=== PATIENT | female | born 1995 | race Hispanic/Latino ===

== ENCOUNTER 2019-11-04 04:52 | Observation (INO) | payer OTHER, SELFPAY ==
[2019-11-04] VITALS (19 sets, daily range): BP systolic 82–122; BP diastolic 34–73; PULSE 70–133; RESP 12–24; TEMP 36.8–37.9; O2SAT 94–100; BMI 33.3
--- NOTE | ~2019-11-04 | XR_ITS ---
EXAMINATION: XR retrograde pyelo w/stent LT INDICATION: Left ureteral stone TECHNIQUE: 37 intraoperative fluoroscopic images are submitted for review. Total fluoroscopic time wa s 29.4 seconds. COMPARISON: CT from today FINDINGS: Retrograde opacification of the left collecting system reveals mild hydronephrosis. IMPRESSION: Mild left hydronephrosis.. Please refer to procedure note for full details. Reviewed, dictated and finalized at location A. DRIVER
--- NOTE | ~2019-11-04 | CT_ITS ---
EXAMINATION: CT abdomen pelvis w con DATE: 11/04/2019 07:28 INDICATION: Left flank and abdominal pain, nausea and fever TECHNIQUE: Computed tomography (CT) of the abdomen and pelvis was performed with 100 mL Omnipaque-350 intravenous contrast. Automated exposure control and iterative reconstruction technique were employe d. The dose-length product was 385.46 mGy-cm. COMPARISON: None FINDINGS: Lung bases are clear. Heart size is normal. No pericardial or pleural effusion. Liver, gallbladder, s pleen, pancreas, bilateral adrenal glands and right kidney are normal. 15 x 5 x 6 mm obstructing prox imal left ureteral stone with mild to moderate left hydronephrosis and delayed left nephrogram. There is prominent urothelial enhancement along the left renal pelvis and proximal ureter with mild perine phric and periureteral stranding. Normal appendix. No abnormal bowel wall thickening or obstruction. Bladder, anteverted uterus and right adnexa are normal. 2.2 x 1.4 cm peripheral enhancing likely fidel us luteum cyst at the left ovary. Small amount of ascites in the pelvis. No pathologically enlarged a bdominal or pelvic lymphadenopathy. Bones are unremarkable. IMPRESSION: 1. Obstructing 15 x 5 x 6 mm proximal left ureteral stone with mild to moderate left hydronephrosis a nd delayed left nephrogram. The presence of urothelial hyperemia and perirenal stranding with clinica l history of fever raises concern for ascending urinary tract infection and would correlate with urin alysis. Reviewed, dictated and finalized at location A. MAKER PRODUCTION IMPRESSION: 1. Obstructing 15 x 5 x 6 mm proximal left ureteral stone with mild to moderate left hydronephrosis and delayed left nephrogram. The presence of urothelial hy peremia and perirenal stranding with clinical history of fever raises concern f or ascending urinary tract infection and would correlate with urinalysis.
--- NOTE | ~2019-11-04 | XR_ITS ---
EXAMINATION: XR abdomen/kub 1V EXAM DATE: 11/05/2019 13:04 INDICATION: Reassessed on position. Left ureteral stent. TECHNIQUE: Frontal projection(s) of the abdomen for interpretation. Comparison is made to prior exami nation from 07/28/2019. Correlation was made with CT abdomen pelvis from 11/04/2019. FINDINGS: There is been interval placement of a left-sided double-J ureteral stent overlying expecte d position. Previously seen proximal ureteral stone measuring over 1 cm identified along the mid aspe ct of the stent, position appears not significantly changed compared to location on yesterday's CT. N onobstructive bowel gas pattern. There are no osseous abnormalities identified. IMPRESSION: Large left mid ureteral stone, stent in position. Reviewed, dictated and finalized at location B. ICAL TRIAL COORDINATOR
[2019-11-04 06:05] LABS: Add Urine Microscopic? YES; Appearance Urine Cloudy (Clear); Bilirubin Urine Negative (Negative); Blood Urine 1+ (Negative); Color Urine Yellow (Yellow); Glucose Urine UA Negative (Negative); Ketones Urine Trace mg/dL (Negative); Leukocyte Esterase Ur 3+ LEU/UL (Negative); Mucus Urine Few /lpf; Nitrate Urine Negative (Negative); Protein Urine 1+ mg/dL (Negative); RBC Urine 21-50 /hpf (0-2); Specific Grav Ur 1.021 (1.001-1.035); Squamous Epithelial Cell Urine Few /hpf (Few); Urobilinogen Urine Negative mg/dL (<2.0); WBC Clumps Urine Present /HPF; WBC Urine >75 /hpf
--- NOTE | 2019-11-04 06:16 | ED.ABDPAIN ---
HPI - Abdominal Pain General Chief Complaint: Urogenital-Female Stated Complaint: flank pain Time Seen by Provider: 11/04/19 06:09 Source: old records reviewed History of Present Illness HPI narrative: Patient presents emergency department from home for left flank pain. Patient states symptoms began yesterday. Pain is located left flank radiation and also the abdomen. States associated with nausea and vomiting. Patient states she tried taking Tylenol with last dose yesterday. States she has a history of kidney stones and feels like previous gets kidney stones and is followed by Dr. Malone. Patient denies any fevers or chills, chest pain, diarrhea or any other symptoms. Related Data Home Medications Medication Instructions Recorded Confirmed Herbal Sleep Aid 1 cap PO HS 09/21/19 09/29/19 clonazepam 1 mg PO DAILY PRN 09/21/19 09/29/19 ergocalciferol (vitamin D2) 50,000 unit PO WEEKLY 09/21/19 09/29/19 [Vitamin D2] Allergies Allergy/AdvReac Type Severity Reaction Status Date / Time No Known Allergies Allergy Verified 09/29/19 07:39 Review of Systems Review of Systems: Narrative: Gen.: Denies fevers or chills ENT: Denies congestion Respiratory: Denies shortness of breath or cough CV: Denies chest pain or palpitations GI: Reports abdominal pain nausea and emesis denies diarrhea see HPI Musculoskeletal: Denies back pain or muscle pain Neuro: Denies numbness, tingling, weakness or focal weakness Skin: Denies rash Except as documented, all other systems reviewed and negative PMFSH Past Medical History Medical History Anxiety Asthma Asthma Depression Depression HPV (human papilloma virus) anogenital infection HPV (human papilloma virus) infection HSV (herpes simplex virus) anogenital infection Kidney stone Kidney stone UTI (urinary tract infection) Surgical History Surgical History (System 08/14/19 @ 16:33 by No Zamudio) S/P cystoscopy with ureteral stent placement Social History Social History Social History: She works at a [employer]. She denies any tobacco, drug or alcohol use currently. She has 2 children ages 5 and 7 who are healthy. Smoking status: Never smoker Tobacco type: cigarettes Second hand tobacco smoke exposure: No Smoking end date: 07/30/19 Alcohol intake: never Substance use: never Substance use type: does not use Gender identity (if verbalized by the patient): Female Spiritual care concerns: No Agree to blood products: Yes Exam Narrative: Exam Narrative: APPEARANCE: No acute distress, nontoxic, resting in bed EYES: EOMI HEENT: Normocephalic, atraumatic, OMM RESPIRATORY: No respiratory distress Clear to auscultation bilaterally with no rhonchi wheezing or rales. CARDIOVASCULAR: Regular rate and rhythm without murmurs rubs or gallops. ABDOMINAL: Soft, nondistended, tender palpation left upper quadrant left lower quadrant, no tenderness right upper quadrant right lower quadrant, no rebound or guarding, left flank tenderness MUSCULOSKELETAl: Moves all extremities. No clubbing, cyanosis or edema. NEURO: Awake and alert. Following commands, speech normal, no focal deficits SKIN:: Warm, dry. No rashes lesions or abrasions PSYCHIATRIC: Normal affect/mood, Course Course Emergency Course: Called discussed Dr. Ko. Will come and evaluate patient in the ED Dr. Fermin in ED. Plan take patient to the OR at this time : Discussed Dr Tong presentation work-up. Accepts admission of the patient following our Discussed with patient and family results of workup and diagnosis. Discussed need for admission. Patient and family understand and agree to current treatment plan Vital Signs Vital signs: Vital Signs Temperature 98.7 F 11/04/19 04:57 Pulse Rate 133 H 11/04/19 04:57 Respiratory Rate 20 11/04/19 04:57 Blood Pres
[2019-11-04] MEDS: ONDANSETRON INJ 4 MG/2 ML VIAL IV PUSH (06:38)
[2019-11-04 06:51] LABS: Hematocrit 36.5 % (37.0-47.0); Mean Corpuscular HGB Conc 32.9 g/dl (32-36); Mean Corpuscular Hemoglobin 28.6 pg (26-34); Mean Corpuscular Volume 87.1 fl (80-100); Mean Platelet Volume 12.2 fl (7.4-10.4); Platelet Count Result 191 k/mm3 (150-375); Red Blood Count 4.19 M/mm3 (4.2-5.4); Red Cell Distribution Width 12.4 % (11.5-14.5); White Blood Count 19.1 K/mm3 (4.5-10.0)
[2019-11-04 07:02] LABS: Band Neutrophils Percent 1 % (0-6); Lactic Acid Reflex 1.1 mmol/L (0.7-2.1); Lymphocytes Absolute Manual 0.76 K/mm3 (1.1-4.5); Monocytes Absolute Manual 0.57 K/mm3 (0.1-0.90); Monocytes Percent Manual 3 % (3-9); Neutrophils Absolute Manual 17.76 K/mm3 (1.7-7.2); Neutrophils Percent Manual 92 % (46-73); Total Cells Counted 100
[2019-11-04 07:03] LABS: Platelet Estimate Adequate (Adequate)
[2019-11-04 07:09] LABS: Alanine Aminotransferase 15 U/L (4-35); Albumin Level 3.9 g/dL (3.5-5.1); Alkaline Phosphatase 81 U/L (38-126); Aspartate Amino Transferase 20 U/L (14-36); Bilirubin,Total 0.5 mg/dL (0.2-1.3); Blood Urea Nitrogen 14 mg/dL (7-17); Calcium 8.5 mg/dL (8.4-10.2); Carbon Dioxide 26 mmol/L (22-30); Chloride 99 mmol/L (98-107); Estimated Glomerular Filt Rate > 60; Glucose 111 mg/dL (65-105); Potassium 3.9 mmol/L (3.4-5.0); Sodium 136 mmol/L (137-145)
[2019-11-04] MEDS: LACTATED RINGERS 1,000 ML 999 ML IV CONT ×2 (07:14→08:23)
--- NOTE | 2019-11-04 09:02 | WPDURCON ---
Assessment and Plan Assessment and plan (1) Sepsis: Code(s): A41.9 - Sepsis, unspecified organism Status: Acute (2) Left ureteral calculus: Code(s): N20.1 - Calculus of ureter Status: Acute Assessment and Plan: 24 yo with 15mm left mid-ureteral stone, UTI, sepsis - IV antbiotics - admit to medical service - plan emergent left ureteral stent insertion. risks, benefits and alterntives discussed with patient and agrees to proceed. Urology Consult Note HPI Date Seen: 11/04/19 Primary Care Provider: Janette Armstrong, Consult Narrative Narrative: Carlota Vazquez is a 24 year old female with one day of left sided flank pain, fever, chills. history of ureteroscopy and stone extraction 07/2019, had post procedure sepsis. 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 She denies any tobacco, drug or alcohol use currently. She has 2 children ages 5 and 7 who are healthy. Smoking status: Never smoker Tobacco type: cigarettes Second hand tobacco smoke exposure: No Smoking end date: 07/30/19 Alcohol intake: never Substance use: never Substance use type: does not use Gender identity (if verbalized by the patient): Female Spiritual care concerns: No Agree to blood products: Yes Meds Home Medications and Allergies Home Medications Medication Instructions Recorded Confirmed Type Herbal Sleep Aid 1 cap PO HS 09/21/19 09/29/19 History clonazepam 1 mg PO DAILY PRN 09/21/19 09/29/19 History ergocalciferol (vitamin D2) 50,000 unit PO WEEKLY 09/21/19 09/29/19 History [Vitamin D2] Allergies Allergy/AdvReac Type Severity Reaction Status Date / Time No Known Allergies Allergy Verified 09/29/19 07:39 Vital Signs Vital Signs - 24 hr 11/04/19 04:57 11/04/19 05:45 11/04/19 08:41 Temperature 37.1 C 37.2 C 37.0 C Pulse Rate 133 H 87 Respiratory Rate 20 15 16 Blood Pressure 122/71 108/63 Pulse Oximetry 99 100 Exam Const: General: uncomfortable Eyes: General: appearance normal, both eyes and all related structures Resp: Effort & Inspection: normal respiratory effort Cardio: Rate: tachycardic Skin: General skin exam: normal color Results Labs CBC & Chem 7: 11/04/19 06:35 11/04/19 06:35 Labs: Short CBC 11/04/19 Range/Units 06:35 WBC 19.1 H (4.5-10.0) K/mm3 Hgb 12.0 (12.0-15.0) g/dL Hct 36.5 L (37.0-47.0) % Plt Count 191 (150-375) k/mm3 BMP 11/04/19 06:35 Sodium 136 L Potassium 3.9 Chloride 99 Carbon Dioxide 26 BUN 14 D Creatinine 1.00 Glucose 111 H Calcium 8.5 Liver Function 11/04/19 Range/Units 06:35 Total Bilirubin 0.5 (0.2-1.3) mg/dL AST 20 (14-36) U/L ALT 15 (4-35) U/L Alkaline Phosphatase 81 (38-126) U/L Albumin 3.9 (3.5-5.1) g/dL Urine 11/04/19 Range/Units 05:52 Urine Color Yellow (Yellow) Urine Appearance Cloudy H (Clear) Urine pH 6.0 (5.0-9.0) Ur Specific [place] 1.021 (1.001-1.035) Urine Protein 1+ H (Negative) mg/dL Urine Glucose (UA) Negative (Negative) mg/dL
[2019-11-04] MEDS: MORPHINE SULFATE 2 MG/ML INJ IV PUSH ×2 (09:38→20:19)
--- NOTE | 2019-11-04 10:04 | WPDANESEPPF ---
Anes - Initial Pre Proc Eval Procedure: Operation Date: 11/04/19 12:00 Proposed Procedures p Cystoscopy,Left Stent Placement - Ramon Ko MD Date/Time: 11/04/19 10:04 Surgeon: Ramon Ko MD Pre Op Diagnosis: flank pain Patient Data Age: 24 Gender: F Height: 4 ft 9 in Weight: 65.7 kg Last Vital Signs Temp 37.0 C 11/04/19 08:41 Pulse 87 11/04/19 08:41 Resp 16 11/04/19 08:41 BP 108/63 11/04/19 08:41 Pulse Ox 100 11/04/19 08:41 Allergies Allergy/AdvReac Type Severity Reaction Status Date / Time No Known Allergies Allergy Verified 09/29/19 07:39 Home Medications Medication Instructions Recorded Confirmed Type Herbal Sleep Aid 1 cap PO HS 09/21/19 09/29/19 History clonazepam 1 mg PO DAILY PRN 09/21/19 09/29/19 History ergocalciferol (vitamin D2) 50,000 unit PO WEEKLY 09/21/19 09/29/19 History [Vitamin D2] Laboratory Tests 11/04/19 11/04/19 11/04/19 05:52 06:35 06:35 WBC 19.1 K/mm3 H K/mm3 (4.5-10.0) RBC 4.19 M/mm3 L M/mm3 (4.2-5.4) Hgb 12.0 g/dL g/dL (12.0-15.0) Hct 36.5 % L % (37.0-47.0) MCV 87.1 fl fl (80-100) MCH 28.6 pg pg (26-34) MCHC 32.9 g/dl g/dl (32-36) RDW 12.4 % % (11.5-14.5) Plt Count 191 k/mm3 k/mm3 (150-375) MPV 12.2 fl H fl (7.4-10.4) Immature Gran % (Auto) Not Reportable Neut % (Auto) Not Reportable Lymph % (Auto) Not Reportable Yell % (Auto) Not Reportable Eos % (Auto) Not Reportable Baso % (Auto) Not Reportable Lymph # (Auto) Not Reportable Yell # (Auto) Not Reportable Eos # (Auto) Not Reportable Baso # (Auto) Not Reportable Abs Immat Gran (auto) Not Reportable Absolute Neuts (auto) Not Reportable Absolute Nucleated RBC Not Reportable Total Counted 100 Neutrophils % (Manual) 92 % H % (46-73) Band Neutrophils % 1 % % (0-6) Lymphocytes % (Manual) 4.0 % L % (18-44) Monocytes % (Manual) 3 % % (3-9) Nucleated RBC % Not Reportable Abs Neuts (Manual) 17.76 K/mm3 H K/mm3 (1.7-7.2) Abs Lymphs (Manual) 0.76 K/mm3 L K/mm3 (1.1-4.5) Abs Monocytes (Manual) 0.57 K/mm3 K/mm3 (0.1-0.90) Platelet Estimate Adequate (Adequate) Sodium 136 mmol/L L mmol/L (137-145) Potassium 3.9 mmol/L mmol/L (3.4-5.0) Chloride 99 mmol/L mmol/L (98-107) Carbon Dioxide 26 mmol/L mmol/L (22-30) BUN 14 mg/dL D mg/dL (7-17) Creatinine 1.00 mg/dL mg/dL (0.7-1.0) Estim Creat Clear Calc Not Reportable Estimated GFR > 60 (59 - ) Glucose 111 mg/dL H mg/dL (65-105) Lactic Acid Calcium 8.5 mg/dL mg/dL (8.4-10.2) Total Bilirubin 0.5 mg/dL mg/dL (0.2-1.3) AST 20 U/L U/L (14-36) ALT 15 U/L U/L (4-35) Alkaline Phosphatase 81 U/L U/L (38-126) Total Protein 8.0 g/dL g/dL (6.3-8.2) Albumin 3.9 g/dL g/dL (3.5-5.1) Urine Color Yellow (Yellow) Urine Appearance Cloudy H (Clear) Urine pH 6.0 (5.0-9.0) Ur Specific [place] 1.021 (1.001-1.035) Urine Protein 1+ mg/dL H mg/dL (Negative) Urine Glucose (UA) Negative mg/dL mg/dL (Negative) Urine Ketones Trace mg/dL mg/dL (Negative) Ur Blood (Man) 1+ H (Negative) Urine Nitrate Negative (Negative) Urine Bilirubin Negative (Negative) Urine Urobilinogen Negative mg/dL mg/dL (<2.0) Leukocyte Esterase Rfl 3+ SYDNEY/UL H SYDNEY/UL (Negative) Urine RBC 21-50 /hpf H /hpf (0-2) Urine WBC >75 /hpf H /hpf Urine WBC Clum
[2019-11-04] MEDS: LACTATED RINGERS 1,000 ML 30 ML IV CONT ×2 (10:10→12:52)
--- NOTE | 2019-11-04 12:45 | PM.PROC ---
Procedure Note - Detailed Date of procedure: 11/04/19 Pre-op diagnosis: flank pain Post-op diagnosis: same Procedure performed: cyst Description of procedure: cystoscopy, left ureteral stent insertion, RPG Anesthesia: GLMA Surgeon: Ramon Ko MD Estimated blood loss (mL): 0 Complications: No immediate complications Condition: stable Disposition: PACU Findings: Informed consent obtained. Pt given pre-op antibiotics in the ER. Pt induced with anesthesia, placed in dorsal lithotomy, prepped and drapped in normal sterile fashion. 22F cystoscope inserted in the bladder. Normal mucosa with bilateral orthotopic ureteral orfices. The left orfice was cannulated with a wire, 5F catheter inserted and urine sent for culture. RPG showing moderate left hydroneohrosis. 6F stent placed with a curl in upper pole and curl in bladder. Bladder drained with 16F pollack.
--- NOTE | 2019-11-04 12:59 | SUR.OPER ---
1000mg IV Tylenol given intraoperatively at 1230 by Tamiko Leija CRNA via IV. Medication was unable to be entered into the system.
--- NOTE | 2019-11-04 14:38 | SUR.PHASEI ---
1415: Katherine, nurse equipment manager, spoke with Dr. Tong in regards to consult. When a room becomes available for patient she will be transported there and Dr. Tong will see her up there.
--- NOTE | 2019-11-04 14:55 | SUR.PHASEI ---
1455: Patient stated, I will contact my mom with my room number.
--- NOTE | 2019-11-04 15:25 | PC.NURSE ---
This patient, Carlota Vazquez, was admitted to 3 [facility] Surg Room 316-02. Patient/family oriented to hospital policies and general routines including ID bracelet, bed and alarms, visiting hours, pain management, procedures, bathroom and other care routines, personal items, smoking policy, room service/diet, and visiting hours. Valuables list has been completed. Information on how to activate the Rapid Response Team has been discussed. Patient/Family are encouraged to report perceived risks to care and to ask questions if they do not understand what they are told or what they should do.
[2019-11-04] MEDS: DEXTROSE 5%/0.45% SOD CHL 1,000 ML 100 ML IV CONT (15:53)
[2019-11-04 16:20] LABS: Hematocrit 34.4 % (37.0-47.0); Hemoglobin 11.2 g/dL (12.0-15.0); Mean Corpuscular HGB Conc 32.6 g/dl (32-36); Mean Corpuscular Hemoglobin 28.6 pg (26-34); Mean Platelet Volume 12.4 fl (7.4-10.4); Platelet Count Result 164 k/mm3 (150-375); Red Blood Count 3.91 M/mm3 (4.2-5.4); Red Cell Distribution Width 12.7 % (11.5-14.5); White Blood Count 22.6 K/mm3 (4.5-10.0)
[2019-11-04 16:42] LABS: Blood Urea Nitrogen 8 mg/dL (7-17); Calcium 8.5 mg/dL (8.4-10.2); Carbon Dioxide 27 mmol/L (22-30); Chloride 103 mmol/L (98-107); Estimated Glomerular Filt Rate > 60; Glucose 107 mg/dL (65-105); Potassium 3.9 mmol/L (3.4-5.0); Sodium 137 mmol/L (137-145)
[2019-11-04] MEDS: DOCUSATE SODIUM 100 MG CAPSULE PO (17:35)
--- NOTE | 2019-11-04 22:30 | PM.IMHP ---
H&P: HPI History of Present Illness Chief complaint: Left flank pain. 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 She developed sharp shooting pains in the left flank yesterday, which radiates somewhat into the left mid and lower quadrant. She also had nausea and vomiting with the pain, and also reports chills. She was found to have obstructing 15 x 5 x 6 millimeter proximal left ureteral stone with mild to moderate left hydronephrosis. She is now status post cystoscopy with left ureteral stent insertion per Dr. Fermin. At the time my evaluation, she complains of being cold and thinks that her temperature is returning. A Guzman catheter is in place, and just recently she has been having discomfort and feeling the need to urinate. Her pain is also been increasing, and she is wondering if the stone is mobilizing. She was able to eat dinner postoperatively, and has had some mild nausea but no vomiting. Review of Systems Review of Systems: All systems reviewed & are unremarkable except as noted in HPI and below PMFSH Past Medical History Medical History (Updated 11/04/19 @ 21:57 by Rufina Kwon PA-C) Anxiety Asthma Chronic anemia Depression HPV (human papilloma virus) anogenital infection Kidney stone UTI (urinary tract infection) History of multidrug resistant Proteus mirabilis UTI. Surgical History Surgical History S/P cystoscopy with ureteral stent placement Family History Family History Mother Depression Anxiety Kidney stones Father Family history unknown Sibling Family history normal Grandparent Diabetes mellitus Other Family history of malignant neoplasm of cervix Social History Social History Social History: the patient lives in [place]. 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 she has 2 children, ages 5 and 7, who are healthy. She denies any tobacco, drug or alcohol use currently. Designates her mother, Renay, as her surrogate decision maker and she wishes to be a full code. Spiritual care concerns: No Agree to blood products: Yes Meds Home Medications and Allergies Home Medications Medication Instructions Recorded Confirmed Type clonazepam 1 mg PO DAILY PRN 09/21/19 11/04/19 History ergocalciferol (vitamin D2) 50,000 unit PO WEEKLY 09/21/19 11/04/19 History [Vitamin D2] Allergies Allergy/AdvReac Type Severity Reaction Status Date / Time No Known Allergies Allergy Verified 11/04/19 10:15 Vital Signs Vital Signs - 24 hr 11/04/19 04:57 11/04/19 05:45 11/04/19 08:41 Temperature 98.7 F 99.0 F 98.6 F Pulse Rate 133 H 87 Respiratory Rate 20 15 16 Blood Pressure 122/71 108/63 Pulse Oximetry 99 100 11/04/19 09:43 11/04/19 10:30 11/04/19 13:01 Temperature 98.9 F 100.2 F H Pulse Rate 91 100 105 H Respiratory Rate 18 18 12 Blood Pressure 104/54 L 107/66 82/34 L Pulse Oximetry 99 99 100 11/04/19 13:15 11/04/19 13:30 11/04/19 13:45 Temperature 99.0 F Pulse Rate 114 H 111 H 101 H Respiratory Rate 20 16 18 Blood Pressure 103/68 113/66 109/64 Pulse Oximetry 99 100 95 11/04/19 14:00 11/04/19 14:15 11/04/19 14:30 Temperature Pulse Rate 103 H 95 92 Respiratory Rate 22 H 20 17 Blood Pressure 112/65 104/68 113/60 Pulse Oximetry 98 97 98 11/04/19 14:45 11/04/19 15:10 11/04/19 15:25 Temperature Pulse Rate 91 94 76 Respiratory Rate 24 H 18 16 Blood Pressure 106/73 105/64 111/60 Pulse Oximetry 97 94 98 11/04/19 15:40 11/04/19 16:10 11/04/19 17:10 Temperature 98.5 F Pulse Rate 78 71 70 Respiratory Rate 16 16 16 Blood Pressure 109/71 110
[2019-11-05] VITALS (11 sets, daily range): BP systolic 92–133; BP diastolic 49–62; PULSE 78–118; RESP 16–20; TEMP 36.4–38.9; O2SAT 97–100
[2019-11-05] MEDS: MORPHINE SULFATE 2 MG/ML INJ IV PUSH ×4 (01:12→19:16)
[2019-11-05] MEDS: ACETAMINOPHEN 325 MG TABLET 650 MG PO ×2 (01:29→17:19)
[2019-11-05] MEDS: CLONAZEPAM 0.5 MG TAB 1 MG PO (01:53)
[2019-11-05] MEDS: SODIUM CHLORIDE 0.9% IV 1,000 ML 100 ML IV CONT ×3 (02:56→23:36)
[2019-11-05 06:44] LABS: Basophils Percent Auto 0.2 % (0.2-1.2); Hematocrit 32.9 % (37.0-47.0); Hemoglobin 10.6 g/dL (12.0-15.0); Immature Granulocyte Absolute 0.17 K/mm3 (0.00-0.031); Immature Granulocyte Percent A 0.8 % (0-0.5); Lymphocytes Absolute Auto 0.89 K/mm3 (0.9-3.2); Lymphocytes Percent Auto 4.4 % (18.3-44.2); Mean Corpuscular HGB Conc 32.2 g/dl (32-36); Mean Corpuscular Hemoglobin 28.7 pg (26-34); Mean Corpuscular Volume 89.2 fl (80-100); Mean Platelet Volume 12.7 fl (7.4-10.4); Monocytes Absolute Auto 1.1 K/mm3 (0.1-0.6); Monocytes Percent Auto 5.4 % (2.6-8.5); Neutrophils Absolute Auto 18.2 K/mm3 (1.3-6.7); Neutrophils Percent Auto 89.2 % (45.5-73.1); Platelet Count Result 176 k/mm3 (150-375); Red Blood Count 3.69 M/mm3 (4.2-5.4); Red Cell Distribution Width 12.6 % (11.5-14.5); White Blood Count 20.4 K/mm3 (4.5-10.0)
[2019-11-05 07:03] LABS: Blood Urea Nitrogen 9 mg/dL (7-17); Calcium 8.3 mg/dL (8.4-10.2); Carbon Dioxide 24 mmol/L (22-30); Chloride 102 mmol/L (98-107); Estimated Glomerular Filt Rate > 60; Glucose 160 mg/dL (65-105); Potassium 3.5 mmol/L (3.4-5.0); Sodium 137 mmol/L (137-145)
[2019-11-05] MEDS: DOCUSATE SODIUM 100 MG CAPSULE PO ×2 (08:38→19:15)
[2019-11-05] MEDS: ONDANSETRON INJ 4 MG/2 ML VIAL IV PUSH (09:29)
--- NOTE | 2019-11-05 12:49 | WPDUROPN2 ---
Progress Note: A&P Assessment and Plan (1) Sepsis: Code(s): A41.9 - Sepsis, unspecified organism Status: Acute (2) UTI (urinary tract infection): Code(s): N39.0 - Urinary tract infection, site not specified Status: Acute (3) Left ureteral calculus: Code(s): N20.1 - Calculus of ureter Status: Acute Assessment and Plan: POD #1 - left ureteral stent - continue empric Ceftriaxone, await final cultures - KUB today - will need outpatient stone surgery once infection has cleared Subjective Subjective Date/Time Seen: 11/05/19 12:49 Interval history: feeling better Review of Systems Review of Systems: All systems reviewed & are unremarkable except as noted in HPI and below Exam Const: General: no acute distress Resp: Effort & Inspection: normal respiratory effort Urinary Catheter: Urinary Catheter: patent and draining Neuro: Speech: normal speech Extrem: General: normal to inspection Objective Data Vital Signs Vital Signs: Vital Signs - 24 hr 11/04/19 13:01 11/04/19 13:15 11/04/19 13:30 Temperature 37.9 C H Pulse Rate 105 H 114 H 111 H Respiratory Rate 12 20 16 Blood Pressure 82/34 L 103/68 113/66 Pulse Oximetry 100 99 100 11/04/19 13:45 11/04/19 14:00 11/04/19 14:15 Temperature 37.2 C Pulse Rate 101 H 103 H 95 Respiratory Rate 18 22 H 20 Blood Pressure 109/64 112/65 104/68 Pulse Oximetry 95 98 97 11/04/19 14:30 11/04/19 14:45 11/04/19 15:10 Temperature Pulse Rate 92 91 94 Respiratory Rate 17 24 H 18 Blood Pressure 113/60 106/73 105/64 Pulse Oximetry 98 97 94 11/04/19 15:25 11/04/19 15:40 11/04/19 16:10 Temperature 36.9 C Pulse Rate 76 78 71 Respiratory Rate 16 16 16 Blood Pressure 111/60 109/71 110/66 Pulse Oximetry 98 98 99 11/04/19 17:10 11/04/19 22:00 11/05/19 01:29 Temperature 36.8 C 38.5 C H Pulse Rate 70 83 Respiratory Rate 16 16 Blood Pressure 112/61 91/40 L Pulse Oximetry 100 98 11/05/19 02:21 11/05/19 02:49 11/05/19 06:00 Temperature 36.6 C 37.4 C 36.7 C Pulse Rate 108 H 94 Respiratory Rate 18 16 Blood Pressure 133/61 92/49 L Pulse Oximetry 100 97 11/05/19 10:00 Temperature 36.4 C L Pulse Rate 79 Respiratory Rate 16 Blood Pressure 103/58 L Pulse Oximetry 99 Intake/Output Intake/Output: Intake & Output 11/02/19 11/03/19 11/04/19 11/05/19 23:59 23:59 23:59 23:59 Intake Total 4650 1090 Output Total 1900 1200 Balance 2750 -110 Meds/Results Medications: Active Medications Generic Name Dose Route Start Last Admin Trade Name Freq PRN Reason Stop Dose Admin Acetaminophen 650 mg 11/05/19 01:23 11/05/19 01:29 Tylenol Tablet PO 650 mg Q6H PRN Administration Mild Pain (1-3) or Fever Hydrocodone Bitart/Acetaminophen 1 tab 11/04/19 15:17 11/05/19 02:56 [place] 5-325 Mg PO 1 tab Q4H PRN Administration Pain Rated 1-6 Clonazepam 1 mg 11/04/19 15:17 11/05/19 01:53 Klonopin Tablet PO 1 mg DAILY PRN Administration Anxiety Docusate Sodium 100 mg 11/04/19 17:00 11/05/19 08:38 Colace Capsule PO 100 mg BID MATILDA Administration Ceftriaxone Sodium/Dextrose 1 gm in 50 mls @ 100 mls/hr 11/05/19 09:00 11/05/19 09:09 Rocephin 1 Gm/D5w 50 Ml IVPB Infused DAILY MATILDA Infusion Sodium Chloride 1,000 mls @ 100 mls/hr 11/05/19 02:20 11/05/19 02:56 Normal Saline Iv IV CONT 100 mls/hr .Q10H MATILDA Administration Morphine Sulfate 2 mg 11/04/19 15:17 11/05/19 12:18 Morphine Sulfate Inj IV PUSH 2 mg Q2H PRN Administration Pain Rated 7-10 Naloxone HCl 0.1 mg 11/04/19 15:17 Narcan IV PUSH Q2M PRN Opiate Reversal Ondansetron HCl 4 mg 11/04/19 15:17 11/05/19 09:29 Zofran Inj IV PUSH 4 mg Q12H PRN Administration Nausea And Vomiting Radiology Results: ITS Impressions Abdomen/Pelvis CT 11/04/19 07:58 IMPRESSION: 1. Obstructing 15 x 5 x 6 mm proximal left ureteral stone wit
--- NOTE | 2019-11-05 14:51 | P.PNAN_ITS ---
Anes - Prog Note Post-Op Date/Time: 11/05/19 14:51 Cardiovascular status: normal Respiratory status: normal Airway patency: baseline Mental status: baseline Post-Op hydration status: normal Vital Signs: Last Vital Signs Temp 97.5 F L 11/05/19 10:00 Pulse 79 11/05/19 10:00 Resp 16 11/05/19 10:00 BP 103/58 L 11/05/19 10:00 Pulse Ox 99 11/05/19 10:00 I/O: Intake & Output 11/04/19 11/05/19 11/05/19 23:59 07:59 15:59 Intake Total 845 481 6759 Output Total 1200 1200 Balance -700 -480 1370 Laboratory Tests 11/05/19 06:19 11/05/19 06:19 11/04/19 11/04/19 11/05/19 16:06 16:06 06:19 WBC 22.6 H 20.4 H RBC 3.91 L 3.69 L Hgb 11.2 L 10.6 L Hct 34.4 L 32.9 L MCV 88.0 89.2 MCH 28.6 28.7 MCHC 32.6 32.2 RDW 12.7 12.6 Plt Count 164 176 MPV 12.4 H 12.7 H Immature Gran % (Auto) 0.8 H Neut % (Auto) 89.2 H Lymph % (Auto) 4.4 L Isabela % (Auto) 5.4 Eos % (Auto) 0.0 Baso % (Auto) 0.2 Lymph # (Auto) 0.89 L Isabela # (Auto) 1.1 H Eos # (Auto) 0.0 Baso # (Auto) 0.0 Abs Immat Gran (auto) 0.17 H Absolute Neuts (auto) 18.2 H Absolute Nucleated RBC 0.0 Nucleated RBC % 0.0 Sodium 137 Potassium 3.9 Chloride 103 Carbon Dioxide 27 BUN 8 D Creatinine 0.60 L Estim Creat Clear Calc Not Reportable Estimated GFR > 60 Glucose 107 H Calcium 8.5 11/05/19 06:19 WBC RBC Hgb Hct MCV MCH MCHC RDW Plt Count MPV Immature Gran % (Auto) Neut % (Auto) Lymph % (Auto) Isabela % (Auto) Eos % (Auto) Baso % (Auto) Lymph # (Auto) Isabela # (Auto) Eos # (Auto) Baso # (Auto) Abs Immat Gran (auto) Absolute Neuts (auto) Absolute Nucleated RBC Nucleated RBC % Sodium 137 Potassium 3.5 Chloride 102 Carbon Dioxide 24 BUN 9 Creatinine 0.70 Estim Creat Clear Calc Not Reportable Estimated GFR > 60 Glucose 160 H Calcium 8.3 L Microbiology 11/04/19 06:35 Blood Blood Culture - Preliminary 11/04/19 06:46 Blood Blood Culture - Preliminary 11/04/19 05:52 Urine Clean Catch Urine Culture - Final Post-procedural complaints: none Patient Feedback: Patient satisfied with anesthetic care.
--- NOTE | 2019-11-05 15:46 | PM.IMPN ---
Progress Note: A&P Assessment and Plan (1) Sepsis: Code(s): A41.9 - Sepsis, unspecified organism Status: Acute Assessment and Plan: Sepsis on admission. Lactic acid level is normal, blood cultures are pending Continue iv hydration and IV rocephin (2) Left ureteral calculus: Code(s): N20.1 - Calculus of ureter Status: Acute Assessment and Plan: CT scan demonstrated a large obstructing proximal left ureteral stone measuring 15 x 5 x 6 millimeters with mild hydronephrosis. 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 On iv rocephin , blood cultures pending Pt had fever yesterday Subjective Date/time seen: 11/05/19 15:46 Interval history: 24 year old female with a history of kidney stones and multidrug resistant Proteus mirabilis urinary tract infections who presented to the emergency department earlier this morning for evaluation of left flank pain. She is now status post cystoscopy with left ureteral stent insertion per Dr. Fermin. Pt still having some mild let flank pain and had fever last night. Second episode of kidney stones. Review of Systems Review of Systems: All systems reviewed & are unremarkable except as noted in HPI and below Exam Narrative: Exam Narrative: General: A well-developed, younger female HEENT: Normocephalic Neck: Supple. Respiratory: Lungs are clear to auscultation bilaterally. Cardiovascular: Regular rate and rhythm with S1-S2. Gastrointestinal: Abdomen is soft and nondistended, some left flank TTP Genitourinary: Guzman catheter draining yellow urine. leaking now. Skin: Warm and dry Extremities: No cyanosis, clubbing, or edema. Neurological: Alert. Cranial nerves 2-12 are grossly intact. No gross focal deficits to casual conversation. Psychiatric: Pleasant Objective Data Vital Signs Vital Signs: Vital Signs - 24 hr 11/04/19 16:10 11/04/19 17:10 11/04/19 22:00 Temperature 36.8 C Pulse Rate 71 70 83 Respiratory Rate 16 16 16 Blood Pressure 110/66 112/61 91/40 L Pulse Oximetry 99 100 98 11/05/19 01:29 02/13/20 02:21 11/05/19 02:49 Temperature 38.5 C H 36.6 C 37.4 C Pulse Rate 108 H Respiratory Rate 18 Blood Pressure 133/61 Pulse Oximetry 100 11/05/19 06:00 11/05/19 10:00 Temperature 36.7 C 36.4 C L Pulse Rate 94 79 Respiratory Rate 16 16 Blood Pressure 92/49 L 103/58 L Pulse Oximetry 97 99 Intake/Output Intake/Output: Intake & Output 11/02/19 11/03/19 11/04/19 11/05/19 23:59 23:59 23:59 23:59 Intake Total 4650 2090 Output Total 1900 1200 Balance 2750 890 Meds/Results Medications: Active Medications Generic Name Dose Route Start Last Admin Trade Name Freq PRN Reason Stop Dose Admin Acetaminophen 650 mg 11/05/19 01:23 11/05/19 01:29 Tylenol Tablet PO 650 mg Q6H PRN Administration Mild Pain (1-3) or Fever Hydrocodone Bitart/Acetaminophen 1 tab 11/04/19 15:17 11/05/19 02:56 [place] 5-325 Mg PO 1 tab Q4H PRN Administration Pain Rated 1-6 Clonazepam 1 mg 11/04/19 15:17 11/05/19 01:53 Klonopin Tablet PO 1 mg DAILY PRN Administration Anxiety Docusate Sodium 100 mg 11/04/19 17:00 11/05/19 08:38 Colace Capsule PO 100 mg BID MATILDA Administration Ceftriaxone Sodium/Dextrose 1 gm in 50 mls @ 100 mls/hr 11/05/19 09:00 11/05/19 09:09 Rocephin 1 Gm/D5w 50 Ml IVPB Infused DAILY MATILDA Infusion Sodium Chloride 1,000 mls @ 100 mls/hr 11/05/19 02:20 11/05/19 14:39 Normal Saline Iv IV CONT 100 mls/hr .Q10H MATILDA Administration Morphine Sulfate 2 mg 11/04/19 15:17 11/05/19 15:32 Morphine Sulfate Inj
--- NOTE | 2019-11-05 20:45 | PC.NURSE ---
Patient up and urinated after removing pollack @[id number].
[2019-11-06] VITALS (7 sets, daily range): BP systolic 96–118; BP diastolic 43–56; PULSE 75–114; RESP 16; TEMP 36.8–38.4; O2SAT 94–97
[2019-11-06] MEDS: ACETAMINOPHEN 325 MG TABLET 650 MG PO ×3 (01:17→19:53)
[2019-11-06] MEDS: MORPHINE SULFATE 2 MG/ML INJ IV PUSH ×2 (01:18→14:09)
[2019-11-06 06:26] LABS: Hematocrit 31.4 % (37.0-47.0); Hemoglobin 9.9 g/dL (12.0-15.0); Mean Corpuscular HGB Conc 31.5 g/dl (32-36); Mean Corpuscular Hemoglobin 28.4 pg (26-34); Mean Corpuscular Volume 90.2 fl (80-100); Mean Platelet Volume 12.2 fl (7.4-10.4); Platelet Count Result 161 k/mm3 (150-375); Red Blood Count 3.48 M/mm3 (4.2-5.4); Red Cell Distribution Width 12.7 % (11.5-14.5); White Blood Count 12.8 K/mm3 (4.5-10.0)
[2019-11-06 06:38] LABS: Blood Urea Nitrogen 7 mg/dL (7-17); Calcium 7.6 mg/dL (8.4-10.2); Carbon Dioxide 25 mmol/L (22-30); Chloride 102 mmol/L (98-107); Estimated Glomerular Filt Rate > 60; Glucose 86 mg/dL (65-105); Potassium 3.4 mmol/L (3.4-5.0); Sodium 137 mmol/L (137-145)
[2019-11-06] MEDS: SODIUM CHLORIDE 0.9% IV 1,000 ML 100 ML IV CONT ×2 (08:57→19:55)
[2019-11-06] MEDS: DOCUSATE SODIUM 100 MG CAPSULE PO ×2 (10:02→17:11)
--- NOTE | 2019-11-06 10:30 | WPDUROPN2 ---
Progress Note: A&P Assessment and Plan (1) Left ureteral calculus: Code(s): N20.1 - Calculus of ureter Status: Acute (2) UTI (urinary tract infection): Code(s): N39.0 - Urinary tract infection, site not specified Status: Acute Assessment and Plan: Overall, improving with diminished serum WBC and diminishing fever spikes - typical pattern of resolution with upper urinary tract infections. Blood and urine cultures both showing no growth but I suspect this is factitious. Would continue Ceftriaxone until afebrile [id number] and then plan Omnicef x10 days. Subjective Subjective Date/Time Seen: 11/06/19 10:30 Discouraged by ongoing fever. Tolerating stent well. Review of Systems Cardiovascular: Cardiovascular: Denies chest pain, Denies lightheadedness, Denies palpitations and Denies dyspnea Respiratory: Respiratory: Denies dyspnea Gastrointestinal: Gastrointestinal: Denies diarrhea, Denies nausea and Denies vomiting Genitourinary: Genitourinary: Denies hematuria and Denies dysuria Endocrine: Endocrine: Denies palpitations Exam Const: General: no acute distress Resp: Effort & Inspection: normal respiratory effort GI: Inspection: non-distended GI Palp: No abdominal tenderness and No Guarding due to palpation present (GI) Auscultation: normal bowel sounds Objective Data Vital Signs Vital Signs: Vital Signs - 24 hr 11/05/19 17:07 11/05/19 17:19 11/05/19 18:27 Temperature 38.9 C H 38.9 C H 38.0 C H Pulse Rate 101 H 118 H Respiratory Rate 20 20 Blood Pressure 99/53 L 118/62 Pulse Oximetry 99 100 11/05/19 19:15 11/05/19 22:00 11/06/19 01:17 Temperature 37.1 C 37.6 C 37.9 C H Pulse Rate 85 Respiratory Rate 16 Blood Pressure 105/50 L Pulse Oximetry 100 11/06/19 02:00 11/06/19 02:17 11/06/19 06:00 Temperature 38.4 C H 38.4 C H 36.8 C Pulse Rate 114 H 78 Respiratory Rate 16 16 Blood Pressure 103/52 L 96/43 L Pulse Oximetry 94 96 11/06/19 08:00 Temperature Pulse Rate 78 Respiratory Rate 16 Blood Pressure Pulse Oximetry 96 Intake/Output Intake/Output: Intake & Output 11/03/19 11/04/19 11/05/19 11/06/19 23:59 23:59 23:59 23:59 Intake Total 4650 3590 1380 Output Total 1900 2024 Balance 2750 1565 1380 Meds/Results Medications: Active Medications Generic Name Dose Route Start Last Admin Trade Name Freq PRN Reason Stop Dose Admin Acetaminophen 650 mg 11/05/19 01:23 11/06/19 10:00 Tylenol Tablet PO 650 mg Q6H PRN Administration Mild Pain (1-3) or Fever Hydrocodone Bitart/Acetaminophen 1 tab 11/04/19 15:17 11/06/19 03:44 [place] 5-325 Mg PO 1 tab Q4H PRN Administration Pain Rated 1-6 Clonazepam 1 mg 11/04/19 15:17 11/05/19 01:53 Klonopin Tablet PO 1 mg DAILY PRN Administration Anxiety Docusate Sodium 100 mg 11/04/19 17:00 11/06/19 10:02 Colace Capsule PO 100 mg BID MATILDA Administration Ceftriaxone Sodium/Dextrose 1 gm in 50 mls @ 100 mls/hr 11/05/19 09:00 11/06/19 08:56 Rocephin 1 Gm/D5w 50 Ml IVPB 125 mls/hr DAILY MATILDA Administration Sodium Chloride 1,000 mls @ 100 mls/hr 11/05/19 02:20 11/06/19 08:57 Normal Saline Iv IV CONT 100 mls/hr .Q10H MATILDA Administration Morphine Sulfate 2 mg 11/04/19 15:17 11/06/19 01:18 Morphine Sulfate Inj IV PUSH 2 mg Q2H PRN Administration Pain Rated 7-10 Naloxone HCl 0.1 mg 11/04/19 15:17 Narcan IV PUSH Q2M PRN Opiate Reversal Ondansetron HCl 4 mg 11/04/19 15:17 11/05/19 09:29 Zofran Inj IV PUSH 4 mg Q12H PRN Administration Nausea And Vomiting Radiology Results: ITS Impressions Abdomen/Pelvis CT 11/04/19 07:58 IMPRESSION: 1. Obstructing 15 x 5 x 6 mm proximal left ureteral stone with mild to moderate left hydronephrosis and delayed left nephrogram. The presence of urothelial hyperemia and perirenal stranding with clinical history of fever raises concern fo
--- NOTE | 2019-11-06 11:30 | PC.NURSE ---
AT 1015 DR DOBSON IN TO SEE PT AND EXPLAINED ABOUT HER TEMP/ PAIN FRIEND IN ROOM AT TIME'
--- NOTE | 2019-11-06 11:32 | PC.NURSE ---
1030 DR GILMORE IN TO SEE PT DR VERMA AND EXPLAINED THAT HER WBC WERE HIGH AND NOW THEY HAVE COME DOWN 12.8 SHE EXPLAINED ABOUT HER ANTIBIOTIC AND WHY SHE IS ON THAT PARTICULAR ANTIBOTIC SHE TOLD HER SHE HAS PENDING CULTURES. FAMILY OR FRIEND IN ROOM. PT STATES THAT SHE HAS NOT SEEN A DR. BUT DR DOBSON WAS IN APPROX [address] ATKINS WAS IN YESTERDAY X2 AND CHECKED ON PT. SCANNED HER ABDOMEN WITH US NO BLADDER DISTENTION NOTED SCANNED 70CC OF URINE IN BLADDER.
--- NOTE | 2019-11-06 11:52 | PC.NURSE ---
1140 DR ZIEGLER IN ROOM AND REVIEWED PT'S CONDITION NEW DRESSING APPLIED TO IV SITE TO LEFT SHANTEL.
--- NOTE | 2019-11-06 11:53 | PC.NURSE ---
CALLED DR DOBSON OFFICE AND REPORTED ABDOMINAL TENDERNESS DR TRINIDAD WILL BE SEEING HER AND ORDERS RECEIGVED TO GET CT OF ABDOMEN AND PELVIS.
[2019-11-06 12:26] LABS: Add Urine Microscopic? YES; Appearance Urine Clear (Clear); Bacteria Urine Trace /hpf; Bilirubin Urine Negative (Negative); Blood Urine 1+ (Negative); Color Urine Yellow (Yellow); Glucose Urine UA Negative (Negative); Ketones Urine 1+ mg/dL (Negative); Leukocyte Esterase Ur 1+ LEU/UL (Negative); Mucus Urine Rare /lpf; Nitrate Urine Negative (Negative); Protein Urine Negative (Negative); Specific Grav Ur 1.014 (1.001-1.035); Squamous Epithelial Cell Urine Many /hpf (Few); Urobilinogen Urine Negative mg/dL (<2.0); WBC Urine 16-20 /hpf
[2019-11-06] MEDS: ONDANSETRON INJ 4 MG/2 ML VIAL IV PUSH (14:05)
--- NOTE | 2019-11-06 14:56 | PM.IMPN ---
Progress Note: A&P Assessment and Plan (1) Sepsis: Code(s): A41.9 - Sepsis, unspecified organism Status: Acute Assessment and Plan: Sepsis on admission. Lactic acid level is normal, blood cultures are pending Continue iv hydration and IV rocephin (2) Left ureteral calculus: Code(s): N20.1 - Calculus of ureter Status: Acute Assessment and Plan: CT scan demonstrated a large obstructing proximal left ureteral stone measuring 15 x 5 x 6 millimeters with mild hydronephrosis. 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 On iv rocephin , blood cultures pending Pt had fever and having ongoing fevers Although she feels unwell with fevers her UTI is resolving. Urology agrees pt is improving and there is no need for further CT scans of the abdomen at this point. Rpt UA was ordered and ID consult was made. Pt to continue on iv rocephin, tylenol for fever and oxybutynin twice a day, toradol prn for mild pain, and morphine for severe pain. Subjective Date/time seen: 11/06/19 14:56 Interval history: 24 year old female with a history of kidney stones and multidrug resistant Proteus mirabilis urinary tract infections who presented to the emergency department earlier this morning for evaluation of left flank pain. She is now status post cystoscopy with left ureteral stent insertion per Dr. Fermin. Pt still having some mild left flank pain and had fever. Second episode of kidney stones. Fever ongoing, pt feels upset complaining of left flank pain and headaches. Discussed with pt that her WCC are improving, UC is negative but her BC is still pending. Although she feels unwell with fevers her UTI is resolving. Urology agrees pt is improving and there is no need for further CT scans of the abdomen at this point. Rpt UA was ordered and ID consult was made. Pt mentions her IV line looks red, explained to her that the iv changed be changed but is not infected. Long discussion on the phone with patients sister, Subhash, discussed pts condition and results so far. Pt to continue on iv rocephin, tylenol for fever and oxybutynin twice a day, toradol prn for mild pain, and morphine for severe pain. Review of Systems Review of Systems: All systems reviewed & are unremarkable except as noted in HPI and below Gastrointestinal: Comments: Left flank pain Musculoskeletal: Comments: Mild headache Exam Narrative: Exam Narrative: General: Younger female feels hot, feverish and unwell HEENT: Normocephalic Neck: Supple. Respiratory: Lungs are clear to auscultation bilaterally. Cardiovascular: Regular rate and rhythm with S1-S2. Gastrointestinal: Abdomen is soft and nondistended, some left flank TTP Genitourinary: Guzman catheter draining yellow urine. leaking now. Skin: Warm and dry Extremities: No cyanosis, clubbing, or edema. Neurological: Alert. Cranial nerves 2-12 are grossly intact. No gross focal deficits to casual conversation. Psychiatric: Upset Objective Data Vital Signs Vital Signs: Vital Signs - 24 hr 11/05/19 17:07 11/05/19 17:19 11/05/19 18:27 Temperature 38.9 C H 38.9 C H 38.0 C H Pulse Rate 101 H 118 H Respiratory Rate 20 20 Blood Pressure 99/53 L 118/62 Pulse Oximetry 99 100 11/05/19 19:15 11/05/19 22:00 11/06/19 01:17 Temperature 37.1 C 37.6 C 37.9 C H Pulse Rate 85 Respiratory Rate 16 Blood Pressure 105/50 L Pulse Oximetry 100 11/06/19 02:00 11/06/19 02:17 11/06/19 06:00 Temperature 38.4 C H 38.4 C H 36.8 C Pulse Rate 114 H 78 Respiratory Rate 16 16 Blood Pressure 103/52 L 96/43 L Pulse Oximetry 94 96 11/06/19 08:00 Temp
[2019-11-06] MEDS: CLONAZEPAM 0.5 MG TAB 1 MG PO (16:16)
--- NOTE | 2019-11-06 17:46 | PC.NURSE ---
HAS PT FOR THE COMFORT OF HER FAMILY AND FRIENDS WOULD SHE LIKE TO HAVE A PRIVATE ROOM. PT STATES NO'''
--- NOTE | 2019-11-06 18:51 | PC.NURSE ---
DR HERNANDEZ HERE TO CHECK ON PT. TALKED WITH PT REPORTED THAT CULTURES NOT BACK YET, SHE DISCUSSED THE PAIN MEDS SHE CAN HAVE. NO FURTHER FEVER TODAY. REPORTED THAT MORPHINE MAKES HER FEEL ALITTLE WIPREMRD, SAYS SHE WILL TRY THE TORADOL NEXT TIME.
--- NOTE | 2019-11-06 18:55 | CONS_ITS ---
DATE OF CONSULTATION: 11/06/2019 REASON FOR CONSULTATION: UTI. HISTORY OF PRESENT ILLNESS: The patient is a 24-year-old female who denies previous renal stones or severe urinary tract infection. However, she reports others history of stones and also Proteus UTI. She presented to the emergency room on the with left flank pain with radiation, also nausea, vomiting, and chills. Shortly after arrival, she has taken to the operating room where she had cystoscopy with left ureteral stent insertion. Pain persists. Appetite has been diminished, but not 0 and her nausea and vomiting have improved. She has had no events here in the hospital otherwise. She has been on ceftriaxone, now day #3. No antibiotics prior to admission. ALLERGIES: NONE KNOWN. PRESENT MEDICATIONS: Ceftriaxone as above. HABITS: No tobacco or alcohol. MEDICAL HISTORY: In addition to the above, HPV, depression, anemia, asthma, and anxiety. REVIEW OF SYSTEMS: , GI, constitutional, respiratory, skin negative other than dysuria. FAMILY HISTORY: Kidney stones, cervical cancer. SOCIAL HISTORY: She is single. Works. Lives locally. No family at the bedside currently. PHYSICAL EXAMINATION: GENERAL: This is a young female who appears her actual age. No acute distress. VITAL SIGNS: Her temperature shortly after admission was 37.9 and yesterday T-max of 38.9, currently afebrile, 96/43, 78, 16, 96%. SKIN: Warm and dry. EENT: The conjunctivae are normal. Oral mucosa is also normal. NECK: Without mass, thyromegaly, or meningismus. LUNGS: Clear to auscultation. BACK: CVAT on the left as well as left flank tenderness. CARDIAC: Regular rate and rhythm. No murmur, gallop, or rub. ABDOMEN: Mildly obese, nontender. No organomegaly. No masses. Nontender elsewhere. EXTREMITIES: No clubbing, cyanosis, or edema. LABORATORY DATA: White count was 20.4 yesterday, 12.8 today, hemoglobin 9.9, platelets are 161. Her differential earlier had a mild left shift, not repeated. Chemistry panel today normal after glucose of 160 yesterday. Urinalysis today with 1+ leukocyte esterase, 11 to 20 red cells, 16 to 20 white cells. Previous urinalysis was more suggestive of infection. Urine culture from November 04, multiple organisms. Blood cultures from the same. No growth so far. Another urine specimen obtained also on the 12th, no growth. RADIOLOGICAL DATA: Abdomen and pelvic CT with a proximal left ureteral stone and left hydronephrosis. This is a 15 mm in maximum dimension. Retrograde pyelogram showed similar findings in the operating room. ASSESSMENT: 1. Complicated urinary tract infection with renal stone, postop day #2, stent. She is currently improving despite the ongoing fever. No organisms are yet identified on urine or blood cultures. Other causes of her fever are unlikely. 2. Nephrolithiasis. 3. Hyperglycemia, resolved. RECOMMENDATIONS: 1. Continue ceftriaxone. 2. Follow up on Microbiology testing. 3. She will need at least 48 hours more of IV antibiotics. Thank you very much for asking me to see her. DARLEEN PEMBERTON M.D. INTERNAL CONTROL CONSULTANT INTERNAL CONTROL CONSULTANT D I MT: Lizbeth
[2019-11-06] MEDS: KETOROLAC 10 MG TABLET PO (19:54)
[2019-11-07] MEDS: MORPHINE SULFATE 2 MG/ML INJ IV PUSH ×3 (04:27→22:53)
[2019-11-07 05:56] VITALS: BP 120/72; PULSE 91; RESP 16; TEMP 36.8; O2SAT 100
[2019-11-07 06:28] LABS: Basophils Percent Auto 0.1 % (0.2-1.2); Eosinophils Percent Auto 0.5 % (0-4.4); Immature Granulocyte Absolute 0.04 K/mm3 (0.00-0.031); Immature Granulocyte Percent A 0.5 % (0-0.5); Lymphocytes Absolute Auto 1.36 K/mm3 (0.9-3.2); Lymphocytes Percent Auto 16.8 % (18.3-44.2); Mean Corpuscular HGB Conc 32.3 g/dl (32-36); Mean Corpuscular Hemoglobin 28.1 pg (26-34); Mean Corpuscular Volume 87.1 fl (80-100); Mean Platelet Volume 11.7 fl (7.4-10.4); Monocytes Absolute Auto 0.7 K/mm3 (0.1-0.6); Neutrophils Absolute Auto 5.9 K/mm3 (1.3-6.7); Neutrophils Percent Auto 73.1 % (45.5-73.1); Platelet Count Result 217 k/mm3 (150-375); Red Blood Count 3.56 M/mm3 (4.2-5.4); Red Cell Distribution Width 12.5 % (11.5-14.5); White Blood Count 8.1 K/mm3 (4.5-10.0)
[2019-11-07 06:40] LABS: Blood Urea Nitrogen 6 mg/dL (7-17); Calcium 7.8 mg/dL (8.4-10.2); Carbon Dioxide 27 mmol/L (22-30); Chloride 104 mmol/L (98-107); Estimated Glomerular Filt Rate > 60; Glucose 83 mg/dL (65-105); Potassium 3.4 mmol/L (3.4-5.0); Sodium 139 mmol/L (137-145)
[2019-11-07] MEDS: SODIUM CHLORIDE 0.9% IV 1,000 ML 100 ML IV CONT (08:32)
[2019-11-07] MEDS: DOCUSATE SODIUM 100 MG CAPSULE PO ×2 (08:34→18:11)
[2019-11-07] MEDS: ACETAMINOPHEN 325 MG TABLET 650 MG PO (09:30)
[2019-11-07] MEDS: ONDANSETRON INJ 4 MG/2 ML VIAL IV PUSH (09:32)
[2019-11-07 14:00] VITALS: BP 91/43; PULSE 61; RESP 20; TEMP 36.6; O2SAT 100
--- NOTE | 2019-11-07 15:09 | PM.IMPN ---
Progress Note: A&P Assessment and Plan (1) Sepsis: Code(s): A41.9 - Sepsis, unspecified organism Status: Acute Assessment and Plan: Sepsis on admission. Lactic acid level is normal, blood cultures are pending Continue IV rocephin, stop iv hydration (2) Left ureteral calculus: Code(s): N20.1 - Calculus of ureter Status: Acute Assessment and Plan: CT scan demonstrated a large obstructing proximal left ureteral stone measuring 15 x 5 x 6 millimeters with mild hydronephrosis. 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 On iv rocephin , blood cultures pending Pt had fever and having ongoing fevers Although she feels unwell with fevers her UTI is resolving. Urology agrees pt is improving and there is no need for further CT scans of the abdomen at this point. Rpt UA was ordered and ID consult was made. Pt to continue on iv rocephin, tylenol for fever and oxybutynin twice a day, toradol prn for mild pain, and morphine for severe pain. Continue iv abx until tomorrow and discharge as per ID Subjective Date/time seen: 11/07/19 15:09 Interval history: 24 year old female with a history of kidney stones and multidrug resistant Proteus mirabilis urinary tract infections who presented to the emergency department earlier this morning for evaluation of left flank pain. She is now status post cystoscopy with left ureteral stent insertion per Dr. Fermin. Pt still having some mild left flank pain and had fever. Second episode of kidney stones. Fever ongoing, pt feels upset complaining of left flank pain and headaches. Discussed with pt that her WCC are improving, UC is negative but her BC is still pending. Although she feels unwell with fevers her UTI is resolving. Urology agrees pt is improving and there is no need for further CT scans of the abdomen at this point. Rpt UA was ordered and ID consult was made. Pt to continue on iv rocephin, tylenol for fever and oxybutynin twice a day, toradol prn for mild pain, and morphine for severe pain. Pt feels better, fevers last night but low grade, pt has some constipation issues. See by ID continue iv abx until tomorrow and discharge. Review of Systems Review of Systems: All systems reviewed & are unremarkable except as noted in HPI and below Constitutional: Constitutional: Reports fever(s) and Reports lethargy Genitourinary: Genitourinary: Reports flank pain Exam Narrative: Exam Narrative: General: Younger female feels hot and unwell HEENT: Normocephalic Neck: Supple. Respiratory: Lungs are clear to auscultation bilaterally. Cardiovascular: Regular rate and rhythm with S1-S2. Gastrointestinal: Abdomen is soft and nondistended, some left flank TTP Skin: Warm and dry Extremities: No cyanosis, clubbing, or edema. Neurological: Alert. Cranial nerves 2-12 are grossly intact. No gross focal deficits to casual conversation. Psychiatric: Upset because she does not feels well Objective Data Vital Signs Vital Signs: Vital Signs - 24 hr 11/06/19 19:53 11/06/19 22:00 11/07/19 05:56 Temperature 37.6 C 36.9 C 36.8 C Pulse Rate 75 91 Respiratory Rate 16 16 Blood Pressure 118/56 L 120/72 Pulse Oximetry 97 100 Intake/Output Intake/Output: Intake & Output 11/04/19 11/05/19 11/06/19 11/07/19 23:59 23:59 23:59 23:59 Intake Total 4650 3590 3480 2130 Output Total 1900 2025 300 1700 Balance 2750 1565 3180 430 Meds/Results Medications: Active Medications Generic Name Dose Route Start Last Admin Trade Name Freq PRN Reason Stop Dose Admin Acetaminophen 650 mg 11/05/19 01:23 11/07/19 09:30 Tylenol Tabl
[2019-11-07] MEDS: polyethylene glycoL 3350 17 GM POWD.PACK PO (18:11)
[2019-11-07 22:00] VITALS: BP 128/68; PULSE 65; RESP 16; TEMP 37.1; O2SAT 100
[2019-11-08] MEDS: ACETAMINOPHEN 325 MG TABLET 650 MG PO (01:44)
[2019-11-08] MEDS: ONDANSETRON INJ 4 MG/2 ML VIAL IV PUSH (04:58)
[2019-11-08 06:00] VITALS: BP 108/58; PULSE 55; RESP 16; TEMP 36.2; O2SAT 100
[2019-11-08] MEDS: polyethylene glycoL 3350 17 GM POWD.PACK PO (08:39)
[2019-11-08] MEDS: DOCUSATE SODIUM 100 MG CAPSULE PO (08:39)
--- NOTE | 2019-11-08 12:47 | PM.DS ---
DS: Diagnosis Admitting Diagnosis Admitting Diagnosis: Sepsis, unspecified organism Discharge Diagnosis (1) Sepsis: Code(s): A41.9 - Sepsis, unspecified organism Status: Acute Assessment and Plan: Sepsis on admission. Lactic acid level is normal, blood cultures shows no growth Pt treated with IV rocephin and IV fluids Can be transitioned to oral ampicilin every 6 hours for 10 days as per ID rpt uA shows- vancomycin resistant enterococcus fecalis (2) Left ureteral calculus: Code(s): N20.1 - Calculus of ureter Status: Acute Assessment and Plan: CT scan demonstrated a large obstructing proximal left ureteral stone measuring 15 x 5 x 6 millimeters with mild hydronephrosis. 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 On iv rocephin Pt had fever and having ongoing fevers. Today does not have any fevers Pt to continue on iv rocephin, tylenol for fever and oxybutynin twice a day, toradol prn for mild pain, and morphine for severe pain. Pt is doing well Can be transitioned to oral ampicilin every 6 hours for 10 days as per ID Rpt uA shows- vancomycin resistant enterococcus fecalis DS: Summary Time Spent with Patient Time attestation: Total time spent providing and/or coordinating discharge services:38 minutes on day of dischrage Exam Narrative: Exam Narrative: General: Younger female looks tired HEENT: Normocephalic Neck: Supple. Respiratory: Lungs are clear to auscultation bilaterally. Cardiovascular: Regular rate and rhythm with S1-S2. Gastrointestinal: Abdomen is soft and nondistended, minimal left flank TTP Skin: Dry Extremities: No cyanosis, clubbing, or edema. Neurological: Alert. Cranial nerves 2-12 are grossly intact. No gross focal deficits to casual conversation. Psychiatric: Upset because she does not feels well DS: Data Data Completed and Pending Labs on day of discharge: Preliminary micro results at discharge 11/04/19 06:35 Blood Culture - Preliminary Blood 11/04/19 06:46 Blood Culture - Preliminary Blood Discharge Plan Discharge Attending physician on discharge: Paula Tong Consulting providers: Ramon Ko ; Paula Tong ; Rowdy Burns Discharging Clinician: Paula Tong Anticipated Discharge Date/Time: 11/08/19 12:43 Patient Disposition: Home, Self-Care Activity: as tolerated Diet: regular Patient Instructions: Antibiotic Form, Kidney Stones (DC), Urinary Tract Infection in Women (DC), Vancomycin Resistant Enterococcus Infection (DC), Cystoscopy (DC) Stand Alone Forms: General Discharge Information Follow-up/Referrals: Ramon Ko MD [Physician] - (next week ) Nathaniel,Janette Richardson MD [Primary Care Provider] - Discharge Medications: New oxybutynin chloride 5 mg tablet 5 mg PO BID Qty: 60 RF: 0 polyethylene glycol 3350 [Miralax] 17 gram Powder In Packet 17 g PO QAM Qty: 10 RF: 0 oxybutynin chloride 5 mg tablet 5 mg PO BID Qty: 60 RF: 0 ampicillin 500 mg Capsule 500 mg PO Q6HR 10 Days Qty: 40 RF: 0 Continued clonazepam 1 mg Tablet 1 mg PO DAILY PRN (Reason: Anxiety) RF: 0 ergocalciferol (vitamin D2) [Vitamin D2] 1,250 mcg (50,000 unit) Capsule 50,000 unit PO WEEKLY RF: 0 Date of admission: 11/05/19 11:55 Primary Care Provider: JocelyneJanette Admitting Provider: Ramon Ko Attending physician on admission: Paula Tong
== END 2019-11-08 14:00 | disposition home or self-care (01) ==
LOC: ANHED 08:55 → ANHSURGERY 09:33 → ANH3MEDSUR 14:55 → ANHSURGERY 11-05 12:12 → ANH3MEDSUR 11-05 12:12
PROVIDERS: General Practice; Physician Assistant; Admitting Provider Urology; Emergency Provider Emergency Medicine; PCP Family Medicine; Visit Provider Family Medicine
PROC: (CPT 52352; principal; 2019-11-04 12:00)
DX: A41.9 Sepsis, unspecified organism (principal); N13.6 Pyonephrosis; B95.2 Enterococcus as the cause of diseases classified elsewhere; Z16.21 Resistance to vancomycin; R73.9 Hyperglycemia, unspecified; Z87.440 Personal history of urinary (tract) infections
CPT/HCPCS: 52332; 36415; 74018; 74177; 74420; 80048; 80053; 81001; 81025; 83605; 85025; 85027; 87040; 87077; 87086; 87088; 87186; 96361; 96365; 96367; 96375; 99285; A9270; C1769; C1887; C2617; G0378; G0379; J0131; J0696; J1100; J2250; J2270; J2405; J2704; J3010; J7030; J7120; Q9966; Q9967

== ENCOUNTER 2019-11-10 10:17 | Outpatient (CLI) | payer OTHER, SELFPAY ==
[2019-11-10 11:38] LABS: Beta HCG Quantitative < 2.39 mIU/ML
== END 2019-11-10 10:18 | disposition home or self-care (01) ==
LOC: ANHSURGERY 10:21
PROVIDERS: PCP Family Medicine; Visit Provider Urology
DX: N20.0 Calculus of kidney (principal)
CPT/HCPCS: 36415; 84702; 87086; 87088

== ENCOUNTER 2019-11-13 02:30 | Day surgery (SDC) | payer OTHER, SELFPAY ==
[2019-11-09 13:52] VITALS: BMI 30.2
[2019-11-13] VITALS (8 sets, daily range): BP systolic 98–133; BP diastolic 55–91; PULSE 56–114; RESP 12–16; TEMP 36.2–36.3; O2SAT 100
--- NOTE | ~2019-11-13 | XR_ITS ---
EXAMINATION: XR abdomen/kub 1V DATE: 11/13/2019 10:06 INDICATION: Left ureteral stone. TECHNIQUE: A supine view of the abdomen on 2 radiographs was obtained. COMPARISON: CT abdomen and pelvis 11/04/2019, abdomen radiograph 11/05/2019 FINDINGS: There are no dilated loops of bowel. There is a left internal ureteral stent in expected po sition. There is an 8 mm stone in left ureter at the level of L5. IMPRESSION: 1. 8 mm stone in left ureter with left internal ureteral stent in expected position. Reviewed, dictated and finalized at location A. AR REPAIRER IMPRESSION: 1. 8 mm stone in left ureter with left internal ureteral stent in expected posi tion.
--- NOTE | 2019-11-13 10:40 | WPDHPUPDATE1 ---
History and Physical Update Update Date/Time: 11/13/19 10:40 History and Physical has been reviewed, including an updated exam of the patient. There are NO changes in the patient's condition. Risks, benefits, and alternatives have been discussed and questions answered. Patient agrees to proceed with procedure.
[2019-11-13] MEDS: LACTATED RINGERS 1,000 ML 30 ML IV CONT ×2 (11:00→12:02)
--- NOTE | 2019-11-13 11:02 | WPDANESEPPF ---
Anes - Initial Pre Proc Eval Procedure: Operation Date: 11/13/19 11:00 Proposed Procedures p Left Ureteral Extracorporeal Shock Wave Lithotripsy - Rubin Malone MD Date/Time: 11/13/19 11:02 Surgeon: Rubin Malone MD Pre Op Diagnosis: Left Kidney Stone Patient Data Age: 24 Gender: F Height: 4 ft 9 in Weight: 63.5 kg Allergies Allergy/AdvReac Type Severity Reaction Status Date / Time No Known Allergies Allergy Verified 11/09/19 13:50 Home Medications Medication Instructions Recorded Confirmed Type clonazepam 1 mg PO DAILY PRN 09/21/19 11/09/19 History ergocalciferol (vitamin D2) 50,000 unit PO WEEKLY 09/21/19 11/09/19 History [Vitamin D2] ampicillin 500 mg PO Q6HR 10 Days #40 cap 11/08/19 11/09/19 Rx acetaminophen [Tylenol] 650 mg PO DIRECTED PRN 11/09/19 11/09/19 History oxybutynin chloride 5 mg PO BID PRN 11/09/19 11/09/19 History polyethylene glycol 3350 [Miralax] 17 g PO QAM PRN 11/09/19 11/09/19 History Patient hx anesthesia problems: none Family hx anesthesia problems: none PMFSH Past Medical History Medical History Anxiety Asthma Chronic anemia Depression HPV (human papilloma virus) anogenital infection Kidney stone UTI (urinary tract infection) History of multidrug resistant Proteus mirabilis UTI. Surgical History Surgical History S/P cystoscopy with ureteral stent placement Family History Family History Mother Depression Anxiety Kidney stones Father Family history unknown Sibling Family history normal Grandparent Diabetes mellitus Other Family history of malignant neoplasm of cervix Social History Social History Social History: the patient lives in [place]. 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 she has 2 children, ages 5 and 7, who are healthy. She denies any tobacco, drug or alcohol use currently. Designates her mother, Renay, as her surrogate decision maker and she wishes to be a full code. Spiritual care concerns: No Agree to blood products: Yes Alen - Kishore Final PreProcedure Day of Procedure 11/13/19 11:02 Patient weight: obese Heart: regular rate and rhythm Lungs: clear to auscultation Airway: Mallampati scale class II Neurological: alert and oriented Last oral intake: >/= 8 hours ASA classification: II Emergent: no Anesthetic plan: proceed Anesthesia type and monitoring: general LMA and standard monitoring Informed Consent: The patient's anesthetic plan and its attendant risks and benefits were discussed with the patient/family/POA. Questions were solicited and answers provided to the satisfaction of the patient/family/POA.
--- NOTE | 2019-11-13 11:04 | P.HP_ITS ---
H&P: HPI History of Present Illness Chief complaint: Left Kidney Stone Narrative: Carlota Vazquez is a 24 year old female with a 8mm left ureteral calculus. [facility] Past Medical History Medical History Anxiety Asthma Chronic anemia Depression HPV (human papilloma virus) anogenital infection Kidney stone UTI (urinary tract infection) History of multidrug resistant Proteus mirabilis UTI. Surgical History Surgical History S/P cystoscopy with ureteral stent placement Family History Family History Mother Depression Anxiety Kidney stones Father Family history unknown Sibling Family history normal Grandparent Diabetes mellitus Other Family history of malignant neoplasm of cervix Social History Social History Social History: the patient lives in [place]. 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 she has 2 children, ages 5 and 7, who are healthy. She denies any tobacco, drug or alcohol use currently. Designates her mother, Renay, as her surrogate decision maker and she wishes to be a full code. Spiritual care concerns: No Agree to blood products: Yes Meds Home Medications and Allergies Home Medications Medication Instructions Recorded Confirmed Type clonazepam 1 mg PO DAILY PRN 09/21/19 11/09/19 History ergocalciferol (vitamin D2) 50,000 unit PO WEEKLY 09/21/19 11/09/19 History [Vitamin D2] ampicillin 500 mg PO Q6HR 10 Days #40 cap 11/08/19 11/09/19 Rx acetaminophen [Tylenol] 650 mg PO DIRECTED PRN 11/09/19 11/09/19 History oxybutynin chloride 5 mg PO BID PRN 11/09/19 11/09/19 History polyethylene glycol 3350 [Miralax] 17 g PO QAM PRN 11/09/19 11/09/19 History Allergies Allergy/AdvReac Type Severity Reaction Status Date / Time No Known Allergies Allergy Verified 11/09/19 13:50 Assessment and Plan Assessment and plan (1) Left ureteral calculus: Code(s): N20.1 - Calculus of ureter Status: Acute Assessment and Plan: ESWL of left ureteral calculus
--- NOTE | 2019-11-13 11:56 | PM.PROC ---
Procedure Note - Detailed Date of procedure: 11/13/19 Pre-op diagnosis: Left Kidney Stone 15 mm ureteral calculus left Post-op diagnosis: same Procedure performed: Lithotripsy of left ureteral calculus Description of procedure: Patient was taken to the operative suite and correctly identified. Once general anesthesia was obtained the left ureteral stone was localized in both planes. After 1500 shocks the shock head was rotated in the additional 1500 shocks were given. There appeared to be excellent fragmentation at least fluoroscopically at this time. She is taken to recovery room in stable condition. She will follow up in 7-10 days with a KUB. Anesthesia: GLMA Surgeon: Rubin Malone MD Drains: No Packing: No Pathology: none sent Complications: No immediate complications Condition: stable Disposition: PACU
[2019-11-13] MEDS: TRAMADOL HCL 50 MG TABLET PO (13:45)
[2019-11-13] MEDS: OXYBUTYNIN CHLORIDE 5 MG TABLET PO (13:45)
== END 2019-11-13 14:20 | disposition home or self-care (01) ==
PROVIDERS: PCP Family Medicine; Visit Provider Urology
PROC: (CPT 50590; principal; 2019-11-13 11:00)
DX: N20.1 Calculus of ureter (principal); D64.9 Anemia, unspecified; J45.909 Unspecified asthma, uncomplicated; F41.8 Other specified anxiety disorders; A63.0 Anogenital (venereal) warts; E66.9 Obesity, unspecified; Z68.29 Body mass index [BMI] 29.0-29.9, adult
CPT/HCPCS: 50590; 74018; A9270; J1100; J2250; J2405; J2704; J3010; J7120

== ENCOUNTER 2019-11-24 11:31 | Outpatient (CLI) | payer OTHER, SELFPAY ==
--- NOTE | ~2019-11-24 | XR_ITS ---
XR abdomen/kub 1V 11/24/2019 11:54 Indication: Left ureteral stone Procedure: KUB Comparison: Comparison to multiple prior studies sequentially, with oldest reviewed study dated 10/19. Findings: Bowel gas pattern is nonobstructive. There is a left internal ureteral stent in expected po sition. There is a distal left ureteral stone measuring 2-3 mm. No acute osseous abnormality. Impression: 1: Distal left ureteral stone measuring 2-3 mm. Reviewed, dictated and finalized at location B. ILE DESIGNER Impression: 1: Distal left ureteral stone measuring 2-3 mm.
== END 2019-11-24 11:32 | disposition home or self-care (01) ==
LOC: ANHIMG 11:35
PROVIDERS: PCP Family Medicine; Visit Provider Urology
DX: N20.1 Calculus of ureter (principal)
CPT/HCPCS: 74018

== ENCOUNTER 2019-11-30 12:38 | Emergency (ER) | payer OTHER, SELFPAY ==
--- NOTE | ~2019-11-30 | CT_ITS ---
EXAMINATION: CT abdomen pelvis wo con EXAM DATE: 11/30/2019 15:20 INDICATION: Urinary stent placed 4 weeks ago. Increasing pain. TECHNIQUE: Spiral CT of the abdomen and pelvis was performed without contrast. Axial, coronal and sag ittal images were reviewed. The dose-length product (DLP) for this examination was 195.12 mGy-cm. T he exposure was tailored according to patient size (auto mA exposure control), and iterative reconstr uction (ASIR) was used as additional dose reduction technique. Comparison is made to prior examinatio n from 11/04/2019. FINDINGS: There is a left-sided double-J ureteral stent in expected position. Previously seen large l eft mid ureteral stone is no longer identified, has been removed. Mild periureteral fat stranding. Th ere is punctate right nephrolithiasis. No hydronephrosis. The uterus is anteverted and morphological ly normal. The bladder is unremarkable. The liver, spleen, adrenal glands and pancreas are unremar kable. Gallbladder is unremarkable. No biliary obstruction. There is no retroperitoneal or pelvic lymphadenopathy. The appendix is normal. The stomach and small bowel are unremarkable. There is expected amount of c olonic stool. No free intraperitoneal gas. The heart is normal in size. There are no pericardial or pleural effusions. The lung bases are unremarkable. There are no significant osseous abnormalit ies identified. IMPRESSION: 1. Left ureteral stent in position. No hydronephrosis or acute findings. 2. Punctate right nephrolithiasis. Reviewed, dictated and finalized at location A.
[2019-11-30 12:56] VITALS: BP 118/58; PULSE 78; RESP 16; TEMP 37; O2SAT 100
[2019-11-30 13:10] LABS: Basophils Percent Auto 0.3 % (0.2-1.2); Eosinophils Absolute Auto 0.2 K/mm3 (0-0.3); Eosinophils Percent Auto 2.4 % (0-4.4); Hematocrit 37.4 % (37.0-47.0); Hemoglobin 11.9 g/dL (12.0-15.0); Immature Granulocyte Absolute 0.02 K/mm3 (0.00-0.031); Immature Granulocyte Percent A 0.3 % (0-0.5); Lymphocytes Absolute Auto 1.84 K/mm3 (0.9-3.2); Lymphocytes Percent Auto 24.7 % (18.3-44.2); Mean Corpuscular HGB Conc 31.8 g/dl (32-36); Mean Corpuscular Hemoglobin 28.3 pg (26-34); Mean Platelet Volume 12.5 fl (7.4-10.4); Monocytes Absolute Auto 0.4 K/mm3 (0.1-0.6); Monocytes Percent Auto 5.8 % (2.6-8.5); Neutrophils Percent Auto 66.5 % (45.5-73.1); Platelet Count Result 255 k/mm3 (150-375); Red Cell Distribution Width 13.3 % (11.5-14.5); White Blood Count 7.5 K/mm3 (4.5-10.0)
[2019-11-30 13:23] LABS: Alanine Aminotransferase 13 U/L (4-35); Albumin Level 4.2 g/dL (3.5-5.1); Alkaline Phosphatase 70 U/L (38-126); Aspartate Amino Transferase 20 U/L (14-36); Bilirubin,Total 0.3 mg/dL (0.2-1.3); Blood Urea Nitrogen 12 mg/dL (7-17); Calcium 9.2 mg/dL (8.4-10.2); Carbon Dioxide 26 mmol/L (22-30); Chloride 103 mmol/L (98-107); Estimated Glomerular Filt Rate > 60; Glucose 89 mg/dL (65-105); Lipase 60 U/L (23-300); Potassium 4.2 mmol/L (3.4-5.0); Sodium 138 mmol/L (137-145)
[2019-11-30] MEDS: MORPHINE SULFATE 2 MG/ML INJ (16:32)
--- NOTE | 2019-11-30 17:42 | ED.FEMALEGU ---
HPI - Female Genitourinary General Chief complaint: Urogenital-Female <Joey Medina PA-C - Last Filed: 11/30/19 17:56> Stated complaint: painful urinary stent <Joey Medina PA-C - Last Filed: 11/30/19 17:56> Time Seen by Provider: 11/30/19 13:24 <Joey Medina PA-C - Last Filed: 11/30/19 17:56> Source: patient <THERESA Valenzuela Last Filed: 11/30/19 17:56> Mode of arrival: ambulatory <THERESA Valenzuela Last Filed: 11/30/19 17:56> Limitations: no limitations <Joey Medina PA-C - Last Filed: 11/30/19 17:56> History of Present Illness HPI Narrative: Patient presents with chief complaint of pain to the left groin area. Patient states that she had a stent placed in the area to pass a large kidney stone approximately 4 weeks. The stent was placed by Dr. Malone. Patient states she has had intermittent pain and pressure to the left groin. She reports taking left over hydrocodone from another procedure to help with pain. She states she felt warm on Staurday but has not documented fever. She denies pain with urination or note hematuria. She states she was told to come to ER after not being able to reach Dr Malone' office. Patient reports having a follow up appointment this week. <Joey Medina PA-C - Last Filed: 11/30/19 17:56> Related Data Home medications: Home Medications Medication Instructions Recorded Confirmed oxybutynin chloride 5 mg PO BID PRN 11/09/19 11/13/19 <THERESA Valenzuela Last Filed: 11/30/19 17:56> Allergies/Adverse reactions: Allergies Allergy/AdvReac Type Severity Reaction Status Date / Time No Known Allergies Allergy Verified 11/30/19 13:14 <THERESA Valenzuela Last Filed: 11/30/19 17:56> Review of Systems Review of Systems: Narrative: CONSTITUTIONAL: Denies fever, chills, or sweats. EYES: Denies visual changes, redness, or discharge. ENT: Denies rhinorrhea, congestion, sore throat, or otalgia. CARDIOVASCULAR: Denies chest pain, palpitations, or edema. RESPIRATORY: Denies cough or dyspnea. GASTROINTESTINAL: Denies abdominal pain, nausea, vomiting, or diarrhea. GENITOURINARY: Reports left groin pain denies dysuria or hematuria. SKIN: Denies rash or itching. MUSCULOSKELETAL: Denies back pain, joint pain, or myalgia. NEUROLOGIC: Denies headache, numbness, dizziness, or weakness. PSYCHIATRIC: Denies anxiety or depression. <Joey Medina PA-C - Last Filed: 11/30/19 17:56> PMFSH Social History Social History: Social History Social History: the patient lives in [place]. 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 she has 2 children, ages 5 and 7, who are healthy. She denies any tobacco, drug or alcohol use currently. Designates her mother, Renay, as her surrogate decision maker and she wishes to be a full code. Spiritual care concerns: No Agree to blood products: Yes <Joey Medina PA-C - Last Filed: 11/30/19 17:56> Exam Narrative: Exam Narrative: GENERAL: Well-appearing, well-nourished, and in no acute distress. HEAD: Normocephalic, atraumatic. EYES: PERRLA and EOMI. ENT: Nares clear, no rhinorrhea or epistaxis. Mucous membranes moist. Oropharynx without tonsillar hypertrophy exudate or other lesions. Bilateral TMs pearly teran nonbulging NECK: Supple. No adenopathy or masses. No carotid bruits or JVD CHEST: Clear to auscultation. No respiratory distress. No wheezes rales or rhonchi HEART: Regular rate and rhythm. No murmur heard. Normal peripheral pulses. ABDOMEN: Soft, tenderness to deep palpation of left groin, nondistended, normal active bowel sounds. EXTREMITIES: Normal range of motion. No edema. SKIN: Warm, dry, no rash. NEURO: No focal deficits. Alert and oriented x3. PSYCH: Normal mood and affect. <THERESA Valenzuela Last Filed: 11/30/19 17:56> Course Vital Signs Vital signs: Vital Signs Temperatur
[2019-11-30 17:57] VITALS: BP 148/78; PULSE 78; RESP 16; O2SAT 97
== END 2019-11-30 17:57 | disposition home or self-care (01) ==
PROVIDERS: Emergency Medicine; Emergency Provider General Practice; PCP Family Medicine
DX: R10.32 Left lower quadrant pain (principal); N20.0 Calculus of kidney; Z87.442 Personal history of urinary calculi; Z96.0 Presence of urogenital implants
CPT/HCPCS: 36415; 74176; 80053; 81025; 83690; 85025; 96374; 96375; 99284; J0131; J2270

== ENCOUNTER 2020-06-27 23:11 | Emergency (ER) | payer OTHER, SELFPAY ==
--- NOTE | ~2020-06-27 | CT_ITS ---
EXAMINATION: CT abdomen pelvis wo con DATE: 06/28/2020 00:45 INDICATION: Right flank pain, dysuria, urinary frequency. History of kidney stones and urinary tract infections. TECHNIQUE: Computed tomography (CT) of the abdomen and pelvis was performed without intravenous contr ast. Automated exposure control and iterative reconstruction technique were employed. Exam dose: 174 .54 mGy-cm total exam DLP. COMPARISON: 12/10/[address] abdomen pelvis FINDINGS: There is mild focal left lower lobe basilar infiltrate. The lung bases are otherwise clear. Normal heart size. No pericardial or pleural effusion. The liver, gallbladder, bile ducts, spleen, pancreas, pancreatic duct and adrenal glands are unremark able. No left renal mass lesion or urinary tract calculus on the left. There is a small nonobstructing lower pole right renal calculus. No right ureteral calculus or right- sided hydroureteronephrosis. The urinary bladder, uterus and adnexal areas are unremarkable. Normal caliber of the abdominal aorta. Approximate 3 x 3.5 cm right adnexal low-attenuation lesion is suggested. Consider pelvic ultrasound examination. No intraperitoneal or retroperitoneal or pelvic mass lesion or adenopathy or ascites is noted otherwise.. There is high density material in the cecum and appendix; no CT evidence of appendicitis. No bowel obstruction, bowel wall thickening, pneumatosis or intraperitoneal free air. End skeletal structures are unremarkable. IMPRESSION: Focal mild infiltrate at the left lung base, left lower lobe Approximately 3 x 3.5 cm possible right adnexal low-attenuation lesion; consider pelvic sonographic c orrelation Reviewed, dictated and finalized at Location A. Reviewed, dictated and finalized at location A. IMPRESSION: Focal mild infiltrate at the left lung base, left lower lobe Approximately 3 x 3.5 cm possible right adnexal low-attenuation lesion; conside r pelvic sonographic correlation
[2020-06-27 23:15] VITALS: BP 124/80; PULSE 89; RESP 18; TEMP 36.1; O2SAT 100
[2020-06-27 23:32] LABS: Add Urine Microscopic? YES; Appearance Urine Cloudy (Clear); Bacteria Urine Trace /hpf; Bilirubin Urine Negative (Negative); Blood Urine 2+ (Negative); Color Urine Yellow (Yellow); Glucose Urine UA Negative (Negative); Ketones Urine Trace mg/dL (Negative); Leukocyte Esterase Ur Negative LEU/UL (Negative); Mucus Urine Few /lpf; Nitrate Urine Negative (Negative); Protein Urine Negative (Negative); RBC Urine 0-2 /hpf (0-2); Specific Grav Ur 1.019 (1.001-1.035); Squamous Epithelial Cell Urine Moderate /hpf (Few); Urobilinogen Urine Negative mg/dL (<2.0); WBC Urine 0-3 /hpf
[2020-06-28] MEDS: SODIUM CHLORIDE 0.9% IV 1,000 ML 999 ML IV CONT (00:59)
[2020-06-28] MEDS: KETOROLAC 30 MG/ML VIAL (*BKC) IV PUSH (00:59)
[2020-06-28 01:05] LABS: Basophils Percent Auto 0.2 % (0.2-1.2); Eosinophils Absolute Auto 0.1 K/mm3 (0-0.3); Eosinophils Percent Auto 0.8 % (0-4.4); Hematocrit 39.4 % (37.0-47.0); Immature Granulocyte Absolute 0.03 K/mm3 (0.00-0.031); Immature Granulocyte Percent A 0.3 % (0-0.5); Lymphocytes Absolute Auto 2.47 K/mm3 (0.9-3.2); Lymphocytes Percent Auto 25.1 % (18.3-44.2); Mean Corpuscular Hemoglobin 29.5 pg (26-34); Mean Corpuscular Volume 89.3 fl (80-100); Mean Platelet Volume 13.4 fl (7.4-10.4); Monocytes Absolute Auto 0.6 K/mm3 (0.1-0.6); Monocytes Percent Auto 5.6 % (2.6-8.5); Neutrophils Absolute Auto 6.7 K/mm3 (1.3-6.7); Platelet Count Result 212 k/mm3 (150-375); Red Blood Count 4.41 M/mm3 (4.2-5.4); Red Cell Distribution Width 12.9 % (11.5-14.5); White Blood Count 9.8 K/mm3 (4.5-10.0)
[2020-06-28 01:14] LABS: Alanine Aminotransferase 13 U/L (4-35); Albumin Level 4.6 g/dL (3.5-5.1); Alkaline Phosphatase 66 U/L (38-126); Anion Gap 12 mmol/L (8-16); Aspartate Amino Transferase 22 U/L (14-36); Bilirubin,Total 0.7 mg/dL (0.2-1.3); Blood Urea Nitrogen 14 mg/dL (7-17); Calcium 9.5 mg/dL (8.4-10.2); Carbon Dioxide 28 mmol/L (22-30); Chloride 102 mmol/L (98-107); Estimated Glomerular Filt Rate > 60; Glucose 89 mg/dL (65-105); Lipase 51 U/L (23-300); Potassium 3.4 mmol/L (3.4-5.0); Sodium 142 mmol/L (137-145)
[2020-06-28] MEDS: BELLADONNA ALK/PHENOB ELIX 10 ML, MAG HYDROX/ALUMINUM HYD/SIMETH 30 ML, LIDOCAINE HCL 2... PO (01:26)
--- NOTE | 2020-06-28 02:36 | ED.GENADULT ---
HPI - General Adult General Chief complaint: Urogenital-Female Stated complaint: urinary symptoms Time Seen by Provider: 06/28/20 00:03 History of Present Illness HPI narrative: Patient is a 24-year-old female who presents the ER with right flank pain. Began yesterday. Persistent is increasing discomfort. Is socially with pain in her lower abdomen and some urinary frequency and urgency. No dysuria. Has history of kidney stones. Concerned she may also have a UTI. Patient reports mild nausea but no vomiting. Patient also reports that she is having significant increase in her heartburn. Related Data Home Medications Medication Instructions Recorded Confirmed oxybutynin chloride 5 mg PO BID PRN 11/09/19 11/13/19 Allergies Allergy/AdvReac Type Severity Reaction Status Date / Time No Known Allergies Allergy Verified 11/30/19 13:14 Review of Systems Review of Systems: All systems reviewed & are unremarkable except as noted in HPI and below Constitutional: Constitutional: Denies chills, Denies fever(s) and Denies weakness ENT: Denies nasal congestion and Denies sore throat Cardiovascular: Cardiovascular: Denies chest pain and Denies radiating jaw, neck or arm pain Gastrointestinal: Gastrointestinal: Reports abdominal pain, Reports nausea and Denies vomiting Genitourinary: Genitourinary: Denies hematuria, Reports nocturia and Reports dysuria PMFSH Social History Social History Social History: the patient lives in [place]. 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 she has 2 children, ages 5 and 7, who are healthy. She denies any tobacco, drug or alcohol use currently. Designates her mother, Renay, as her surrogate decision maker and she wishes to be a full code. Spiritual care concerns: No Agree to blood products: Yes Exam Narrative: Exam Narrative: GENERAL: Well-appearing, well-nourished, and in no acute distress. HEAD: Normocephalic, atraumatic. ENT: Mucous membranes moist. CHEST: Clear to auscultation. No respiratory distress. HEART: Regular rate and rhythm. Normal peripheral pulses. ABDOMEN: Soft, mild epigastric tenderness, nondistended, no CVA tenderness. EXTREMITIES: Normal range of motion. No edema. NEURO: Alert and oriented x3. PSYCH: Normal mood and affect. Course Course Emergency Course: Unremarkable evaluation. Discharge home. GI cocktail for acid reflux. Vital Signs Vital signs: Vital Signs Temperature 97 F L 06/27/20 23:15 Pulse Rate 89 06/27/20 23:15 Respiratory Rate 18 06/27/20 23:15 Blood Pressure 124/80 06/27/20 23:15 Pulse Oximetry 100 06/27/20 23:15 Temperature 97 F L 06/27/20 23:15 Pulse Rate 89 06/27/20 23:15 Respiratory Rate 18 06/27/20 23:15 Blood Pressure 124/80 06/27/20 23:15 Pulse Oximetry 100 06/27/20 23:15 Medical Decision Making Vital Signs Vital Signs: Vital Signs Temperature 97 F L 06/27/20 23:15 Pulse Rate 89 06/27/20 23:15 Respiratory Rate 18 06/27/20 23:15 Blood Pressure 124/80 06/27/20 23:15 Pulse Oximetry 100 06/27/20 23:15 Temperature 97 F L 06/27/20 23:15 Pulse Rate 89 06/27/20 23:15 Respiratory Rate 18 06/27/20 23:15 Blood Pressure 124/80 06/27/20 23:15 Pulse Oximetry 100 06/27/20 23:15 Lab Data Result diagrams: 06/28/20 00:57 06/28/20 00:57 Labs: Lab Results 06/27/20 06/28/20 06/28/20 Range/Units 23:18 00:57 00:57 WBC 9.8 (4.5-10.0) K/mm3 RBC 4.41 (4.2-5.4) M/mm3 Hgb 13.0 (12.0-15.0) g/dL Hct 39.4 (37.0-47.0) % MCV 89.3 (80-100) fl MCH 29.5 (26-34) pg MCHC 33.0 (32-36) g/dl RDW 12.9 (11.5-14.5) % Plt Count 212 (150-375) k/mm3 MPV 13.4 H (7.4-10.4) fl Immature Gran % (Auto) 0.3 (0-0.5) % Neut % (Auto) 68.0 (45.5-73.1) % Lymph % (Auto) 25.1 (18.3-44.2) % [place] % (Auto) 5.6 (2.6-8.5) % Eos %
[2020-06-28 02:55] VITALS: BP 112/62; PULSE 62; RESP 16; O2SAT 100
== END 2020-06-28 02:56 | disposition home or self-care (01) ==
PROVIDERS: Emergency Provider Emergency Medicine; PCP Family Medicine
DX: K21.9 Gastro-esophageal reflux disease without esophagitis (principal)
CPT/HCPCS: 36415; 74176; 80053; 81001; 81025; 83690; 85025; 85055; 96361; 96374; 99284; A9270; J1885; J7030

== ENCOUNTER 2020-07-28 15:26 | Emergency (ER) | payer OTHER, SELFPAY ==
--- NOTE | ~2020-07-28 | XR_ITS ---
EXAMINATION: XR chest 1V portable EXAM DATE: 07/28/2020 16:10 INDICATION: Headache, bodyaches, nausea vomiting shortness of breath. Loss of taste. History of asthm a. TECHNIQUE: Portable AP frontal chest x-ray was obtained. Comparison is made to prior examination from 08/25/2017. FINDINGS: The lungs are clear. There are no pleural effusions. The cardiomediastinal silhouette is within normal limits. There is no pneumothorax suspected. The bones and soft tissues are unremarkab le. IMPRESSION: Normal chest x-ray exam. Reviewed, dictated and finalized at location B. SOMNOGRAPHER IMPRESSION: Normal chest x-ray exam.
[2020-07-28 15:31] VITALS: BP 130/64; PULSE 116; RESP 25; TEMP 37.3; O2SAT 100
[2020-07-28 16:02] LABS: Basophils Percent Auto 0.1 % (0.2-1.2); Eosinophils Percent Auto 0.2 % (0-4.4); Hematocrit 39.6 % (37.0-47.0); Hemoglobin 13.6 g/dL (12.0-15.0); Immature Granulocyte Absolute 0.03 K/mm3 (0.00-0.031); Immature Granulocyte Percent A 0.3 % (0-0.5); Lymphocytes Absolute Auto 1.64 K/mm3 (0.9-3.2); Lymphocytes Percent Auto 17.4 % (18.3-44.2); Mean Corpuscular HGB Conc 34.3 g/dl (32-36); Mean Corpuscular Hemoglobin 30.1 pg (26-34); Mean Corpuscular Volume 87.6 fl (80-100); Mean Platelet Volume 12.5 fl (7.4-10.4); Monocytes Absolute Auto 0.4 K/mm3 (0.1-0.6); Monocytes Percent Auto 3.8 % (2.6-8.5); Neutrophils Absolute Auto 7.3 K/mm3 (1.3-6.7); Neutrophils Percent Auto 78.2 % (45.5-73.1); Platelet Count Result 254 k/mm3 (150-375); Red Blood Count 4.52 M/mm3 (4.2-5.4); Red Cell Distribution Width 12.6 % (11.5-14.5); White Blood Count 9.4 K/mm3 (4.5-10.0)
[2020-07-28 16:13] LABS: Alanine Aminotransferase 14 U/L (4-35); Albumin Level 4.7 g/dL (3.5-5.1); Alkaline Phosphatase 81 U/L (38-126); Anion Gap 14 mmol/L (8-16); Aspartate Amino Transferase 21 U/L (14-36); Bilirubin,Total 0.4 mg/dL (0.2-1.3); Blood Urea Nitrogen 10 mg/dL (7-17); Calcium 9.8 mg/dL (8.4-10.2); Carbon Dioxide 19 mmol/L (22-30); Chloride 108 mmol/L (98-107); Estimated Glomerular Filt Rate > 60; Glucose 100 mg/dL (65-105); Potassium 3.4 mmol/L (3.4-5.0); Sodium 141 mmol/L (137-145)
[2020-07-28] MEDS: KETOROLAC 30 MG/ML VIAL (*BKC) IV PUSH (16:21)
[2020-07-28] MEDS: SODIUM CHLORIDE 0.9% IV 1,000 ML 999 ML IV CONT (16:22)
[2020-07-28] MEDS: PROMETHAZINE HCL 25 MG/ML AMPUL 12.5 MG IV PUSH (16:22)
--- NOTE | 2020-07-28 16:42 | ED.GENADULT ---
HPI - General Adult General Chief complaint: Headache Stated complaint: SOB, covid tested saturday Time Seen by Provider: 07/28/20 15:32 History of Present Illness HPI narrative: Patient is a 25-year-old female who presents ER with complaints of not feeling well. Reports symptoms began on 07/23/2020. She is lost her smell and her taste. She has mild postnasal drip with cough. She reports increasing shortness of breath today. She has received a Covid swab but has not received the results. She does endorse fever and body aches. She has headache that switches sides and is aching. She has been trying [id number] aspirin without relief of her pain. Related Data Home Medications Medication Instructions Recorded Confirmed oxybutynin chloride 5 mg PO BID PRN 11/09/19 11/13/19 Allergies Allergy/AdvReac Type Severity Reaction Status Date / Time No Known Allergies Allergy Verified 11/30/19 13:14 Review of Systems Review of Systems: All systems reviewed & are unremarkable except as noted in HPI and below Constitutional: Constitutional: Denies chills, Reports fatigue and Reports fever(s) ENT: Reports nasal congestion and Denies sore throat Respiratory: Respiratory: Reports cough, Reports dyspnea and Denies wheezing Gastrointestinal: Gastrointestinal: Denies abdominal pain, Reports diarrhea, Reports nausea and Reports vomiting Musculoskeletal: Musculoskeletal: Reports myalgias and Denies muscle cramps PMFSH Past Medical History Medical History (Updated 07/28/20 @ 16:57 by Addy Ashton MD) Anxiety Asthma Chronic anemia Depression HPV (human papilloma virus) anogenital infection Kidney stone UTI (urinary tract infection) History of multidrug resistant Proteus mirabilis UTI. Surgical History Surgical History S/P cystoscopy with ureteral stent placement Family History Family History Mother Depression Anxiety Kidney stones Father Family history unknown Sibling Family history normal Grandparent Diabetes mellitus Other Family history of malignant neoplasm of cervix Social History Social History Social History: the patient lives in [place]. 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 she has 2 children, ages 5 and 7, who are healthy. She denies any tobacco, drug or alcohol use currently. Designates her mother, Renay, as her surrogate decision maker and she wishes to be a full code. Gender identity (if verbalized by the patient): Female Spiritual care concerns: No Agree to blood products: Yes Exam Narrative: Exam Narrative: GENERAL: Uncomfortable-appearing, well-nourished, and in mild distress. HEAD: Normocephalic, atraumatic. ENT: Mucous membranes moist. TM's normal. CHEST: Clear to auscultation. No respiratory distress. HEART: Tachycardic and regular. Normal peripheral pulses. ABDOMEN: Soft, nontender, nondistended. EXTREMITIES: Normal range of motion. No edema. SKIN: Warm, dry, no rash. NEURO: Alert and oriented x3. Course Course Emergency Course: Patient informed of results. Patient given Toradol and Phenergan for headache and nausea. Still reports headache. I have offered lumbar puncture to rule out meningitis. Patient declines. I will give the patient some morphine for additional pain control. Discussed continued symptomatic treatment at home. No evidence of pneumonia on chest x-ray. Vital Signs Vital signs: Vital Signs Temperature 99.2 F 07/28/20 15:31 Pulse Rate 116 H 07/28/20 15:31 Respiratory Rate 25 H 07/28/20 15:31 Blood Pressure 130/64 07/28/20 15:31 Pulse Oximetry 100 07/28/20 15:31 Temperature 99.2 F 07/28/20 15:31 Pulse Rate 116 H 07/28/20 15:31 Respiratory Rate 25 H 07/28/20 15:31 Blood Pressure 130/64 07/28/20 15:31 Pulse Oximet
[2020-07-28] MEDS: MORPHINE SULFATE (*CRX) 4 MG/ML INJ IV PUSH (17:17)
[2020-07-28 18:14] VITALS: BP 124/67; PULSE 67; RESP 18; O2SAT 100
== END 2020-07-28 18:28 | disposition home or self-care (01) ==
PROVIDERS: Emergency Provider Emergency Medicine; PCP Family Medicine
DX: B34.9 Viral infection, unspecified (principal); R51.9 Headache, unspecified; Z20.828 Contact with and (suspected) exposure to other viral communicable diseases; Z87.442 Personal history of urinary calculi; Z87.440 Personal history of urinary (tract) infections
CPT/HCPCS: 36415; 71045; 80053; 85025; 87804; 96361; 96374; 96375; 99284; J1885; J2270; J2550; J7030

== ENCOUNTER 2020-08-21 12:31 | Emergency (ER) | payer OTHER, SELFPAY ==
[2020-08-21 12:36] VITALS: BP 129/79; PULSE 101; RESP 18; TEMP 36.6; O2SAT 98
--- NOTE | 2020-08-21 13:33 | ED.GENADULT ---
HPI - General Adult General Chief complaint: Recheck/Abnormal Lab/Rx Stated complaint: jittery, difficulty eating, migraine Time Seen by Provider: 08/21/20 13:22 Source: patient Mode of arrival: ambulatory Limitations: no limitations History of Present Illness HPI narrative: 25 years old female, presents with jittery feeling inside, shaking outside, stomach upset, poor appetite, intermittent tingling numbness all over her body, poor concentration for the last few weeks. Patient had COVID-19 infection July 24, struggled for 10 to 14 days, was isolated and alone. Have 2 children, the father is not in the picture, her mother going through divorce, patient used to be on fluoxetine, was seen by her family physician 1 week ago and started her on sertraline, patient reports that her symptoms got worse since. Patient used to be on clonazepam in the past. Patient denies any fever, chills, shortness of breath, or chest pain. Patient also denies any suicidal or homicidal ideation. Related Data Home Medications Medication Instructions Recorded Confirmed oxybutynin chloride 5 mg PO BID PRN 11/09/19 11/13/19 Allergies Allergy/AdvReac Type Severity Reaction Status Date / Time No Known Allergies Allergy Verified 11/30/19 13:14 Review of Systems Review of Systems: Narrative: CONSTITUTIONAL: Denies fever, chills, or sweats. EYES: Denies visual changes, redness, or discharge. ENT: Denies rhinorrhea, congestion, sore throat, or otalgia. CARDIOVASCULAR: Denies chest pain, palpitations, or edema. RESPIRATORY: Denies cough or dyspnea. GASTROINTESTINAL: Denies abdominal pain, nausea, vomiting, or diarrhea. GENITOURINARY: Denies dysuria or hematuria. SKIN: Denies rash or itching. MUSCULOSKELETAL: Denies back pain, joint pain, or myalgia. NEUROLOGIC: Denies headache, numbness, or weakness. PSYCHIATRIC: Denies anxiety or depression. [facility] Past Medical History Medical History (Updated 08/21/20 @ 13:38 by Nieves Doe MD) Anxiety Asthma Chronic anemia Depression HPV (human papilloma virus) anogenital infection Kidney stone UTI (urinary tract infection) History of multidrug resistant Proteus mirabilis UTI. Surgical History Surgical History S/P cystoscopy with ureteral stent placement Family History Family History Mother Depression Anxiety Kidney stones Father Family history unknown Sibling Family history normal Grandparent Diabetes mellitus Other Family history of malignant neoplasm of cervix Social History Social History Social History: the patient lives in [place]. 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 she has 2 children, ages 5 and 7, who are healthy. She denies any tobacco, drug or alcohol use currently. Designates her mother, Renay, as her surrogate decision maker and she wishes to be a full code. Gender identity (if verbalized by the patient): Female Spiritual care concerns: No Agree to blood products: Yes Exam Narrative: Exam Narrative: General appearance: Well-developed, well-nourished, no family member at the bedside, patient is restless all over Skin: Normal color Head: Normocephalic, nontraumatic Eyes: Clear conjunctiva ENT: Oropharynx normal, ears normal, nose normal Neck: Supple, nontender Chest and respiratory: Airway patent, no respiratory distress, no accessory muscle use Heart: Regular rate/rhythm Abdomen: Soft, nontender, no organomegaly, quiet bowel sounds Neurologic: Alert and oriented ?3, CONVERTING TECHNICIAN is normal as tested, no gross motor deficit
[2020-08-21] MEDS: LORazepam (*CRX) 0.5 MG TABLET 1 MG PO (13:54)
[2020-08-21 15:09] VITALS: BP 135/76; PULSE 89; RESP 20; O2SAT 97
== END 2020-08-21 15:10 | disposition home or self-care (01) ==
PROVIDERS: Emergency Provider Emergency Medicine; PCP Family Medicine
DX: F41.9 Anxiety disorder, unspecified (principal); Z86.19 Personal history of other infectious and parasitic diseases; J45.909 Unspecified asthma, uncomplicated; F32.9 Major depressive disorder, single episode, unspecified; D64.9 Anemia, unspecified; Z87.442 Personal history of urinary calculi; Z87.440 Personal history of urinary (tract) infections
CPT/HCPCS: 99283; A9270

== ENCOUNTER 2020-08-28 09:17 | Emergency (ER) | payer OTHER, SELFPAY ==
--- NOTE | ~2020-08-28 | CT_ITS ---
EXAMINATION: CT abdomen pelvis wo con DATE: 08/28/2020 10:12 INDICATION: Left flank pain TECHNIQUE: Computed tomography (CT) of the abdomen and pelvis was performed without intravenous contr ast. The dose-length product was 255.95 mGy-cm. Automated exposure control and iterative reconstructi on technique were employed. COMPARISON: CT dated 06/28/2020. FINDINGS: There is a 3.5 cm left adnexal cyst, likely ovarian. Lung bases unremarkable. Heart size normal. The liver, spleen, pancreas, adrenal glands and left kidney are unremarkable. There is a 2 mm nonobst ructing right renal stone. No ureteral stone or hydronephrosis. Bowel pattern nonobstructive. No free air or free fluid. Gallbladder is present. No acute osseous abnormality. No significant vascular abn ormality. No lymphadenopathy. IMPRESSION: 1. 3.5 cm left adnexal cyst, likely ovarian. 2: Punctate 2 mm nonobstructing right renal stone. Reviewed, dictated and finalized at location A. OLE ROUNDER
[2020-08-28 09:23] VITALS: BP 139/105; PULSE 112; RESP 20; TEMP 36.4; O2SAT 96
[2020-08-28] MEDS: SODIUM CHLORIDE 0.9% IV 1,000 ML 999 ML IV CONT (09:45)
[2020-08-28 09:46] VITALS: BP 117/73
[2020-08-28] MEDS: KETOROLAC 30 MG/ML VIAL (*BKC) IM (09:46)
[2020-08-28] MEDS: METOCLOPRAMIDE HCL INJ 10 MG/2 ML VIAL IV PUSH (09:46)
--- NOTE | 2020-08-28 09:46 | ED.GENADULT ---
HPI - General Adult General Chief complaint: Back Pain/Injury Stated complaint: left flank pain Time Seen by Provider: 08/28/20 09:33 Source: patient History of Present Illness HPI narrative: Patient is a 25 y/o female complaining of left back pain starting last night. She describes her pain as sharp and rates it as 10/10. There is no pain radiation, no alleviating or exacerbating factor. She has some nausea, vomiting and diarrhea. She has no dysuria or hematuria. Related Data Home Medications Medication Instructions Recorded Confirmed Xanax 08/28/20 Allergies Allergy/AdvReac Type Severity Reaction Status Date / Time No Known Allergies Allergy Verified 08/28/20 09:25 Review of Systems Constitutional: Constitutional: Denies chills, Denies fever(s), Denies headache(s) and Denies weakness Eyes: Eyes: Denies blurry vision ENT: Denies headache(s) and Denies neck pain Cardiovascular: Cardiovascular: Denies chest pain and Denies dyspnea Respiratory: Respiratory: Denies cough and Denies dyspnea Gastrointestinal: Gastrointestinal: Denies abdominal pain, Denies diarrhea, Denies nausea and Denies vomiting Genitourinary: Genitourinary: Denies hematuria, Denies dysuria and Reports flank pain Musculoskeletal: Musculoskeletal: Denies back pain and Denies neck pain Neurologic: Denies headache(s) and Denies weakness PMFSH Past Medical History Medical History (Updated 08/28/20 @ 11:11 by Brea Spencer MD) Anxiety Asthma Chronic anemia Depression HPV (human papilloma virus) anogenital infection Kidney stone UTI (urinary tract infection) History of multidrug resistant Proteus mirabilis UTI. Surgical History Surgical History S/P cystoscopy with ureteral stent placement Family History Family History Mother Depression Anxiety Kidney stones Father Family history unknown Sibling Family history normal Grandparent Diabetes mellitus Other Family history of malignant neoplasm of cervix Social History Social History Social History: the patient lives in [place]. 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 she has 2 children, ages 5 and 7, who are healthy. She denies any tobacco, drug or alcohol use currently. Designates her mother, Renay, as her surrogate decision maker and she wishes to be a full code. Gender identity (if verbalized by the patient): Female Spiritual care concerns: No Agree to blood products: Yes Exam Const: General: no acute distress and well developed Orientation/consciousness: oriented to person, oriented to place, oriented to time and patient oriented x3 HENMT: Head: normocephalic Ears: external ears normal General nose exam: Normal external nose present Eyes: General: appearance normal, both eyes and all related structures Conjunctivae: conjunctivae normal Neck: Neck: normal visual inspection and full ROM Chest: Chest palpation & inspection: normal inspection of the chest and no tenderness Resp: Effort & Inspection: normal respiratory effort Auscultation: clear to auscultation bilaterally Cardio: Rate: tachycardic Rhythm: regular rhythm GI: GI Palp: No abdominal tenderness and Yes Soft to palpation Skin: General skin exam: normal color and turgor normal Neuro: General: oriented to person, oriented to place, oriented to time and patient oriented x3 Cognition (Neuro): normal cognition Extrem: General: normal to inspection, full ROM and no pedal edema Psych: Appearance: grossly normal Mental Status: mental status grossly normal Affect: Anxious affect present Course Vital Signs Vital signs: Vital Signs Temperature 36.4 C 08/28/20 09:23 Pulse Rate 112 H 08/28/20 09:23 Respiratory Rate 20 08/28/20 09:23 Blood Pressure 139/105 H 08/28/20 09:23 Pulse Oximetry 96 08/28/20
[2020-08-28 09:57] LABS: Basophils Percent Auto 0.2 % (0.2-1.2); Eosinophils Percent Auto 0.2 % (0-4.4); Hematocrit 38.6 % (37.0-47.0); Hemoglobin 12.6 g/dL (12.0-15.0); Immature Granulocyte Absolute 0.04 K/mm3 (0.00-0.031); Immature Granulocyte Percent A 0.3 % (0-0.5); Lymphocytes Absolute Auto 1.69 K/mm3 (0.9-3.2); Lymphocytes Percent Auto 13.5 % (18.3-44.2); Mean Corpuscular HGB Conc 32.6 g/dl (32-36); Mean Corpuscular Hemoglobin 29.5 pg (26-34); Mean Corpuscular Volume 90.4 fl (80-100); Mean Platelet Volume 12.4 fl (7.4-10.4); Monocytes Absolute Auto 0.4 K/mm3 (0.1-0.6); Monocytes Percent Auto 3.2 % (2.6-8.5); Neutrophils Absolute Auto 10.3 K/mm3 (1.3-6.7); Neutrophils Percent Auto 82.6 % (45.5-73.1); Platelet Count Result 247 k/mm3 (150-375); Red Blood Count 4.27 M/mm3 (4.2-5.4); Red Cell Distribution Width 12.9 % (11.5-14.5); White Blood Count 12.5 K/mm3 (4.5-10.0)
[2020-08-28 10:00] LABS: Add Urine Microscopic? YES; Appearance Urine Clear (Clear); Bacteria Urine Trace /hpf; Bilirubin Urine Negative (Negative); Blood Urine Negative (Negative); Color Urine Yellow (Yellow); Glucose Urine UA Negative (Negative); Ketones Urine Trace mg/dL (Negative); Leukocyte Esterase Ur Negative LEU/UL (Negative); Mucus Urine Heavy /lpf; Nitrate Urine Negative (Negative); Protein Urine 1+ mg/dL (Negative); RBC Urine 0-2 /hpf (0-2); Specific Grav Ur 1.025 (1.001-1.035); Squamous Epithelial Cell Urine Occasional /hpf (Few); WBC Urine 0-3 /hpf
[2020-08-28 10:15] VITALS: TEMP 36.4
[2020-08-28 10:19] LABS: Anion Gap 8 mmol/L (8-16); Blood Urea Nitrogen 15 mg/dL (7-17); Calcium 9.1 mg/dL (8.4-10.2); Carbon Dioxide 29 mmol/L (22-30); Chloride 101 mmol/L (98-107); Estimated Glomerular Filt Rate > 60; Glucose 92 mg/dL (65-105); Potassium 3.8 mmol/L (3.4-5.0); Sodium 138 mmol/L (137-145)
[2020-08-28] MEDS: LORazepam (*CRX) 1 MG TABLET PO (10:33)
[2020-08-28 10:36] VITALS: BP 115/62; PULSE 120; RESP 18; O2SAT 100
--- NOTE | 2020-08-28 10:37 | PC.NURSE ---
Patient c/o feeling anxious, Dr. Spencer notified and ativan 1mg given PO at this time.
[2020-08-28 11:15] VITALS: BP 122/76; PULSE 78; RESP 18; O2SAT 99
== END 2020-08-28 11:15 | disposition home or self-care (01) ==
PROVIDERS: Emergency Provider Emergency Medicine; PCP Family Medicine
DX: M54.5 Low back pain (principal); F41.9 Anxiety disorder, unspecified; D64.9 Anemia, unspecified; J45.909 Unspecified asthma, uncomplicated; F32.9 Major depressive disorder, single episode, unspecified; Z87.442 Personal history of urinary calculi; Z87.440 Personal history of urinary (tract) infections
CPT/HCPCS: 36415; 74176; 80048; 81001; 81025; 85025; 96361; 96372; 96374; 99284; A9270; J1885; J2765; J7030

== ENCOUNTER 2020-11-27 02:41 | Emergency (ER) | payer OTHER, SELFPAY ==
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
[2020-11-27 02:49] VITALS: BP 116/64; PULSE 101; RESP 18; TEMP 36.3; O2SAT 100
[2020-11-27] MEDS: HYDROcodone/acetaminophen (*CRX) 5-325 MG TABLET 1 TAB PO (03:09)
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
[2020-11-27 03:59] VITALS: BP 111/82; PULSE 88; RESP 16; O2SAT 99
--- NOTE | 2020-12-03 06:00 | PC.NURSE ---
LATE ENTRY gave this rn verbal order for metal splint This note is being entered to document information to the patient's record. The following information was omitted on [12/03/20], by [elena woods].
== END 2020-11-27 04:00 | disposition home or self-care (01) ==
PROVIDERS: Emergency Provider Emergency Medicine; PCP Family Medicine
DX: S63.612A Unspecified sprain of right middle finger, initial encounter (principal); S63.501A Unspecified sprain of right wrist, initial encounter; J45.909 Unspecified asthma, uncomplicated; D64.9 Anemia, unspecified; F41.9 Anxiety disorder, unspecified; F32.9 Major depressive disorder, single episode, unspecified; Z87.442 Personal history of urinary calculi; Z87.440 Personal history of urinary (tract) infections; Y04.0XXA Assault by unarmed brawl or fight, initial encounter
CPT/HCPCS: 29130; 73130; 99283; A9270

== ENCOUNTER 2021-06-09 18:00 | Emergency (ER) | payer OTHER, SELFPAY ==
--- NOTE | ~2021-06-09 | XR_ITS ---
XR chest 1V portable DATE: 06/09/2021 21:33 INDICATION: Midsternal chest pain, shortness of breath for a week TECHNIQUE: Portable upright AP chest on 06/09/2021 at 2130 hours COMPARISON: 07/28/2020 portable AP chest FINDINGS: Normal heart size. No hilar or mediastinal enlargement. The lungs are clear of infiltrate o r consolidation. Mild thoracic scoliosis. IMPRESSION: No active cardiopulmonary disease Reviewed, dictated and finalized at location A.
--- NOTE | ~2021-06-09 | CT_ITS ---
EXAMINATION: CT brain wo con DATE: 06/09/2021 21:48 INDICATION: Acute headache TECHNIQUE: Computed tomography CT) of the head was performed without intravenous contrast. The mA was adjusted according to patient size. Iterative reconstruction technique was employed. Exam dose: 605 .33 mGy-cm total exam DLP. COMPARISON: 02/12/2015 CT brain FINDINGS: No intracranial mass lesion or hemorrhage or cerebrovascular accident. No midline shift or mass effect. Normal ventricular size. Normal teran-white matter differentiation. No subdural or epidur al hematoma. The mastoid air cells and included paranasal sinuses are unremarkable. No skull fracture or bone destruction is detected. IMPRESSION: No significant abnormality Reviewed, dictated and finalized at Location A. Reviewed, dictated and finalized at location A. IMPRESSION: No significant abnormality
[2021-06-09 18:26] VITALS: BP 136/77; PULSE 84; RESP 18; TEMP 36.4; O2SAT 100
[2021-06-09 18:36] LABS: Basophils Percent Auto 0.3 % (0.2-1.2); Eosinophils Percent Auto 0.6 % (0-4.4); Hematocrit 37.3 % (37.0-47.0); Hemoglobin 12.6 g/dL (12.0-15.0); Immature Granulocyte Absolute 0.02 K/mm3 (0.00-0.031); Immature Granulocyte Percent A 0.3 % (0-0.5); Lymphocytes Absolute Auto 2.03 K/mm3 (0.9-3.2); Mean Corpuscular HGB Conc 33.8 g/dl (32-36); Mean Corpuscular Hemoglobin 30.4 pg (26-34); Mean Corpuscular Volume 89.9 fl (80-100); Mean Platelet Volume 12.3 fl (7.4-10.4); Monocytes Absolute Auto 0.4 K/mm3 (0.1-0.6); Monocytes Percent Auto 5.7 % (2.6-8.5); Neutrophils Absolute Auto 4.5 K/mm3 (1.3-6.7); Neutrophils Percent Auto 64.1 % (45.5-73.1); Platelet Count Result 232 k/mm3 (150-375); Red Blood Count 4.15 M/mm3 (4.2-5.4); Red Cell Distribution Width 12.2 % (11.5-14.5)
[2021-06-09 18:51] LABS: Add Urine Microscopic? YES; Appearance Urine Clear (Clear); Bacteria Urine Trace /hpf; Bilirubin Urine Negative (Negative); Blood Urine Negative (Negative); Color Urine Yellow (Yellow); Glucose Urine UA Negative (Negative); Ketones Urine 1+ mg/dL (Negative); Leukocyte Esterase Ur Negative LEU/UL (Negative); Mucus Urine Few /lpf; Nitrate Urine Negative (Negative); Protein Urine Negative (Negative); Specific Grav Ur 1.017 (1.001-1.035); Squamous Epithelial Cell Urine Rare /hpf (Few); Urobilinogen Urine Negative mg/dL (<2.0); WBC Urine 0-3 /hpf
[2021-06-09 18:56] LABS: Alanine Aminotransferase 20 U/L (4-35); Albumin Level 4.4 g/dL (3.5-5.1); Alkaline Phosphatase 62 U/L (38-126); Anion Gap 8 mmol/L (8-16); Aspartate Amino Transferase 28 U/L (14-36); Bilirubin,Total 0.6 mg/dL (0.2-1.3); Blood Urea Nitrogen 10 mg/dL (7-17); Calcium 9.4 mg/dL (8.4-10.2); Carbon Dioxide 27 mmol/L (22-30); Chloride 103 mmol/L (98-107); Estimated Glomerular Filt Rate > 60; Glucose 93 mg/dL (65-110); Lipase 95 U/L (23-300); Potassium 3.9 mmol/L (3.4-5.0); Sodium 138 mmol/L (137-145)
[2021-06-09 20:53] VITALS: BP 126/79; PULSE 81; RESP 18; O2SAT 100
--- NOTE | 2021-06-09 21:24 | ECG_ITS ---
Measurements Intervals [place] Rate: 70 P: 44 IN: 132 QRS: 21 QRSD: 84 T: 45 QT: 379 QTc: 410 Interpretive Statements SINUS RHYTHM BASELINE ARTIFACT- I, II, V4-V5 NORMAL ECG Electronically Signed On 06-10-2021 6:03:50 CDT by Raymundo Gallegos D.O.
--- NOTE | 2021-06-09 21:25 | ED.GENADULT ---
HPI - General Adult General Chief complaint: Abdominal Pain Stated complaint: abd pain Time Seen by Provider: 06/09/21 20:52 Source: patient and RN notes reviewed Mode of arrival: ambulatory Limitations: no limitations History of Present Illness HPI narrative: This is 25 year old female who presents for evaluation of headache , nausea, vomiting and abdominal pain. She states she started having a constant headache 2 months ago. She was initially getting some relief with ibuprofen and benadryl. She was started on Sumatriptan by her PCP 1 week ago. She reports nausea and epigastric pain once she started the medication. She stopped taking the medication 3 days. She reports today she has been unable to keep any food or fluids down today. She reported epigastric pain since yesterday. She also reports fever of 103 3 days ago. She denies cough, sore throat, runny nose, diarrhea. She reports her headache has continued to worsen and it is now located frontal and posteriorly. Headache is worse with light. Related Data Home Medications Medication Instructions Recorded Confirmed Xanax 08/28/20 Allergies Allergy/AdvReac Type Severity Reaction Status Date / Time No Known Allergies Allergy Verified 06/09/21 20:53 Review of Systems Review of Systems: All systems reviewed & are unremarkable except as noted in HPI and below PMFSH Past Medical History Medical History (Updated 06/09/21 @ 23:57 by Anusha Vasquez MD) Anxiety Asthma Chronic anemia Depression HPV (human papilloma virus) anogenital infection Kidney stone UTI (urinary tract infection) History of multidrug resistant Proteus mirabilis UTI. Surgical History Surgical History S/P cystoscopy with ureteral stent placement Family History Family History Mother Depression Anxiety Kidney stones Father Family history unknown Sibling Family history normal Grandparent Diabetes mellitus Other Family history of malignant neoplasm of cervix Social History Social History Social History: the patient lives in [place]. 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 she has 2 children, ages 5 and 7, who are healthy. She denies any tobacco, drug or alcohol use currently. Designates her mother, Renay, as her surrogate decision maker and she wishes to be a full code. Gender identity (if verbalized by the patient): Female Spiritual care concerns: No Agree to blood products: Yes Exam Const: General: no acute distress and alert Orientation/consciousness: patient oriented x3 Eyes: Pupils: Equal, round and reactive pupils present EOM: EOMs intact bilaterally Chest: Chest palpation & inspection: normal inspection of the chest Resp: Effort & Inspection: normal respiratory effort and no retractions Auscultation: clear to auscultation bilaterally Cardio: Rate: regular rate Rhythm: regular rhythm Heart sounds: no murmurs GI: GI Palp: Yes Soft to palpation, No Tenderness to palpation present (GI) and No Guarding due to palpation present (GI) Auscultation: normal bowel sounds Skin: General skin exam: normal color Rashes: no rashes Neuro: General: patient oriented x3, moves all extremities and CN's II-XI intact bilaterally Psych: Mental Status: mental status grossly normal Affect: normal affect Course Reevaluation(s) Reevaluation #1: Patient reports her headache has completely resolved. Date: 06/09/21 Time: 22:54 Reevaluation #2: Patient has no complaints. She is able to sit in room with light on. She is tolerating PO. She denies any additional questions or concerns. Date: 06/09/21 Time: 23:56 Vital Signs Vital signs: Vital Signs Temperature 97.6 F 06/09/21 18:26 Pulse Rate 84 06/09/21 18:26 Respiratory Rate 18 06/09/21 18:26 Blood Pressure 136/
[2021-06-09] MEDS: LACTATED RINGERS 1,000 ML 999 ML IV CONT ×2 (21:56→22:54)
[2021-06-09] MEDS: KETOROLAC 30 MG/ML VIAL (*BKC) IV PUSH (21:57)
[2021-06-09] MEDS: PANTOPRAZOLE SODIUM IV 40 MG VIAL IV PUSH (21:57)
[2021-06-09] MEDS: diphenhydrAMINE HCl INJ 50 MG/ML VIAL 25 MG IV PUSH (21:57)
[2021-06-09] MEDS: METOCLOPRAMIDE HCL INJ 10 MG/2 ML VIAL IV PUSH (21:57)
[2021-06-09 22:55] VITALS: BP 127/74; PULSE 95; RESP 18; O2SAT 100
[2021-06-09 22:56] LABS: D Dimer 0.27 ug/mL (<0.48)
--- NOTE | 2021-06-09 22:57 | PC.NURSE ---
Pt reports headache and nausea have subsided.
[2021-06-10 18:09] LABS: SARS-CoV-2 RNA PCR Negative
== END 2021-06-10 00:30 | disposition home or self-care (01) ==
PROVIDERS: Emergency Provider General Practice; PCP Family Medicine
DX: R51.9 Headache, unspecified (principal); E86.0 Dehydration; R10.13 Epigastric pain; F41.9 Anxiety disorder, unspecified; F32.9 Major depressive disorder, single episode, unspecified; Z20.822 Contact with and (suspected) exposure to COVID-19; Z87.09 Personal history of other diseases of the respiratory system; Z87.442 Personal history of urinary calculi; Z87.440 Personal history of urinary (tract) infections
CPT/HCPCS: 36415; 70450; 71045; 80053; 81001; 81025; 83690; 85025; 85380; 87081; 87804; 87880; 93005; 96361; 96374; 96375; 99284; C9113; C9803; J1200; J1885; J2765; J7120; U0003; U0005

== ENCOUNTER 2021-08-24 12:32 | Outpatient (CLI) | payer OTHER, SELFPAY ==
--- NOTE | ~2021-08-24 | US_ITS ---
US breast BI limited DATE: 08/24/2021 13:00 INDICATION: Nipple discharge TECHNIQUE: Limited bilateral subareolar breast ultrasound examination COMPARISON: None FINDINGS: No suspicious mass or shadowing is detected. IMPRESSION: BI-RADS Category 1: Negative Reviewed, dictated and finalized at Location A. Reviewed, dictated and finalized at location A. ORATE LEGAL ASSISTANT
== END 2021-08-24 12:33 | disposition home or self-care (01) ==
LOC: ANHIMG 12:37
PROVIDERS: PCP Family Medicine; Visit Provider Nurse Practitioner Obstetrics & Gynecology
DX: N64.52 Nipple discharge (principal)
CPT/HCPCS: 76642

== ENCOUNTER 2021-09-26 21:56 | Emergency (ER) | payer OTHER, SELFPAY ==
--- NOTE | ~2021-09-26 | CT_ITS ---
EXAMINATION: CT abdomen pelvis wo con DATE: 09/27/2021 02:51 INDICATION: Right flank pain. History of kidney stones. TECHNIQUE: Computed tomography (CT) of the abdomen and pelvis was performed without intravenous contr ast. Automated exposure control and iterative reconstruction technique were employed. Exam dose: 185 .57 mGy-cm total exam DLP. COMPARISON: 08/28/2020, 06/28/2020, 11/30/2019 CT abdomen pelvis examinations FINDINGS: New 4 mm left lower lobe nodule with density measurement of 229 Hounsfield units, likely a left lower lobe granuloma. No infiltrate or consolidation is noted in the lower lung zones. Normal heart size. No pericardial or pleural effusion. Approximately 2-3 mm nonobstructing lower pole right renal calculus. Approximately 2-3 mm mid to lower left renal nonobstructing calculus. No ureteral calculus or hydroureteronephrosis. The urinary bladder, uterus and adnexal areas are unre markable. Normal caliber of the abdominal aorta. No intraperitoneal or retroperitoneal or pelvic mass lesion or adenopathy or ascites. No bowel obstruction, bowel wall thickening, pneumatosis or intraperitoneal free air is detected. IMPRESSION: Small bilateral nonobstructing renal calculi 4 mm probable left lower lobe pulmonary granuloma Reviewed, dictated and finalized at [facility]. Reviewed, dictated and finalized at [facility]. EXAMINER
[2021-09-26 22:21] VITALS: BP 129/70; PULSE 104; RESP 18; TEMP 36.2; O2SAT 98
[2021-09-27 01:33] VITALS: BP 118/80; PULSE 102; RESP 16; O2SAT 99
--- NOTE | 2021-09-27 02:31 | ED.ABDPAIN ---
HPI - Abdominal Pain General Chief Complaint: Abdominal Pain Stated Complaint: kidney stone Time Seen by Provider: 09/27/21 02:31 Source: patient Mode of arrival: ambulatory Limitations: no limitations History of Present Illness HPI narrative: Patient is a 26-year-old female complaining right flank pain, 6 out of 10, sharp, radiating to right groin, accompanied by nausea started 2 days ago. Patient states that she has a history of kidney stones. Patient denies any chest pain, shortness of breath, vomiting, diarrhea, fever or chills. Related Data Home Medications Medication Instructions Recorded Confirmed alprazolam 0.25 mg tablet 0.25 mg PO QHS PRN 09/26/21 buspirone 10 mg tablet 10 mg PO BID 09/26/21 Allergies Allergy/AdvReac Type Severity Reaction Status Date / Time No Known Allergies Allergy Verified 09/27/21 02:22 Review of Systems Review of Systems: All systems reviewed & are unremarkable except as noted in HPI and below Constitutional: Constitutional: Denies body ache(s), Denies chills, Denies excessive sweating, Denies fatigue, Denies fever(s), Denies headache(s), Denies lethargy, Denies malaise, Denies weakness and Denies weight loss Eyes: Eyes: Denies blurry vision, Denies change in vision and Denies loss of vision ENT: Denies dizziness, Denies ear discharge, Denies headache(s), Denies lip swelling, Denies epistaxis, Denies nasal congestion, Denies neck pain, Denies throat swelling and Denies tongue swelling Cardiovascular: Cardiovascular: Denies chest pain, Denies chest pain at rest, Denies chest pain with activity, Denies diaphoresis, Denies rapid heart rate, Denies edema, Denies irregular heart rhythm, Denies lightheadedness, Denies palpitations, Denies dyspnea and Denies dyspnea on exertion Respiratory: Respiratory: Denies chest congestion, Denies cough, Denies hemoptysis, Denies dyspnea and Denies dyspnea on exertion Gastrointestinal: Gastrointestinal: Denies abdominal pain, Denies melena, Denies hematochezia, Denies diarrhea, Denies vomiting and Denies hematemesis Musculoskeletal: Musculoskeletal: Denies abnormal gait, Denies deformity, Denies joint swelling, Denies limited range of motion, Denies neck pain and Denies numbness Neurologic: Denies Abnormal speech present, Denies abnormal gait, Denies confusion, Denies dizziness, Denies headache(s), Denies focal weakness, Denies loss of vision, Denies numbness, Denies Other visual disturbances, Denies Sensory deficit (Neuro) and Denies weakness Psychiatric: Psychiatric: Denies confusion, Denies depression, Denies auditory hallucinations, Denies homicidal ideation and Denies suicidal ideation Endocrine: Endocrine: Denies cold intolerance, Denies excessive sweating, Denies fatigue, Denies heat intolerance and Denies palpitations Hematologic/Lymphatic: Hematologic/Lymphatic: Denies easy bleeding and Denies easy bruising Allergic/Immunologic: Allergic/Immunologic: Denies lip swelling, Denies throat swelling and Denies tongue swelling PMF Past Medical History Medical History (Updated 09/27/21 @ 03:30 by Joshua Shaver MD) Anxiety Asthma Chronic anemia Depression HPV (human papilloma virus) anogenital infection Kidney stone UTI (urinary tract infection) History of multidrug resistant Proteus mirabilis UTI. Surgical History Surgical History S/P cystoscopy with ureteral stent placement Family History Family History Mother Depression Anxiety Kidney stones Father Family history unknown Sibling Family history normal Grandparent Diabetes mellitus Other Family history of malignant neoplasm of cervix Social History Social History Social History: the patient lives in [place]. 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 she has 2 children, ages 5 and 7, who are healt
[2021-09-27] MEDS: PROMETHAZINE HCL 25 MG/ML AMPUL 12.5 MG IV PUSH (03:01)
[2021-09-27] MEDS: SODIUM CHLORIDE 0.9% IV 1,000 ML 999 ML (03:01)
[2021-09-27] MEDS: KETOROLAC 30 MG/ML VIAL (*BKC) IV PUSH (03:01)
[2021-09-27 03:04] VITALS: BP 122/77; PULSE 107; RESP 20; O2SAT 99
[2021-09-27 03:04] LABS: Add Urine Microscopic? YES; Appearance Urine Clear (Clear); Bacteria Urine Trace /hpf; Bilirubin Urine Negative (Negative); Blood Urine Negative (Negative); Color Urine Yellow (Yellow); Glucose Urine UA Negative (Negative); Ketones Urine Trace mg/dL (Negative); Leukocyte Esterase Ur Negative LEU/UL (Negative); Mucus Urine Heavy /lpf; Nitrate Urine Negative (Negative); Protein Urine 1+ mg/dL (Negative); Squamous Epithelial Cell Urine Many /hpf (Few); Urobilinogen Urine Negative mg/dL (<2.0); WBC Urine 0-3 /hpf
[2021-09-27 03:14] LABS: Basophils Percent Auto 0.2 % (0.2-1.2); Eosinophils Absolute Auto 0.1 K/mm3 (0-0.3); Eosinophils Percent Auto 1.2 % (0-4.4); Hematocrit 39.6 % (37.0-47.0); Hemoglobin 13.2 g/dL (12.0-15.0); Immature Granulocyte Absolute 0.03 K/mm3 (0.00-0.031); Immature Granulocyte Percent A 0.4 % (0-0.5); Lymphocytes Absolute Auto 1.78 K/mm3 (0.9-3.2); Mean Corpuscular HGB Conc 33.3 g/dl (32-36); Mean Corpuscular Hemoglobin 29.7 pg (26-34); Mean Corpuscular Volume 89.2 fl (80-100); Mean Platelet Volume 12.3 fl (7.4-10.4); Monocytes Absolute Auto 0.9 K/mm3 (0.1-0.6); Monocytes Percent Auto 10.5 % (2.6-8.5); Neutrophils Absolute Auto 5.6 K/mm3 (1.3-6.7); Neutrophils Percent Auto 66.7 % (45.5-73.1); Platelet Count Result 241 k/mm3 (150-375); Red Blood Count 4.44 M/mm3 (4.2-5.4); Red Cell Distribution Width 12.3 % (11.5-14.5); White Blood Count 8.5 K/mm3 (4.5-10.0)
[2021-09-27 03:20] LABS: Specific Grav Ur 1.034 (1.001-1.035)
[2021-09-27 03:27] LABS: Alanine Aminotransferase 16 U/L (4-35); Albumin Level 4.8 g/dL (3.5-5.1); Alkaline Phosphatase 72 U/L (38-126); Anion Gap 10 mmol/L (8-16); Aspartate Amino Transferase 23 U/L (14-36); Bilirubin,Total 0.5 mg/dL (0.2-1.3); Blood Urea Nitrogen 15 mg/dL (7-17); Calcium 9.4 mg/dL (8.4-10.2); Carbon Dioxide 25 mmol/L (22-30); Chloride 101 mmol/L (98-107); Estimated Glomerular Filt Rate > 60; Glucose 117 mg/dL (65-110); Potassium 3.7 mmol/L (3.4-5.0); Sodium 136 mmol/L (137-145)
[2021-09-27 04:02] VITALS: BP 118/73; PULSE 99; RESP 17; O2SAT 97
== END 2021-09-27 04:03 | disposition home or self-care (01) ==
PROVIDERS: Emergency Provider Emergency Medicine
DX: N20.0 Calculus of kidney (principal); F41.9 Anxiety disorder, unspecified; F32.9 Major depressive disorder, single episode, unspecified
CPT/HCPCS: 36415; 74176; 80053; 81001; 81025; 85025; 96361; 96374; 96375; 99284; J1885; J2550; J7030

== ENCOUNTER 2021-11-23 01:43 | Day surgery (SDC) | payer OTHER, SELFPAY ==
[2021-11-16 11:32] VITALS: BMI 29.2
--- NOTE | 2021-11-16 11:43 | PC.NURSE ---
Report to the Outpatient Waiting Room, entrance under the green pavilion located off [facility], at time 0845 on date 11/23/21. OR Time: 1045. - You and your visitor will be asked a series of questions to screen for COVID 19 for your protection. - A mask is required within the hospital. One visitor will be allowed to accompany the patient into the hospital. Patients visitor will be instructed to remain with patient at all times or leave the building. We will allow the visitor to come back to the postoperative area when patient is ready. Preoperative COVID Testing Requirements: E-MAILING COPY OF CARD No COVID Test needed if: (proof is required; if not received patient will have Rapid Test prior to entry) - Patient has received COVID Vaccine at least 14 days prior to procedure date or - Patient has positive COVID test result within last 90 days of surgery date. COVID Test needed if above criteria is not met Patients may have clear liquids (water, carbonated beverages, clear teas, apple juice) until 3 hours prior to surgery with a maximum of 20 ounces. - No food from midnight until time of surgery Take the following medications with a SIP of water the morning of surgery: BUSPIRONE, ALPRAZOLAM (IF NEEDED) Medications to discontinue per physician: N/A Date to take last dose: N/A Please no make-up, nail norwegian, hairspray, perfume, deodorant, or body powder the day of surgery. No jewelry (including any body piercings) or valuables the day of surgery, leave them at home. Please take a shower or bath the night before, or the morning of, surgery with an antibacterial soap. Wear comfortable, loose fitting clothing. - Jewelry must be removed prior to entering the operating room. Rings and piercings that are not removed may be cut off. - The hospital will not accept responsibility for valuables. - Please leave all valuables, including medications, at home the day of surgery. If you are going home after surgery, a licensed driver wheelchair must drive you home. - NO public transportation without another adult. - We recommend that an adult stay with you for 24 hours following discharge. - We also recommend that you do not drive, make important decision, drink alcoholic beverages, or take any drugs that were not prescribed by your health care provider for at least 24 hours after your discharge time. Follow any additional instructions given to you from your surgeon. Telephone instructions given to HAWA OSORIO and asked if any additional questions and then verbalized understanding. Patient advised to call surgeon office or pre surgery nurse liaison [phone] if any additional questions.
--- NOTE | 2021-11-21 07:11 | P.HP_ITS ---
History of Present Illness History of Present Illness Consent: Risks, benefits, and alternatives have been discussed and questions answered. Patient agrees to proceed with procedure. Chief complaint: septal deviation, turbinate hypertrophy Narrative: Carlota Vazquez is a 26 year old female with a marked nasal septal deviation and turbinate hypertrophy she cannot breathe out of her nose at any time and unresponsive to Rocio Hernandez antibiotics and [id number] medications PMFSH Past Medical History Medical History (Updated 11/02/21 @ 08:21 by Rio Coleman MD) Anxiety Asthma Chronic anemia Depression HPV (human papilloma virus) anogenital infection Kidney stone UTI (urinary tract infection) History of multidrug resistant Proteus mirabilis UTI. Surgical History Surgical History S/P cystoscopy with ureteral stent placement Family History Family History Mother Depression Anxiety Kidney stones Father Family history unknown Sibling Family history normal Grandparent Diabetes mellitus Other Family history of malignant neoplasm of cervix Social History Social History Social History: the patient lives in [place]. 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 she has 2 children, ages 5 and 7, who are healthy. She denies any tobacco, drug or alcohol use currently. Designates her mother, Renay, as her surrogate decision maker and she wishes to be a full code. Smoking status: Former smoker Additional smoking assessment comments: AT AGE 16 Alcohol intake: never Substance use: never Substance use type: does not use Living arrangements: with family Additional living arrangements comments: CHILDREN Gender identity (if verbalized by the patient): Female Spiritual care concerns: No Agree to blood products: Yes Meds Home Medications and Allergies Home Medications Medication Instructions Recorded Confirmed Type alprazolam 0.25 mg tablet 0.25 mg PO QHS PRN 09/26/21 11/16/21 History buspirone 10 mg tablet 15 mg PO BID 09/26/21 11/16/21 History ergocalciferol (vitamin D2) 50,000 unit PO WEEKLY 11/16/21 11/16/21 History Allergies Allergy/AdvReac Type Severity Reaction Status Date / Time No Known Allergies Allergy Verified 11/16/21 11:29 Exam Narrative: septum markedly deviated obstruction turbinate hypertrophy chest clear heart rhythm murmurs abdomen soft Assessment and Plan Additional Plan planned septoplasty bilateral inferior turbinectomy
--- NOTE | 2021-11-22 05:23 | P.HP_ITS ---
History of Present Illness History of Present Illness Consent: Risks, benefits, and alternatives have been discussed and questions answered. Patient agrees to proceed with procedure. Chief complaint: septal deviation, turbinate hypertrophy Narrative: Carlota Vazquez is a 26 year old female With nasal obstruction recurrent sinusitis difficulty breathing [facility] Past Medical History Medical History (Updated 11/02/21 @ 08:21 by Rio Coleman MD) Anxiety Asthma Chronic anemia Depression HPV (human papilloma virus) anogenital infection Kidney stone UTI (urinary tract infection) History of multidrug resistant Proteus mirabilis UTI. Surgical History Surgical History S/P cystoscopy with ureteral stent placement Family History Family History Mother Depression Anxiety Kidney stones Father Family history unknown Sibling Family history normal Grandparent Diabetes mellitus Other Family history of malignant neoplasm of cervix Social History Social History Social History: the patient lives in [place]. 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 she has 2 children, ages 5 and 7, who are healthy. She denies any tobacco, drug or alcohol use currently. Designates her mother, Renay, as her surrogate decision maker and she wishes to be a full code. Smoking status: Former smoker Additional smoking assessment comments: AT AGE 16 Alcohol intake: never Substance use: never Substance use type: does not use Living arrangements: with family Additional living arrangements comments: CHILDREN Gender identity (if verbalized by the patient): Female Spiritual care concerns: No Agree to blood products: Yes Meds Home Medications and Allergies Home Medications Medication Instructions Recorded Confirmed Type alprazolam 0.25 mg tablet 0.25 mg PO QHS PRN 09/26/21 11/16/21 History buspirone 10 mg tablet 15 mg PO BID 09/26/21 11/16/21 History ergocalciferol (vitamin D2) 50,000 unit PO WEEKLY 11/16/21 11/16/21 History Allergies Allergy/AdvReac Type Severity Reaction Status Date / Time No Known Allergies Allergy Verified 11/16/21 11:29 Exam Narrative: chest clear heart murmurs abdomen soft extremities negative septum deviated with obstruction turbinates markedly hypertrophic obstruction is on both sides Assessment and Plan Additional Plan plan is bilateral inferior turbinectomy and septoplasty
[2021-11-23] VITALS (8 sets, daily range): BP systolic 97–124; BP diastolic 59–85; PULSE 89–117; RESP 16–20; TEMP 36.2–36.6; O2SAT 100
--- NOTE | 2021-11-23 05:57 | WPDHPUPDATE1 ---
History and Physical Update Update Date/Time: 11/23/21 05:57 History and Physical has been reviewed, including an updated exam of the patient. There are NO changes in the patient's condition. Risks, benefits, and alternatives have been discussed and questions answered. Patient agrees to proceed with procedure.
[2021-11-23] MEDS: ACETAMINOPHEN 500 MG TABLET 1000 MG PO (07:46)
--- NOTE | 2021-11-23 07:53 | P.PNAN_ITS ---
Anes - Initial Pre Proc Eval Procedure: Operation Date: 11/23/21 09:00 Proposed Procedures p Septoplasty - Rio Coleman MD s Bilateral Inferior Turbinectomy - Rio Coleman MD Date/Time: 11/23/21 07:53 Surgeon: Rio Coleman MD Pre Op Diagnosis: septal deviation, turbinate hypertrophy Patient Data Age: 26 Gender: F Height: 1.45 m Weight: 61.24 kg Allergies Allergy/AdvReac Type Severity Reaction Status Date / Time No Known Allergies Allergy Verified 11/23/21 07:41 Home Medications Medication Instructions Recorded Confirmed Type buspirone 10 mg tablet 15 mg PO BID 09/26/21 11/23/21 History ergocalciferol (vitamin D2) 50,000 unit PO WEEKLY 11/16/21 11/23/21 History clonazepam 1 mg PO TID PRN 11/23/21 11/23/21 History Patient hx anesthesia problems: none Family hx anesthesia problems: none Results Review: All pre-operative results and documents have been reviewed as part of the pre-operative evaluation. [facility] Past Medical History Medical History (Updated 11/02/21 @ 08:21 by Rio Coleman MD) Anxiety Asthma Chronic anemia Depression HPV (human papilloma virus) anogenital infection Kidney stone UTI (urinary tract infection) History of multidrug resistant Proteus mirabilis UTI. Surgical History Surgical History S/P cystoscopy with ureteral stent placement Family History Family History Mother Depression Anxiety Kidney stones Father Family history unknown Sibling Family history normal Grandparent Diabetes mellitus Other Family history of malignant neoplasm of cervix Social History Social History Social History: the patient lives in [place]. 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 she has 2 children, ages 5 and 7, who are healthy. She denies any tobacco, drug or alcohol use currently. Designates her mother, Renay, as her surrogate decision maker and she wishes to be a full code. Smoking status: Former smoker Additional smoking assessment comments: AT AGE 16 Alcohol intake: never Substance use: never Substance use type: does not use Living arrangements: with family Additional living arrangements comments: CHILDREN Gender identity (if verbalized by the patient): Female Spiritual care concerns: No Agree to blood products: Yes Anes - Eval Final PreProcedure Day of Procedure 11/23/21 07:53 Patient weight: overweight Heart: regular rate and rhythm Lungs: clear to auscultation Airway: Mallampati scale class II Neurological: alert and oriented Last oral intake: >/= 8 hours ASA classification: II Emergent: no Anesthetic plan: proceed Anesthesia type and monitoring: general ETT and standard monitoring Results Review: All pre-operative results and documents have been reviewed as part of the pre-operative evaluation. Informed Consent: The patient's anesthetic plan and its attendant risks and benefits were discussed with the patient/family/POA. Questions were solicited and answers provided to the satisfaction of the patient/family/POA.
[2021-11-23] MEDS: LACTATED RINGERS 1,000 ML 30 ML IV CONT (08:00)
[2021-11-23] MEDS: COCAINE HCL (*CRX) 4% TOP SOLN 4 ML VIAL 1 APPLIC TOPICAL (08:55)
--- NOTE | 2021-11-23 09:28 | W.PM.PROC2 ---
Procedure Note - Detailed Date of Procedure 11/23/21 Pre-op Diagnosis septal deviation, turbinate hypertrophy Post-op Diagnosis Same Procedure Performed Septoplasty bilateral inferior turbinate Surgeon Rio Coleman MD Description of Procedure Patient was prepped and draped fashion anesthesia cocaine impregnated cottonoids placed on both sides with xylocaine with adrenaline inspection of the septum revealed a markedly deviated septum on both sides posterior bony spurs were noted on the left side a right steve transection was made anterior and posterior tunnels elevated bony cartilaginous and bony deviation was removed related to a septal tear bony deviation was removed in its entirely the swelling the bony and cartilaginous remnant to the midline incision closed with 4-0 chromic and Toscano splints placed on both sides on the left side there was a posterior spur the inferior turbinates on both sides were reduced in size with electrocautery patient awakened returned to recovery in good condition
[2021-11-23] MEDS: fentaNYL CITRATE INJ (*CRX) 100 MCG/2 ML VIAL 25 MCG IV PUSH ×8 (09:40→11:05)
[2021-11-23] MEDS: oxyCODONE HCL (*CRX) 5 MG TAB IR PO (10:55)
== END 2021-11-23 11:40 | disposition home or self-care (01) ==
PROVIDERS: PCP Hospitalist; Visit Provider Otolaryngology
PROC: (CPT 30520; principal; 2021-11-23 09:00)
PROC: (CPT 30140; 2021-11-23 09:00)
DX: J34.2 Deviated nasal septum (principal); J34.3 Hypertrophy of nasal turbinates; F41.9 Anxiety disorder, unspecified; Z87.891 Personal history of nicotine dependence
CPT/HCPCS: 30140; 30520; A9270; J0330; J1100; J1170; J2250; J2370; J2405; J3010; J7120

== ENCOUNTER 2022-02-04 14:45 | Emergency (ER) | payer OTHER, SELFPAY ==
--- NOTE | ~2022-02-04 | CT_ITS ---
EXAMINATION: CT abdomen pelvis w con DATE: 02/04/2022 16:10 INDICATION: RLQ pain TECHNIQUE: Computed tomography (CT) of the abdomen and pelvis was performed with 100 mL Omnipaque-300 intravenous contrast. Automated exposure control and iterative reconstruction technique were employe d. The dose-length product was 290.61 mGy-cm. COMPARISON: 09/27/2021. FINDINGS: Lower thorax: Unremarkable Liver: Normal. Biliary/Gallbladder: Gallbladder is normal. No bile duct dilation. Pancreas: No mass or duct dilation. Spleen: Normal. Adrenals:No mass. Kidneys: Bilateral cortical scarring. Left lower pole simple cyst. Multiple bilateral hypodensities t hat are too small to characterize, but also likely represent cysts. Punctate bilateral renal calcific ations. No hydronephrosis. GI tract: No small or large bowel dilation. Normal appendix. Mesentery/Peritoneum: No ascites, mass, or free air. Retroperitoneum: No mass. Pelvis: Pelvic organs are within normal limits. Soft Tissues: Soft tissues and body wall unremarkable. Bones: No acute osseous finding. IMPRESSION: No acute abdominopelvic process detected. Reviewed, dictated and finalized at location [facility].
[2022-02-04 15:02] VITALS: BP 133/76; PULSE 90; RESP 16; TEMP 36.2; O2SAT 100
[2022-02-04] MEDS: MORPHINE SULFATE (*CRX) 4 MG/ML INJ IV PUSH (15:31)
[2022-02-04] MEDS: SODIUM CHLORIDE 0.9% IV 1,000 ML 999 ML IV CONT (15:31)
[2022-02-04] MEDS: ONDANSETRON INJ 4 MG/2 ML VIAL IV PUSH (15:31)
[2022-02-04 15:35] LABS: Basophils Percent Auto 0.1 % (0.2-1.2); Eosinophils Percent Auto 0.2 % (0-4.4); Hematocrit 40.3 % (37.0-47.0); Hemoglobin 13.2 g/dL (12.0-15.0); Immature Granulocyte Absolute 0.02 K/mm3 (0.00-0.031); Immature Granulocyte Percent A 0.2 % (0-0.5); Lymphocytes Absolute Auto 1.77 K/mm3 (0.9-3.2); Lymphocytes Percent Auto 20.5 % (18.3-44.2); Mean Corpuscular HGB Conc 32.8 g/dl (32-36); Mean Corpuscular Hemoglobin 29.5 pg (26-34); Mean Corpuscular Volume 90.2 fl (80-100); Mean Platelet Volume 12.6 fl (7.4-10.4); Monocytes Absolute Auto 0.4 K/mm3 (0.1-0.6); Monocytes Percent Auto 4.3 % (2.6-8.5); Neutrophils Absolute Auto 6.4 K/mm3 (1.3-6.7); Neutrophils Percent Auto 74.7 % (45.5-73.1); Platelet Count Result 240 k/mm3 (150-375); Red Blood Count 4.47 M/mm3 (4.2-5.4); Red Cell Distribution Width 12.8 % (11.5-14.5); White Blood Count 8.6 K/mm3 (4.5-10.0)
[2022-02-04 15:37] LABS: Appearance Urine Clear (Clear); Bilirubin Urine 1+ (Negative); Blood Urine Negative (Negative); Color Urine Yellow (Yellow); Glucose Urine UA Negative (Negative); Ketones Urine 4+ mg/dL (Negative); Leukocyte Esterase Ur Negative LEU/UL (Negative); Nitrate Urine Negative (Negative); Protein Urine Negative (Negative); Urobilinogen Urine 0.2 mg/dL (<2.0)
[2022-02-04 15:39] LABS: Add Urine Microscopic? YES
[2022-02-04 15:46] LABS: Mucus Urine Few /lpf; Squamous Epithelial Cell Urine Many /hpf (Few); WBC Urine 0-3 /hpf
[2022-02-04 15:47] LABS: Alanine Aminotransferase 15 U/L (6-35); Albumin Level 5.1 g/dL (3.5-5.1); Alkaline Phosphatase 75 U/L (38-126); Anion Gap 10 mmol/L (8-16); Aspartate Amino Transferase 23 U/L (14-36); Bilirubin,Total 0.9 mg/dL (0.2-1.3); Blood Urea Nitrogen 11 mg/dL (7-17); Calcium 9.4 mg/dL (8.4-10.2); Carbon Dioxide 25 mmol/L (22-30); Chloride 103 mmol/L (98-107); Estimated Glomerular Filt Rate > 60; Glucose 119 mg/dL (65-110); Lipase 43 U/L (23-300); Potassium 3.6 mmol/L (3.4-5.0); Sodium 138 mmol/L (137-145)
--- NOTE | 2022-02-04 16:55 | ED.ABDPAIN ---
HPI - Abdominal Pain General Chief Complaint: Abdominal Pain Stated Complaint: Abd pain Time Seen by Provider: 02/04/22 15:14 History of Present Illness HPI narrative: Patient is a 26-year-old female who presents ER with epigastric pain. Burning going up into her chest. Also radiating down into the right lower quadrant. Associate with nausea. No diarrhea. No known sick contacts. Not worse with eating or drinking. Reports has had some cramping in the muscles in her arms related to this. Patient has tried Prilosec and a white liquid medication without relief. Related Data Allergies Allergy/AdvReac Type Severity Reaction Status Date / Time No Known Allergies Allergy Verified 02/04/22 15:34 Review of Systems Review of Systems: All systems reviewed & are unremarkable except as noted in HPI and below Constitutional: Constitutional: Denies chills, Denies fever(s) and Denies weakness ENT: Denies nasal congestion and Denies sore throat Cardiovascular: Cardiovascular: Denies chest pain and Denies radiating jaw, neck or arm pain Gastrointestinal: Gastrointestinal: Reports abdominal pain, Reports heartburn, Denies diarrhea, Reports nausea and Denies vomiting Genitourinary: Genitourinary: Denies nocturia and Denies dysuria [facility] Past Medical History Medical History (Updated 02/04/22 @ 18:15 by Addy Ashton MD) Anxiety Asthma Chronic anemia Depression HPV (human papilloma virus) anogenital infection Kidney stone UTI (urinary tract infection) History of multidrug resistant Proteus mirabilis UTI. Surgical History Surgical History S/P cystoscopy with ureteral stent placement Family History Family History Mother Depression Anxiety Kidney stones Father Family history unknown Sibling Family history normal Grandparent Diabetes mellitus Other Family history of malignant neoplasm of cervix Social History Social History Social History: the patient lives in [place]. 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 she has 2 children, ages 5 and 7, who are healthy. She denies any tobacco, drug or alcohol use currently. Designates her mother, Renay, as her surrogate decision maker and she wishes to be a full code. Smoking status: Former smoker Additional smoking assessment comments: AT AGE 16 Alcohol intake: never Substance use: never Substance use type: does not use Additional living arrangements comments: CHILDREN Gender identity (if verbalized by the patient): Female Spiritual care concerns: No Agree to blood products: Yes Exam Narrative: GENERAL: Well-appearing, well-nourished, and in no acute distress. HEAD: Normocephalic, atraumatic. EYES: PERRL and EOMI. CHEST: Clear to auscultation. No respiratory distress. HEART: Regular rate and rhythm. Normal peripheral pulses. ABDOMEN: Soft, epigastric and right lower quadrant tenderness without guarding, nondistended, normal active bowel sounds. EXTREMITIES: Normal range of motion. No edema. SKIN: Warm, dry, no rash. NEURO: Alert and oriented x3. PSYCH: Normal mood and affect. Course Course Emergency Course: Patient informed results. Discharge home. Vital Signs Vital signs: Vital Signs Temperature 97.1 F L 02/04/22 15:02 Pulse Rate 90 02/04/22 15:02 Respiratory Rate 16 02/04/22 15:02 Blood Pressure 133/76 02/04/22 15:02 Pulse Oximetry 100 02/04/22 15:02 Temperature 97.1 F L 02/04/22 15:02 Pulse Rate 90 02/04/22 15:02 Respiratory Rate 16 02/04/22 15:02 Blood Pressure 133/76 02/04/22 15:02 Pulse Oximetry 100 02/04/22 15:02 MDM - Abdominal Pain Lab Data Result diagrams: 02/04/22 15:26 02/04/22 15:26 Labs: Lab Results 02/04/22 02/04/22 02/04/22 Range/Units 15:26 15:26 15:26 WBC 8.6
[2022-02-04] MEDS: BELLADONNA ALK/PHENOB ELIX 10 ML, MAG HYDROX/ALUMINUM HYD/SIMETH 30 ML, LIDOCAINE HCL 2... PO (17:34)
[2022-02-04 18:36] VITALS: BP 136/84; PULSE 88; RESP 16; O2SAT 98
== END 2022-02-04 18:36 | disposition home or self-care (01) ==
PROVIDERS: Emergency Medicine; Emergency Provider Emergency Medicine; PCP Hospitalist
DX: K21.9 Gastro-esophageal reflux disease without esophagitis (principal); J45.909 Unspecified asthma, uncomplicated; D64.9 Anemia, unspecified; Z87.442 Personal history of urinary calculi; Z87.440 Personal history of urinary (tract) infections; Z87.891 Personal history of nicotine dependence
CPT/HCPCS: 36415; 74177; 80053; 81001; 81025; 83690; 85025; 96361; 96374; 96375; 99284; A9270; J2270; J2405; J7030; Q9967

== ENCOUNTER 2022-02-10 17:55 | Emergency (ER) | payer OTHER, SELFPAY ==
--- NOTE | ~2022-02-10 | XR_ITS ---
EXAMINATION: XR chest 2V Exam Date/Time: 02/10/2022 18:25 CDT HISTORY: left sided neck/chest pain radiates down lt arm Comparison: 06/09/2021. RESULT: Lines, tubes, and devices: None. Lungs and pleura: Clear. Cardiomediastinal silhouette: Stable cardiomediastinal silhouette. Other: No acute osseous or upper abdominal finding. IMPRESSION: No acute cardiopulmonary process. Reviewed, dictated and finalized at location K.
--- NOTE | 2022-02-10 18:01 | ECG_ITS ---
Measurements Intervals Ernul Rate: 103 P: 71 NV: 125 QRS: 16 QRSD: 86 T: 66 QT: 338 QTc: 443 Interpretive Statements SINUS TACHYCARDIA RSR' IN V1 OR V2, CONSIDER RIGHT VENTRICULAR HYPERTROPHY OR RIGHT VCD BASELINE ARTIFACT- I, III, AVR, AVL, AVF, V2-V3 BORDERLINE ECG Electronically Signed On 02-11-2022 7:49:50 CDT by Raymundo Gallegos D.O.
[2022-02-10 18:02] VITALS: BP 145/90; PULSE 104; RESP 23; O2SAT 98
[2022-02-10 18:14] VITALS: O2SAT 100
[2022-02-10 18:14] LABS: Basophils Percent Auto 0.2 % (0.2-1.2); Eosinophils Percent Auto 0.3 % (0-4.4); Hematocrit 41.9 % (37.0-47.0); Hemoglobin 13.6 g/dL (12.0-15.0); Immature Granulocyte Absolute 0.02 K/mm3 (0.00-0.031); Immature Granulocyte Percent A 0.2 % (0-0.5); Lymphocytes Absolute Auto 1.81 K/mm3 (0.9-3.2); Lymphocytes Percent Auto 18.8 % (18.3-44.2); Mean Corpuscular HGB Conc 32.5 g/dl (32-36); Mean Corpuscular Hemoglobin 29.1 pg (26-34); Mean Corpuscular Volume 89.5 fl (80-100); Mean Platelet Volume 12.9 fl (7.4-10.4); Monocytes Absolute Auto 0.5 K/mm3 (0.1-0.6); Monocytes Percent Auto 4.8 % (2.6-8.5); Neutrophils Absolute Auto 7.3 K/mm3 (1.3-6.7); Neutrophils Percent Auto 75.7 % (45.5-73.1); Platelet Count Result 245 k/mm3 (150-375); Red Blood Count 4.68 M/mm3 (4.2-5.4); Red Cell Distribution Width 12.9 % (11.5-14.5); White Blood Count 9.6 K/mm3 (4.5-10.0)
--- NOTE | 2022-02-10 18:22 | ED.CHESTPAIN ---
HPI - Chest Pain General Chief Complaint: Chest Pain <THERESA Everett Last Filed: 02/10/22 21:58> Stated Complaint: left neck pain <THERESA Everett Last Filed: 02/10/22 21:58> Time Seen by Provider: 02/10/22 18:14 <Candace Navarro PA-C - Last Filed: 02/10/22 21:58> Source: patient <THERESA Everett Last Filed: 02/10/22 21:58> Mode of arrival: ambulatory <THERESA Everett Last Filed: 02/10/22 21:58> Limitations: no limitations <THERESA Everett Last Filed: 02/10/22 21:58> History of Present Illness HPI narrative: Patient is a 26-year-old female who presents to the ED with report of left-sided neck pain, radiating into her left-sided chest and L arm. Patient reports the pain has been present for the last 2 weeks. She states she has a history of anxiety and has been out of her medication recently. She had a panic attack approximately 2 weeks ago prior to when the pain began and reported she was very tense at that time. The pain has been persistent since then. She has been taking Tylenol and Advil at home. Patient also reports having dyspnea on exertion and pain with inspiration occasionally, along with nausea/vomiting this morning. Denies any nausea currently. Denies any recent abdominal pain, fever, chills, cough, cold symptoms, BLE pain or edema. <Candace Navarro PA-C - Last Filed: 02/10/22 21:58> Related Data Allergies/Adverse Reactions: Allergies Allergy/AdvReac Type Severity Reaction Status Date / Time No Known Allergies Allergy Verified 02/10/22 18:15 <Candace Navarro PA-C - Last Filed: 02/10/22 21:58> Review of Systems Review of Systems: CONSTITUTIONAL: Denies fever, chills, or sweats. ENT: Denies rhinorrhea, congestion. CARDIOVASCULAR: Denies BLE edema. RESPIRATORY: Reports occasional dyspnea on exertion, pain with inspiration. Denies cough. GASTROINTESTINAL: Reports N/V, resolved. Denies abdominal pain or diarrhea. GENITOURINARY: Denies dysuria or hematuria. SKIN: Denies rash or itching. MUSCULOSKELETAL: Reports left-sided neck pain, radiating into left chest and left arm. Denies back pain, BLE pain. PSYCHIATRIC: Reports anxiety. Denies depression. <Candace Navarro PA-C - Last Filed: 02/10/22 21:58> All systems reviewed & are unremarkable except as noted in HPI and below <Candace Navarro PA-C - Last Filed: 02/10/22 21:58> [facility] Past Medical History Medical History: Medical History (Updated 02/10/22 @ 19:48 by Candace Navarro PA-C) Anxiety Asthma Chronic anemia Depression HPV (human papilloma virus) anogenital infection Kidney stone UTI (urinary tract infection) History of multidrug resistant Proteus mirabilis UTI. <Candace Navarro PA-C - Last Filed: 02/10/22 21:58> Surgical History Surgical History: Surgical History S/P cystoscopy with ureteral stent placement <Candace Navarro PA-C - Last Filed: 02/10/22 21:58> Family History Family History: Family History Mother Depression Anxiety Kidney stones Father Family history unknown Sibling Family history normal Grandparent Diabetes mellitus Other Family history of malignant neoplasm of cervix <Candace Navarro PA-C - Last Filed: 02/10/22 21:58> Social History Social History: Social History Social History: the patient lives in [place]. 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 she has 2 children, ages 5 and 7, who are healthy. She denies any tobacco, drug or alcohol use currently. Designates her mother, Renay, as her surrogate decision maker and she wishes to be a full code. Smoking status: Former smoker Additional smoking assessment comments: AT AGE 16 Alcohol intake: never Substance use: never Substance use type: does not use Additional living arrange
[2022-02-10 18:25] LABS: INR 1.1; Prothrombin Time 13.5 Seconds (11.1-14.7)
[2022-02-10 19:06] LABS: Alanine Aminotransferase 17 U/L (6-35); Alkaline Phosphatase 84 U/L (38-126); Anion Gap 13 mmol/L (8-16); Aspartate Amino Transferase 37 U/L (14-36); Bilirubin,Total 0.7 mg/dL (0.2-1.3); Blood Urea Nitrogen 12 mg/dL (7-17); Calcium 9.2 mg/dL (8.4-10.2); Carbon Dioxide 21 mmol/L (22-30); Chloride 103 mmol/L (98-107); Estimated Glomerular Filt Rate > 60; Glucose 95 mg/dL (65-110); Lipase 55 U/L (23-300); Potassium 3.8 mmol/L (3.4-5.0); Sodium 137 mmol/L (137-145)
[2022-02-10 19:18] LABS: Troponin I < 0.012 ng/mL (0.000-0.034)
--- NOTE | 2022-02-10 19:38 | PC.NURSE ---
This RN answered call light, pt requesting to see nurse. Pt states she feels better and needs to go home. Pt states she needs to hand picker her children. ED PA notified.
--- NOTE | 2022-02-10 19:45 | PC.NURSE ---
bedside report from Naomi ARREOLA
[2022-02-10] MEDS: KETOROLAC 30 MG/ML VIAL (*BKC) IV PUSH (19:56)
[2022-02-10] MEDS: ONDANSETRON HCL ODT 4 MG TABLET PO (20:05)
[2022-02-10 20:11] VITALS: PULSE 100; RESP 18; O2SAT 100
== END 2022-02-10 20:34 | disposition home or self-care (01) ==
PROVIDERS: Emergency Medicine; Physician Assistant; Emergency Provider General Practice; PCP Hospitalist
DX: S16.1XXA Strain of muscle, fascia and tendon at neck level, initial encounter (principal); R07.89 Other chest pain; J45.909 Unspecified asthma, uncomplicated; D64.9 Anemia, unspecified; F41.9 Anxiety disorder, unspecified; F32.A Depression, unspecified; Z87.442 Personal history of urinary calculi; Z87.440 Personal history of urinary (tract) infections; Z87.891 Personal history of nicotine dependence; R00.0 Tachycardia, unspecified; R94.31 Abnormal electrocardiogram [ECG] [EKG]; X58.XXXA Exposure to other specified factors, initial encounter
CPT/HCPCS: 36415; 71046; 80053; 83690; 84484; 85025; 85380; 85610; 85730; 93005; 96374; 96375; 99284; A9270; J0131; J1885

== ENCOUNTER 2022-07-03 14:33 | Outpatient (CLI) | payer OTHER, SELFPAY ==
--- NOTE | ~2022-07-03 | CT_ITS ---
EXAMINATION: CT sinus wo con DATE: 07/03/2022 14:47 INDICATION: Chronic sinusitis TECHNIQUE: Computed tomography (CT) of the paranasal sinuses was performed without intravenous contra st. The dose-length product (DLP) was 297.70 mGy-cm. Iterative reconstruction was used. COMPARISON: 08/07/2019 FINDINGS: There is normal development and pneumatization of the paranasal sinuses. The frontal, sphen oid, ethmoid, and maxillary sinuses are clear. The bilateral ostiomeatal complexes are patent. Visual ized soft tissues are unremarkable. IMPRESSION: 1. Unremarkable sinus CT Reviewed, dictated and finalized at location A. IMPRESSION: 1. Unremarkable sinus CT
== END 2022-07-03 14:34 | disposition home or self-care (01) ==
PROVIDERS: PCP Hospitalist; Visit Provider Otolaryngology
DX: R51.9 Headache, unspecified (principal); L73.9 Follicular disorder, unspecified; R44.8 Other symptoms and signs involving general sensations and perceptions; R09.82 Postnasal drip; J34.3 Hypertrophy of nasal turbinates; J34.2 Deviated nasal septum; J32.9 Chronic sinusitis, unspecified
CPT/HCPCS: 70486

== ENCOUNTER 2022-07-25 09:45 | Emergency (ER) | payer OTHER, SELFPAY ==
--- NOTE | ~2022-07-25 | CT_ITS ---
EXAMINATION: CT abdomen pelvis wo con DATE: 07/25/2022 10:52 INDICATION: Left flank pain. TECHNIQUE: Computed tomography (CT) of the abdomen and pelvis was performed without intravenous contr ast. Automated exposure control and iterative reconstruction technique were employed. The dose-length product was 196.98 mGy-cm. COMPARISON: CT abdomen and pelvis 02/04/2022 FINDINGS: The visualized portions of the lung bases posteriorly mild atelectasis. No pleural effusion . The heart size is normal. No pericardial effusion. The liver, gallbladder, spleen, pancreas, and ad renal glands are normal. There is a 3 mm stone in right kidney. There is mild left hydronephrosis and hydroureter. There is a 3 mm stone in distal left ureter. There are no dilated loops of bowel. The a ppendix is normal. There are no pathologically enlarged lymph nodes. There is no free intraperitoneal fluid. There are small areas of fat necrosis in the subcutaneous fat in the buttocks. There is mild lumbar spondylosis. IMPRESSION: 1. 3 mm stone in distal left ureter with mild left hydronephrosis and hydroureter. 2. 3 mm right kidney stone. Reviewed, dictated and finalized at location A. IMPRESSION: 1. 3 mm stone in distal left ureter with mild left hydronephrosis and hydrouret er. 2. 3 mm right kidney stone.
[2022-07-25 10:02] VITALS: BP 126/75; PULSE 118; RESP 20; TEMP 36.5; O2SAT 97
--- NOTE | 2022-07-25 10:15 | ED.ABDPAIN ---
HPI - Abdominal Pain General Chief Complaint: Abdominal Pain Stated Complaint: left flank pain Time Seen by Provider: 07/25/22 10:00 History of Present Illness HPI narrative: Patient is a 27-year-old female here for evaluation of left flank pain for the past 2 hours. Patient states pain is severe in nature, very similar to history of kidney stone pain. Remains in her left flank and does not radiate. Has not attempted any medication for pain. No nausea, vomiting, fevers, chills, dysuria, urgency, frequency or hematuria. Patient has seen Dr. Malone in the past and has required a stent for kidney stones, most recently 2 years ago. Stone was 15 mm at that time. Related Data Home Medications Medication Instructions Recorded Confirmed cyclobenzaprine 10 mg tablet 10 mg PO PRN 06/28/22 07/23/22 thyroid (pork) 30 mg tablet (LABOR UTILIZATION SUPERINTENDENT 30 mg PO 06/28/22 06/28/22 Thyroid) trazodone 100 mg tablet 50 mg PO PRN 06/28/22 07/23/22 cholecalciferol (vitamin D3) 125 10,000 unit PO DAILY 07/23/22 07/23/22 mcg (5,000 unit) tablet (Vitamin D3) ibuprofen 200 mg tablet 400 mg PO Q6H PRN Pain 07/23/22 07/23/22 Allergies Allergy/AdvReac Type Severity Reaction Status Date / Time No Known Allergies Allergy Verified 07/23/22 14:59 Review of Systems Review of Systems: Gen.: Denies fevers or chills Eyes: Denies eye pain or visual change ENT: Denies congestion Respiratory: Denies shortness of breath or cough CV: Denies chest pain or palpitations GI: Denies abdominal pain nausea, emesis or diarrhea denies burning, urgency, frequency or hematuria Musculoskeletal: Reports left flank pain. Neuro: Denies numbness, tingling, weakness or focal weakness Skin: Denies rash Except as documented, all other systems reviewed and negative [facility] Past Medical History Medical History (Updated 07/25/22 @ 12:44 by Sandy Ferguson PA-C) Anxiety Asthma Chronic anemia Depression HPV (human papilloma virus) anogenital infection Kidney stone UTI (urinary tract infection) History of multidrug resistant Proteus mirabilis UTI. Surgical History Surgical History S/P cystoscopy with ureteral stent placement Family History Family History Mother Depression Anxiety Kidney stones Father Family history unknown Sibling Family history normal Grandparent Diabetes mellitus Other Family history of malignant neoplasm of cervix Social History Social History Social History: the patient lives in [place]. 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 she has 2 children, ages 5 and 7, who are healthy. She denies any tobacco, drug or alcohol use currently. Designates her mother, Renay, as her surrogate decision maker and she wishes to be a full code. Smoking status: Never smoker Additional smoking assessment comments: AT AGE 16 Alcohol intake: never Substance use: never Substance use type: does not use Additional living arrangements comments: CHILDREN Gender identity (if verbalized by the patient): Female Spiritual care concerns: No Agree to blood products: Yes Exam Narrative: APPEARANCE: Uncomfortable appearing, tearful, writhing in bed Head: Normocephalic and atraumatic. EYES: PERRLA/EOMI, conjunctivae clear NOSE: No nasal drainage EARS: External ear normal in appearance THROAT: Oropharynx is clear. Mucous membranes are moist. NECK: Supple. No adenopathy, no masses. RESPIRATORY: Airway patent, respirations nonlabored. Clear to auscultation bilaterally, no rales, rhonchi, wheezing. CARDIOVASCULAR: Tachycardic. Regular rhythm without murmurs, rubs, or gallops. ABDOMINAL: Normoactive bowel sounds. Soft, nontender, nondistended. No rebound tenderness or guarding. MUSCULOSKELETAL: Extremities are warm and well-perfused. Moves all extremities well.
[2022-07-25 10:18] VITALS: BP 127/80; PULSE 98; RESP 24; TEMP 37.1; O2SAT 100
[2022-07-25 10:39] LABS: Basophils Percent Auto 0.4 % (0.2-1.2); Eosinophils Absolute Auto 0.1 K/mm3 (0-0.3); Eosinophils Percent Auto 1.8 % (0-4.4); Hematocrit 39.2 % (37.0-47.0); Immature Granulocyte Absolute 0.01 K/mm3 (0.00-0.031); Immature Granulocyte Percent A 0.1 % (0-0.5); Lymphocytes Absolute Auto 1.73 K/mm3 (0.9-3.2); Lymphocytes Percent Auto 25.3 % (18.3-44.2); Mean Corpuscular HGB Conc 33.2 g/dl (32-36); Mean Corpuscular Hemoglobin 29.1 pg (26-34); Mean Corpuscular Volume 87.9 fl (80-100); Mean Platelet Volume 12.4 fl (7.4-10.4); Monocytes Absolute Auto 0.4 K/mm3 (0.1-0.6); Monocytes Percent Auto 5.3 % (2.6-8.5); Neutrophils Absolute Auto 4.6 K/mm3 (1.3-6.7); Neutrophils Percent Auto 67.1 % (45.5-73.1); Platelet Count Result 263 k/mm3 (150-375); Red Blood Count 4.46 M/mm3 (4.2-5.4); Red Cell Distribution Width 12.8 % (11.5-14.5); White Blood Count 6.9 K/mm3 (4.5-10.0)
[2022-07-25] MEDS: SODIUM CHLORIDE 0.9% IV 1,000 ML 999 ML IV CONT (10:42)
[2022-07-25] MEDS: MORPHINE SULFATE (*CRX) 4 MG/ML INJ IV PUSH ×2 (10:42→12:06)
[2022-07-25 10:52] LABS: Alanine Aminotransferase 30 U/L (6-35); Albumin Level 4.5 g/dL (3.5-5.1); Alkaline Phosphatase 68 U/L (38-126); Anion Gap 10 mmol/L (8-16); Aspartate Amino Transferase 23 U/L (14-36); Bilirubin,Total 0.3 mg/dL (0.2-1.3); Blood Urea Nitrogen 15 mg/dL (7-17); Calcium 8.9 mg/dL (8.4-10.2); Carbon Dioxide 24 mmol/L (22-30); Chloride 104 mmol/L (98-107); Estimated Glomerular Filt Rate > 60; Glucose 104 mg/dL (65-110); Potassium 4.3 mmol/L (3.4-5.0); Sodium 138 mmol/L (137-145)
[2022-07-25 10:55] LABS: Appearance Urine Clear (Clear); Bilirubin Urine Negative (Negative); Blood Urine 3+ (Negative); Color Urine Yellow (Yellow); Glucose Urine UA Negative (Negative); Ketones Urine Negative (Negative); Leukocyte Esterase Ur Negative LEU/UL (Negative); Nitrate Urine Negative (Negative); Protein Urine Negative (Negative); Specific Grav Ur 1.015 (1.001-1.035); Urobilinogen Urine 0.2 mg/dL (<2.0); pH Urine 6.5 (5.0-9.0)
[2022-07-25 11:01] LABS: Add Urine Microscopic? YES; Mucus Urine Few /lpf; RBC Urine >75 /hpf (0-2); Squamous Epithelial Cell Urine Rare /hpf (Few)
[2022-07-25 12:06] VITALS: BP 126/76; PULSE 96; RESP 20; O2SAT 100
[2022-07-25 13:09] VITALS: BP 123/76; PULSE 102; RESP 16; O2SAT 100
== END 2022-07-25 13:12 | disposition home or self-care (01) ==
PROVIDERS: Physician Assistant; Emergency Provider Emergency Medicine; PCP Hospitalist
DX: N20.1 Calculus of ureter (principal); F41.9 Anxiety disorder, unspecified; J45.909 Unspecified asthma, uncomplicated; F32.9 Major depressive disorder, single episode, unspecified
CPT/HCPCS: 36415; 74176; 80053; 81001; 81025; 85025; 96361; 96374; 96376; 99284; J2270; J7030

== ENCOUNTER 2022-07-27 00:55 | Day surgery (SDC) | payer OTHER, SELFPAY ==
[2022-07-23 15:15] VITALS: BMI 32.5
--- NOTE | 2022-07-23 15:19 | SUR.PREOP ---
Report to the Outpatient Waiting Room, entrance under the green pavilion located off [facility], at time _0700 on date _07/27/22 . Planned Procedure Time: _0900 . Time changes happen often and if your time is changed the preop area will call you the afternoon before. - You and your visitor will be asked to self-screen and do not enter if you have any COVID symptoms. - We encourage only one visitor and NO visitors under age 16 are allowed at this time. Your visitor will receive communication by the phone number that is given day of service. - The patient visitor is requested to social distance or may leave the building when not with patient due to restrictions. - A mask is required within the hospital. Patients may have clear liquids (water, carbonated beverages, clear teas, apple juice) until 3 hours prior to surgery with a maximum of 20 ounces. - No food from midnight until time of surgery - Infants may have breast milk until 4 hours before surgery, formula 6 hours prior to surgery. - Children will be allowed to drink immediately following surgery. If applicable, please bring a bottle or sippy cup to assist with drinking. Juice, water, soda, and popsicles are readily available. For infants on formula, please bring formula the day of surgery. Pacifiers are allowed. Take the following medications with a SIP of water the morning of surgery: _thyroid pill Medications to discontinue per physician ____ibuprofen Date to take last dose___07/23/22 Please no make-up, nail bahamian, hairspray, perfume, deodorant, or body powder the day of surgery. No jewelry (including any body piercings) or valuables the day of surgery, leave them at home. Please take a shower or bath the night before, or the morning of, surgery with an antibacterial soap. Wear comfortable, loose fitting clothing. Children are encouraged to wear pajamas. - Jewelry must be removed prior to entering the operating room. Rings and piercings that are not removed may be cut off. - The hospital will not accept responsibility for valuables. - Please leave all valuables, including medications, at home the day of surgery. If you are going home after surgery, a licensed team otr truck driver must drive you home. - NO public transportation without another adult. - We recommend that an adult stay with you for 24 hours following discharge. - We also recommend that you do not drive, make important decision, drink alcoholic beverages, or take any drugs that were not prescribed by your health care provider for at least 24 hours after your discharge time. For Pediatric surgeries, we recommend two adults accompany the child home. Follow any additional instructions given to you from your surgeon. If you or anyone in your household have experienced Covid symptoms in the past week, please notify your surgeon or the nurse liaison at the phone number below for possible testing. Telephone instructions given to _maria del rosario aguirre and asked if any additional questions and then verbalized understanding. Patient advised to call surgeon office or pre surgery nurse liaison [phone] if any additional questions.
--- NOTE | 2022-07-26 07:57 | PM.IMHP ---
H&P: HPI History of Present Illness Date/Time: 07/26/22 07:57 Chief Complaint: nasal obstruction nasal congestion chronic sinusitis left laura bullosa Review of Systems Review of Systems: All systems reviewed & are unremarkable except as noted in HPI and below [facility] Past Medical History Medical History (Updated 07/26/22 @ 07:59 by Emeka Dave MD) Anxiety Asthma Chronic anemia Depression HPV (human papilloma virus) anogenital infection Kidney stone UTI (urinary tract infection) History of multidrug resistant Proteus mirabilis UTI. Surgical History Surgical History S/P cystoscopy with ureteral stent placement Family History Family History Mother Depression Anxiety Kidney stones Father Family history unknown Sibling Family history normal Grandparent Diabetes mellitus Other Family history of malignant neoplasm of cervix Social History Social History Social History: the patient lives in [place]. 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 she has 2 children, ages 5 and 7, who are healthy. She denies any tobacco, drug or alcohol use currently. Designates her mother, Renay, as her surrogate decision maker and she wishes to be a full code. Smoking status: Never smoker Additional smoking assessment comments: AT AGE 16 Alcohol intake: never Substance use: never Substance use type: does not use Additional living arrangements comments: CHILDREN Gender identity (if verbalized by the patient): Female Spiritual care concerns: No Agree to blood products: Yes Meds Home Medications and Allergies Home Medications Medication Instructions Recorded Confirmed Type famotidine 20 mg tablet 20 mg PO BID #14 tabs 02/04/22 07/23/22 Rx cyclobenzaprine 10 mg tablet 10 mg PO PRN 06/28/22 07/23/22 History thyroid (pork) 30 mg tablet (ACCOUNTING SPECIALIST 30 mg PO 06/28/22 06/28/22 History Thyroid) trazodone 100 mg tablet 50 mg PO PRN 06/28/22 07/23/22 History cholecalciferol (vitamin D3) 125 10,000 unit PO DAILY 07/23/22 07/23/22 History mcg (5,000 unit) tablet (Vitamin D3) ibuprofen 200 mg tablet 400 mg PO Q6H PRN Pain 07/23/22 07/23/22 History hydrocodone 5 mg-acetaminophen 325 1 tablet PO Q6H PRN pain #7 tabs 07/25/22 Rx mg tablet Allergies Allergy/AdvReac Type Severity Reaction Status Date / Time No Known Allergies Allergy Verified 07/23/22 14:59 Exam Narrative: big turbinates truly I can see through the nose normal exam otherwise. Assessment and Plan Assessment and plan (1) Nasal folliculitis: Code(s): L73.9 - Follicular disorder, unspecified Status: Acute Assessment and Plan: Please schedule the patient for revision turbinate reduction and outfracture image guided bilateral endoscopic maxillary antrostomies without tissue removal and image guided endoscopic bilateral anterior ethmoidectomies and resection of left-sided laura bullosa (2) Facial pain: Code(s): R51.9 - Headache, unspecified Status: Acute (3) Facial pressure: Code(s): R44.8 - Other symptoms and signs involving general sensations and perceptions Status: Acute (4) PND (post-nasal drip): Code(s): R09.82 - Postnasal drip Status: Acute (5) Post-operative pain: Code(s): G89.18 - Other acute postprocedural pain Status: Acute (6) Nasal turbinate hypertrophy: Code(s): J34.3 - Hypertrophy of nasal turbinates Status: Acute (7) Laura bullosa: Code(s): J34.89 - Other specified disorders of nose and nasal sinuses Status: Acute
[2022-07-27] VITALS (9 sets, daily range): BP systolic 116–147; BP diastolic 67–98; PULSE 86–112; RESP 14–20; TEMP 36.1–37.3; O2SAT 98–100
--- NOTE | 2022-07-27 07:11 | WPDHPUPDATE1 ---
History and Physical Update Update Date/Time: 07/27/22 07:11 History and Physical has been reviewed, including an updated exam of the patient. There are NO changes in the patient's condition. Risks, benefits, and alternatives have been discussed and questions answered. Patient agrees to proceed with procedure.
[2022-07-27] MEDS: ACETAMINOPHEN 500 MG TABLET 1000 MG PO (07:39)
[2022-07-27] MEDS: LACTATED RINGERS 1,000 ML 30 ML IV CONT ×2 (07:46→11:26)
[2022-07-27] MEDS: SCOPOLAMINE 1.5 MG PATCH TRANSDERM (07:46)
--- NOTE | 2022-07-27 07:55 | WPDANESEPPF ---
Anes - Initial Pre Proc Eval Procedure: Operation Date: 07/27/22 08:30 Proposed Procedures p Image Guided Bilateral Inferior Turbinectomy with Outfracture, Bilateral Maxillary Antrostomy without Tissue Removal, Bilateral Anterior Ethmoidectomy, Resection Left Rina Bullosa - Emeka Dave MD Date/Time: 07/27/22 07:55 Surgeon: Emeka Dave MD Pre Op Diagnosis: Chronic Sinusitis Patient Data Age: 27 Gender: F Height: 1.45 m Weight: 68.95 kg Last Vital Signs Temp 37.3 C 07/27/22 07:22 Pulse 97 07/27/22 07:22 Resp 14 07/27/22 07:22 BP 125/77 07/27/22 07:22 Pulse Ox 100 07/27/22 07:22 O2 Del Method Room Air 07/27/22 07:22 Allergies Allergy/AdvReac Type Severity Reaction Status Date / Time No Known Allergies Allergy Verified 07/23/22 14:59 Home Medications Medication Instructions Recorded Confirmed Type famotidine 20 mg tablet 20 mg PO BID #14 tabs 02/04/22 07/23/22 Rx cyclobenzaprine 10 mg tablet 10 mg PO PRN 06/28/22 07/23/22 History thyroid (pork) 30 mg tablet (MANAGER METROLOGY 30 mg PO 06/28/22 06/28/22 History Thyroid) trazodone 100 mg tablet 50 mg PO PRN 06/28/22 07/23/22 History cholecalciferol (vitamin D3) 125 10,000 unit PO DAILY 07/23/22 07/23/22 History mcg (5,000 unit) tablet (Vitamin D3) ibuprofen 200 mg tablet 400 mg PO Q6H PRN Pain 07/23/22 07/23/22 History hydrocodone 5 mg-acetaminophen 325 1 tablet PO Q6H PRN pain #7 tabs 07/25/22 Rx mg tablet Patient hx anesthesia problems: none Family hx anesthesia problems: none Results Review: All pre-operative results and documents have been reviewed as part of the pre-operative evaluation. ON LICENSE OF [facility] Past Medical History Medical History Anxiety Asthma Chronic anemia Depression HPV (human papilloma virus) anogenital infection Kidney stone UTI (urinary tract infection) History of multidrug resistant Proteus mirabilis UTI. Surgical History Surgical History S/P cystoscopy with ureteral stent placement Family History Family History Mother Depression Anxiety Kidney stones Father Family history unknown Sibling Family history normal Grandparent Diabetes mellitus Other Family history of malignant neoplasm of cervix Social History Social History Social History: the patient lives in [place]. 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 she has 2 children, ages 5 and 7, who are healthy. She denies any tobacco, drug or alcohol use currently. Designates her mother, Renay, as her surrogate decision maker and she wishes to be a full code. Smoking status: Never smoker Additional smoking assessment comments: AT AGE 16 Alcohol intake: never Substance use: never Substance use type: does not use Living arrangements: with family Additional living arrangements comments: CHILDREN Gender identity (if verbalized by the patient): Female Spiritual care concerns: No Agree to blood products: Yes Anes - Eval Final PreProcedure Day of Procedure 07/27/22 07:55 Patient weight: obese Heart: regular rate and rhythm Lungs: clear to auscultation Airway: Mallampati scale and other (braces) Neurological: alert and oriented Last oral intake: >/= 8 hours ASA classification: II Emergent: no Anesthetic plan: proceed Anesthesia type and monitoring: general ETT and standard monitoring Results Review: All pre-operative results and documents have been reviewed as part of the pre-operative evaluation. Informed Consent: The patient's anesthetic plan and its attendant risks and benefits were discussed with the patient/family/POA. Questions were solicited and answers provided to the satisfaction of the patient/family/POA.
[2022-07-27] MEDS: ceFAZolin 2 GM/D5W 50 ML 2 GM/50 ML BAG IVPB (08:43)
[2022-07-27] MEDS: OXYMETAZOLINE HCL 0.05% NAS 15 ML BTL (*BKC) 1 SPRAY NASAL (09:24)
[2022-07-27] MEDS: MUPIROCIN 2% OINT 22 GM TUBE 1 APPLIC EACH NARE (10:18)
--- NOTE | 2022-07-27 10:47 | P.OP_ITS ---
Procedure Note - Detailed Date of Procedure 07/27/22 Pre-op Diagnosis Chronic SinusitisNasal obstruction nasal congestion turbinate hypertrophy septal deviation left laura bullosa Post-op Diagnosis Same Procedure Performed endoscopic image guided bilateral maxillary antrostomies anterior ethmoidectomies resection of left laura bullosa endoscopic assisted septoplasty inferior turbinate submucosal reduction with outfracture Surgeon Emeka Dave MD Anesthesia General Indications see above Findings really interesting maxillary sinuses difficult to enter at use the 30 degree as well as rad 40 to remove the diseased tissue I which Thatch say that remove the disease tissue at the antrostomy there was no tissue removal from the sinus itself. Septoplasty was limited although true septoplasty for inferior left- sided spur which was very obstructive. Blood loss about 20 cc Description of Procedure patient identified consent verified. Patient brought operating. Time-out performed. General anesthesia induced endotracheal tube secured. Patient prepped draped position image guidance initiated and confirmed Afrin-soaked pledgets placed. Second time-out performed. For the septum 0 degree endoscope utilized 13 cc local 1% with 1 100,000 parts injected deep to the septum the turbinates in the left laura. [place] incision made with 15 blade 7 Turkmen suction utilized to raise the bilateral nasal septal flaps osteotome utilized to remove the deviated bone / cartilage as well as to cross over the septum. This was closed with 2 interrupted 5 0 fast gut sutures. Turbinates reduced 2 mm blade and outfractured with Mcintosh. The mulberry tips were cauterized with Bovie suction electrocautery. Maxillary antrostomies performed 0 degree 30 degree straight and curved image guidance suction as well as microdebrider both rad 40 and straight. As well as straight through cut backbiter double ball tip probe. They are widely open and ensured to connect to the natural os. Total ethmoidectomies performed with Kerrison microdebrider image guidance. Left laura resected with a sickle blade straight through cut micro debrider. Bleeding was minimal no pack was placed in bilateral nasal cavities the mulberry tips were cauterized bilateral nasal passages suction choana total loss 20 cc. Toscano splints then placed sutured anteriorly with a mattressed through nylon suture. I performed all dictated portions of procedure no complication care the patient Anesthesiology patient taken to PACU. Estimated Blood Loss -20.0 Drains No Packing Yes (novapak) Pathology None sent Complications No immediate complications Condition Stable Disposition PACU
[2022-07-27] MEDS: fentaNYL CITRATE INJ (*CRX) 100 MCG/2 ML VIAL 25 MCG IV PUSH ×2 (11:03→11:06)
[2022-07-27] MEDS: oxyCODONE HCL (*CRX) 5 MG TAB IR PO (12:10)
== END 2022-07-27 13:05 | disposition home or self-care (01) ==
PROVIDERS: PCP Hospitalist; Visit Provider Otolaryngology
PROC: (CPT 31254; principal; 2022-07-27 08:30)
PROC: (CPT 30520; 2022-07-27 08:30)
DX: J32.9 Chronic sinusitis, unspecified (principal); J34.3 Hypertrophy of nasal turbinates; J34.89 Other specified disorders of nose and nasal sinuses; J34.2 Deviated nasal septum; R09.82 Postnasal drip; R51.9 Headache, unspecified; L73.9 Follicular disorder, unspecified; F41.9 Anxiety disorder, unspecified; F32.A Depression, unspecified; E66.9 Obesity, unspecified; Z68.32 Body mass index [BMI] 32.0-32.9, adult
CPT/HCPCS: 31254; 31240; 31256; 30520; 30140; 61782; A9270; J0330; J0690; J1100; J2250; J2405; J2704; J3010; J7120

== ENCOUNTER 2022-10-25 21:01 | Emergency (ER) | payer OTHER, SELFPAY ==
[2022-10-25 21:11] VITALS: BP 153/81; PULSE 101; RESP 20; TEMP 37; O2SAT 99
[2022-10-25 21:36] LABS: Basophils Percent Auto 0.4 % (0.2-1.2); Eosinophils Absolute Auto 0.1 K/mm3 (0-0.3); Eosinophils Percent Auto 1.1 % (0-4.4); Hematocrit 40.1 % (37.0-47.0); Hemoglobin 12.9 g/dL (12.0-15.0); Immature Granulocyte Absolute 0.03 K/mm3 (0.00-0.031); Immature Granulocyte Percent A 0.4 % (0-0.5); Lymphocytes Absolute Auto 2.46 K/mm3 (0.9-3.2); Lymphocytes Percent Auto 28.9 % (18.3-44.2); Mean Corpuscular HGB Conc 32.2 g/dl (32-36); Mean Corpuscular Hemoglobin 27.6 pg (26-34); Mean Corpuscular Volume 85.7 fl (80-100); Mean Platelet Volume 11.7 fl (7.4-10.4); Monocytes Absolute Auto 0.6 K/mm3 (0.1-0.6); Monocytes Percent Auto 6.8 % (2.6-8.5); Neutrophils Absolute Auto 5.3 K/mm3 (1.3-6.7); Neutrophils Percent Auto 62.4 % (45.5-73.1); Platelet Count Result 328 k/mm3 (150-375); Red Blood Count 4.68 M/mm3 (4.2-5.4); Red Cell Distribution Width 13.6 % (11.5-14.5); White Blood Count 8.5 K/mm3 (4.5-10.0)
[2022-10-25 21:47] LABS: Alanine Aminotransferase 43 U/L (6-35); Albumin Level 4.1 g/dL (3.5-5.1); Alkaline Phosphatase 80 U/L (38-126); Anion Gap 7 mmol/L (8-16); Aspartate Amino Transferase 35 U/L (14-36); Bilirubin,Total 0.5 mg/dL (0.2-1.3); Blood Urea Nitrogen 13 mg/dL (7-17); Carbon Dioxide 30 mmol/L (22-30); Chloride 102 mmol/L (98-107); Estimated Glomerular Filt Rate > 60; Glucose 110 mg/dL (65-110); Lipase 54 U/L (23-300); Potassium 3.7 mmol/L (3.4-5.0); Sodium 139 mmol/L (137-145)
[2022-10-25 22:36] LABS: Appearance Urine Clear (Clear); Bilirubin Urine 1+ (Negative); Blood Urine Trace-intact (Negative); Color Urine Yellow (Yellow); Glucose Urine UA Negative (Negative); Ketones Urine Trace mg/dL (Negative); Leukocyte Esterase Ur Negative LEU/UL (Negative); Nitrate Urine Negative (Negative); Protein Urine Trace mg/dL (Negative); Specific Grav Ur 1.025 (1.001-1.035); Urobilinogen Urine 0.2 mg/dL (<2.0)
[2022-10-25 22:43] LABS: Mucus Urine Few /lpf; Squamous Epithelial Cell Urine Many /hpf (Few)
[2022-10-25 22:46] LABS: Add Urine Microscopic? YES
[2022-10-26] VITALS (16 sets, daily range): BP systolic 101–121; BP diastolic 57–89; PULSE 72–92; RESP 17; TEMP 36.6; O2SAT 99–100
[2022-10-26] MEDS: ONDANSETRON INJ 4 MG/2 ML VIAL IV PUSH (01:55)
[2022-10-26] MEDS: DICYCLOMINE HCL 10 MG CAPSULE 20 MG PO (03:34)
[2022-10-26] MEDS: KETOROLAC 30 MG/ML VIAL (*BKC) IM (03:35)
[2022-10-26 04:49] LABS: Influenza A QL RT-PCR Negative (Negative); Influenza B QL RT-PCR Negative (Negative); RSV RNA, RT-PCR Negative (Negative); SARS-CoV-2 RNA PCR Negative
--- NOTE | 2022-10-26 05:57 | ED.NAVMDI ---
HPI - Nausea/Vomiting/Diarrhea General Chief complaint: Nausea/Vomiting/Diarrhea Stated complaint: Abd pain Time Seen by Provider: 10/26/22 01:33 History of Present Illness HPI Narrative: Patient presents with a day of nausea, vomiting, diarrhea, and chills. Having some epigastric discomfort. No sick contacts, unsure the last thing she ate, unable to keep anything down. No cough or difficulty breathing. Related Data Home Medications Medication Instructions Recorded Confirmed thyroid (pork) 30 mg tablet (BAG LOADER 30 mg PO 06/28/22 10/18/22 Thyroid) trazodone 100 mg tablet 50 mg PO PRN 06/28/22 10/18/22 cholecalciferol (vitamin D3) 125 10,000 unit PO DAILY 07/23/22 10/18/22 mcg (5,000 unit) tablet (Vitamin D3) Allergies Allergy/AdvReac Type Severity Reaction Status Date / Time No Known Allergies Allergy Verified 10/18/22 13:12 Review of Systems Review of Systems: CONST: No fever. HEENT: No sore throat C/V: No chest pain RESP: No cough GI: Reports abdominal pain, nausea, vomiting, diarrhea : No dysuria. M/S: No joint pain. SKIN: No rash. NEURO: [No headache or focal numbness or weakness] PSYCH: [No depression] PMFSH Past Medical History Medical History Anxiety Asthma Chronic anemia Depression HPV (human papilloma virus) anogenital infection Kidney stone UTI (urinary tract infection) History of multidrug resistant Proteus mirabilis UTI. Surgical History Surgical History S/P cystoscopy with ureteral stent placement Family History Family History Mother Depression Anxiety Kidney stones Father Family history unknown Sibling Family history normal Grandparent Diabetes mellitus Other Family history of malignant neoplasm of cervix Social History Social History Social History: the patient lives in [place]. 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 she has 2 children, ages 5 and 7, who are healthy. She denies any tobacco, drug or alcohol use currently. Designates her mother, Renay, as her surrogate decision maker and she wishes to be a full code. Smoking status: Never smoker Additional smoking assessment comments: AT AGE 16 Alcohol intake: never Substance use: never Substance use type: does not use Lack of Transportation: No Lack of Food: Never True Current Housing: I Have Housing Concerned About Future Housing: No Difficulty Paying Gas/Electric Bills: No Difficulty Paying for Meds: No Currently Unemployed: No Education: Associate Degree Difficulty w/ Childcare or Family Care: No Living arrangements: with family Additional living arrangements comments: CHILDREN Gender identity (if verbalized by the patient): Female Sexual Orientation (if Verbalized by the Patient): Straight or Heterosexual Spiritual care concerns: No Agree to blood products: Yes Exam Narrative: EXAMINATION OF ORGAN SYSTEMS/BODY AREAS: Constitutional: Vital signs per nursing GENERAL:[No acute distress, non-toxic appearing.] HEAD: Normal with no signs of head trauma. EYES: EOMI, conjunctiva normal ENT: Hearing grossly intact LUNGS: Nonlabored breathing. HEART: [Regular rate and rhythm] ABD: [Soft], [nontender to palpation] EXT: Normal range of motion SKIN: [No rashes or lesions.] NEURO: [Alert and oriented x 3. No gross focal sensory or strength deficits.] PSYCH: Normal affect Course Vital Signs Vital signs: Vital Signs Temperature 98.6 F 10/25/22 21:11 Pulse Rate 101 H 10/25/22 21:11 Respiratory Rate 20 10/25/22 21:11 Blood Pressure 153/81 H 10/25/22 21:11 Pulse Oximetry 99 10/25/22 21:11 Oxygen Delivery Room Air 10/25/22 21:11 Temperature 98.6 F 10/25/22 21:11 Pulse Rate 92 10/26/22 03:25 Respiratory Rate 17
== END 2022-10-26 06:09 | disposition home or self-care (01) ==
PROVIDERS: Emergency Medicine; Emergency Provider Emergency Medicine; PCP Hospitalist
DX: B34.9 Viral infection, unspecified (principal); Z20.822 Contact with and (suspected) exposure to COVID-19; J45.909 Unspecified asthma, uncomplicated; D64.9 Anemia, unspecified; F41.9 Anxiety disorder, unspecified; F32.A Depression, unspecified; Z87.442 Personal history of urinary calculi; Z87.440 Personal history of urinary (tract) infections; Z96.0 Presence of urogenital implants
CPT/HCPCS: 36415; 80053; 81001; 81025; 83690; 85025; 87637; 96372; 96374; 99284; A9270; J1885; J2405

== ENCOUNTER 2022-11-02 12:18 | Outpatient (CLI) | payer OTHER, SELFPAY ==
--- NOTE | ~2022-11-02 | MMUS_ITS ---
EXAMINATION: MM diagnostic coretta LT w jenn, US breast LT complete HISTORY: Upper outer quadrant 2:00 left breast lump with pain, radiating to axilla. TECHNIQUE: Full field and spot ML, MLO and CC 3-D tomosynthesis images of the left breast were perfor med and synthetic 2-D images were generated. Rolled medial and rolled lateral craniocaudal views. CAD analysis was submitted and interpreted. High resolution complete left breast ultrasound examination including all 4 quadrants and subareolar area was performed. COMPARISON: 08/24/2021 bilateral Limited subareolar breast ultrasound examination BREAST PARENCHYMAL COMPOSITION: There are scattered areas of fibroglandular density. FINDINGS: MAMMOGRAPHIC FINDINGS: No suspicious mass or architectural distortion, malignant calcification, skin thickening or retractio n is detected. ULTRASOUND: No suspicious mass or shadowing is detected. No cyst or other significant sonographic abnormality. IMPRESSION: 1. No mammographic evidence of malignancy 2. Routine mammographic screening beginning at age 40 is recommended unless there are preceding clini antonio complaints or physical findings BI-RADS Category 1: Negative Reviewed, dictated and finalized at location A. CAL HISTORIAN IMPRESSION: 1. No mammographic evidence of malignancy 2. Routine mammographic screening beginning at age 40 is recommended unless the re are preceding clinical complaints or physical findings BI-RADS Category 1: Negative
== END 2022-11-02 12:19 | disposition home or self-care (01) ==
PROVIDERS: PCP Hospitalist; Visit Provider Nurse Practitioner Obstetrics & Gynecology
DX: N64.52 Nipple discharge (principal)
CPT/HCPCS: 76641; 77061; 77065; G0279

== ENCOUNTER 2022-11-12 16:50 | Emergency (ER) | payer OTHER, SELFPAY ==
--- NOTE | ~2022-11-12 | CT_ITS ---
EXAMINATION: CT abdomen pelvis w con DATE: 11/12/2022 22:03 INDICATION: Low abdominal pain. TECHNIQUE: Computed tomography (CT) of the abdomen and pelvis was performed with 100 mL Omnipaque 350 intravenous contrast. Automated exposure control and iterative reconstruction technique were employe d. The dose-length product was 484.78 mGy-cm. COMPARISON: CT abdomen and pelvis 07/25/2022 FINDINGS: The visualized portions of the lung bases demonstrate mild atelectasis. No pleural effusion . The heart size is normal. No pericardial effusion. The liver, gallbladder, spleen, pancreas, and ad renal glands are normal. There is cortical thinning of the kidneys. There are cysts in the kidneys me asuring up to 10 mm on the left. There is a 3 mm stone in right kidney. There is a 3.0 cm cyst in rig ht ovary, likely a follicular cyst. There are no dilated loops of bowel. The appendix is normal. Ther e are no pathologically enlarged lymph nodes. There is no free intraperitoneal fluid. The bones are u nremarkable. IMPRESSION: 1. 3.0 cm cyst in right ovary, likely a follicular cyst. Reviewed, dictated and finalized at location A. MBLY MACHINE TENDER
[2022-11-12 17:48] VITALS: BP 127/85; PULSE 101; RESP 16; TEMP 36.8; O2SAT 100
[2022-11-12 20:31] VITALS: BP 118/85; PULSE 98; RESP 16; O2SAT 100
[2022-11-12 20:51] LABS: Basophils Percent Auto 0.4 % (0.2-1.2); Eosinophils Absolute Auto 0.2 K/mm3 (0-0.3); Eosinophils Percent Auto 1.8 % (0-4.4); Hematocrit 39.6 % (37.0-47.0); Hemoglobin 12.4 g/dL (12.0-15.0); Immature Granulocyte Absolute 0.05 K/mm3 (0.00-0.031); Immature Granulocyte Percent A 0.5 % (0-0.5); Lymphocytes Absolute Auto 2.39 K/mm3 (0.9-3.2); Lymphocytes Percent Auto 24.3 % (18.3-44.2); Mean Corpuscular HGB Conc 31.3 g/dl (32-36); Mean Corpuscular Hemoglobin 27.5 pg (26-34); Mean Corpuscular Volume 87.8 fl (80-100); Mean Platelet Volume 11.3 fl (7.4-10.4); Monocytes Absolute Auto 0.7 K/mm3 (0.1-0.6); Monocytes Percent Auto 6.7 % (2.6-8.5); Neutrophils Absolute Auto 6.5 K/mm3 (1.3-6.7); Neutrophils Percent Auto 66.3 % (45.5-73.1); Platelet Count Result 355 k/mm3 (150-375); Red Blood Count 4.51 M/mm3 (4.2-5.4); Red Cell Distribution Width 13.9 % (11.5-14.5); White Blood Count 9.8 K/mm3 (4.5-10.0)
[2022-11-12 21:00] LABS: Appearance Urine Clear (Clear); Bilirubin Urine Negative (Negative); Blood Urine Trace-intact (Negative); Color Urine Yellow (Yellow); Glucose Urine UA Negative (Negative); Ketones Urine Negative (Negative); Leukocyte Esterase Ur Negative LEU/UL (Negative); Nitrate Urine Negative (Negative); Protein Urine Negative (Negative); Specific Grav Ur 1.015 (1.001-1.035); Urobilinogen Urine 0.2 mg/dL (<2.0)
[2022-11-12 21:06] LABS: Alanine Aminotransferase 49 U/L (6-35); Albumin Level 4.7 g/dL (3.5-5.1); Alkaline Phosphatase 95 U/L (38-126); Anion Gap 9 mmol/L (8-16); Aspartate Amino Transferase 33 U/L (14-36); Bilirubin,Total 0.4 mg/dL (0.2-1.3); Blood Urea Nitrogen 13 mg/dL (7-17); Carbon Dioxide 29 mmol/L (22-30); Chloride 103 mmol/L (98-107); Estimated Glomerular Filt Rate > 60; Glucose 90 mg/dL (65-110); Lipase 65 U/L (23-300); Potassium 3.8 mmol/L (3.4-5.0); Sodium 141 mmol/L (137-145)
[2022-11-12 21:07] LABS: Mucus Urine Rare /lpf; RBC Urine 0-2 /hpf (0-2); Squamous Epithelial Cell Urine Moderate /hpf (Few); WBC Urine 0-3 /hpf
[2022-11-12 21:08] LABS: Add Urine Microscopic? YES
--- NOTE | 2022-11-12 21:32 | ED.ABDPAIN ---
HPI - Abdominal Pain General Chief Complaint: Abdominal Pain Stated Complaint: cramping, period is late, hx of ovarian cyst Time Seen by Provider: 11/12/22 21:32 Source: patient Mode of arrival: ambulatory Limitations: no limitations History of Present Illness HPI narrative: 27 years old female came to the emergency room because of cramps at the lower abdomen bilaterally mainly on the right side, radiating to her back, she denies any fever, chills, nausea, vomiting. Patient tested positive twice for at home and tested negative once for at home. Patient trying to be . Last menstrual period October 06, 2022. Patient is 3 para 2 1. Patient scheduled to see her ELECTRONIC DIE MAKER in 2 days. Related Data Home Medications Medication Instructions Recorded Confirmed thyroid (pork) 30 mg tablet (GASOLINE ENGINE ASSEMBLER 30 mg PO 06/28/22 10/18/22 Thyroid) trazodone 100 mg tablet 50 mg PO PRN 06/28/22 10/18/22 cholecalciferol (vitamin D3) 125 10,000 unit PO DAILY 07/23/22 10/18/22 mcg (5,000 unit) tablet (Vitamin D3) Allergies Allergy/AdvReac Type Severity Reaction Status Date / Time No Known Allergies Allergy Verified 10/18/22 13:12 Review of Systems Review of Systems: All systems reviewed & are unremarkable except as noted in HPI and below PMFSH Past Medical History Medical History (Updated 11/12/22 @ 22:28 by Nieves Doe MD) Anxiety Asthma Chronic anemia Depression HPV (human papilloma virus) anogenital infection Kidney stone UTI (urinary tract infection) History of multidrug resistant Proteus mirabilis UTI. Surgical History Surgical History S/P cystoscopy with ureteral stent placement Family History Family History Mother Depression Anxiety Kidney stones Father Family history unknown Sibling Family history normal Grandparent Diabetes mellitus Other Family history of malignant neoplasm of cervix Social History Social History Social History: the patient lives in [place]. 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 she has 2 children, ages 5 and 7, who are healthy. She denies any tobacco, drug or alcohol use currently. Designates her mother, Renay, as her surrogate decision maker and she wishes to be a full code. Smoking status: Never smoker Additional smoking assessment comments: AT AGE 16 Alcohol intake: never Substance use: never Substance use type: does not use Lack of Transportation: No Lack of Food: Never True Current Housing: I Have Housing Concerned About Future Housing: No Difficulty Paying Gas/Electric Bills: No Difficulty Paying for Meds: No Currently Unemployed: No Education: Associate Degree Difficulty w/ Childcare or Family Care: No Living arrangements: with family Additional living arrangements comments: CHILDREN Gender identity (if verbalized by the patient): Female Sexual Orientation (if Verbalized by the Patient): Straight or Heterosexual Spiritual care concerns: No Agree to blood products: Yes Exam Narrative: General appearance: Well-developed, well-nourished Skin: Normal color Head: Normocephalic, nontraumatic Eyes: Clear conjunctiva ENT: Oropharynx normal, ears normal, nose normal Neck: Supple, nontender Chest and respiratory: Airway patent, no respiratory distress, no accessory muscle use Heart: Regular rate/rhythm Abdomen: Soft, diffuse tenderness lower abdomen bilaterally mainly on the right side, positive guarding., no organomegaly, quiet bowel sounds Vascular: Normal peripheral pulses, normal capillary refill. Musculoskeletal: Normal range of motion, nontender back Neurologic: Alert and oriented ?3, MEDICAID ELIGIBILITY SPECIALIST is normal as tested, no gross motor deficit
[2022-11-12] MEDS: SODIUM CHLORIDE 0.9% IV 1,000 ML 999 ML IV CONT (21:47)
--- NOTE | 2022-11-12 21:49 | PC.NURSE ---
Pt c/o lower abdominal cramping for the past 2-3 days. She reports one positive and one negative test at home. LMP was 10/06/22. She denies vaginal bleeding or discharge. She c/o abdominal bloating as well.
[2022-11-12] MEDS: HYDROmorphone HCL INJ (*CRX) 1 MG/ML SYR 0.5 MG IV PUSH (22:14)
[2022-11-12] MEDS: ONDANSETRON INJ 4 MG/2 ML VIAL IV PUSH (22:14)
[2022-11-12 23:26] VITALS: BP 119/63; PULSE 87; RESP 18; O2SAT 98
== END 2022-11-12 23:36 | disposition home or self-care (01) ==
PROVIDERS: Emergency Medicine; Emergency Provider Emergency Medicine; PCP Hospitalist
DX: N83.291 Other ovarian cyst, right side (principal); R10.31 Right lower quadrant pain; R10.32 Left lower quadrant pain; F41.9 Anxiety disorder, unspecified; D64.9 Anemia, unspecified; J45.909 Unspecified asthma, uncomplicated; F32.A Depression, unspecified; Z87.440 Personal history of urinary (tract) infections; Z87.442 Personal history of urinary calculi
CPT/HCPCS: 36415; 74177; 80053; 81001; 81025; 83690; 85025; 96361; 96374; 96375; 99284; J1170; J2405; J7030; Q9967

== ENCOUNTER 2022-11-14 11:21 | Outpatient (RCR) | payer OTHER, SELFPAY | END 2022-11-14 11:31 | disposition home or self-care (01) | LOC: ANHPT 11:21 | PROVIDERS: PCP Hospitalist; Visit Provider Physician Assistant | DX: M54.2 Cervicalgia (principal) | CPT/HCPCS: 99199 ==

== ENCOUNTER 2022-12-11 11:31 | Outpatient (CLI) | payer OTHER, SELFPAY ==
--- NOTE | ~2022-12-11 | XR_ITS ---
Cervical Spine: AP, lateral, open-mouth views Clinical History: Pain Findings: There is minimal reversal of the normal cervical lordosis. The vertebral bodies and welt beater ior elements appear intact. The intervertebral disc spaces are well maintained. Pre-vertebral soft t issues are unremarkable. Impression: Minimal reversal of the normal cervical lordosis, otherwise unremarkable exam. Reviewed, dictated and finalized at [facility]. Impression: Minimal reversal of the normal cervical lordosis, otherwise unremarkable exam.
== END 2022-12-11 11:32 | disposition home or self-care (01) ==
LOC: ANHIMG 11:39
PROVIDERS: PCP Physician Assistant; Visit Provider Physician Assistant
DX: M54.2 Cervicalgia (principal); M53.82 Other specified dorsopathies, cervical region
CPT/HCPCS: 72040

== ENCOUNTER 2023-01-02 08:38 | Emergency (ER) | payer OTHER, SELFPAY ==
[2023-01-02 08:48] VITALS: BP 116/67; PULSE 101; RESP 16; TEMP 36.3; O2SAT 100
--- NOTE | 2023-01-02 09:09 | ED.URI ---
HPI - URI/Sore Throat General Chief Complaint: Upper Respiratory Infection Stated Complaint: Eyes Irritation/Sinus Time Seen by Provider: 01/02/23 09:09 Source: patient Mode of arrival: ambulatory Limitations: no limitations History of Present Illness HPI Narrative: 27-year-old female presented for complaint of burning itching watery eyes for about one week. Reports eyes are red and irritated, worse in the morning. Also wakes with thick 'eye boogers.' The symptoms improve for short time then worsen again throughout the day. Stopped wearing contacts the day symptoms started. She has been using uisp-iby-[id number] eyedrops. Also reports mild post nasal drainage and bilateral ear pressure. Taking daily zyrtec and flonase. Also using cold/sinus meds, cough drops and neti pot. Denies eye swelling, vision changes, photophobia, headache, foreign body sensation. Related Data Home Medications Medication Instructions Recorded Confirmed trazodone 100 mg tablet 50 mg PO PRN 06/28/22 01/02/23 Allergies Allergy/AdvReac Type Severity Reaction Status Date / Time No Known Allergies Allergy Verified 01/02/23 08:39 Review of Systems Review of Systems: CONSTITUTIONAL: Denies body aches, fever, chills EYES: Per HPI ENT: Denies rhinorrhea, congestion, sore throat, or otalgia. CARDIOVASCULAR: Denies chest pain, palpitations RESPIRATORY: Denies cough or dyspnea. SKIN: Denies rash, itching, or wounds. MUSCULOSKELETAL: Denies back pain, joint pain, or myalgia. NEUROLOGIC: Denies headache, numbness, tingling, or weakness. All systems reviewed & are unremarkable except as noted in HPI and below PMFSH Past Medical History Medical History Anxiety Asthma Chronic anemia Depression HPV (human papilloma virus) anogenital infection Kidney stone UTI (urinary tract infection) History of multidrug resistant Proteus mirabilis UTI. Surgical History Surgical History S/P cystoscopy with ureteral stent placement Family History Family History Mother Depression Anxiety Kidney stones Father Family history unknown Sibling Family history normal Grandparent Diabetes mellitus Other Family history of malignant neoplasm of cervix Social History Social History Social History: the patient lives in [place]. 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 she has 2 children, ages 5 and 7, who are healthy. She denies any tobacco, drug or alcohol use currently. Designates her mother, Renay, as her surrogate decision maker and she wishes to be a full code. Smoking status: Never smoker Additional smoking assessment comments: AT AGE 16 Alcohol intake: never Substance use: never Substance use type: does not use Lack of Transportation: No Lack of Food: Never True Current Housing: I Have Housing Concerned About Future Housing: No Difficulty Paying Gas/Electric Bills: No Difficulty Paying for Meds: No Currently Unemployed: No Education: Associate Degree Difficulty w/ Childcare or Family Care: No Living arrangements: with family Additional living arrangements comments: CHILDREN Gender identity (if verbalized by the patient): Female Sexual Orientation (if Verbalized by the Patient): Straight or Heterosexual Spiritual care concerns: No Agree to blood products: Yes Comments At time of signature, I have reviewed and agree with nursing past medical, surgical, social and family history unless otherwise noted. Please see nursing chart for further information. There is no relevant family history pertinent to the presenting complaint Exam Narrative: GENERAL: Well-appearing HEAD: Normocephalic, atraumatic. EYES: No apparent conjunctival injection or drainage. No eye lid swelling/r
== END 2023-01-02 09:29 | disposition home or self-care (01) ==
PROVIDERS: Emergency Provider Nurse Practitioner Family; PCP Physician Assistant
DX: H10.13 Acute atopic conjunctivitis, bilateral (principal); F41.9 Anxiety disorder, unspecified; J45.909 Unspecified asthma, uncomplicated; F32.A Depression, unspecified
CPT/HCPCS: 99213; G0463

== ENCOUNTER 2023-05-22 08:30 | Outpatient (RCR) | payer OTHER, SELFPAY ==
--- NOTE | 2023-05-14 10:12 | OPREHPOC ---
Outpatient Therapy Plan of Care This is a Multidisciplinary Plan of Care that may contain components documented by all disciplines (PT, OT, and ST.) PT Problem 1 PT Problem #1 Knowledge Deficit PT Goal 1 Goal 1. Patient will demonstrate independence with home exercise program PT Problem 2 PT Problem #2 Pain PT Goal 1 Goal 1. Patient will report pain in neck as 3/10 2. Patient will report no LUE pain PT Problem 3 PT Problem #3 Impaired Range of Motion PT Goal 1 Goal 1. Patient will demonstrate cervical range of motion WNL 2. Patient will demonstrate shoulder flexion AROM WNL PT Problem 4 PT Problem #4 Impaired Strength PT Goal 1 Goal 1. Patient will self report ability to maintain upright posture at work for 1 hour without pain
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
--- NOTE | 2023-05-15 09:07 | PCPTNOTE ---
Pt. did not show for her scheduled appointment on this date. Pt. failed to contact the clinic.
--- NOTE | 2023-06-27 13:28 | PCPTNOTE ---
Mrs. Vazquez contacted the clinic to cancel her appointment today due to having been hospitalized. She will call to reschedule.
--- NOTE | 2023-07-26 10:44 | PTOPDC ---
Assessment and note entered by Lien Hoffman, PT Discharge Information Assessment Status Discharge - Pt Not Present Diagnosis cervicalgia Onset February Assessment PT Clinical Summary Ms. Vazquez has received the PT evaluation on May 14 and one treatment session for the diagnosis of cervicalgia. She then stopped attending, therefore, she will be discharged from PT services. The goals were not addressed. Plan of Care PT Services Indicated No
== END 2023-07-26 14:42 | disposition home or self-care (01) ==
LOC: ANHPT 08:30
PROVIDERS: PCP Physician Assistant; Visit Provider Physician Assistant
DX: M54.2 Cervicalgia (principal)
CPT/HCPCS: 97014; 97110; 97140; 97162; 99199; G0283

== ENCOUNTER 2023-05-23 10:23 | Emergency (ER) | payer OTHER, SELFPAY ==
[2023-05-23] VITALS (19 sets, daily range): BP systolic 110–135; BP diastolic 72–88; PULSE 92; RESP 18; TEMP 36.4; O2SAT 98–100
--- NOTE | ~2023-05-23 | CT_ITS ---
EXAMINATION: CT abdomen pelvis w con DATE: 05/23/2023 14:23 INDICATION: Left lower quadrant abdominal pain. TECHNIQUE: Computed tomography (CT) of the abdomen and pelvis was performed with 100 mL Omnipaque-350 intravenous contrast. Automated exposure control and iterative reconstruction technique were employe d. The dose-length product was 485.35 mGy-cm. COMPARISON: 11/12/2022 bowels including the appendix are normal. Bilateral ovarian cysts versus follic les measuring 1.8 cm in maximal diameter on the left and 1.7 cm on the right. Bladder and anteverted uterus are normal. Trace amount of likely physiologic free fluid in the cul-de-sac. No free intraperi toneal gas. No pathologically enlarged abdominal or pelvic lymphadenopathy. FINDINGS: Lung bases are clear. Heart size is normal. No pericardial or pleural effusion. Diffuse hepatic steat osis with focal sparing along the gallbladder fossa. Gallbladder, spleen, pancreas, bilateral adrenal glands are normal. There are few subcentimeter low-attenuation likely cysts at both kidneys which ar e too small to definitively characterize. A couple stones at a lower pole calyx of the right kidney m easuring 2 mm and 3 mm. Bowels including the appendix are normal. Bilateral ovarian cysts versus foll icles measuring 1.8 cm in maximal diameter on the left and 1.7 cm on the right. Bladder and anteverte d uterus are normal. Trace amount of likely physiologic free fluid in the cul-de-sac. No free intrape ritoneal gas. No pathologically enlarged abdominal or pelvic lymphadenopathy. Bones are unremarkable. IMPRESSION: 1. No acute intra-abdominal/pelvic process. 2. Diffuse hepatic steatosis. Reviewed, dictated and finalized at location A.
[2023-05-23 11:52] LABS: Basophils Percent Auto 0.3 % (0.2-1.2); Eosinophils Percent Auto 0.5 % (0-4.4); Hematocrit 40.8 % (37.0-47.0); Immature Granulocyte Absolute 0.02 K/mm3 (0.00-0.031); Immature Granulocyte Percent A 0.3 % (0-0.5); Lymphocytes Absolute Auto 1.45 K/mm3 (0.9-3.2); Lymphocytes Percent Auto 19.3 % (18.3-44.2); Mean Corpuscular HGB Conc 31.9 g/dl (32-36); Mean Corpuscular Hemoglobin 27.8 pg (26-34); Mean Corpuscular Volume 87.2 fl (80-100); Monocytes Absolute Auto 0.4 K/mm3 (0.1-0.6); Monocytes Percent Auto 5.6 % (2.6-8.5); Neutrophils Absolute Auto 5.6 K/mm3 (1.3-6.7); Platelet Count Result 309 k/mm3 (150-375); Red Blood Count 4.68 M/mm3 (4.2-5.4); Red Cell Distribution Width 13.2 % (11.5-14.5); White Blood Count 7.5 K/mm3 (4.5-10.0)
[2023-05-23 12:04] LABS: Appearance Urine Clear (Clear); Bilirubin Urine Negative (Negative); Blood Urine Negative (Negative); Color Urine Yellow (Yellow); Glucose Urine UA Negative (Negative); Ketones Urine 1+ mg/dL (Negative); Leukocyte Esterase Ur Negative LEU/UL (Negative); Nitrate Urine Negative (Negative); Protein Urine Negative (Negative); Specific Grav Ur 1.021 (1.001-1.035); pH Urine 8.5 (5.0-9.0)
[2023-05-23 12:10] LABS: Add Urine Microscopic? NO
[2023-05-23 12:17] LABS: Alanine Aminotransferase 56 U/L (6-35); Albumin Level 4.7 g/dL (3.5-5.1); Alkaline Phosphatase 86 U/L (38-126); Anion Gap 8 mmol/L (8-16); Aspartate Amino Transferase 46 U/L (14-36); Bilirubin,Total 0.5 mg/dL (0.2-1.3); Blood Urea Nitrogen 9 mg/dL (7-17); Calcium 9.4 mg/dL (8.4-10.2); Carbon Dioxide 29 mmol/L (22-30); Chloride 102 mmol/L (98-107); Estimated Glomerular Filt Rate > 60; Glucose 101 mg/dL (65-110); Lipase 48 U/L (23-300); Potassium 4.2 mmol/L (3.4-5.0); Sodium 139 mmol/L (137-145)
[2023-05-23 13:07] LABS: Pregnancy On Board Control Positive; Urine Pregnancy Test Negative
--- NOTE | 2023-05-23 13:34 | ED.GENADULT ---
HPI - General Adult General Chief complaint: Abdominal Pain Stated complaint: abd pain Time Seen by Provider: 05/23/23 12:45 Source: patient Mode of arrival: ambulatory Limitations: no limitations History of Present Illness HPI narrative: This is a 27-year-old female who presents to the ED with chief complaint of epigastric pain for the past several weeks and worse this past week.. She reports associated nausea and 2-3 episodes of regurgitation per day. She reports the regurgitation/vomiting only occurs whenever she tries to eat. She reports a sour/metallic taste in the mouth and this happens. Reports lying flat makes the pain worse at times. Denies any problems with bowel movements. Denies hematemesis or GI bleeding symptoms. Denies fevers, chills, chest pain, shortness of breath, cough, urinary problems. Related Data Home Medications Medication Instructions Recorded Confirmed trazodone 100 mg tablet 50 mg PO PRN 06/28/22 01/02/23 cetirizine 10 mg tablet (Zyrtec) 10 mg PO DAILY 01/02/23 01/02/23 cyclobenzaprine 10 mg tablet 10 mg PO TID PRN muscle spasms 01/02/23 01/02/23 Allergies Allergy/AdvReac Type Severity Reaction Status Date / Time No Known Allergies Allergy Verified 01/02/23 08:39 Review of Systems Review of Systems: All systems as dictated in [facility] Past Medical History Medical History (Updated 05/23/23 @ 15:35 by Jimmy Echeverria PA-C) Anxiety Asthma Chronic anemia Depression HPV (human papilloma virus) anogenital infection Kidney stone UTI (urinary tract infection) History of multidrug resistant Proteus mirabilis UTI. Surgical History Surgical History S/P cystoscopy with ureteral stent placement Family History Family History Mother Depression Anxiety Kidney stones Father Family history unknown Sibling Family history normal Grandparent Diabetes mellitus Other Family history of malignant neoplasm of cervix Social History Social History Social History: the patient lives in [place]. 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 She denies any tobacco, drug or alcohol use currently. Designates her mother, Renay, as her surrogate decision maker and she wishes to be a full code. Smoking status: Never smoker Additional smoking assessment comments: AT AGE 16 Alcohol intake: never Substance use: never Substance use type: does not use Lack of Transportation: No Lack of Food: Never True Current Housing: I Have Housing Concerned About Future Housing: No Difficulty Paying Gas/Electric Bills: No Difficulty Paying for Meds: No Currently Unemployed: No Education: Associate Degree Difficulty w/ Childcare or Family Care: No Living arrangements: with family Additional living arrangements comments: CHILDREN Gender identity (if verbalized by the patient): Female Sexual Orientation (if Verbalized by the Patient): Straight or Heterosexual Spiritual care concerns: No Agree to blood products: Yes Exam Narrative: GENERAL: Well-appearing, well-nourished, and in no acute distress. HEAD: Normocephalic, atraumatic. EYES: PERRLA and EOMI. ENT: Nares clear, no rhinorrhea or epistaxis. Mucous membranes moist. Oropharynx without tonsillar hypertrophy exudate or other lesions. NECK: Supple. No adenopathy or masses. CHEST: No respiratory distress. Clear to auscultation. No wheezes rales or rhonchi HEART: Regular rate and rhythm. No murmur heard. Normal peripheral pulses. ABDOMEN: Mild epigastric tenderness. Mild left lower quadrant tenderness. Soft, nontender, nondistended, normal active bowel sounds. MSK: Normal range of motion. No edema. SKIN: Warm, dry, no rash. NEURO: Alert and oriented x3. No focal deficits. PSYCH: Nor
[2023-05-23] MEDS: FAMOTIDINE 20 MG/2 ML VIAL IV PUSH (14:32)
[2023-05-23] MEDS: BELLADONNA ALK/PHENOB ELIX 10 ML, MAG HYDROX/ALUMINUM HYD/SIMETH 30 ML, LIDOCAINE HCL 2... PO (15:12)
== END 2023-05-23 16:46 | disposition home or self-care (01) ==
PROVIDERS: Student in an Organized Health Care Education/Training Program; Emergency Provider Physician Assistant; PCP Physician Assistant
DX: K29.70 Gastritis, unspecified, without bleeding (principal); D64.9 Anemia, unspecified; J45.909 Unspecified asthma, uncomplicated; F32.A Depression, unspecified; F41.9 Anxiety disorder, unspecified; Z87.440 Personal history of urinary (tract) infections; Z87.442 Personal history of urinary calculi; K76.0 Fatty (change of) liver, not elsewhere classified
CPT/HCPCS: 36415; 74177; 80053; 81003; 81025; 83690; 85025; 96374; 99284; A9270; Q9967

== ENCOUNTER 2023-06-20 11:37 | Emergency (ER) | payer OTHER, SELFPAY ==
--- NOTE | ~2023-06-20 | XR_ITS ---
EXAMINATION: XR chest 2V 06/20/2023 12:27 INDICATION: Cough and shortness of breath PROCEDURE: 2 view chest COMPARISON: Comparison to multiple prior studies sequentially, with oldest reviewed study dated 11/2016. FINDINGS: The lungs are clear. The cardiomediastinal silhouette is within normal limits. There are no pleural effusions. There is no pneumothorax suspected. IMPRESSION: 1: NO ACUTE CARDIOPULMONARY DISEASE. Reviewed, dictated and finalized at location L.
[2023-06-20 11:46] VITALS: BP 130/79; PULSE 110; RESP 18; TEMP 36.7; O2SAT 99
--- NOTE | 2023-06-20 11:50 | ED.URI ---
HPI - URI/Sore Throat General Chief Complaint: Upper Respiratory Infection Stated Complaint: COUGH [id number] Time Seen by Provider: 06/20/23 11:50 History of Present Illness HPI Narrative: Patient is a 27-year-old female with history of GERD here with a cough. She states that her symptoms began about 2 weeks ago and at that time it included a cough and fever. She states that she saw her primary care doctor during her initial illness and no testing was performed at that time. She notes she has had improvement of the fever but continued worsening cough for the last 2 weeks. She has a cough productive sputum, yellow in color. She additionally notes recurrent post-tussive emesis. she acknowledges chest pain which worsens with coughing and is located midsternally. She denies any leg swelling or calf pain. She denies any prior history of PE or DVT. 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 No personal prior cardiac history. She has had an intermitted associated headache which also worsens with coughing. She notes using an inhaler as a child for childhood asthma but has not used it in many years. Related Data Home Medications Medication Instructions Recorded Confirmed trazodone 100 mg tablet 50 mg PO PRN 06/28/22 01/02/23 cetirizine 10 mg tablet (Zyrtec) 10 mg PO DAILY 01/02/23 01/02/23 cyclobenzaprine 10 mg tablet 10 mg PO TID PRN muscle spasms 01/02/23 01/02/23 Allergies Allergy/AdvReac Type Severity Reaction Status Date / Time No Known Allergies Allergy Verified 01/02/23 08:39 Review of Systems Review of Systems: CONSTITUTIONAL: Denies fever, chills, or sweats. EYES: Denies visual changes, redness, or discharge. ENT: Denies rhinorrhea, congestion, sore throat, or otalgia. CARDIOVASCULAR: chest pain, no palpitations, or edema. RESPIRATORY: Cough and dyspnea. GASTROINTESTINAL: Vomiting, Denies abdominal pain, nausea, or diarrhea. GENITOURINARY: Denies dysuria or hematuria. SKIN: Denies rash or itching. MUSCULOSKELETAL: Denies back pain, joint pain, or myalgia. NEUROLOGIC: headache, no numbness, or weakness. PSYCHIATRIC: Denies anxiety or depression. [facility] Past Medical History Medical History (Updated 06/20/23 @ 14:00 by Julia Alvarado MD) Anxiety Asthma Chronic anemia Depression HPV (human papilloma virus) anogenital infection Kidney stone UTI (urinary tract infection) History of multidrug resistant Proteus mirabilis UTI. Surgical History Surgical History S/P cystoscopy with ureteral stent placement Family History Family History Mother Depression Anxiety Kidney stones Father Family history unknown Sibling Family history normal Grandparent Diabetes mellitus Other Family history of malignant neoplasm of cervix Social History Social History Social History: the patient lives in [place]. 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 she has 2 children, ages 5 and 7, who are healthy. She denies any tobacco, drug or alcohol use currently. Designates her mother, Renay, as her surrogate decision maker and she wishes to be a full code. Smoking status: Never smoker Additional smoking assessment comments: AT AGE 16 Alcohol intake: never Substance use: never Substance use type: does not use Lack of Transportation: No Lack of Food: Never True Current Housing: I Have Housing Concerned About Future Housing: No Difficulty Paying Gas/Electric Bills: No Difficulty Paying for Meds: No Currently Unemployed: No Education: Associate Degree Difficulty w/ Childcare or Family Care: No Living arrangements: with family Additional living arrangements comments: CHILDREN Gender identity (if verbalized by the patient): Female Sexual Orientation (if Verbaliz
[2023-06-20 11:52] VITALS: O2SAT 99
--- NOTE | 2023-06-20 12:14 | ECG_ITS ---
Measurements Intervals [place] Rate: 84 P: 38 SD: 128 QRS: 23 QRSD: 89 T: 19 QT: 371 QTc: 439 Interpretive Statements SINUS RHYTHM WITH SINUS ARRHYTHMIA DELAYED PRECORDIAL R/S TRANSITION BORDERLINE ECG COMPARED TO ECG 02/10/2022 18:12:59 SINUS RHYTHM NOW PRESENT SINUS ARRHYTHMIA NOW PRESENT Electronically Signed On 06-20-2023 12:56:26 CDT by Raymundo Gallegos D.O.
[2023-06-20 12:22] LABS: Basophils Percent Auto 0.3 % (0.2-1.2); Eosinophils Absolute Auto 0.2 K/mm3 (0-0.3); Eosinophils Percent Auto 1.9 % (0-4.4); Hematocrit 39.1 % (37.0-47.0); Hemoglobin 12.5 g/dL (12.0-15.0); Immature Granulocyte Absolute 0.03 K/mm3 (0.00-0.031); Immature Granulocyte Percent A 0.3 % (0-0.5); Lymphocytes Absolute Auto 1.85 K/mm3 (0.9-3.2); Lymphocytes Percent Auto 21.6 % (18.3-44.2); Mean Corpuscular Hemoglobin 27.5 pg (26-34); Mean Corpuscular Volume 86.1 fl (80-100); Monocytes Absolute Auto 0.5 K/mm3 (0.1-0.6); Monocytes Percent Auto 5.5 % (2.6-8.5); Neutrophils Percent Auto 70.4 % (45.5-73.1); Platelet Count Result 310 k/mm3 (150-375); Red Blood Count 4.54 M/mm3 (4.2-5.4); White Blood Count 8.6 K/mm3 (4.5-10.0)
[2023-06-20] MEDS: IPRATROPIUM BR 0.02% INH SOLN 0.5 MG/2.5 ML VIAL INHALATION (12:32)
[2023-06-20] MEDS: ALBUTEROL SULFATE NEB 2.5 MG/3 ML INH INHALATION (12:32)
[2023-06-20 12:33] VITALS: PULSE 106; RESP 18
[2023-06-20 12:33] LABS: Alanine Aminotransferase 47 U/L (6-35); Albumin Level 4.5 g/dL (3.5-5.1); Alkaline Phosphatase 80 U/L (38-126); Anion Gap 10 mmol/L (8-16); Aspartate Amino Transferase 43 U/L (14-36); Bilirubin,Total 0.6 mg/dL (0.2-1.3); Blood Urea Nitrogen 13 mg/dL (7-17); Calcium 9.1 mg/dL (8.4-10.2); Carbon Dioxide 24 mmol/L (22-30); Chloride 104 mmol/L (98-107); Estimated Glomerular Filt Rate > 60; Glucose 94 mg/dL (65-110); Potassium 3.7 mmol/L (3.4-5.0); Sodium 138 mmol/L (137-145)
[2023-06-20 12:39] LABS: Influenza A QL RT-PCR Negative (Negative); Influenza B QL RT-PCR Negative (Negative); RSV RNA, RT-PCR Negative (Negative); SARS-CoV-2 RNA PCR Negative (Negative)
[2023-06-20 12:43] LABS: D Dimer 0.34 ug/mL (<0.48)
[2023-06-20] MEDS: ACETAMINOPHEN 325 MG TABLET 650 MG PO (12:43)
[2023-06-20] MEDS: SODIUM CHLORIDE 0.9% IV 1,000 ML 999 ML IV CONT (12:44)
[2023-06-20 14:12] VITALS: BP 128/77; PULSE 99; RESP 19; O2SAT 100
== END 2023-06-20 14:13 | disposition home or self-care (01) ==
PROVIDERS: Emergency Provider Student in an Organized Health Care Education/Training Program; PCP Physician Assistant
DX: R05.2 Subacute cough (principal); Z20.822 Contact with and (suspected) exposure to COVID-19; J45.909 Unspecified asthma, uncomplicated; D64.9 Anemia, unspecified; K21.9 Gastro-esophageal reflux disease without esophagitis; F41.9 Anxiety disorder, unspecified; F32.A Depression, unspecified; Z87.442 Personal history of urinary calculi; Z87.440 Personal history of urinary (tract) infections
CPT/HCPCS: 36415; 71046; 80053; 81025; 85025; 85380; 87637; 93005; 94640; 96360; 99283; A9270; J7030

== ENCOUNTER 2023-06-21 08:32 | Outpatient (CLI) | payer OTHER, SELFPAY ==
--- NOTE | ~2023-06-21 | XR_ITS ---
EXAMINATION: XR knee LT 3V DATE: 06/21/2023 08:50 INDICATION: Anterior left knee pain post fall 2 months prior TECHNIQUE: AP, lateral and sunrise views of the left knee were obtained COMPARISON: None. FINDINGS: Alignment is normal. No fracture. Joint spaces appear normal. Small left knee joint effusion. Soft t issues are unremarkable. IMPRESSION: 1. Small left knee joint effusion. Otherwise unremarkable left knee radiographs. Reviewed, dictated and finalized at location A. IMPRESSION: 1. Small left knee joint effusion. Otherwise unremarkable left knee radiographs .
== END 2023-06-21 08:33 | disposition home or self-care (01) ==
LOC: ANHIMG 08:35
PROVIDERS: PCP Physician Assistant; Visit Provider Physician Assistant
DX: M25.462 Effusion, left knee (principal)
CPT/HCPCS: 73562

== ENCOUNTER 2023-06-22 01:56 | Emergency (ER) | payer OTHER, SELFPAY ==
--- NOTE | ~2023-06-22 | CT_ITS ---
EXAMINATION: CT abdomen pelvis wo con DATE: 06/22/2023 04:13 INDICATION: Right flank pain TECHNIQUE: Computed tomography (CT) of the abdomen and pelvis was performed without intravenous contr ast. The dose-length product (DLP) was 450.89 mGy-cm. Automated exposure control and iterative recons truction technique were employed. COMPARISON: 05/23/2023 FINDINGS: There are minimal airspace opacities of the visualized lung bases. The heart size is normal . The liver is diffusely low in attenuation when compared with the spleen, consistent with hepatic st eatosis. The spleen, pancreas, gallbladder, and adrenal glands are normal. There is a 3 mm stone in t he distal right ureter. There is a 2 mm stone of the right kidney lower pole. The left kidney is unre markable. No pathologically enlarged abdominal or pelvic lymph nodes are identified. No free intraper itoneal gas or evidence of bowel obstruction. A small amount of free fluid in the pelvis is likely ph ysiologic. The appendix is normal. IMPRESSION: 1. 3 mm stone of the distal right ureter. 2. Minimal airspace opacities at the visualized lung bases, likely pneumonia. 3. Nonobstructing right kidney stone. Reviewed, dictated and finalized at location F.
[2023-06-22 04:03] LABS: Basophils Percent Auto 0.2 % (0.2-1.2); Eosinophils Absolute Auto 0.2 K/mm3 (0-0.3); Eosinophils Percent Auto 2.1 % (0-4.4); Hematocrit 36.7 % (37.0-47.0); Hemoglobin 12.1 g/dL (12.0-15.0); Immature Granulocyte Absolute 0.02 K/mm3 (0.00-0.031); Immature Granulocyte Percent A 0.2 % (0-0.5); Lymphocytes Absolute Auto 2.15 K/mm3 (0.9-3.2); Lymphocytes Percent Auto 23.5 % (18.3-44.2); Mean Corpuscular Hemoglobin 28.8 pg (26-34); Mean Corpuscular Volume 87.4 fl (80-100); Mean Platelet Volume 12.5 fl (7.4-10.4); Monocytes Absolute Auto 0.6 K/mm3 (0.1-0.6); Monocytes Percent Auto 6.6 % (2.6-8.5); Neutrophils Absolute Auto 6.2 K/mm3 (1.3-6.7); Neutrophils Percent Auto 67.4 % (45.5-73.1); Platelet Count Result 294 k/mm3 (150-375); Red Cell Distribution Width 13.2 % (11.5-14.5); White Blood Count 9.2 K/mm3 (4.5-10.0)
[2023-06-22 04:06] LABS: Appearance Urine Clear (Clear); Bacteria Urine None Seen /hpf; Bilirubin Urine Negative (Negative); Blood Urine 3+ (Negative); Color Urine Yellow (Yellow); Glucose Urine UA Negative (Negative); Ketones Urine Negative (Negative); Leukocyte Esterase Ur Trace LEU/UL (Negative); Nitrate Urine Negative (Negative); Protein Urine 1+ mg/dL (Negative); RBC Urine >100 /hpf (0-2); Specific Grav Ur 1.019 (1.001-1.035); Squamous Epithelial Cell Urine Occasional /hpf (Few); Urobilinogen Urine 0.2 mg/dL (<2.0)
[2023-06-22 04:11] LABS: Alanine Aminotransferase 39 U/L (6-35); Albumin Level 4.4 g/dL (3.5-5.1); Alkaline Phosphatase 81 U/L (38-126); Anion Gap 9 mmol/L (8-16); Aspartate Amino Transferase 32 U/L (14-36); Bilirubin,Total 0.6 mg/dL (0.2-1.3); Blood Urea Nitrogen 13 mg/dL (7-17); Calcium 9.1 mg/dL (8.4-10.2); Carbon Dioxide 24 mmol/L (22-30); Chloride 105 mmol/L (98-107); Estimated Glomerular Filt Rate > 60; Glucose 99 mg/dL (65-110); Potassium 3.5 mmol/L (3.4-5.0); Sodium 138 mmol/L (137-145)
[2023-06-22] MEDS: MORPHINE SULFATE (*CRX) 4 MG/ML INJ IV PUSH (04:12)
[2023-06-22] MEDS: ONDANSETRON INJ 4 MG/2 ML VIAL IV PUSH (04:12)
[2023-06-22] MEDS: SODIUM CHLORIDE 0.9% IV 1,000 ML 999 ML IV CONT (04:13)
[2023-06-22 04:15] VITALS: BP 114/80; PULSE 74; RESP 14; O2SAT 97
[2023-06-22 04:19] LABS: Add Urine Microscopic? YES
[2023-06-22] MEDS: diphenhydrAMINE HCl INJ 50 MG/ML VIAL 25 MG IV PUSH (04:30)
[2023-06-22] MEDS: FAMOTIDINE 20 MG/2 ML VIAL IV PUSH (04:30)
--- NOTE | 2023-06-22 04:33 | PC.NURSE ---
At 0420, patient c/o hives on top right hand near IV site. Patient states it began to burn during the administration of zofran she received.
[2023-06-22 04:36] VITALS: BP 114/80; PULSE 74; RESP 14; O2SAT 100
[2023-06-22 05:51] VITALS: BP 104/60; PULSE 76; RESP 17; O2SAT 96
--- NOTE | 2023-06-22 05:55 | ED.ABDPAIN ---
HPI - Abdominal Pain General Chief Complaint: Abdominal Pain Stated Complaint: right flank pain Time Seen by Provider: 06/22/23 03:02 History of Present Illness HPI narrative: This is a 27-year-old female with previous history of kidney stones, presents the emergency department complaining of right flank pain for the past day. The patient states yesterday evening, she was in her normal state of health, when she felt a quick onset 8/10 right flank pain with radiation towards the groin. This is associated with nausea though no vomiting. The patient notes some blood in the urine and urinary frequency, but denies pain with urination. Related Data Home Medications Medication Instructions Recorded Confirmed trazodone 100 mg tablet 50 mg PO PRN 06/28/22 01/02/23 cetirizine 10 mg tablet (Zyrtec) 10 mg PO DAILY 01/02/23 01/02/23 cyclobenzaprine 10 mg tablet 10 mg PO TID PRN muscle spasms 01/02/23 01/02/23 Allergies Allergy/AdvReac Type Severity Reaction Status Date / Time No Known Allergies Allergy Verified 01/02/23 08:39 Review of Systems Review of Systems: CONSTITUTIONAL: Denies fever, chills, or sweats. CARDIOVASCULAR: Denies chest pain, palpitations, or edema. RESPIRATORY: Denies cough or dyspnea. GASTROINTESTINAL: Right flank pain, nausea denies vomiting, or diarrhea. GENITOURINARY: Urinary frequency and hematuria denies dysuria SKIN: Denies rash or itching. MUSCULOSKELETAL: Denies back pain, joint pain, or myalgia. NEUROLOGIC: Denies headache, numbness, dizziness, or weakness. PSYCHIATRIC: Denies anxiety or depression. [facility] Past Medical History Medical History (Updated 06/23/23 @ 00:00 by [facility]) Anxiety Asthma Chronic anemia Depression HPV (human papilloma virus) anogenital infection Kidney stone UTI (urinary tract infection) History of multidrug resistant Proteus mirabilis UTI. Surgical History Surgical History S/P cystoscopy with ureteral stent placement Family History Family History Mother Depression Anxiety Kidney stones Father Family history unknown Sibling Family history normal Grandparent Diabetes mellitus Other Family history of malignant neoplasm of cervix Social History Social History Social History: the patient lives in [place]. 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 she has 2 children, ages 5 and 7, who are healthy. She denies any tobacco, drug or alcohol use currently. Designates her mother, Renay, as her surrogate decision maker and she wishes to be a full code. Smoking status: Never smoker Additional smoking assessment comments: AT AGE 16 Alcohol intake: never Substance use: never Substance use type: does not use Lack of Transportation: No Lack of Food: Never True Current Housing: I Have Housing Concerned About Future Housing: No Difficulty Paying Gas/Electric Bills: No Difficulty Paying for Meds: No Currently Unemployed: No Education: Associate Degree Difficulty w/ Childcare or Family Care: No Living arrangements: with family Additional living arrangements comments: CHILDREN Gender identity (if verbalized by the patient): Female Sexual Orientation (if Verbalized by the Patient): Straight or Heterosexual Spiritual care concerns: No Agree to blood products: Yes Exam Narrative: GENERAL: Well-developed, well-nourished, in moderate distress due to pain HEAD: Normocephalic, atraumatic. EYES: PERRLA and EOMI. ENT: Nares clear, no rhinorrhea or epistaxis. Mucous membranes moist. Oropharynx without tonsillar hypertrophy exudate or other lesions. CHEST: Clear to auscultation. No respiratory distress. No wheezes rales or rhonchi HEART: Regular rate and rhythm. No murmur heard. Normal peripheral pulses. ABDOMEN: Soft, right upper quad
--- NOTE | 2023-06-22 06:02 | PC.NURSE ---
Holding toradol for patient. States her pain is fine right now and would like to wait.
[2023-06-22 06:30] VITALS: BP 109/63; PULSE 76; RESP 16; O2SAT 100
[2023-06-22] MEDS: KETOROLAC 30 MG/ML VIAL (*BKC) IV PUSH (06:37)
== END 2023-06-22 07:56 | disposition home or self-care (01) ==
PROVIDERS: Emergency Provider Preventive Medicine Aerospace Medicine; PCP Physician Assistant
DX: N20.2 Calculus of kidney with calculus of ureter (principal); J45.909 Unspecified asthma, uncomplicated; D64.9 Anemia, unspecified; F41.9 Anxiety disorder, unspecified; F32.A Depression, unspecified; Z87.442 Personal history of urinary calculi; Z87.440 Personal history of urinary (tract) infections; R91.8 Other nonspecific abnormal finding of lung field
CPT/HCPCS: 36415; 74176; 80053; 81001; 81025; 85025; 87086; 87088; 96361; 96374; 96375; 99284; J1200; J1885; J2270; J2405; J7030

== ENCOUNTER 2023-06-24 15:31 | Emergency (ER) | payer OTHER, SELFPAY ==
[2023-06-24 16:23] VITALS: BP 143/74; PULSE 101; RESP 20; TEMP 36.5; O2SAT 99
--- NOTE | 2023-06-24 17:48 | PC.NURSE ---
patient left without being seen. IV removed prior to patient leaving.
== END 2023-06-24 18:20 | disposition left against medical advice (07) ==
LOC: ANHED 18:00
PROVIDERS: PCP Physician Assistant
DX: N20.0 Calculus of kidney (principal)
CPT/HCPCS: 99199

== ENCOUNTER 2023-06-27 07:13 | Emergency (ER) | payer OTHER, SELFPAY ==
--- NOTE | ~2023-06-27 | CT_ITS ---
Non-contrast CT scan of the Abdomen and Pelvis Clinical indication: Right flank pain Technique: 2.5 mm axial scans were obtained through the abdomen and pelvis without intravenous or or al contrast. Dose reduction technique was used on this scan by utilizing automated exposure control a nd iterative reconstruction technique. The dose-length product (DLP) was 224.03 mGy-cm. COMPARISON: 06/22/2023 Findings: Images through the lung bases reveal no abnormalities. There is a 4 mm stone at the right UVJ, which is migrated distally from the mid to distal ureter sinc e prior exam. Right hydronephrosis is mildly worsened as compared to prior exam. Additional small lauren ateral nonobstructing renal stones are present. No left ureteral stone or left hydronephrosis. There is diffuse hepatic steatosis. The spleen, pancreas, gallbladder, and adrenals appear normal. T here is no aortic aneurysm. There is no evidence of bowel obstruction. No evidence for appendicitis. Images through the pelvis were performed. There is no evidence of ascites or lymphadenopathy. Urinary bladder otherwise unremarkable. No significant adnexal mass seen. Impression: 4 mm stone is now present at the right UVJ, having migrated distally from the mid to distal ureter si nce prior exam. Right hydroureteronephrosis is mildly worsened from prior exam. Small bilateral nonobstructing renal stones. Diffuse fatty infiltration of liver. Reviewed, dictated and finalized at [facility]. Impression: 4 mm stone is now present at the right UVJ, having migrated distally from the m id to distal ureter since prior exam. Right hydroureteronephrosis is mildly worsened from prior exam. Small bilateral nonobstructing renal stones. Diffuse fatty infiltration of liver.
[2023-06-27 07:21] VITALS: BP 144/86; PULSE 100; RESP 32; TEMP 37; O2SAT 100
[2023-06-27 07:44] LABS: Basophils Percent Auto 0.4 % (0.2-1.2); Eosinophils Absolute Auto 0.1 K/mm3 (0-0.3); Eosinophils Percent Auto 1.5 % (0-4.4); Hematocrit 38.5 % (37.0-47.0); Hemoglobin 12.2 g/dL (12.0-15.0); Immature Granulocyte Absolute 0.02 K/mm3 (0.00-0.031); Immature Granulocyte Percent A 0.2 % (0-0.5); Lymphocytes Absolute Auto 1.91 K/mm3 (0.9-3.2); Lymphocytes Percent Auto 21.3 % (18.3-44.2); Mean Corpuscular HGB Conc 31.7 g/dl (32-36); Mean Corpuscular Hemoglobin 27.9 pg (26-34); Mean Corpuscular Volume 87.9 fl (80-100); Mean Platelet Volume 12.4 fl (7.4-10.4); Monocytes Absolute Auto 0.6 K/mm3 (0.1-0.6); Monocytes Percent Auto 6.5 % (2.6-8.5); Neutrophils Absolute Auto 6.3 K/mm3 (1.3-6.7); Neutrophils Percent Auto 70.1 % (45.5-73.1); Platelet Count Result 292 k/mm3 (150-375); Red Blood Count 4.38 M/mm3 (4.2-5.4); Red Cell Distribution Width 13.2 % (11.5-14.5)
[2023-06-27 07:49] LABS: Appearance Urine Clear (Clear); Bacteria Urine None Seen /hpf; Bilirubin Urine Negative (Negative); Blood Urine 2+ (Negative); Color Urine Yellow (Yellow); Glucose Urine UA Negative (Negative); Ketones Urine 1+ mg/dL (Negative); Leukocyte Esterase Ur Trace LEU/UL (Negative); Nitrate Urine Negative (Negative); Non Pathogenic Casts 0-2; Protein Urine Negative (Negative); RBC Urine 51-100 /hpf (0-2); Specific Grav Ur 1.024 (1.001-1.035); Squamous Epithelial Cell Urine Occasional /hpf (Few); Urobilinogen Urine 0.2 mg/dL (<2.0); WBC Urine 0-5 /hpf; pH Urine 6.5 (5.0-9.0)
[2023-06-27 07:53] LABS: Add Urine Microscopic? YES
[2023-06-27 07:54] LABS: Alanine Aminotransferase 40 U/L (6-35); Albumin Level 4.5 g/dL (3.5-5.1); Alkaline Phosphatase 81 U/L (38-126); Anion Gap 10 mmol/L (8-16); Aspartate Amino Transferase 32 U/L (14-36); Bilirubin,Total 0.5 mg/dL (0.2-1.3); Blood Urea Nitrogen 15 mg/dL (7-17); Calcium 8.7 mg/dL (8.4-10.2); Carbon Dioxide 25 mmol/L (22-30); Chloride 103 mmol/L (98-107); Estimated Glomerular Filt Rate > 60; Glucose 97 mg/dL (65-110); Potassium 3.7 mmol/L (3.4-5.0); Sodium 138 mmol/L (137-145)
[2023-06-27] MEDS: MORPHINE SULFATE (*CRX) 4 MG/ML INJ IV PUSH (07:55)
[2023-06-27] MEDS: SODIUM CHLORIDE 0.9% IV 2,000 ML 999 ML IV CONT (07:55)
[2023-06-27] MEDS: KETOROLAC 30 MG/ML VIAL (*BKC) IV PUSH (07:56)
[2023-06-27] MEDS: HYDROmorphone HCL INJ (*CRX) 1 MG/ML SYR 0.5 MG IV PUSH (08:53)
[2023-06-27 08:54] VITALS: BP 119/69; PULSE 82; RESP 16; O2SAT 89
[2023-06-27] MEDS: ONDANSETRON INJ 4 MG/2 ML VIAL IV PUSH (09:27)
[2023-06-27] MEDS: oxyCODONE HCL (*CRX) 5 MG TAB IR 10 MG PO (11:03)
[2023-06-27] MEDS: ACETAMINOPHEN 325 MG TABLET PO (11:04)
[2023-06-27] MEDS: diphenhydrAMINE HCl INJ 50 MG/ML VIAL 25 MG IV PUSH (12:09)
[2023-06-27 12:11] VITALS: BP 130/87; PULSE 97; RESP 16; O2SAT 100
--- NOTE | 2023-06-27 12:12 | ED.ABDPAIN ---
HPI - Abdominal Pain General Chief Complaint: Abdominal Pain Stated Complaint: kidney stone Time Seen by Provider: 06/27/23 07:22 History of Present Illness HPI narrative: This is a 27-year-old female, previously seen in this emergency department for a kidney stone, who returns with severe right flank pain. The patient describes the pain as sharp, rated 10/10 and is associated with nausea. She denies hematuria, dysuria or fevers. Related Data Home Medications Medication Instructions Recorded Confirmed trazodone 100 mg tablet 50 mg PO PRN 06/28/22 01/02/23 cetirizine 10 mg tablet (Zyrtec) 10 mg PO DAILY 01/02/23 01/02/23 cyclobenzaprine 10 mg tablet 10 mg PO TID PRN muscle spasms 01/02/23 01/02/23 Allergies Allergy/AdvReac Type Severity Reaction Status Date / Time No Known Allergies Allergy Verified 06/27/23 07:25 Review of Systems Review of Systems: CONSTITUTIONAL: Denies fever, chills, or sweats. EYES: Denies visual changes, redness, or discharge. ENT: Denies rhinorrhea, congestion, sore throat, or otalgia. CARDIOVASCULAR: Denies chest pain, palpitations, or edema. RESPIRATORY: Denies cough or dyspnea. GASTROINTESTINAL: Severe right flank pain denies abdominal pain, nausea, vomiting, or diarrhea. GENITOURINARY: Denies dysuria or hematuria. SKIN: Denies rash or itching. MUSCULOSKELETAL: Denies back pain, joint pain, or myalgia. NEUROLOGIC: Denies headache, numbness, dizziness, or weakness. PSYCHIATRIC: Denies anxiety or depression. [facility] Past Medical History Medical History (Updated 06/27/23 @ 12:18 by Alberto Villalta MD) Anxiety Asthma Chronic anemia Depression HPV (human papilloma virus) anogenital infection Kidney stone UTI (urinary tract infection) History of multidrug resistant Proteus mirabilis UTI. Surgical History Surgical History S/P cystoscopy with ureteral stent placement Family History Family History Mother Depression Anxiety Kidney stones Father Family history unknown Sibling Family history normal Grandparent Diabetes mellitus Other Family history of malignant neoplasm of cervix Social History Social History Social History: the patient lives in [place]. 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 she has 2 children, ages 5 and 7, who are healthy. She denies any tobacco, drug or alcohol use currently. Designates her mother, Renay, as her surrogate decision maker and she wishes to be a full code. Smoking status: Never smoker Additional smoking assessment comments: AT AGE 16 Alcohol intake: never Substance use: never Substance use type: does not use Lack of Transportation: No Lack of Food: Never True Current Housing: I Have Housing Concerned About Future Housing: No Difficulty Paying Gas/Electric Bills: No Difficulty Paying for Meds: No Currently Unemployed: No Education: Associate Degree Difficulty w/ Childcare or Family Care: No Living arrangements: with family Additional living arrangements comments: CHILDREN Gender identity (if verbalized by the patient): Female Sexual Orientation (if Verbalized by the Patient): Straight or Heterosexual Spiritual care concerns: No Agree to blood products: Yes Exam Narrative: GENERAL: Well-developed, well-nourished, in acute distress due to pain HEAD: Normocephalic, atraumatic. EYES: PERRLA and EOMI. CHEST: Clear to auscultation. No respiratory distress. No wheezes rales or rhonchi HEART: Regular rate and rhythm. No murmur heard. Normal peripheral pulses. ABDOMEN: Soft, tender to palpation in the right upper quadrant with guarding but without rebound, nondistended, normal active bowel sounds. Right CVA tenderness to palpation, no left CVA tenderness EXTREMITIES: Normal range of motion. No edema. SKIN:
== END 2023-06-27 12:38 | disposition home or self-care (01) ==
PROVIDERS: Emergency Provider Preventive Medicine Aerospace Medicine; PCP Physician Assistant
DX: N13.2 Hydronephrosis with renal and ureteral calculous obstruction (principal); J45.909 Unspecified asthma, uncomplicated; D64.9 Anemia, unspecified; F41.9 Anxiety disorder, unspecified; F32.A Depression, unspecified; Z87.440 Personal history of urinary (tract) infections; Z87.891 Personal history of nicotine dependence; K76.0 Fatty (change of) liver, not elsewhere classified
CPT/HCPCS: 36415; 74176; 80053; 81001; 81025; 85025; 96361; 96374; 96375; 99284; A9270; J1170; J1200; J1885; J2270; J2405; J7030

== ENCOUNTER 2023-07-13 10:08 | Emergency (ER) | payer OTHER, SELFPAY ==
[2023-07-13 10:17] VITALS: BP 126/79; PULSE 81; RESP 16; TEMP 36.8; O2SAT 100
--- NOTE | 2023-07-13 10:30 | ED.GENADULT ---
HPI - General Adult General Chief complaint: Upper Respiratory Infection Stated complaint: Swollen Neck Time Seen by Provider: 07/13/23 10:31 Source: patient and RN notes reviewed Mode of arrival: ambulatory Limitations: no limitations History of Present Illness HPI narrative: 28-year-old female presents with concern for sore throat, swollen lymph nodes. She reports symptoms started last night. She reports trouble sleeping because of the pain. She denies nasal congestion, rhinorrhea, fever, nausea, vomiting MD complaint: Sore throat Related Data Allergies Allergy/AdvReac Type Severity Reaction Status Date / Time No Known Allergies Allergy Verified 07/13/23 10:13 Review of Systems Review of Systems: CONSTITUTIONAL: Denies malaise, chills, sweats, or fever. EYES: Denies visual changes, redness, or discharge. ENT: Denies rhinorrhea, congestion, sinus pain, otalgia. Reports sore throat. CARDIOVASCULAR: Denies chest pain, palpitations, or edema. RESPIRATORY: Denies cough. Denies dyspnea. GASTROINTESTINAL: Denies abdominal pain, nausea, vomiting, diarrhea SKIN: Denies rash or itching. MUSCULOSKELETAL: Denies myalgia. NEUROLOGIC: Denies headache. All systems reviewed & are unremarkable except as noted in HPI and below PMFSH Past Medical History Medical History (Updated 07/13/23 @ 10:36 by Beatriz Edwards NP) Anxiety Asthma Chronic anemia Depression HPV (human papilloma virus) anogenital infection Kidney stone UTI (urinary tract infection) History of multidrug resistant Proteus mirabilis UTI. Surgical History Surgical History S/P cystoscopy with ureteral stent placement Family History Family History Mother Depression Anxiety Kidney stones Father Family history unknown Sibling Family history normal Grandparent Diabetes mellitus Other Family history of malignant neoplasm of cervix Social History Social History Social History: the patient lives in [place]. 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 she has 2 children, ages 5 and 7, who are healthy. She denies any tobacco, drug or alcohol use currently. Designates her mother, Renay, as her surrogate decision maker and she wishes to be a full code. Smoking status: Never smoker Additional smoking assessment comments: AT AGE 16 Alcohol intake: never Substance use: never Substance use type: does not use Lack of Transportation: No Lack of Food: Never True Current Housing: I Have Housing Concerned About Future Housing: No Difficulty Paying Gas/Electric Bills: No Difficulty Paying for Meds: No Currently Unemployed: No Education: Associate Degree Difficulty w/ Childcare or Family Care: No Living arrangements: with family Additional living arrangements comments: CHILDREN Gender identity (if verbalized by the patient): Female Sexual Orientation (if Verbalized by the Patient): Straight or Heterosexual Spiritual care concerns: No Agree to blood products: Yes Comments At time of signature, agree with nursing past medical, surgical, social and family history. There is no relevant family history pertinent to the presenting complaint Exam Narrative: GENERAL: Well-appearing, well-nourished, and in no acute distress. HEAD: Normocephalic EYES: PERRLA, conjunctivae clear ENT: Nares clear. Mucous membranes moist. TM pearly teran with dull light reflex bilaterally; no tragal tenderness. Oropharynx erythematous without lesions. Tonsils not enlarged and without exudate, no drooling, no hoarseness, no trismus, uvula midline. NECK: Supple. CHEST: Clear to auscultation, breath sounds equal. No wheezing, rhonchi, rales, or stridor. No respiratory distress, speaks in full sentences. HEART: Regular rate and rhythm. No murmur heard. SKIN: Warm, dry, n
== END 2023-07-13 10:47 | disposition home or self-care (01) ==
PROVIDERS: Emergency Provider Nurse Practitioner; PCP Physician Assistant
DX: J02.0 Streptococcal pharyngitis (principal); J45.909 Unspecified asthma, uncomplicated; Z96.0 Presence of urogenital implants
CPT/HCPCS: 87880; 99213; G0463

== ENCOUNTER 2023-08-07 06:02 | Emergency (ER) | payer OTHER, SELFPAY ==
--- NOTE | ~2023-08-07 | CT_ITS ---
CT of the Abdomen and Pelvis: Indication: Abdominal pain Technique: 2.5 mm axial scans were obtained through the abdomen and pelvis following intravenous adm inistration of 100 cc of Omnipaque 350. Dose reduction technique was used on this scan by utilizing a utomated exposure control and iterative reconstruction technique. The dose-length product (DLP) was 3 46.01 mGy-cm. COMPARISON: 06/27/2023 Findings: Scans through the lung bases are unremarkable. Probable mild diffuse fatty infiltration of liver. The spleen, pancreas, gallbladder, adrenals and ki dneys are within normal limits. No evidence of aortic aneurysm. No lymphadenopathy. No bowel obstruction or bowel wall thickening. There is no evidence to suggest acute appendicitis. Images through the pelvis were performed. Urinary bladder unremarkable. No adnexal mass seen. No asci lobito. Impression: No acute abnormality seen. Diffuse fatty infiltration of liver. Reviewed, dictated and finalized at [facility]. [employer] INST[employer]ER Impression: No acute abnormality seen. Diffuse fatty infiltration of liver.
[2023-08-07 06:08] VITALS: BP 113/74; PULSE 106; RESP 16; TEMP 36.4; O2SAT 100
[2023-08-07] MEDS: ONDANSETRON INJ 4 MG/2 ML VIAL IV PUSH ×2 (08:33→10:52)
[2023-08-07] MEDS: MORPHINE SULFATE (*CRX) 4 MG/ML INJ IV PUSH (08:33)
[2023-08-07] MEDS: SODIUM CHLORIDE 0.9% IV 1,000 ML 999 ML IV CONT (08:34)
[2023-08-07 08:37] VITALS: BP 138/79; PULSE 107; RESP 18; O2SAT 100
[2023-08-07 08:39] LABS: Basophils Percent Auto 0.1 % (0.2-1.2); Eosinophils Percent Auto 0.2 % (0-4.4); Hemoglobin 13.4 g/dL (12.0-15.0); Immature Granulocyte Absolute 0.02 K/mm3 (0.00-0.031); Immature Granulocyte Percent A 0.2 % (0-0.5); Lymphocytes Absolute Auto 0.63 K/mm3 (0.9-3.2); Mean Corpuscular HGB Conc 31.9 g/dl (32-36); Mean Corpuscular Hemoglobin 27.7 pg (26-34); Mean Corpuscular Volume 86.8 fl (80-100); Mean Platelet Volume 12.7 fl (7.4-10.4); Monocytes Absolute Auto 0.3 K/mm3 (0.1-0.6); Monocytes Percent Auto 2.8 % (2.6-8.5); Neutrophils Absolute Auto 8.1 K/mm3 (1.3-6.7); Neutrophils Percent Auto 89.7 % (45.5-73.1); Platelet Count Result 261 k/mm3 (150-375); Red Blood Count 4.84 M/mm3 (4.2-5.4); Red Cell Distribution Width 13.4 % (11.5-14.5); White Blood Count 9.1 K/mm3 (4.5-10.0)
[2023-08-07 08:45] LABS: Appearance Urine Cloudy (Clear); Bacteria Urine None Seen /hpf; Bilirubin Urine Negative (Negative); Blood Urine Negative (Negative); Color Urine Yellow (Yellow); Glucose Urine UA Negative (Negative); Ketones Urine Negative (Negative); Leukocyte Esterase Ur Trace LEU/UL (Negative); Nitrate Urine Negative (Negative); Non Pathogenic Casts 0-2; Protein Urine Trace mg/dL (Negative); RBC Urine 0-2 /hpf (0-2); Specific Grav Ur 1.022 (1.001-1.035); Squamous Epithelial Cell Urine Many /hpf (Few); pH Urine 8.5 (5.0-9.0)
[2023-08-07 08:51] LABS: Alanine Aminotransferase 30 U/L (6-35); Albumin Level 4.6 g/dL (3.5-5.1); Alkaline Phosphatase 90 U/L (38-126); Anion Gap 12 mmol/L (8-16); Aspartate Amino Transferase 28 U/L (14-36); Bilirubin,Total 0.7 mg/dL (0.2-1.3); Blood Urea Nitrogen 14 mg/dL (7-17); Calcium 9.4 mg/dL (8.4-10.2); Carbon Dioxide 25 mmol/L (22-30); Chloride 103 mmol/L (98-107); Estimated Glomerular Filt Rate > 60; Glucose 112 mg/dL (65-110); Lipase 47 U/L (23-300); Potassium 3.8 mmol/L (3.4-5.0); Sodium 140 mmol/L (137-145)
[2023-08-07 09:25] LABS: Add Urine Microscopic? YES
--- NOTE | 2023-08-07 09:44 | ED.GENADULT ---
HPI - General Adult General Chief complaint: Nausea/Vomiting/Diarrhea Stated complaint: nausea, abdominal pain Time Seen by Provider: 08/07/23 07:26 History of Present Illness HPI narrative: Patient is a 28-year-old female who presents the ER with abdominal pain as well as nausea/vomiting/diarrhea. Since 3:00 a.m.. No fevers or chills or sweats. Denies urinary frequency urgency or dysuria. No known sick contacts. Unsure if it is related to food she last night parent abdominal pain is cramping and diffuse. Related Data Allergies Allergy/AdvReac Type Severity Reaction Status Date / Time No Known Allergies Allergy Verified 08/07/23 08:37 Review of Systems Review of Systems: All systems reviewed & are unremarkable except as noted in HPI and below Constitutional: Constitutional: Denies chills, Reports fatigue and Denies fever(s) ENT: Denies nasal congestion and Denies sore throat Cardiovascular: Cardiovascular: Denies chest pain, Denies rapid heart rate and Denies radiating jaw, neck or arm pain Respiratory: Respiratory: Denies cough and Denies dyspnea Gastrointestinal: Gastrointestinal: Reports abdominal pain, Reports diarrhea, Reports nausea and Reports vomiting Genitourinary: Genitourinary: Denies dysuria and Denies flank pain PMFSH Past Medical History Medical History (Updated 08/07/23 @ 11:36 by Addy Ashton MD) Anxiety Asthma Chronic anemia Depression HPV (human papilloma virus) anogenital infection Kidney stone UTI (urinary tract infection) History of multidrug resistant Proteus mirabilis UTI. Surgical History Surgical History S/P cystoscopy with ureteral stent placement Family History Family History Mother Depression Anxiety Kidney stones Father Family history unknown Sibling Family history normal Grandparent Diabetes mellitus Other Family history of malignant neoplasm of cervix Social History Social History Social History: the patient lives in [place]. 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 she has 2 children, ages 5 and 7, who are healthy. She denies any tobacco, drug or alcohol use currently. Designates her mother, Renay, as her surrogate decision maker and she wishes to be a full code. Smoking status: Never smoker Additional smoking assessment comments: AT AGE 16 Alcohol intake: never Substance use: never Substance use type: does not use Lack of Transportation: No Lack of Food: Never True Current Housing: I Have Housing Concerned About Future Housing: No Difficulty Paying Gas/Electric Bills: No Difficulty Paying for Meds: No Currently Unemployed: No Education: Associate Degree Difficulty w/ Childcare or Family Care: No Living arrangements: with family Additional living arrangements comments: CHILDREN Gender identity (if verbalized by the patient): Female Sexual Orientation (if Verbalized by the Patient): Straight or Heterosexual Spiritual care concerns: No Agree to blood products: Yes Exam Narrative: GENERAL: Fatigued-appearing, well-nourished, and in no acute distress. HEAD: Normocephalic, atraumatic. ENT: Mucous membranes moist. CHEST: Clear to auscultation. No respiratory distress. HEART: Regular rate and rhythm. Normal peripheral pulses. ABDOMEN: Soft, diffuse abdominal discomfort with palpation but more tender in right lower quadrant without guarding, nondistended. EXTREMITIES: Normal range of motion. No edema. SKIN: Warm, dry, no rash. NEURO: Alert and oriented x3. PSYCH: Normal mood and affect. Course Vital Signs Vital signs: Vital Signs Temperature 97.6 F 08/07/23 06:08 Pulse Rate 106 H 08/07/23 06:08 Respiratory Rate 16 08/07/23 06:08 Blood Pressure 113/74 08/07/23 06:08 Pulse Oximetry 100 08/07/23 06
[2023-08-07 10:52] VITALS: BP 109/65; PULSE 92; RESP 18; O2SAT 95
[2023-08-07 11:52] VITALS: BP 105/73; PULSE 77; RESP 18; O2SAT 99
== END 2023-08-07 11:53 | disposition home or self-care (01) ==
PROVIDERS: Emergency Provider Emergency Medicine; PCP Physician Assistant
DX: K52.9 Noninfective gastroenteritis and colitis, unspecified (principal); F41.9 Anxiety disorder, unspecified; J45.909 Unspecified asthma, uncomplicated; D64.9 Anemia, unspecified; F32.9 Major depressive disorder, single episode, unspecified; Z87.442 Personal history of urinary calculi; Z87.440 Personal history of urinary (tract) infections
CPT/HCPCS: 36415; 74177; 80053; 81001; 81025; 83690; 85025; 87086; 87088; 96361; 96374; 96375; 96376; 99284; J2270; J2405; J7030; Q9967

== ENCOUNTER 2023-11-03 11:59 | Emergency (ER) | payer OTHER, SELFPAY ==
[2023-11-03 12:00] VITALS: BP 136/83; PULSE 107; RESP 16; TEMP 36.4; O2SAT 99
[2023-11-03 12:19] LABS: Basophils Percent Auto 0.3 % (0.2-1.2); Eosinophils Absolute Auto 0.1 K/mm3 (0-0.3); Eosinophils Percent Auto 0.8 % (0-4.4); Hemoglobin 13.9 g/dL (12.0-15.0); Immature Granulocyte Absolute 0.02 K/mm3 (0.00-0.031); Immature Granulocyte Percent A 0.3 % (0-0.5); Lymphocytes Absolute Auto 1.62 K/mm3 (0.9-3.2); Lymphocytes Percent Auto 20.7 % (18.3-44.2); Mean Corpuscular HGB Conc 32.3 g/dl (32-36); Mean Corpuscular Hemoglobin 28.5 pg (26-34); Mean Corpuscular Volume 88.1 fl (80-100); Mean Platelet Volume 11.9 fl (7.4-10.4); Monocytes Absolute Auto 0.4 K/mm3 (0.1-0.6); Monocytes Percent Auto 5.4 % (2.6-8.5); Neutrophils Absolute Auto 5.7 K/mm3 (1.3-6.7); Neutrophils Percent Auto 72.5 % (45.5-73.1); Platelet Count Result 327 k/mm3 (150-375); Red Blood Count 4.88 M/mm3 (4.2-5.4); Red Cell Distribution Width 13.1 % (11.5-14.5); White Blood Count 7.8 K/mm3 (4.5-10.0)
[2023-11-03 12:40] LABS: Alanine Aminotransferase 34 U/L (6-35); Albumin Level 4.6 g/dL (3.5-5.1); Alkaline Phosphatase 100 U/L (38-126); Anion Gap 7 mmol/L (8-16); Aspartate Amino Transferase 30 U/L (14-36); Bilirubin,Total 0.6 mg/dL (0.2-1.3); Blood Urea Nitrogen 10 mg/dL (7-17); Calcium 9.6 mg/dL (8.4-10.2); Carbon Dioxide 27 mmol/L (22-30); Chloride 105 mmol/L (98-107); Estimated Glomerular Filt Rate > 60; Glucose 112 mg/dL (65-110); Lipase 44 U/L (23-300); Potassium 3.5 mmol/L (3.4-5.0); Sodium 139 mmol/L (137-145)
[2023-11-03 13:35] VITALS: BP 123/88; PULSE 97; RESP 16; O2SAT 100
[2023-11-03 14:04] LABS: Appearance Urine Clear (Clear); Bilirubin Urine Negative (Negative); Blood Urine Negative (Negative); Color Urine Yellow (Yellow); Glucose Urine UA Negative (Negative); Ketones Urine 1+ mg/dL (Negative); Leukocyte Esterase Ur Negative LEU/UL (Negative); Nitrate Urine Negative (Negative); Protein Urine Negative (Negative); Specific Grav Ur 1.018 (1.001-1.035); Urobilinogen Urine 0.2 mg/dL (<2.0); pH Urine 7.5 (5.0-9.0)
[2023-11-03 14:11] LABS: Add Urine Microscopic? NO
[2023-11-03 14:44] VITALS: BP 120/65; PULSE 99; RESP 15; O2SAT 100
[2023-11-03 15:13] LABS: Influenza A QL RT-PCR Negative (Negative); Influenza B QL RT-PCR Negative (Negative); RSV RNA, RT-PCR Negative (Negative); SARS-CoV-2 RNA PCR Negative (Negative)
[2023-11-03 15:49] VITALS: BP 123/76; PULSE 92; RESP 18; O2SAT 100
[2023-11-03] MEDS: BELLADONNA ALK/PHENOB ELIX 10 ML, MAG HYDROX/ALUMINUM HYD/SIMETH 30 ML, LIDOCAINE HCL 2... PO (15:51)
[2023-11-03] MEDS: KETOROLAC 30 MG/ML VIAL (*BKC) IV PUSH (15:51)
--- NOTE | 2023-11-03 17:21 | ED.GENADULT ---
HPI - General Adult General Chief complaint: Unspecified Stated complaint: gi pain/joint pain/migraine-chronic issues Time Seen by Provider: 11/03/23 13:34 History of Present Illness HPI narrative: Patient is a 28-year-old female who presents ER with multiple issues. Her main complaint is epigastric abdominal pain. Aching nature. Worse with eating and drinking. She takes omeprazole 40 mg daily for this. She has not had an EGD. No blood in emesis or stool. Patient is also reporting diffuse myalgias and pain in her bones ongoing over last week. She reports she is being referred to an chemical unit operator due to some abnormal outpatient labs performed by her OB. She reports a 60 lb weight gain over the last 6 months however chart review shows she has been hovering around the same weight over last year. Patient endorses her loss and increased stress. Related Data Home Medications Medication Instructions Recorded Confirmed No Home Medications 11/03/23 11/03/23 Allergies Allergy/AdvReac Type Severity Reaction Status Date / Time No Known Allergies Allergy Verified 11/03/23 13:44 Review of Systems Review of Systems: All systems reviewed & are unremarkable except as noted in HPI and below Constitutional: Constitutional: Reports body ache(s), Reports fatigue, Denies fever(s) and Reports headache(s) ENT: Reports system reviewed and no additional complaints, except as documented Cardiovascular: Cardiovascular: Reports no additional cardiovascular complaints Respiratory: Respiratory: Reports no additional respiratory complaints Gastrointestinal: Gastrointestinal: Reports abdominal pain, Reports heartburn, Denies nausea and Denies vomiting Genitourinary: Genitourinary: Reports no additional female genitourinary complaints [facility] Past Medical History Medical History (Updated 11/03/23 @ 17:30 by Addy Ashton MD) Anxiety Asthma Chronic anemia Depression HPV (human papilloma virus) anogenital infection Kidney stone UTI (urinary tract infection) History of multidrug resistant Proteus mirabilis UTI. Surgical History Surgical History S/P cystoscopy with ureteral stent placement Family History Family History Mother Depression Anxiety Kidney stones Father Family history unknown Sibling Family history normal Grandparent Diabetes mellitus Other Family history of malignant neoplasm of cervix Social History Social History Social History: the patient lives in [place]. 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 she has 2 children, ages 5 and 7, who are healthy. She denies any tobacco, drug or alcohol use currently. Designates her mother, Renay, as her surrogate decision maker and she wishes to be a full code. Smoking status: Never smoker Additional smoking assessment comments: AT AGE 16 Alcohol intake: never Substance use: never Substance use type: does not use Lack of Transportation: No Lack of Food: Never True Current Housing: I Have Housing Concerned About Future Housing: No Difficulty Paying Gas/Electric Bills: No Difficulty Paying for Meds: No Currently Unemployed: No Education: Associate Degree Difficulty w/ Childcare or Family Care: No Living arrangements: with family Additional living arrangements comments: CHILDREN Gender identity (if verbalized by the patient): Female Sexual Orientation (if Verbalized by the Patient): Straight or Heterosexual Spiritual care concerns: No Agree to blood products: Yes Exam Narrative: GENERAL: Tearful-appearing, well-nourished, and in no acute distress. HEAD: Normocephalic, atraumatic. EYES: PERRL and EOMI. ENT: Mucous membranes moist. CHEST: Clear to auscultation. No respiratory distress. HEART: Regular rate and rhythm. Normal
[2023-11-03 17:37] VITALS: BP 133/90; PULSE 106; RESP 14; O2SAT 99
== END 2023-11-03 17:53 | disposition home or self-care (01) ==
PROVIDERS: Emergency Medicine; Emergency Provider Emergency Medicine; PCP Physician Assistant
DX: R10.13 Epigastric pain (principal); M79.10 Myalgia, unspecified site; J45.909 Unspecified asthma, uncomplicated; D64.9 Anemia, unspecified; Z87.442 Personal history of urinary calculi; Z87.440 Personal history of urinary (tract) infections
CPT/HCPCS: 36415; 80053; 81003; 81025; 83690; 84443; 85025; 87637; 96374; 99284; A9270; J1885

== ENCOUNTER 2023-11-21 07:47 | Outpatient (RCR) | payer OTHER, SELFPAY ==
--- NOTE | 2023-11-08 09:31 | PCPTNOTE ---
pt called and rescheduled eval appt due to not being able to get away from work.
--- NOTE | 2023-11-21 08:54 | OPREHPOC ---
Outpatient Therapy Plan of Care This is a Multidisciplinary Plan of Care that may contain components documented by all disciplines (PT, OT, and ST.) PT Problem 1 PT Problem #1 Knowledge Deficit PT Goal 1 Goal 1* indep with HEP 2* correct posture with exercises PT Problem 2 PT Problem #2 Pain PT Goal 1 Goal 1* decrease pain to 5/10 at worst 2* self assessment Neck Disability Index rating of 40% limitation in activity level 3* pt report with sleeping, awaken from pain 2x/ night PT Problem 3 PT Problem #3 Impaired Flexibility PT Goal 1 Goal improve flexibility of neck and shoulders, to improve posture/position, driving and self care ability sitting: active cervical: 1* rotation R 50' 2* rotation L 60' 3* R shoulder flexion 140' 4* L shoulder flexion 140'
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
--- NOTE | 2023-11-28 12:46 | PCPTNOTE ---
Patient was a No Show for today's appointment.
--- NOTE | 2023-11-29 15:57 | PCPTNOTE ---
Pt NS appt today, left message of her next appt on 12/02 at 15:30.
--- NOTE | 2023-12-03 16:08 | PCPTNOTE ---
Patient No Show for today's appointment.
--- NOTE | 2023-12-06 09:04 | PTOPDC ---
Assessment and note entered by Lien Hoffman, PT Discharge Information Assessment Status Discharge - Pt Not Present Diagnosis cervical pain Onset February 2022 Assessment PT Clinical Summary Carlota has received the PT evaluation on 11-21-23 then did not show for 3 scheduled appointments. She will be discharged at this time. The goals were not addressed. Plan of Care PT Services Indicated No
== END 2023-12-06 10:33 | disposition home or self-care (01) ==
LOC: ANHPT 07:47
PROVIDERS: PCP Physician Assistant; Visit Provider Physician Assistant
DX: M54.2 Cervicalgia (principal)
CPT/HCPCS: 97014; 97110; 97161; 97530; 99199; G0283

== ENCOUNTER 2024-01-27 22:08 | Emergency (ER) | payer OTHER, SELFPAY ==
[2024-01-27 22:18] VITALS: BP 117/68; PULSE 96; RESP 14; TEMP 36.7; O2SAT 100
--- NOTE | 2024-01-27 23:54 | PC.NURSE ---
Pt states she is going to go home and contact her PCP in the morning. Pt ambulated out of ED with steady gait in no obvious distress.
== END 2024-01-28 00:29 | disposition left against medical advice (07) ==
LOC: ANHED 01-28 00:08
PROVIDERS: PCP Physician Assistant
DX: K21.9 Gastro-esophageal reflux disease without esophagitis (principal)
CPT/HCPCS: 99199

== ENCOUNTER 2024-02-29 13:15 | Emergency (ER) | payer OTHER, SELFPAY ==
--- NOTE | 2024-02-29 13:33 | ED.URI ---
HPI - URI/Sore Throat General Chief Complaint: Upper Respiratory Infection Stated Complaint: Right Earache, Nose Bleeds, Fever,Sinus Time Seen by Provider: 02/29/24 13:45 Source: patient, RN notes reviewed and old records reviewed Mode of arrival: ambulatory Limitations: no limitations History of Present Illness HPI Narrative: 28-year-old female presents to the [facility] with complaints of sinus congestion, feeling warm, subjective fever and right ear pain for 5 days. States she is and is followed by [facility]. Patient reports that she is taking and Sudafed Onset (ago): day(s) Treatments prior to arrival: acetaminophen and cold medicine Related Data Home Medications Medication Instructions Recorded Confirmed No Home Medications 02/29/24 02/29/24 Allergies Allergy/AdvReac Type Severity Reaction Status Date / Time No Known Allergies Allergy Verified 02/29/24 13:23 Review of Systems Review of Systems: All systems reviewed & are unremarkable except as noted in HPI and below Constitutional: Constitutional: Reports no additional constitutional complaints Eyes: Eyes: Reports no additional eye complaints ENT: Reports as per HPI, Reports otalgia (Right) and Reports nasal congestion Cardiovascular: Cardiovascular: Reports no additional cardiovascular complaints, Denies chest pain and Denies dyspnea Respiratory: Respiratory: Reports no additional respiratory complaints, Denies chest congestion, Denies cough and Denies dyspnea Gastrointestinal: Gastrointestinal: Reports no additional gastrointestinal complaints, Denies abdominal pain, Denies nausea and Denies vomiting Musculoskeletal: Musculoskeletal: Reports no additional musculoskeletal complaints Integumentary/Breasts: Skin/Breast: Reports system reviewed and no additional complaints, except as docu Neurologic: Reports system reviewed and no additional complaints, except as documented Psychiatric: Psychiatric: Reports no additional psychiatric complaints Allergic/Immunologic: Allergic/Immunologic: Reports no additional allergic/immunologic complaints [facility] Past Medical History Medical History Anxiety Asthma Chronic anemia Depression HPV (human papilloma virus) anogenital infection Kidney stone UTI (urinary tract infection) History of multidrug resistant Proteus mirabilis UTI. Surgical History Surgical History S/P cystoscopy with ureteral stent placement Family History Family History Mother Depression Anxiety Kidney stones Father Family history unknown Sibling Family history normal Grandparent Diabetes mellitus Other Family history of malignant neoplasm of cervix Social History Social History Social History: the patient lives in [place]. 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 she has 2 children, ages 5 and 7, who are healthy. She denies any tobacco, drug or alcohol use currently. Designates her mother, Renay, as her surrogate decision maker and she wishes to be a full code. Smoking status: Never smoker Additional smoking assessment comments: AT AGE 16 Alcohol intake: never Substance use: never Substance use type: does not use Lack of Transportation: No Lack of Food: Never True Current Housing: I Have Housing Concerned About Future Housing: No Difficulty Paying Gas/Electric Bills: No Difficulty Paying for Meds: No Currently Unemployed: No Education: Associate Degree Difficulty w/ Childcare or Family Care: No Living arrangements: with family Additional living arrangements comments: CHILDREN Gender identity (if verbalized by the patient): Female Sexual Orientation (if Verbalized by the Patient): Straight or Heterosexual Spiritual care concerns: N
[2024-02-29 13:37] VITALS: BP 121/66; PULSE 100; RESP 20; TEMP 37.1; O2SAT 100
== END 2024-02-29 14:00 | disposition home or self-care (01) ==
PROVIDERS: Emergency Provider Nurse Practitioner; PCP Physician Assistant
DX: H92.01 Otalgia, right ear (principal); J34.89 Other specified disorders of nose and nasal sinuses
CPT/HCPCS: 99211; G0463

== ENCOUNTER 2024-03-01 19:56 | Emergency (ER) | payer OTHER, SELFPAY ==
--- NOTE | ~2024-03-01 | CT_ITS ---
Clinical Indication: Shortness of breath CT Scan of the Chest with Contrast: Technique: Contiguous sections were acquired throughout the chest after intravenous administration of 100 cc of Omnipaque 350. Dose reduction technique was used on this scan by utilizing automated expos ure control and iterative reconstruction technique. The dose-length product (DLP) was 421.69 mGy-cm. Findings: There is no evidence of any significant mediastinal, hilar or axillary lymphadenopathy. There is no f illing defect in the pulmonary arterial tree to suggest pulmonary embolus. There is no evidence of ao rtic dissection or aneurysm. There is no evidence of pleural or pericardial effusion. The lungs are clear. No pulmonary nodules or infiltrates are noted. Images through the upper abdomen reveal no abnormalities. Impression: No evidence of pulmonary embolus, aortic dissection, or aortic aneurysm. Clear lungs. Reviewed, dictated and finalized at [facility]. Impression: No evidence of pulmonary embolus, aortic dissection, or aortic aneurysm. Clear lungs.
[2024-03-01 20:03] VITALS: BP 114/85; PULSE 110; RESP 20; TEMP 36.8; O2SAT 100
--- NOTE | 2024-03-01 20:11 | ECG_ITS ---
[facility] [address] Test Date: 2024-03-01 Pat Name: Carlota Vazquez Department: Room: Gender: F Machine Rigger: : 1995 Requested By: Candace Gustafson Order Number: [id number] Manuel MD: Eriberto Rodriguez M.D. Measurements Intervals [place] Rate: 90 P: 64 PA: 136 QRS: 28 QRSD: 78 T: 28 QT: 335 QTc: 412 Interpretive Statements SINUS RHYTHM NORMAL ELECTROCARDIOGRAM No previous ECG available for comparison Electronically Signed On 03-02-2024 08:11:06 CDT by Eriberto Rodriguez M.D.
[2024-03-01 21:00] VITALS: BP 103/62; PULSE 91; RESP 20; O2SAT 100
[2024-03-01 21:22] LABS: Basophils Absolute Auto 0.1 K/mm3 (0.0-0.1); Basophils Percent Auto 0.8 % (0.2-1.2); Eosinophils Percent Auto 0.1 % (0-4.4); Hematocrit 34.1 % (37.0-47.0); Hemoglobin 11.6 g/dL (12.0-15.0); Immature Granulocyte Absolute 0.05 K/mm3 (0.00-0.031); Immature Granulocyte Percent A 0.6 % (0-0.5); Lymphocytes Absolute Auto 4.79 K/mm3 (0.9-3.2); Lymphocytes Percent Auto 57.3 % (18.3-44.2); Mean Corpuscular Hemoglobin 28.8 pg (26-34); Mean Corpuscular Volume 84.6 fl (80-100); Mean Platelet Volume 11.8 fl (7.4-10.4); Monocytes Absolute Auto 0.4 K/mm3 (0.1-0.6); Monocytes Percent Auto 4.2 % (2.6-8.5); Neutrophils Absolute Auto 3.1 K/mm3 (1.3-6.7); Platelet Count Result 160 k/mm3 (150-375); Red Blood Count 4.03 M/mm3 (4.2-5.4); White Blood Count 8.4 K/mm3 (4.5-10.0)
[2024-03-01 21:35] LABS: INR 0.9; Prothrombin Time 12.5 Seconds (11.1-14.7)
[2024-03-01 21:36] LABS: Partial Thromboplastin Time 27.1 Seconds (22.3-36.8)
--- NOTE | 2024-03-01 21:38 | ED.GENADULT ---
HPI - General Adult General Chief complaint: Unspecified Stated complaint: SOB, bilateral flank pain, fever Time Seen by Provider: 03/01/24 20:11 Source: patient Mode of arrival: ambulatory Limitations: no limitations History of Present Illness HPI narrative: Patient is a 28-year-old female who presents the ED with report of fevers, shortness of breath. Patient reports she has had intermittent fevers over the last 1 week, T-max 102? F. She has had intermittent shortness of breath as well, worse when her fevers are present. Reports congestion, right ear pain, intermittent lower back pain. States she was seen at an urgent care on Saturday and told she likely of a viral infection. Was not swabbed for COVID/flu. Patient denies sick contacts. Denies chest pain, cough. She is currently 12 weeks . . Sees Fiorella Smith with [facility]. Denies abdominal pain or vaginal bleeding. Related Data Allergies Allergy/AdvReac Type Severity Reaction Status Date / Time No Known Allergies Allergy Verified 02/29/24 13:23 Review of Systems Review of Systems: CONSTITUTIONAL: See HPI. ENT: See HPI. CARDIOVASCULAR: Denies chest pain. RESPIRATORY: See HPI. GASTROINTESTINAL: Denies abdominal pain, nausea, vomiting. GENITOURINARY: Denies dysuria or hematuria. MUSCULOSKELETAL: See HPI. NEUROLOGIC: Denies headache, dizziness, numbness, or weakness. All systems reviewed & are unremarkable except as noted in HPI and below PMFSH Past Medical History Medical History (Updated 03/02/24 @ 14:13 by Candace London PA-C) Anxiety Asthma Chronic anemia Depression HPV (human papilloma virus) anogenital infection Kidney stone UTI (urinary tract infection) History of multidrug resistant Proteus mirabilis UTI. Surgical History Surgical History S/P cystoscopy with ureteral stent placement Family History Family History Mother Depression Anxiety Kidney stones Father Family history unknown Sibling Family history normal Grandparent Diabetes mellitus Other Family history of malignant neoplasm of cervix Social History Social History Social History: the patient lives in [place]. 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 she has 2 children, ages 5 and 7, who are healthy. She denies any tobacco, drug or alcohol use currently. Designates her mother, Renay, as her surrogate decision maker and she wishes to be a full code. Smoking status: Never smoker Additional smoking assessment comments: AT AGE 16 Alcohol intake: never Substance use: never Substance use type: does not use Lack of Transportation: No Lack of Food: Never True Current Housing: I Have Housing Concerned About Future Housing: No Difficulty Paying Gas/Electric Bills: No Difficulty Paying for Meds: No Currently Unemployed: No Education: Associate Degree Difficulty w/ Childcare or Family Care: No Living arrangements: with family Additional living arrangements comments: CHILDREN Gender identity (if verbalized by the patient): Female Sexual Orientation (if Verbalized by the Patient): Straight or Heterosexual Spiritual care concerns: No Agree to blood products: Yes Exam Narrative: GENERAL: Well appearing, obese with BMI of 32.4, non-toxic, in no acute distress. HEAD: Normocephalic, atraumatic. ENT: TMs clear bilaterally, no signs of AOE/AOM. No cerumen impaction. RESPIRATORY: Airway patent, respirations intermittently tachypneic with prolonged conversation, but nonlabored. SaO2 100% on RA throughout conversation. Clear to auscultation bilaterally, no rales, rhonchi, wheezing. No focal lung sounds. CARDIOVASCULAR: Borderline tachycardic with regular rhythm without murmurs, rubs, or gallops. ABDOMINAL: Soft, no tenderness throughout abdo
[2024-03-01 21:40] LABS: Alanine Aminotransferase 132 U/L (6-35); Albumin Level 3.5 g/dL (3.5-5.1); Alkaline Phosphatase 128 U/L (38-126); Anion Gap 7 mmol/L (4-12); Aspartate Amino Transferase 131 U/L (14-36); Bilirubin,Total 0.5 mg/dL (0.2-1.3); Blood Urea Nitrogen 6 mg/dL (7-17); Calcium 9.2 mg/dL (8.4-10.2); Carbon Dioxide 22 mmol/L (22-30); Chloride 106 mmol/L (98-107); Estimated Glomerular Filt Rate > 60; Glucose 87 mg/dL (65-110); Potassium 3.3 mmol/L (3.4-5.0); Sodium 135 mmol/L (137-145)
[2024-03-01] MEDS: SODIUM CHLORIDE 0.9% IV 1,000 ML 999 ML IV CONT (21:49)
[2024-03-01 21:52] LABS: Troponin I < 0.012 ng/mL (0.000-0.034)
[2024-03-01 22:00] VITALS: BP 106/63; PULSE 93; RESP 20; O2SAT 100
[2024-03-01 22:05] LABS: Influenza A QL RT-PCR Negative (Negative); Influenza B QL RT-PCR Negative (Negative); RSV RNA, RT-PCR Negative (Negative); SARS-CoV-2 RNA PCR Negative (Negative)
[2024-03-01 22:08] LABS: Magnesium 1.7 mg/dL (1.6-2.3)
[2024-03-01 22:14] LABS: D Dimer 1.39 ug/mL (<0.48)
[2024-03-01 22:16] LABS: Appearance Urine Cloudy (Clear); Bacteria Urine 4+ /hpf; Bilirubin Urine 2+ (Negative); Blood Urine Negative (Negative); Calcium Oxalate Crystals Urine Present /hpf; Color Urine Dark Yellow (Yellow); Glucose Urine UA Negative (Negative); Ketones Urine Trace mg/dL (Negative); Leukocyte Esterase Ur Trace LEU/UL (Negative); Nitrate Urine Negative (Negative); Non Pathogenic Casts 0-2; Protein Urine 1+ mg/dL (Negative); Squamous Epithelial Cell Urine Moderate /hpf (Few); pH Urine 5.5 (5.0-9.0)
[2024-03-01 22:17] LABS: Add Urine Microscopic? YES
[2024-03-01] MEDS: POTASSIUM CHLORIDE 20 MEQ PACKET (FOR LIQUID) PO (22:35)
[2024-03-01 22:51] LABS: Monoscreen Negative (Negative); Negative Monotest Control Negative (Negative); Positive Monotest Control Positive (Positive)
[2024-03-01 23:50] VITALS: PULSE 95; RESP 21; O2SAT 99
[2024-03-02 00:15] VITALS: BP 123/68; PULSE 98; RESP 30; TEMP 37; O2SAT 99
--- NOTE | 2024-03-02 02:04 | PC.NURSE ---
pt was discharged during down time. please see downtime charting.
== END 2024-03-02 02:04 | disposition home or self-care (01) ==
PROVIDERS: Emergency Provider Physician Assistant; PCP Physician Assistant
DX: O98.511 Other viral diseases complicating pregnancy, first trimester (principal); B34.9 Viral infection, unspecified; R50.9 Fever, unspecified; R06.00 Dyspnea, unspecified; R82.71 Bacteriuria; R74.01 Elevation of levels of liver transaminase levels; Z20.822 Contact with and (suspected) exposure to COVID-19; Z3A.12 12 weeks gestation of pregnancy
CPT/HCPCS: 36415; 71275; 80053; 81001; 83735; 84484; 84702; 85025; 85380; 85610; 85730; 86308; 87086; 87637; 93005; 96360; 99284; A9270; J7030; Q9967

== ENCOUNTER 2024-06-02 12:09 | Emergency (ER) | payer OTHER, SELFPAY ==
--- NOTE | 2024-06-02 12:10 | ECG_ITS ---
Test Date: 2024-06-02 12:16:42 Measurements Intervals [place] Rate: 96 P: 34 VA: 118 QRS: 27 QRSD: 76 T: 36 QT: 345 QTc: 437 Interpretive Statements SINUS RHYTHM WITH SHORT VA INTERVAL BASELINE ARTIFACT- I, III, AVL BORDERLINE ECG Compared to ECG 03/01/2024 21:38:25 Short VA interval now present Electronically Signed On 06-02-2024 12:41:13 CDT by Raymundo Gallegos D.O.
[2024-06-02 12:11] VITALS: BP 115/63; PULSE 94; RESP 20; TEMP 36.4; O2SAT 100
--- NOTE | 2024-06-02 13:14 | PC.NURSE ---
Patient left department due to wait time. patient states she is going to wait it out . patient in no distress at this time. patient ambulated out of department with steady gate
== END 2024-06-02 16:05 | disposition left against medical advice (07) ==
PROVIDERS: Emergency Provider Student in an Organized Health Care Education/Training Program; PCP Physician Assistant
DX: R06.02 Shortness of breath (principal)
CPT/HCPCS: 93005; 99199

== ENCOUNTER 2024-07-20 15:58 | Observation (INO) | payer OTHER, SELFPAY ==
[2024-07-20] VITALS (26 sets, daily range): BP systolic 104–117; BP diastolic 52–86; PULSE 99–169; TEMP 36.1; O2SAT 98–100
--- NOTE | 2024-07-20 16:10 | PC.NURSE ---
Pt states she has had shortness of breath since with heart racing States she is having abdominal cramping. Pt is tearful and appears to be hyperventilating on arrival. On further questioning patient admits that she and significant other had break up and that she discovered he had been cheating. States she has been tearful and crying all day. States she is having lots of stress.
[2024-07-20] MEDS: LACTATED RINGERS 1,000 ML 999 ML IV CONT (17:13)
[2024-07-20 17:35] LABS: Basophils Absolute Auto 0.1 K/mm3 (0.0-0.1); Basophils Percent Auto 0.4 % (0.2-1.2); Eosinophils Percent Auto 0.2 % (0-4.4); Hematocrit 36.8 % (37.0-47.0); Hemoglobin 11.6 g/dL (12.0-15.0); Immature Granulocyte Absolute 0.12 K/mm3 (0.00-0.031); Immature Granulocyte Percent A 0.9 % (0-0.5); Lymphocytes Absolute Auto 2.91 K/mm3 (0.9-3.2); Lymphocytes Percent Auto 22.7 % (18.3-44.2); Mean Corpuscular HGB Conc 31.5 g/dl (32-36); Mean Corpuscular Hemoglobin 27.9 pg (26-34); Mean Corpuscular Volume 88.5 fl (80-100); Mean Platelet Volume 12.7 fl (7.4-10.4); Monocytes Absolute Auto 0.7 K/mm3 (0.1-0.6); Monocytes Percent Auto 5.6 % (2.6-8.5); Neutrophils Percent Auto 70.2 % (45.5-73.1); Platelet Count Result 249 k/mm3 (150-375); Red Blood Count 4.16 M/mm3 (4.2-5.4); Red Cell Distribution Width 15.7 % (11.5-14.5); White Blood Count 12.8 K/mm3 (4.5-10.0)
[2024-07-20 17:42] LABS: Total Protein Urine Random 7 mg/dL; Ur Ttl Prot Creatinine Ratio 0.03 mg/mg (0-0.20)
[2024-07-20 17:50] LABS: Alanine Aminotransferase 17 U/L (6-35); Albumin Level 3.9 g/dL (3.5-5.1); Alkaline Phosphatase 103 U/L (38-126); Anion Gap 15 mmol/L (4-12); Aspartate Amino Transferase 31 U/L (14-36); Bilirubin,Total 0.5 mg/dL (0.2-1.3); Blood Urea Nitrogen 6 mg/dL (7-17); Calcium 9.3 mg/dL (8.4-10.2); Carbon Dioxide 16 mmol/L (22-30); Chloride 106 mmol/L (98-107); Estimated Glomerular Filt Rate > 60; Glucose 93 mg/dL (65-110); Potassium 3.3 mmol/L (3.4-5.0); Sodium 137 mmol/L (137-145)
[2024-07-20 17:50] LABS: Add Urine Microscopic? YES; Appearance Urine Cloudy (Clear); Bacteria Urine 3+ /hpf; Bilirubin Urine Negative (Negative); Blood Urine Non-Hemolyzed Trace (Negative); Color Urine Yellow (Yellow); Glucose Urine UA Negative (Negative); Ketones Urine 1+ mg/dL (Negative); Leukocyte Esterase Ur Negative LEU/UL (Negative); Need Manual Microscopic Reviewed; Nitrate Urine Negative (Negative); Non Pathogenic Casts 0-2; Protein Urine 1+ mg/dL (Negative); Specific Grav Ur 1.026 (1.001-1.035); Squamous Epithelial Cell Urine Moderate /hpf (Few); pH Urine 6.5 (5.0-9.0)
--- NOTE | 2024-07-20 17:51 | OBADM ---
This patient, Carlota Vazquez, admitted to the OB room OB Post 117 for observation. Patient/family oriented to hospital policies and general routines including ID bracelet, bed and alarms, visiting hours, pain management, procedures, bathroom and other care routines, personal items, smoking policy, room service/diet, and visiting hours. Patient/Family are encouraged to report perceived risks to care and to ask questions if they do not understand what they are told or what they should do.
--- NOTE | 2024-07-20 17:55 | PC.NURSE ---
SEE OBIX FOR FHT documentation.
--- NOTE | 2024-07-20 18:11 | PC.NURSE ---
Update to Dr. Salazar per phone. Reported lab and update on pt condition. Pt appears much more relaxed and is visiting with sister. Voices no complaints at this time.
[2024-07-20] MEDS: POTASSIUM CHLORIDE 20 MEQ PACKET (FOR LIQUID) 40 MEQ PO (18:43)
--- NOTE | 2024-07-20 18:49 | PC.NURSE ---
Pt discharged with instructions to keep next scheduled appointment and when to return to the unit, pt verbalizes understanding.
--- NOTE | 2024-08-12 07:59 | PM.OBTRLD ---
OB - Triage/Final Diagnosis Visit Information Comments/Additional reasons for admission: I have assessed the risk for this patient, Carlota Vazquez, and determined that she would benefit from observation care. Evaluation Laboratory results: Laboratory Tests 07/20/24 07/20/24 07/20/24 17:10 17:10 17:10 WBC 12.8 H RBC 4.16 L Hgb 11.6 L Hct 36.8 L MCV 88.5 MCH 27.9 MCHC 31.5 L RDW 15.7 H Plt Count 249 D MPV 12.7 H Immature Gran % (Auto) 0.9 H Neut % (Auto) 70.2 Lymph % (Auto) 22.7 [place] % (Auto) 5.6 Eos % (Auto) 0.2 Baso % (Auto) 0.4 Lymph # (Auto) 2.91 [place] # (Auto) 0.7 H Eos # (Auto) 0.0 Baso # (Auto) 0.1 Abs Immat Gran (auto) 0.12 H Absolute Neuts (auto) 9.0 H Absolute Nucleated RBC 0.000 Nucleated RBC % 0.0 Sodium 137 Cancelled Potassium 3.3 L Cancelled Chloride 106 Carbon Dioxide Anion Gap BUN Creatinine Estim Creat Clear Calc Estimated GFR Glucose Uric Acid Calcium Total Bilirubin AST ALT Alkaline Phosphatase Total Protein Albumin Urine Color Urine Appearance Urine pH Ur Specific [place] Urine Protein Urine Glucose (UA) Urine Ketones Ur Blood (Man) Urine Nitrate Urine Bilirubin Urine Urobilinogen Add Ur Microanalysis Leukocyte Esterase Rfl Urine RBC Urine WBC Ur Squamous Epith Cells Urine Bacteria Urine Casts U Random Total Protein Urine Creatinine Protein/Creat Ratio 2 07/20/24 07/20/24 07/20/24 17:10 17:10 17:10 WBC RBC Hgb Hct MCV MCH MCHC RDW Plt Count MPV Immature Gran % (Auto) Neut % (Auto) Lymph % (Auto) [place] % (Auto) Eos % (Auto) Baso % (Auto) Lymph # (Auto) [place] # (Auto) Eos # (Auto) Baso # (Auto) Abs Immat Gran (auto) Absolute Neuts (auto) Absolute Nucleated RBC Nucleated RBC % Sodium Potassium Chloride Cancelled Carbon Dioxide 16 L Cancelled Anion Gap 15 H Cancelled BUN 6 L Creatinine Estim Creat Clear Calc Estimated GFR Glucose Uric Acid Calcium Total Bilirubin AST ALT Alkaline Phosphatase Total Protein Albumin Urine Color Urine Appearance Urine pH Ur Specific [place] Urine Protein Urine Glucose (UA) Urine Ketones Ur Blood (Man) Urine Nitrate Urine Bilirubin Urine Urobilinogen Add Ur Microanalysis Leukocyte Esterase Rfl Urine RBC Urine WBC Ur Squamous Epith Cells Urine Bacteria Urine Casts U Random Total Protein Urine Creatinine Protein/Creat Ratio 2 07/20/24 07/20/24 07/20/24 17:10 17:10 17:10 WBC RBC Hgb Hct MCV MCH MCHC RDW Plt Count MPV Immature Gran % (Auto) Neut % (Auto) Lymph % (Auto) [place] % (Auto) Eos % (Auto) Baso % (Auto) Lymph # (Auto) [place] # (Auto) Eos # (Auto) Baso # (Auto) Abs Immat Gran (auto) Absolute Neuts (auto) Absolute Nucleated RBC Nucleated RBC % Sodium Potassium Chloride Carbon Dioxide Anion Gap BUN Cancelled Creatinine 0.40 L Cancelled Estim Creat Clear Calc Not Reportable Cancelled Estimated GFR > 60 Glucose Uric Acid Calcium Total Bilirubin AST ALT Alkaline Phosphatase Total Protein Albumin Urine Color Urine Appearance Urine pH Ur Specific [place] Urine Protein Urine Glucose (UA) Urine Ketones Ur Blood (Man) Urine Nitrate Urine Bilirubin Urine Urobilinogen Add Ur Microanalysis Leukocyte Esterase Rfl Urine RBC Urine WBC Ur Squamous Epith Cells Urine Bacteria Urine Casts U Random Total Protein Urine Creatinine Protein/Creat Ratio 2 07/20/24 07/20/24 07/20/24 17:10 17:10 17:10 WBC RBC Hgb Hct MCV MCH MCHC RDW Plt Count MPV Immature Gran % (Auto) Neut % (Auto) Lymph % (Auto) [place] % (Auto) Eos % (Auto) Baso % (Auto) Lymph # (Auto) [place] # (Auto) Eos # (Auto) Baso # (Auto) Abs Immat Gran (auto) Absolute Neuts (auto) Absolute Nucleated RBC Nucleated RBC % Sodium Potassium Chloride Carbon Dioxide Anion Gap BUN Creatinine Estim Creat Clear Calc Estimated GFR Cancelled Glucose 93 Cancelled Uric Acid 4.0 Calcium 9.3 Cancelled Total Bilirubin 0.5 AST ALT Alkaline Phosphatase Total Protein Albumin Urine Color Urine Appearance Urine pH Ur Specific [place] Urine Protein Urine Glucose (UA) Urine Ketones Ur Blood (Man) Urine Nitrate Urine Bilirubin Urine Urobilinogen Add Ur Microanalysis Leukocyte Esterase Rfl Urine RBC Urine WBC Ur Squamous Epith Cells Urine Bacteria Urine Casts U Random Total Protein Urine Creatinine Protein/Creat Ratio 2 07/20/24 07/20/24 07/20/24 17:10 17:10 17:10 WBC RBC Hgb Hct MCV MCH MCHC RDW Plt Count MPV Immature Gran % (Auto) Neut % (Auto) Lymph % (Auto) [place] % (Auto) Eos % (Auto) Baso % (Auto) Lymph # (Auto) [place] # (Auto) Eos # (Auto) Baso # (Auto) Abs Immat Gran (auto) Absolute Neuts (auto) Absolute Nucleated RBC Nucleated RBC % Sodium Potassium Chloride Carbon Dioxide Anion Gap BUN Creatinine Estim Creat Clear Calc Estimated GFR Glucose Uric Acid Calcium Total Bilirubin Cancelled AST 31 Cancelled ALT 17 Cancelled Alkaline Phosphatase 103 Total Protein Albumin Urine Color Urine Appearance Urine pH Ur Specific [place] Urine Protein Urine Glucose (UA) Urine Ketones Ur Blood (Man) Urine Nitrate Urine Bilirubin Urine Urobilinogen Add Ur Microanalysis Leukocyte Esterase Rfl Urine RBC Urine WBC Ur Squamous Epith Cells Urine Bacteria Urine Casts U Random Total Protein Urine Creatinine Protein/Creat Ratio 2 07/20/24 07/20/24 07/20/24 17:10 17:10 17:10 WBC RBC Hgb Hct MCV MCH MCHC RDW Plt Count MPV Immature Gran % (Auto) Neut % (Auto) Lymph % (Auto) [place] % (Auto) Eos % (Auto) Baso % (Auto) Lymph # (Auto) [place] # (Auto) Eos # (Auto) Baso # (Auto) Abs Immat Gran (auto) Absolute Neuts (auto) Absolute Nucleated RBC Nucleated RBC % Sodium Potassium Chloride Carbon Dioxide Anion Gap BUN Creatinine Estim Creat Clear Calc Estimated GFR Glucose Uric Acid Calcium Total Bilirubin AST ALT Alkaline Phosphatase Cancelled Total Protein 8.0 Cancelled Albumin 3.9 Cancelled Urine Color Urine Appearance Urine pH Ur Specific [place] Urine Protein Urine Glucose (UA) Urine Ketones Ur Blood (Man) Urine Nitrate Urine Bilirubin Urine Urobilinogen Add Ur Microanalysis Leukocyte Esterase Rfl Urine RBC Urine WBC Ur Squamous Epith Cells Urine Bacteria Urine Casts U Random Total Protein Urine Creatinine Protein/Creat Ratio 2 07/20/24 17:11 WBC RBC Hgb Hct MCV MCH MCHC RDW Plt Count MPV Immature Gran % (Auto) Neut % (Auto) Lymph % (Auto) [place] % (Auto) Eos % (Auto) Baso % (Auto) Lymph # (Auto) [place] # (Auto) Eos # (Auto) Baso # (Auto) Abs Immat Gran (auto) Absolute Neuts (auto) Absolute Nucleated RBC Nucleated RBC % Sodium Potassium Chloride Carbon Dioxide Anion Gap BUN Creatinine Estim Creat Clear Calc Estimated GFR Glucose Uric Acid Calcium Total Bilirubin AST ALT Alkaline Phosphatase Total Protein Albumin Urine Color Yellow Urine Appearance Cloudy H Urine pH 6.5 Ur Specific [place] 1.026 Urine Protein 1+ H Urine Glucose (UA) Negative Urine Ketones 1+ H Ur Blood (Man) Non-hemolyzed trace H Urine Nitrate Negative Urine Bilirubin Negative Urine Urobilinogen 1.0 Add Ur Microanalysis Reviewed Leukocyte Esterase Rfl Negative Urine RBC 11-20 H Urine WBC 11-20 H Ur Squamous Epith Cells Moderate Urine Bacteria 3+ H Urine Casts 0-2 U Random Total Protein 7 Urine Creatinine 204.0 Protein/Creat Ratio 2 0.03 Final Diagnosis (1) False labor: Code(s): O47.9 - False labor, unspecified Status: Acute
== END 2024-07-20 18:40 | disposition home or self-care (01) ==
PROVIDERS: Admitting Provider Obstetrics & Gynecology; PCP Physician Assistant; Visit Provider Obstetrics & Gynecology
DX: O47.1 False labor at or after 37 completed weeks of gestation (principal); Z3A.41 41 weeks gestation of pregnancy
CPT/HCPCS: 36415; 80053; 81001; 82570; 84156; 84550; 85025; 87086; A9270; J7120

== ENCOUNTER 2024-08-14 12:10 | Outpatient (RCR) | payer OTHER, SELFPAY ==
--- NOTE | ~2024-08-14 | US_ITS ---
EXAMINATION: US OB BPP wo non-stress DATE: 08/14/2024 13:40 SURVEY FIELD TECHNICIAN INDICATION: Decreased movement. 3 para 2 TECHNIQUE: Real-time transabdominal obstetric ultrasound. FINDINGS: There is a single intrauterine gestation in vertex presentation. The placenta is posteriorly, along the maternal left without placenta previa. cardiac activity and movement is noted with a heart rate of 165 beats per minute. Biophysical profile: breathin of 2 movement: 2 of 2 tone: 2 of 2 Amniotic flud pocket: 2 of 2 Total score: 8 of 8 Amniotic fluid index measures 23.3 cm (normal range is 7.7-24.9). No abnormal the bladder is distended, measuring 28 x 15 mm. The right kidney demonstrates hydronephrosis. IMPRESSION: bladder distention and right-sided hydronephrosis is suspected. Single intrauterine gestation in vertex presentation. Total biophysical profile score of 8 out of 8. Reviewed, dictated and finalized at location A. EY FIELD TECHNICIAN
--- NOTE | 2024-08-14 12:20 | PC.NURSE ---
Sent from office for decreased movement for NST and BPP. States does not feel movemern on arrival. movement noted on monitor.
[2024-08-14 13:24] VITALS: BP 137/82; PULSE 100
== END 2024-11-12 23:59 | disposition home or self-care (01) ==
LOC: ANHOBOP 12:10
PROVIDERS: PCP Physician Assistant; Visit Provider Obstetrics & Gynecology
DX: O36.8130 Decreased fetal movements, third trimester, not applicable or unspecified (principal); Z3A.36 36 weeks gestation of pregnancy
CPT/HCPCS: 59025; 76819

== ENCOUNTER 2024-08-15 15:59 | Outpatient (CLI) | payer OTHER, SELFPAY ==
[2024-08-15 18:01] LABS: HIV 1/2 Ab P24 Ag Result Negative (Negative)
== END 2024-08-15 16:00 | disposition home or self-care (01) ==
LOC: ANHOBOP 16:00
PROVIDERS: PCP Physician Assistant; Visit Provider Advanced Practice Midwife
DX: B20 Human immunodeficiency virus [HIV] disease (principal)
CPT/HCPCS: 36415; 86703; G0432

== ENCOUNTER 2024-08-27 09:19 | Outpatient (CLI) | payer OTHER, SELFPAY ==
[2024-08-27] VITALS (11 sets, daily range): BP systolic 92–135; BP diastolic 58–81; PULSE 87–101; RESP 16; TEMP 36.6; BMI 42.2
[2024-08-27 10:25] LABS: Basophils Percent Auto 0.3 % (0.2-1.2); Eosinophils Absolute Auto 0.1 K/mm3 (0-0.3); Eosinophils Percent Auto 0.7 % (0-4.4); Hemoglobin 10.9 g/dL (12.0-15.0); Immature Granulocyte Percent A 2.7 % (0-0.5); Lymphocytes Absolute Auto 1.84 K/mm3 (0.9-3.2); Lymphocytes Percent Auto 24.6 % (18.3-44.2); Mean Corpuscular HGB Conc 32.1 g/dl (32-36); Mean Corpuscular Hemoglobin 28.5 pg (26-34); Mean Platelet Volume 13.1 fl (7.4-10.4); Monocytes Absolute Auto 0.5 K/mm3 (0.1-0.6); Monocytes Percent Auto 6.9 % (2.6-8.5); Neutrophils Absolute Auto 4.9 K/mm3 (1.3-6.7); Neutrophils Percent Auto 64.8 % (45.5-73.1); Platelet Count Result 173 k/mm3 (150-375); Red Blood Count 3.82 M/mm3 (4.2-5.4); Red Cell Distribution Width 15.9 % (11.5-14.5); White Blood Count 7.5 K/mm3 (4.5-10.0)
[2024-08-27 10:36] LABS: Appearance Urine Clear (Clear); Bacteria Urine None Seen /hpf; Bilirubin Urine Negative (Negative); Blood Urine Non-Hemolyzed Trace (Negative); Color Urine Yellow (Yellow); Glucose Urine UA Negative (Negative); Ketones Urine Negative (Negative); Leukocyte Esterase Ur Negative LEU/UL (Negative); Nitrate Urine Negative (Negative); Non Pathogenic Casts 0-2; Protein Urine Negative (Negative); Specific Grav Ur 1.013 (1.001-1.035); Squamous Epithelial Cell Urine Occasional /hpf (Few); Urobilinogen Urine 0.2 mg/dL (<2.0); WBC Urine 0-5 /hpf (0-3)
[2024-08-27 10:39] LABS: Add Urine Microscopic? YES
[2024-08-27 10:43] LABS: Alanine Aminotransferase 16 U/L (6-35); Albumin Level 3.3 g/dL (3.5-5.1); Alkaline Phosphatase 127 U/L (38-126); Anion Gap 5 mmol/L (4-12); Aspartate Amino Transferase 23 U/L (14-36); Bilirubin,Total 0.4 mg/dL (0.2-1.3); Blood Urea Nitrogen 6 mg/dL (7-17); Calcium 8.7 mg/dL (8.4-10.2); Carbon Dioxide 21 mmol/L (22-30); Chloride 108 mmol/L (98-107); Estimated Glomerular Filt Rate > 60; Glucose 96 mg/dL (65-110); Potassium 3.8 mmol/L (3.4-5.0); Sodium 134 mmol/L (137-145); Uric Acid 3.7 mg/dL (2.5-7.5)
[2024-08-27 10:58] LABS: Total Protein Urine Random 12 mg/dL; Ur Ttl Prot Creatinine Ratio 0.21 mg/mg (0-0.20)
--- NOTE | 2024-08-27 12:11 | PC.NURSE ---
Andrew Smith CNM informed pt states her itching in her palms and soles of feet are worse, no headache, had some floaters before she arrived, FHT's reactive, BP's, and lab results. Orders received for discharge. Pt to stop at office to have bile acids drawn when she leaves the hospital.
== END 2024-08-27 12:18 | disposition home or self-care (01) ==
LOC: ANHOBOP 09:22 → ANHOBPP 09:25
PROVIDERS: PCP Physician Assistant; Visit Provider Advanced Practice Midwife
DX: O13.9 Gestational [pregnancy-induced] hypertension without significant proteinuria, unspecified trimester (principal); Z3A.00 Weeks of gestation of pregnancy not specified
CPT/HCPCS: 36415; 59025; 80053; 81001; 82570; 84156; 84550; 85025; 85055

== ENCOUNTER 2024-09-04 05:17 | Inpatient (IN) | payer OTHER, SELFPAY ==
--- NOTE | 2024-08-15 16:03 | PC.NURSE ---
1555- Spoke with Andrew Smith CNM regarding patient HIV positive tests. Orders to draw HIV today due to patient possibly being induced in a few days.
[2024-09-04] VITALS (169 sets, daily range): BP systolic 81–142; BP diastolic 26–86; PULSE 77–126; TEMP 36.2–37.4; O2SAT 76–100; BMI 42.9
--- NOTE | 2024-09-04 05:45 | LDADM ---
This patient, Carlota Vazquez, was admitted to Labor/Delivery/Recovery 104 on 09/04/24 at 05:17. Plans for labor, pain management and were discussed with patient. Patient/family oriented to hospital policies and general routines including ID bracelet, bed and alarms, visiting hours, pain management, procedures, bathroom and other care routines, personal items, smoking policy, room service/diet and guest tray routines, infant security routines, and visiting hours. Patient/Family are encouraged to report perceived risks to care and to ask questions if they do not understand what they are told or what they should do. See OBIX for further documentation.
[2024-09-04 05:59] LABS: Basophils Percent Auto 0.2 % (0.2-1.2); Eosinophils Absolute Auto 0.1 K/mm3 (0-0.3); Eosinophils Percent Auto 0.6 % (0-4.4); Hematocrit 34.8 % (37.0-47.0); Hemoglobin 11.4 g/dL (12.0-15.0); Immature Granulocyte Absolute 0.14 K/mm3 (0.00-0.031); Immature Granulocyte Percent A 1.4 % (0-0.5); Lymphocytes Percent Auto 23.8 % (18.3-44.2); Mean Corpuscular HGB Conc 32.8 g/dl (32-36); Mean Corpuscular Hemoglobin 29.1 pg (26-34); Mean Corpuscular Volume 88.8 fl (80-100); Mean Platelet Volume 13.5 fl (7.4-10.4); Monocytes Absolute Auto 0.5 K/mm3 (0.1-0.6); Monocytes Percent Auto 5.4 % (2.6-8.5); Neutrophils Absolute Auto 6.6 K/mm3 (1.3-6.7); Neutrophils Percent Auto 68.6 % (45.5-73.1); Platelet Count Result 184 k/mm3 (150-375); Red Blood Count 3.92 M/mm3 (4.2-5.4); Red Cell Distribution Width 15.9 % (11.5-14.5); White Blood Count 9.7 K/mm3 (4.5-10.0)
[2024-09-04] MEDS: miSOPROStol 25 MCG TABLET 50 MCG BUCCAL (06:13)
[2024-09-04] MEDS: ONDANSETRON INJ 4 MG/2 ML VIAL IV PUSH ×2 (06:25→18:42)
[2024-09-04 06:54] LABS: Rapid Plasma Reagin Non-Reactive (NonReactive)
--- NOTE | 2024-09-04 07:55 | WPDOBADMIT ---
Obstetrics - Admit Note Admission Note: record reviewed. No pertinent additions to the history and/or any subsequent changes in the physical findings that are not consistent with the expected course of the were found. Additions to the history and/or subsequent changes in the physical findings follow. IOL SVE /-2 AROM small amount of clear, odorless fluid, anticipate vaginal delivery
[2024-09-04] MEDS: LACTATED RINGERS 1,000 ML 125 ML IV CONT ×3 (10:33→19:54)
[2024-09-04] MEDS: OXYTOCIN 30 UNITS/NS 500 ML 30 UNITS/500 ML BAG IV CONT (10:33)
[2024-09-04] MEDS: fentaNYL CITRATE INJ (*CRX) 100 MCG/2 ML VIAL 50 MCG IV PUSH ×2 (13:04→14:05)
--- NOTE | 2024-09-04 15:02 | P.PNAN_ITS ---
Anes - Eval Pre Procedure Procedure: Labor Epidural Date/Time: 09/04/24 15:02 Surgeon: Marie Preop Diagnosis: Labor pain Pre Op Diagnosis: IOL Patient Data Age: 29 Gender: F Height: 1.45 m Weight: 90 kg Last Vital Signs Temp 37.1 C 09/04/24 13:30 Pulse 97 09/04/24 15:00 BP 127/71 09/04/24 15:00 Pulse Ox 99 09/04/24 14:57 O2 Del Method Room Air 09/04/24 05:43 Allergies Allergy/AdvReac Type Severity Reaction Status Date / Time No Known Allergies Allergy Verified 09/04/24 05:51 Home Medications ?Medication ?Instructions ?Recorded ?Confirmed ?Type vits no.126-ferrous fum 1 tablet PO DAILY 08/15/24 08/15/24 History 28 mg iron-folic acid 800 mcg tablet (Classic ) Laboratory Tests 09/04/24 05:47 WBC 9.7 K/mm3 (4.5-10.0) RBC 3.92 L M/mm3 (4.2-5.4) Hgb 11.4 L g/dL (12.0-15.0) Hct 34.8 L % (37.0-47.0) MCV 88.8 fl (80-100) MCH 29.1 pg (26-34) MCHC 32.8 g/dl (32-36) RDW 15.9 H % (11.5-14.5) Plt Count 184 k/mm3 (150-375) MPV 13.5 H fl (7.4-10.4) Immature Gran % (Auto) 1.4 H % (0-0.5) Neut % (Auto) 68.6 % (45.5-73.1) Lymph % (Auto) 23.8 % (18.3-44.2) [place] % (Auto) 5.4 % (2.6-8.5) Eos % (Auto) 0.6 % (0-4.4) Baso % (Auto) 0.2 % (0.2-1.2) Lymph # (Auto) 2.30 K/mm3 (0.9-3.2) [place] # (Auto) 0.5 K/mm3 (0.1-0.6) Eos # (Auto) 0.1 K/mm3 (0-0.3) Baso # (Auto) 0.0 K/mm3 (0.0-0.1) Abs Immat Gran (auto) 0.14 H K/mm3 (0.00-0.031) Absolute Neuts (auto) 6.6 K/mm3 (1.3-6.7) Absolute Nucleated RBC 0.000 K/mm3 (0.0-0.012) Nucleated RBC % 0.0 % (0.0-0.2) RPR Non-reactive (NonReactive) Blood Type A Positive Antibody Screen Negative : gestational age ([place] 09/10/24, ) Patient hx anesthesia problems: none Family hx anesthesia problems: none Results Review: All pre-operative results and documents have been reviewed as part of the pre- operative evaluation. [facility] Past Medical History Medical History Chronic anemia Anxiety Depression UTI (urinary tract infection) History of multidrug resistant Proteus mirabilis UTI. Kidney stone Asthma HPV (human papilloma virus) anogenital infection Surgical History Surgical History S/P cystoscopy with ureteral stent placement Family History Family History Mother Anxiety Depression Kidney stones Hypertension Father Family history unknown Sibling Family history normal Grandparent Diabetes mellitus Other No problems noted. Sibling Fatty liver Other Family history of malignant neoplasm of cervix Social History Social History Social History: the patient lives in [place]. 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 she has 2 children, ages 5 and 7, who are healthy. She denies any tobacco, drug or alcohol use currently. Designates her mother, Renay, as her surrogate decision maker and she wishes to be a full code. Smoking status: Never smoker Additional smoking assessment comments: AT AGE 16 Alcohol intake: never Substance use: never Substance use type: does not use Do You Feel Safe in your Home?: Yes Lack of Transportation: No Lack of Food: Never True Current Housing: I Have Housing Concerned About Future Housing: No Difficulty Paying Gas/Electric Bills: No Difficulty Paying for Meds: No Currently Unemployed: YES Education: Associate Degree Difficulty w/ Childcare or Family Care: No Living arrangements: with family Additional living arrangements comments: CHILDREN Gender identity (if verbalized by the patient): Female Sexual Orientation (if Verbalized by the Patient): Straight or Heterosexual Spiritual care concerns: No Agree to blood products: Yes Exam Day of Procedure 09/04/24 15:02 Patient weight: normal Heart: regular rate and rhythm Lungs: normal air movement Airway: Mallampati scale class II Neurological: alert and oriented
--- NOTE | 2024-09-04 21:23 | PM.OBPRVD ---
OB - Vaginal Delivery Note Procedure Delivery date: 09/04/24 Induction method: AROM, Per Misoprostol Protocol and Per Pitocin Protocol Delivery monitor: External FHT and Internal Uterine Route of delivery: Laceration Description: None Specimen: No Quantitative Blood Loss (ml): 75 Anesthesia type: Epidural Disposition: Floor Complications: No immediate complications [place] Baby Date of : 09/04/24 Time of : 21:14 Gestational Age by Date: 39 Infant gender: Male Weight (pounds): 7 Weight (ounces): 11 presentation: vertex position: Right Occiput Anterior Placenta delivery description: Spontaneous Cord Vessel Description: 3 Vessels and Around Body (x1) score one minute: 7 score five minutes: 9 Narrative: mother and baby in stable condition
[2024-09-04] MEDS: OXYTOCIN 30 UNITS/NS 500 ML 30 UNITS/500 ML BAG 125 UNITS IV CONT (21:39)
[2024-09-04] MEDS: IBUPROFEN 600 MG TABLET PO (21:44)
[2024-09-04] MEDS: ACETAMINOPHEN 325 MG TABLET 650 MG PO (21:45)
[2024-09-04] MEDS: HYDROcodone/acetaminophen (*CRX) 5-325 MG TABLET 1 TAB PO (23:29)
[2024-09-05 00:30] VITALS: BP 128/72; PULSE 84; RESP 16; TEMP 37.2
--- NOTE | 2024-09-05 03:24 | PC.NURSE ---
0030-Pt admitted to room 281 with and FOB, this RN assisted pt to restroom- pt voided without difficulty, pericare performed, ice pack applied. Escorted pt awa to bed, infant now skin to skin. Pt oriented to room.
[2024-09-05] MEDS: ACETAMINOPHEN 325 MG TABLET 650 MG PO ×3 (04:46→17:27)
[2024-09-05] MEDS: IBUPROFEN 600 MG TABLET PO ×3 (04:46→17:27)
[2024-09-05 04:52] LABS: Hematocrit 33.1 % (37.0-47.0); Hemoglobin 10.8 g/dL (12.0-15.0)
[2024-09-05 07:40] VITALS: BP 125/78; PULSE 86; RESP 16; TEMP 36.8; O2SAT 99
--- NOTE | 2024-09-05 08:00 | PC.NURSE ---
Primary RN placed skin to skin in preparation for feeding. Mom very sleepy and unsure when baby last ate. Baby did receive a bottle once per mom's preference. Mom is uncoordinated when handling baby and need help with positioning. We tried cradle and then tried to show mom how to hold baby in cross cradle but mom was not able to achieve the correct position. Assisted mother with latching infant to the [left] breast in [cradle] position. [was] able to maintain an appropriate latch. Mother [complains of] nipple pain/discomfort [with initial latch on], but not throughout the feeding. Mother does flinch when infant gets near the nipple, even if baby has not latched. Encouraged mother to keep infant awake and nursing at the breast for 15 minutes. Mother would like to have formula for supplementing after . Educated mom on how much formula to give, how to use the ready to feed bottles, and to throw them away after one use. Mother voiced understanding of the education shared, to call for assistance if the does not latch or if there is discomfort with . admission folder given. name/number on communication board. Reported to the Primary RN.?
[2024-09-05] MEDS: MULTIVIT/MIN/PREN/FOL AC/IRON TABLET 1 TAB PO (09:13)
[2024-09-05] MEDS: DOCUSATE SODIUM 100 MG CAPSULE PO ×2 (09:13→17:27)
--- NOTE | 2024-09-05 10:01 | P.PNAN_ITS ---
Anes-Prog Note L&D Date/Time: 09/05/24 10:01 Comfortable throughout: labor and delivery Neuraxial method: epidural Epidural/Spinal procedure site: clean & non-tender Neuro status: Neuro function grossly intact. Vital Signs: Last Vital Signs Temp 98.9 F 09/05/24 00:30 Pulse 84 09/05/24 00:30 Resp 16 09/05/24 00:30 BP 128/72 09/05/24 00:30 Pulse Ox 100 09/04/24 20:22 O2 Del Method Room Air 09/04/24 05:43 Pain score (VAS): 0 I/O: Intake & Output 09/04/24 09/05/24 09/05/24 23:59 07:59 15:59 Intake Total 2250 100 Output Total 75 1595 Balance 2175 -1494 Patient feedback: Patient satisfied with anesthetic care.
--- NOTE | 2024-09-05 10:28 | P.PNOB_ITS ---
OB - PN: Subj Subjective Date/time seen: 09/05/24 10:28 Patient comments: no complaints, pain well controlled, incisional pain, tolerating diet and flatus present OB - PN: Obj Data Labs 09/05/24 04:00 Labs: Laboratory Results - last 24 hr 09/05/24 04:00 Hgb 10.8 L Hct 33.1 L OB - PN A/P Plan day: 1 Plan: routine care Comments: No problems, routine care Time Spent With Patient Time: Total time spent is greater than 50% in coordination of care (as documented) at patient's floor/unit and/or counseling patient: Exam 2 Const: General: comfortable, no acute distress and alert Resp: Effort & Inspection: normal respiratory effort Auscultation: no crackles, no rales and no rhonchi Cardio: Rate: regular rate Heart sounds: no click, no murmurs and no rubs GI: Inspection: non-distended GI Palp: No Tenderness to palpation present (GI) Auscultation: normal bowel sounds Other: Incision - CDI Extrem: General: normal to inspection, no pedal edema and no calf tenderness
[2024-09-05 11:20] VITALS: BP 123/72; PULSE 99; RESP 16; TEMP 36.6; O2SAT 98
--- NOTE | 2024-09-05 12:35 | PC.NURSE ---
Mother called out for assistance. Infant was skin to skin for 30 minutes without waking or giving feeding cues. We attempted to awaken him and latch to the right breast. Baby was circumcised this morning and is very sleepy. Encouraged mom to watch for any feeding cues and to offer the breast if he stirs. If he doesn't wake to feed in the next half hour mom will supplement with formula. Reported to Primary RN. Checked with mother to see if woke to feed. She said he didn't want to latch to the breast and she tried the bottle. He wasn't very interested in the bottle either but took about 8ml. Encouraged mom that this is ok for this feeding and we will try to breastfeed again in 2 hours. Reported to Primary RN.
--- NOTE | 2024-09-05 17:00 | PC.NURSE ---
Primary RN attempted to latch but could not get a good open mouth. Mother was attempting on the right and left breast in cradle. We also tried to place baby in a football hold and entice him to open his mouth with some drops of formula. He is a very strong tongue sucker and anytime we were able to get even a shallow latch he would push it out with his tongue. Mother has visitors and would like to go ahead and give a bottle now. Suggested mother pump for the stimulation since baby hasn't breastfed well at the last two feeds. Mom agrees that she would like to pump. She has a breast pump at home so we provided a [facility] pump for her use here. Instructions given on cleaning, care, usage, that there should be no pain, pumping schedule for milk production, collection, and storage of human milk. Patient will call when her visitors leave to be assessed for correct placement & flange size.?Mother voiced understanding of the education shared. Reported to the Primary RN.
[2024-09-05 19:20] VITALS: BP 123/74; PULSE 89; RESP 16; TEMP 36.7; O2SAT 98
[2024-09-06 08:00] VITALS: BP 120/71; PULSE 88; RESP 16; TEMP 36.5; O2SAT 98
[2024-09-06] MEDS: ACETAMINOPHEN 325 MG TABLET 650 MG PO (08:00)
[2024-09-06] MEDS: DOCUSATE SODIUM 100 MG CAPSULE PO (08:00)
[2024-09-06] MEDS: IBUPROFEN 600 MG TABLET PO (08:00)
[2024-09-06] MEDS: MULTIVIT/MIN/PREN/FOL AC/IRON TABLET 1 TAB PO (08:00)
--- NOTE | 2024-09-06 10:06 | PM.OBDSVD ---
DS: Admitting Diagnosis Discharge Date September 06, 2024 Admitting Diagnosis term , labor DS: Discharge Diagnosis Discharge Diagnosis (1) Term delivered: Code(s): O80 - Encounter for full-term uncomplicated delivery Status: Acute OB - DS: Summary OB Procedures : None OB Procedures Intrapartum: Spontaneous Vag Delivery OB Procedures: : None Peripartum Data Laceration Description: None Time Spent with Patient Time attestation: Total time spent providing and/or coordinating discharge services: Discharge Plan Discharge Discharging Clinician: Michael Salazar Patient Disposition: Home, Self-Care Activity: pelvic rest Diet: regular Patient Instructions: Antibiotic Form Patient Language: Macedonian Stand Alone Forms: General Discharge Information Follow-up/Referrals: Michael Salazar MD [Physician] - Discharge Medications: Continued Classic 28 mg iron- 800 mcg Tablet 1 tablet PO DAILY Date of admission: 09/04/24 05:17 Primary Care Provider: BrentDafne Admitting Provider: Michael Salazar Attending physician on admission: Michael Salazar Condition: Stable
[2024-09-07 13:12] VITALS: BP 119/79; PULSE 82; RESP 16; TEMP 36.6; O2SAT 100
== END 2024-09-06 12:15 | disposition home or self-care (01) | DRG 560 ==
LOC: ANHLDR 05:23 → ANHOB2 09-05 00:12
PROVIDERS: Admitting Provider Obstetrics & Gynecology; PCP Physician Assistant; Referring Provider Advanced Practice Midwife; Visit Provider Obstetrics & Gynecology
DX: O69.82X0 Labor and delivery complicated by other cord entanglement, without compression, not applicable or unspecified (principal); Z3A.39 39 weeks gestation of pregnancy; Z37.0 Single live birth
CPT/HCPCS: 36415; 85014; 85018; 85025; 86592; 86850; 86900; 86901; A9270; J2405; J2590; J2795; J3010; J7120

== ENCOUNTER 2024-10-07 09:57 | Day surgery (SDC) | payer OTHER, SELFPAY ==
[2024-10-07] VITALS (10 sets, daily range): BP systolic 117–151; BP diastolic 59–97; PULSE 79–115; RESP 15–20; TEMP 36.2–36.6; O2SAT 98–100
--- NOTE | ~2024-10-07 | CT_ITS ---
EXAMINATION: CT abdomen pelvis wo con DATE: 10/07/2024 11:54 INDICATION: Right kidney stone TECHNIQUE: Computed tomography (CT) of the abdomen and pelvis was performed without intravenous contr ast. Automated exposure control and iterative reconstruction technique were employed. The dose-length product was 210.75 mGy-cm. COMPARISON: 08/07/2023 FINDINGS: Lung bases are clear. Heart size is normal. No pericardial or pleural effusion. Liver, gallbladder, s pleen, pancreas and bilateral adrenal glands are normal. Bilateral nephrolithiasis with 2 stones at t he upper pole of the left kidney and one stone at the lower pole the right kidney measuring up to 2 m m. 6 mm obstructing stone in the mid right ureter with more proximal mild right hydroureteronephrosis . There is an additional 3-4 mm stone in the region of the right ureterovesicular junction. The antev erted uterus and bilateral adnexa are unremarkable. Bowels including the appendix are normal. No free intraperitoneal gas or fluid. No pathologically enlarged abdominal or pelvic lymphadenopathy. Mild b ilateral sacroiliac osteoarthritis.. IMPRESSION: 1. Bilateral nephrolithiasis with 6 mm stone in the mid right ureter and 3-4 mm stone at the right ur eterovesicular junction with mild right hydroureteronephrosis. Reviewed, dictated and finalized at location [facility]. [facility] IMPRESSION: 1. Bilateral nephrolithiasis with 6 mm stone in the mid right ureter and 3-4 mm stone at the right ureterovesicular junction with mild right hydroureteronephr osis.
--- NOTE | ~2024-10-07 | XR_ITS ---
EXAMINATION: XR retrograde pyelo w/stent RT DATE: 10/07/2024 16:27 INDICATION: Right internal ureteral stent placement TECHNIQUE: Fluoroscopic images from a right stent placement are submitted for review. 75 second of fl uoroscopy time. FINDINGS: There is a right double-J internal ureteral stent projecting in expected position, with proximal [place] loop at the level of the renal pelvis and distal loop in the pelvis within the bladder lumen. IMPRESSION: 1. Right internal ureteral stent placement. Please refer to real-time procedural findings for detai ls. Reviewed, dictated and finalized at location A. [facility] IMPRESSION: 1. Right internal ureteral stent placement. Please refer to real-time procedu ral findings for details.
[2024-10-07 10:21] LABS: BEDSIDEPREGUCG Negative (Negative)
[2024-10-07 10:23] LABS: Basophils Percent Auto 0.3 % (0.2-1.2); Eosinophils Absolute Auto 0.1 K/mm3 (0-0.3); Hematocrit 38.4 % (37.0-47.0); Hemoglobin 12.6 g/dL (12.0-15.0); Immature Granulocyte Absolute 0.02 K/mm3 (0.00-0.031); Immature Granulocyte Percent A 0.3 % (0-0.5); Lymphocytes Absolute Auto 2.77 K/mm3 (0.9-3.2); Lymphocytes Percent Auto 37.9 % (18.3-44.2); Mean Corpuscular HGB Conc 32.8 g/dl (32-36); Mean Corpuscular Hemoglobin 28.8 pg (26-34); Mean Corpuscular Volume 87.7 fl (80-100); Mean Platelet Volume 11.9 fl (7.4-10.4); Monocytes Absolute Auto 0.4 K/mm3 (0.1-0.6); Monocytes Percent Auto 5.2 % (2.6-8.5); Neutrophils Absolute Auto 4.1 K/mm3 (1.3-6.7); Neutrophils Percent Auto 55.3 % (45.5-73.1); Platelet Count Result 215 k/mm3 (150-375); Red Blood Count 4.38 M/mm3 (4.2-5.4); Red Cell Distribution Width 13.3 % (11.5-14.5); White Blood Count 7.3 K/mm3 (4.5-10.0)
[2024-10-07 10:33] LABS: Alanine Aminotransferase 35 U/L (6-35); Albumin Level 4.3 g/dL (3.5-5.1); Alkaline Phosphatase 96 U/L (38-126); Anion Gap 8 mmol/L (4-12); Aspartate Amino Transferase 31 U/L (14-36); Bilirubin,Total 0.7 mg/dL (0.2-1.3); Blood Urea Nitrogen 14 mg/dL (7-17); Calcium 8.9 mg/dL (8.4-10.2); Carbon Dioxide 27 mmol/L (22-30); Chloride 103 mmol/L (98-107); Estimated Glomerular Filt Rate > 60; Glucose 95 mg/dL (65-110); Lipase 61 U/L (23-300); Potassium 3.7 mmol/L (3.4-5.0); Sodium 138 mmol/L (137-145)
--- NOTE | 2024-10-07 10:58 | PC.NURSE ---
patient was given water after asking the nurse if it was ok. patient in gown. patient in pain and pacing around the bed. no blanket wanted at this time.
--- NOTE | 2024-10-07 11:08 | ED_ITS ---
HPI - Back Pain/Injury General Chief Complaint: Back Pain/Injury Stated Complaint: kidney stones Time Seen by Provider: 10/07/24 10:46 History of Present Illness HPI Narrative: 29-year-old female with history of kidney stones presents emergency department with concerns for kidney stone. Patient states 4:00 a.m. she began developing pain in her right flank that radiates to her right lower quadrant. States this feels like her prior kidney stones. Reports associated nausea, no vomiting. Reports dysuria, hematuria, urinary frequency and urgency. No fevers. Of note patient had a reportedly healthy on September 04, 2024. Denies unusual bleeding or discharge. Related Data Home Medications ?Medication ?Instructions ?Recorded ?Confirmed ?Last Taken ?Type vits no.126-ferrous fum 1 tablet PO DAILY 08/15/24 08/15/24 1 Day Ago History 28 mg iron-folic acid 800 mcg ~08/14/24 tablet (Classic ) Allergies Allergy/AdvReac Type Severity Reaction Status Date / Time No Known Allergies Allergy Verified 09/04/24 05:51 Review of Systems 2 Review of Systems: All systems reviewed & are unremarkable except as noted in HPI and below PMFSH Past Medical History Medical History (Updated 10/07/24 @ 13:19 by Xi Miller PA-C) Chronic anemia Anxiety Depression UTI (urinary tract infection) History of multidrug resistant Proteus mirabilis UTI. Kidney stone Asthma HPV (human papilloma virus) anogenital infection Surgical History Surgical History S/P cystoscopy with ureteral stent placement Family History Family History Mother Anxiety Depression Kidney stones Hypertension Father Family history unknown Sibling Family history normal Grandparent Diabetes mellitus Other No problems noted. Sibling Fatty liver Other Family history of malignant neoplasm of cervix Social History Social History Social History: the patient lives in [place]. 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 she has 2 children, ages 5 and 7, who are healthy. She denies any tobacco, drug or alcohol use currently. Designates her mother, Renay, as her surrogate decision maker and she wishes to be a full code. Smoking status: Never smoker Additional smoking assessment comments: AT AGE 16 Alcohol intake: never Substance use: never Substance use type: does not use Do You Feel Safe in your Home?: Yes Lack of Transportation: No Lack of Food: Never True Current Housing: I Have Housing Concerned About Future Housing: No Difficulty Paying Gas/Electric Bills: No Difficulty Paying for Meds: No Currently Unemployed: YES Education: Associate Degree Difficulty w/ Childcare or Family Care: No Living arrangements: with family Additional living arrangements comments: CHILDREN Gender identity (if verbalized by the patient): Female Sexual Orientation (if Verbalized by the Patient): Straight or Heterosexual Spiritual care concerns: No Agree to blood products: Yes Exam 2 Narrative: GENERAL: well-nourished, and in no acute distress. Appears uncomfortable HEAD: Normocephalic, atraumatic. EYES: EOMI. ENT: Nares clear, no rhinorrhea or epistaxis. Mucous membranes moist. NECK: Supple. CHEST: Clear to auscultation. No respiratory distress. HEART: Regular rate and rhythm. No murmur heard. Normal peripheral pulses. ABDOMEN: Tenderness to the right CVA and right lower quadrant. No rebound or rigidity. EXTREMITIES: Normal range of motion. No edema. SKIN: Warm, dry, no rash. NEURO: No focal deficits. Alert and oriented x3 Course Vital Signs Vital signs: Vital Signs Temperature 97.8 F 10/07/24 09:58 Pulse Rate 89 10/07/24 09:58 Respiratory Rate 20 10/07/24 09:58 Blood Pressure 146/92 H 10/07/24 09:58 Pulse Oximetry 100 10/07/24 09:58 Oxygen Delivery Room Air 10/07/24 09:58 Temperature 97.8 F 10/07/24 09:58 Pulse Rate 79 10/07/24 12:42 Respiratory Rate 18 10/07/24 12:42 Blood Pressure 143/93 H 10/07/24 12:42 Pulse Oximetry 100 10/07/24 12:42 Oxygen Delivery Room Air 10/07/24 09:58 MDM - Back Pain/Injury MDM Narrative Medical decision making narrative: 29-year-old female with history of kidney stones presents to emergency department with concerns for a kidney stone with right flank pain and right lower quadrant abdominal pain that started at 4:00 a.m.. Associated nausea. Vitals with blood pressure 146/92. She is 4 weeks . Will provide pain medicine and closely monitor blood pressure. Will obtain lab work, UA, CT abdomen pelvis and provide morphine and Zofran and re-evaluate. CBC shows no leukocytosis or anemia. Chemistries are unremarkable with a stable creatinine of 0.72. Urinalysis with hematuria, no UTI. Lipase normal. negative. CT abdomen pelvis without contrast shows bilateral nephrolithiasis, 6 mm stone in the right mid ureter and a 3-4 mm stone at the right UVJ with mild right hydroureteronephrosis. Patient updated on workup. She received IV morphine and Zofran with persistent pain. She was then given 2 rounds of Dilaudid but is having persistent pain. Shared decision making on disposition. Plan to consult urology for uncontrollable pain. Discussed with urologist Dr. Ko who plans to evaluate patient in the ED. Dr. Ko evaluated patient at bedside and plans to take her to the OR today for stent placement. Patient is agreeable with this plan. Lab Data 10/07/24 10:15 10/07/24 10:16 Labs: Lab Results 10/07/24 10/07/24 10/07/24 Range/Units 10:15 10:16 10:20 WBC 7.3 (4.5-10.0) K/mm3 RBC 4.38 (4.2-5.4) M/mm3 Hgb 12.6 (12.0-15.0) g/dL Hct 38.4 (37.0-47.0) % MCV 87.7 (80-100) fl MCH 28.8 (26-34) pg MCHC 32.8 (32-36) g/dl RDW 13.3 (11.5-14.5) % Plt Count 215 (150-375) k/mm3 MPV 11.9 H (7.4-10.4) fl Immature Gran % (Auto) 0.3 (0-0.5) % Neut % (Auto) 55.3 (45.5-73.1) % Lymph % (Auto) 37.9 (18.3-44.2) % [place] % (Auto) 5.2 (2.6-8.5) % Eos % (Auto) 1.0 (0-4.4) % Baso % (Auto) 0.3 (0.2-1.2) % Lymph # (Auto) 2.77 (0.9-3.2) K/mm3 [place] # (Auto) 0.4 (0.1-0.6) K/mm3 Eos # (Auto) 0.1 (0-0.3) K/mm3 Baso # (Auto) 0.0 (0.0-0.1) K/mm3 Abs Immat Gran (auto) 0.02 (0.00-0.031) K/mm3 Absolute Neuts (auto) 4.1 (1.3-6.7) K/mm3 Absolute Nucleated RBC 0.000 (0.0-0.012) K/mm3 Nucleated RBC % 0.0 (0.0-0.2) % Sodium 138 (137-145) mmol/L Potassium 3.7 (3.4-5.0) mmol/L Chloride 103 (98-107) mmol/L Carbon Dioxide 27 (22-30) mmol/L Anion Gap 8 (4-12) mmol/L BUN 14 D (7-17) mg/dL Creatinine 0.72 (0.7-1.0) mg/dL Estim Creat Clear Calc Not Reportable Estimated GFR > 60 (59 - ) Glucose 95 (65-110) mg/dL Calcium 8.9 (8.4-10.2) mg/dL Total Bilirubin 0.7 (0.2-1.3) mg/dL AST 31 (14-36) U/L ALT 35 (6-35) U/L Alkaline Phosphatase 96 (38-126) U/L Total Protein 8.0 (6.3-8.2) g/dL Albumin 4.3 (3.5-5.1) g/dL Lipase 61 (23-300) U/L Urine Color (Yellow) Urine Appearance (Clear) Urine pH (5.0-9.0) Ur Specific [place] (1.001-1.035) Urine Protein (Negative) mg/dL Urine Glucose (UA) (Negative) mg/dL Urine Ketones (Negative) mg/dL Ur Blood (Man) (Negative) Urine Nitrate (Negative) Urine Bilirubin (Negative) Urine Urobilinogen (<2.0) mg/dL Leukocyte Esterase Rfl (Negative) [place]/UL Urine RBC (0-2) /hpf Urine WBC (0-3) /hpf Ur Squamous Epith Cells (Few) /hpf Urine Bacteria /hpf Urine Casts POC Urine HCG, Qual Negative (Negative) 10/07/24 Range/Units 11:38 WBC (4.5-10.0) K/mm3 RBC (4.2-5.4) M/mm3 Hgb (12.0-15.0) g/dL Hct (37.0-47.0) % MCV (80-100) fl MCH (26-34) pg MCHC (32-36) g/dl RDW (11.5-14.5) % Plt Count (150-375) k/mm3 MPV (7.4-10.4) fl Immature Gran % (Auto) (0-0.5) % Neut % (Auto) (45.5-73.1) % Lymph % (Auto) (18.3-44.2) % [place] % (Auto) (2.6-8.5) % Eos % (Auto) (0-4.4) % Baso % (Auto) (0.2-1.2) % Lymph # (Auto) (0.9-3.2) K/mm3 [place] # (Auto) (0.1-0.6) K/mm3 Eos # (Auto) (0-0.3) K/mm3 Baso # (Auto) (0.0-0.1) K/mm3 Abs Immat Gran (auto) (0.00-0.031) K/mm3 Absolute Neuts (auto) (1.3-6.7) K/mm3 Absolute Nucleated RBC (0.0-0.012) K/mm3 Nucleated RBC % (0.0-0.2) % Sodium (137-145) mmol/L Potassium (3.4-5.0) mmol/L Chloride (98-107) mmol/L Carbon Dioxide (22-30) mmol/L Anion Gap (4-12) mmol/L BUN (7-17) mg/dL Creatinine (0.7-1.0) mg/dL Estim Creat Clear Calc Estimated GFR (59 - ) Glucose (65-110) mg/dL Calcium (8.4-10.2) mg/dL Total Bilirubin (0.2-1.3) mg/dL AST (14-36) U/L ALT (6-35) U/L Alkaline Phosphatase (38-126) U/L Total Protein (6.3-8.2) g/dL Albumin (3.5-5.1) g/dL Lipase (23-300) U/L Urine Color Yellow (Yellow) Urine Appearance Clear (Clear) Urine pH 6.0 (5.0-9.0) Ur Specific [place] 1.026 (1.001-1.035) Urine Protein Trace (Negative) mg/dL Urine Glucose (UA) Negative (Negative) mg/dL Urine Ketones Negative (Negative) mg/dL Ur Blood (Man) 3+ H (Negative) Urine Nitrate Negative (Negative) Urine Bilirubin Negative (Negative) Urine Urobilinogen 0.2 (<2.0) mg/dL Leukocyte Esterase Rfl Trace H (Negative) [place]/UL Urine RBC 21-50 H (0-2) /hpf Urine WBC 0-5 (0-3) /hpf Ur Squamous Epith Cells Few (Few) /hpf Urine Bacteria None seen /hpf Urine Casts 0-2 POC Urine HCG, Qual (Negative) Discharge Plan Discharge Clinical Impression: Right ureteral stone, Bilateral nephrolithiasis Patient Disposition: Still a Patient Condition: Stable Patient Language: Libyan Prescriptions: No Action Classic 28 mg iron- 800 mcg Tablet 1 tablet PO DAILY Follow-up/Referrals: Yessy,CHERELLE Leos [Primary Care Provider] -
[2024-10-07] MEDS: MORPHINE SULFATE (*CRX) 4 MG/ML INJ IV PUSH (11:16)
[2024-10-07] MEDS: ONDANSETRON INJ 4 MG/2 ML VIAL IV PUSH ×3 (11:16→17:50)
[2024-10-07 11:49] LABS: Add Urine Microscopic? YES; Appearance Urine Clear (Clear); Bacteria Urine None Seen /hpf; Bilirubin Urine Negative (Negative); Blood Urine 3+ (Negative); Color Urine Yellow (Yellow); Glucose Urine UA Negative (Negative); Ketones Urine Negative (Negative); Leukocyte Esterase Ur Trace LEU/UL (Negative); Nitrate Urine Negative (Negative); Non Pathogenic Casts 0-2; Protein Urine Trace mg/dL (Negative); RBC Urine 21-50 /hpf (0-2); Specific Grav Ur 1.026 (1.001-1.035); Squamous Epithelial Cell Urine Few /hpf (Few); Urobilinogen Urine 0.2 mg/dL (<2.0); WBC Urine 0-5 /hpf (0-3)
[2024-10-07] MEDS: HYDROmorphone HCL INJ (*CRX) 1 MG/ML SYR 0.5 MG IV PUSH ×2 (12:09→12:39)
--- NOTE | 2024-10-07 12:19 | PC.NURSE ---
patient stating she is too uncomfortable to sit in bed for surveillance monitor
[2024-10-07] MEDS: METOCLOPRAMIDE HCL INJ 10 MG/2 ML VIAL IV PUSH (14:33)
--- NOTE | 2024-10-07 15:23 | P.PNAN_ITS ---
Anes - Initial Pre Proc Eval Procedure: Operation Date: 10/07/24 16:30 Proposed Procedures p Cystoscopy, Right Ureteroscopy, Possible Right Retrograde Pyelogram, Possible Right Stone Extraction, Possible Right Stent Placement, Possible Holmium Laser Procedure - Ramon Ko MD Date/Time: 10/07/24 15:23 Surgeon: Ramon Ko MD Pre Op Diagnosis: kidney stones Patient Data Age: 29 Gender: F Height: 1.45 m Weight: 75.9 kg Last Vital Signs Temp 36.6 C 10/07/24 09:58 Pulse 96 10/07/24 14:47 Resp 17 10/07/24 14:47 BP 132/76 10/07/24 14:47 Pulse Ox 99 10/07/24 14:47 O2 Del Method Room Air 10/07/24 09:58 Allergies Allergy/AdvReac Type Severity Reaction Status Date / Time No Known Allergies Allergy Verified 10/07/24 15:23 Home Medications ?Medication ?Instructions ?Recorded ?Confirmed ?Type vits no.126-ferrous fum 1 tablet PO DAILY 08/15/24 08/15/24 History 28 mg iron-folic acid 800 mcg tablet (Classic ) Laboratory Tests 10/07/24 10/07/24 10/07/24 10:15 10:16 10:20 WBC 7.3 K/mm3 (4.5-10.0) RBC 4.38 M/mm3 (4.2-5.4) Hgb 12.6 g/dL (12.0-15.0) Hct 38.4 % (37.0-47.0) MCV 87.7 fl (80-100) MCH 28.8 pg (26-34) MCHC 32.8 g/dl (32-36) RDW 13.3 % (11.5-14.5) Plt Count 215 k/mm3 (150-375) MPV 11.9 H fl (7.4-10.4) Immature Gran % (Auto) 0.3 % (0-0.5) Neut % (Auto) 55.3 % (45.5-73.1) Lymph % (Auto) 37.9 % (18.3-44.2) [place] % (Auto) 5.2 % (2.6-8.5) Eos % (Auto) 1.0 % (0-4.4) Baso % (Auto) 0.3 % (0.2-1.2) Lymph # (Auto) 2.77 K/mm3 (0.9-3.2) [place] # (Auto) 0.4 K/mm3 (0.1-0.6) Eos # (Auto) 0.1 K/mm3 (0-0.3) Baso # (Auto) 0.0 K/mm3 (0.0-0.1) Abs Immat Gran (auto) 0.02 K/mm3 (0.00-0.031) Absolute Neuts (auto) 4.1 K/mm3 (1.3-6.7) Absolute Nucleated RBC 0.000 K/mm3 (0.0-0.012) Nucleated RBC % 0.0 % (0.0-0.2) Sodium 138 mmol/L (137-145) Potassium 3.7 mmol/L (3.4-5.0) Chloride 103 mmol/L (98-107) Carbon Dioxide 27 mmol/L (22-30) Anion Gap 8 mmol/L (4-12) BUN 14 D mg/dL (7-17) Creatinine 0.72 mg/dL (0.7-1.0) Estim Creat Clear Calc Not Reportable Estimated GFR > 60 (59 - ) Glucose 95 mg/dL (65-110) Calcium 8.9 mg/dL (8.4-10.2) Total Bilirubin 0.7 mg/dL (0.2-1.3) AST 31 U/L (14-36) ALT 35 U/L (6-35) Alkaline Phosphatase 96 U/L (38-126) Total Protein 8.0 g/dL (6.3-8.2) Albumin 4.3 g/dL (3.5-5.1) Lipase 61 U/L (23-300) Urine Color Urine Appearance Urine pH Ur Specific [place] Urine Protein Urine Glucose (UA) Urine Ketones Ur Blood (Man) Urine Nitrate Urine Bilirubin Urine Urobilinogen Leukocyte Esterase Rfl Urine RBC Urine WBC Ur Squamous Epith Cells Urine Bacteria Urine Casts POC Urine HCG, Qual Negative (Negative) 10/07/24 11:38 WBC RBC Hgb Hct MCV MCH MCHC RDW Plt Count MPV Immature Gran % (Auto) Neut % (Auto) Lymph % (Auto) [place] % (Auto) Eos % (Auto) Baso % (Auto) Lymph # (Auto) [place] # (Auto) Eos # (Auto) Baso # (Auto) Abs Immat Gran (auto) Absolute Neuts (auto) Absolute Nucleated RBC Nucleated RBC % Sodium Potassium Chloride Carbon Dioxide Anion Gap BUN Creatinine Estim Creat Clear Calc Estimated GFR Glucose Calcium Total Bilirubin AST ALT Alkaline Phosphatase Total Protein Albumin Lipase Urine Color Yellow (Yellow) Urine Appearance Clear (Clear) Urine pH 6.0 (5.0-9.0) Ur Specific [place] 1.026 (1.001-1.035) Urine Protein Trace mg/dL (Negative) Urine Glucose (UA) Negative mg/dL (Negative) Urine Ketones Negative mg/dL (Negative) Ur Blood (Man) 3+ H (Negative) Urine Nitrate Negative (Negative) Urine Bilirubin Negative (Negative) Urine Urobilinogen 0.2 mg/dL (<2.0) Leukocyte Esterase Rfl Trace H [place]/UL (Negative) Urine RBC 21-50 H /hpf (0-2) Urine WBC 0-5 /hpf (0-3) Ur Squamous Epith Cells Few /hpf (Few) Urine Bacteria None seen /hpf Urine Casts 0-2 POC Urine HCG, Qual Patient hx anesthesia problems: none Family hx anesthesia problems: none Results Review: All pre-operative results and documents have been reviewed as part of the pre- operative evaluation. [facility] Past Medical History Medical History Chronic anemia Anxiety Depression UTI (urinary tract infection) History of multidrug resistant Proteus mirabilis UTI. Kidney stone Asthma HPV (human papilloma virus) anogenital infection Surgical History Surgical History S/P cystoscopy with ureteral stent placement Family History Family History Mother Anxiety Depression Kidney stones Hypertension Father Family history unknown Sibling Family history normal Grandparent Diabetes mellitus Other No problems noted. Sibling Fatty liver Other Family history of malignant neoplasm of cervix Social History Social History Social History: the patient lives in [place]. 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 she has 2 children, ages 5 and 7, who are healthy. She denies any tobacco, drug or alcohol use currently. Designates her mother, Renay, as her surrogate decision maker and she wishes to be a full code. Smoking status: Never smoker Additional smoking assessment comments: AT AGE 16 Alcohol intake: never Substance use: never Substance use type: does not use Do You Feel Safe in your Home?: Yes Lack of Transportation: No Lack of Food: Never True Current Housing: I Have Housing Concerned About Future Housing: No Difficulty Paying Gas/Electric Bills: No Difficulty Paying for Meds: No Currently Unemployed: YES Education: Associate Degree Difficulty w/ Childcare or Family Care: No Living arrangements: with family Additional living arrangements comments: CHILDREN Gender identity (if verbalized by the patient): Female Sexual Orientation (if Verbalized by the Patient): Straight or Heterosexual Spiritual care concerns: No Agree to blood products: Yes Anes - Eval Final PreProcedure Day of Procedure 10/07/24 15:23 Patient weight: obese Heart: regular rate and rhythm Lungs: clear to auscultation Airway: Mallampati scale class II Neurological: alert and oriented Last oral intake: >/= 8 hours ASA classification: III Emergent: no Anesthetic plan: proceed Anesthesia type and monitoring: general LMA and standard monitoring Results Review: All pre-operative results and documents have been reviewed as part of the pre- operative evaluation. Informed Consent: The patient's anesthetic plan and its attendant risks and benefits were discussed with the patient/family/POA. Questions were solicited and answers provided to the satisfaction of the patient/family/POA.
--- NOTE | 2024-10-07 15:29 | P.CONUR_ITS ---
Assessment and Plan Assessment and plan (1) Right ureteral stone: Code(s): N20.1 - Calculus of ureter Status: Acute Plan Patient to be taken back to room today for cystoscopy and right ureteral stent insertion. We will attempt to do right ureteroscopy laser lithotripsy stone extraction and possible for her ureteral stones. Risks of procedure including limited to infection, pain, injury to any structures, inability to place stent, need for additional operations all discussed. Patient understands and question and agrees to proceed. Urology Consult Note HPI Date Seen: 10/07/24 Requesting Physician: Ramon Ko MD Primary Care Provider: Dafne Krishnamurthy, PA Consult Narrative Narrative: Carlota Vazquez is a 29 year old female with a history nephrolithiasis. She underwent stone intervention with myself and Dr. Malone in 2018 and 2019. Since that time she has not had stone issues. The patient recently gave to a baby boy. She presented to the ER today with acute onset of severe right- sided pain. Associated nausea. She denies fevers or chills. CT scan revealed multiple right ureteral stones. Urology consult. [facility] Past Medical History Medical History Chronic anemia Anxiety Depression UTI (urinary tract infection) History of multidrug resistant Proteus mirabilis UTI. Kidney stone Asthma HPV (human papilloma virus) anogenital infection Surgical History Surgical History S/P cystoscopy with ureteral stent placement Family History Family History Mother Anxiety Depression Kidney stones Hypertension Father Family history unknown Sibling Family history normal Grandparent Diabetes mellitus Other No problems noted. Sibling Fatty liver Other Family history of malignant neoplasm of cervix Social History Social History Social History: the patient lives in [place]. 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 she has 2 children, ages 5 and 7, who are healthy. She denies any tobacco, drug or alcohol use currently. Designates her mother, Renay, as her surrogate decision maker and she wishes to be a full code. Smoking status: Never smoker Additional smoking assessment comments: AT AGE 16 Alcohol intake: never Substance use: never Substance use type: does not use Do You Feel Safe in your Home?: Yes Lack of Transportation: No Lack of Food: Never True Current Housing: I Have Housing Concerned About Future Housing: No Difficulty Paying Gas/Electric Bills: No Difficulty Paying for Meds: No Currently Unemployed: YES Education: Associate Degree Difficulty w/ Childcare or Family Care: No Living arrangements: with family Additional living arrangements comments: CHILDREN Gender identity (if verbalized by the patient): Female Sexual Orientation (if Verbalized by the Patient): Straight or Heterosexual Spiritual care concerns: No Agree to blood products: Yes Meds Home Medications and Allergies Home Medications ?Medication ?Instructions ?Recorded ?Confirmed ?Type vits no.126-ferrous fum 1 tablet PO DAILY 08/15/24 08/15/24 History 28 mg iron-folic acid 800 mcg tablet (Classic ) Allergies Allergy/AdvReac Type Severity Reaction Status Date / Time No Known Allergies Allergy Verified 10/07/24 15:23 Vital Signs Vital Signs - 24 hr 10/07/24 09:58 10/07/24 11:19 10/07/24 12:42 Temperature 36.6 C Pulse Rate 89 79 Respiratory Rate 20 18 Blood Pressure 146/92 H 129/87 143/93 H Pulse Oximetry 100 100 100 Oxygen Delivery Room Air 10/07/24 14:47 10/07/24 15:20 Temperature 36.2 C L Pulse Rate 96 110 H Respiratory Rate 17 18 Blood Pressure 132/76 151/97 H Pulse Oximetry 99 98 Oxygen Delivery Room Air Exam 2 Narrative: Awake and alert. She is in moderate distress due to pain. Breathing is nonlabored. abdomen soft nontender nondistended. Results Labs 10/07/24 10:15 10/07/24 10:16 Labs: Short CBC 10/07/24 Range/Units 10:15 WBC 7.3 (4.5-10.0) K/mm3 Hgb 12.6 (12.0-15.0) g/dL Hct 38.4 (37.0-47.0) % Plt Count 215 (150-375) k/mm3 BMP 10/07/24 10:16 Sodium 138 Potassium 3.7 Chloride 103 Carbon Dioxide 27 BUN 14 D Creatinine 0.72 Glucose 95 Calcium 8.9 Liver Function 10/07/24 Range/Units 10:16 Total Bilirubin 0.7 (0.2-1.3) mg/dL AST 31 (14-36) U/L ALT 35 (6-35) U/L Alkaline Phosphatase 96 (38-126) U/L Albumin 4.3 (3.5-5.1) g/dL Urine 10/07/24 Range/Units 11:38 Urine Color Yellow (Yellow) Urine Appearance Clear (Clear) Urine pH 6.0 (5.0-9.0) Ur Specific [place] 1.026 (1.001-1.035) Urine Protein Trace (Negative) mg/dL Urine Glucose (UA) Negative (Negative) mg/dL Imaging My impression: Right hydroureteronephrosis due to 6mm mid ureteral and 4mm distal ureteral stones. Radiologist's impression: EXAMINATION: CT abdomen pelvis wo con DATE: 10/07/2024 11:54 INDICATION: Right kidney stone TECHNIQUE: Computed tomography (CT) of the abdomen and pelvis was performed without intravenous contrast. Automated exposure control and iterative reconstruction technique were employed. The dose-length product was 210.75 mGy- cm. COMPARISON: 08/07/2023 FINDINGS: Lung bases are clear. Heart size is normal. No pericardial or pleural effusion. Liver, gallbladder, spleen, pancreas and bilateral adrenal glands are normal. Bilateral nephrolithiasis with 2 stones at the upper pole of the left kidney and one stone at the lower pole the right kidney measuring up to 2 mm. 6 mm obstructing stone in the mid right ureter with more proximal mild right hydroureteronephrosis. There is an additional 3-4 mm stone in the region of the right ureterovesicular junction. The anteverted uterus and bilateral adnexa are unremarkable. Bowels including the appendix are normal. No free intraperitoneal gas or fluid. No pathologically enlarged abdominal or pelvic lymphadenopathy. Mild bilateral sacroiliac osteoarthritis.. IMPRESSION: 1. Bilateral nephrolithiasis with 6 mm stone in the mid right ureter and 3-4 mm stone at the right ureterovesicular junction with mild right hydroureteronephrosis. Reviewed, dictated and finalized at location B. [employer]
--- NOTE | 2024-10-07 15:33 | WPDHPUPDATE1 ---
History and Physical Update Update Date/Time: 10/07/24 15:33 History and Physical has been reviewed, including an updated exam of the patient. There are NO changes in the patient's condition. Risks, benefits, and alternatives have been discussed and questions answered. Patient agrees to proceed with procedure.
[2024-10-07] MEDS: ceFAZolin 2 GM/D5W 50 ML 2 GM/50 ML BAG IVPB (15:39)
[2024-10-07] MEDS: LIDOCAINE 2% GEL UROJET 10 ML PKG MUCOUS MEM (15:53)
[2024-10-07] MEDS: LACTATED RINGERS 1,000 ML 30 ML IV CONT (16:25)
--- NOTE | 2024-10-07 16:34 | P.OP_ITS ---
Procedure Note - Detailed Date of Procedure 10/07/24 Pre-op Diagnosis Right ureteral and kidney stones Post-op Diagnosis Same Procedure Performed Cystoscopy, right ureteroscopy, laser lithotripsy, stone extraction, retrograde pyelogram, stent insertion Surgeon Ramon Ko MD Anesthesia General Description of Procedure Informed consent is obtained. Patient taken to operating room . She was given preoperative IV antibiotics. She was induced anesthesia. She was placed in the dorsal lithotomy position. She was prepped and draped. We inserted a 20 F cystoscope through the urethra into the bladder. Inspecting the bladder revealed no mucosal abnormalities or stones. The right ureteral orifice was no lauren to be inflamed with blood from the orifice. We cannulated the right ureter and dilated with an 8/10 coaxial dilator. Retrograde pyelogram revealed moderate right hydroureteronephrosis. We advanced a semi rigid ureteral scope. The stone seen in the right distal ureter was not present. We advanced the scope to the mid ureter we encountered the stone. It was too large to be basketed. We fragmented the stone with a laser into multiple fragments. Using a ZeroTip Nitinol basket we removed fragments and they were sent as specimen. We then inspected the length of the ureter with semi rigid ureteroscopy no additional stones were seen. We then advanced flexible ureteral scope over wire and inspected each calyx under fluoroscopic guidance. A 2mm stone in the lower pole was identified grasped with a Zero tip basket and removed. No other significant stones identified. We then inspected the length the ureter there were no residual stones. There was no ureteral injury. Over the wire a 6 F variable length stent was placed with a curl in the lower pole and a curl in the bladder. The patient was taken to recovery room stable condition. Plan follow-up in the office in 1 to 2 weeks for ureteral stent removal. Pathology Yes Complications No immediate complications Condition Stable Disposition PACU
== END 2024-10-07 18:22 | disposition home or self-care (01) ==
LOC: ANHED 14:45 → ANHSURGERY 14:46
PROVIDERS: Emergency Medicine; Emergency Provider Physician Assistant; PCP Physician Assistant; Visit Provider Urology
PROC: (CPT 52352; principal; 2024-10-07 16:30)
DX: N13.2 Hydronephrosis with renal and ureteral calculous obstruction (principal); E66.9 Obesity, unspecified; Z68.36 Body mass index [BMI] 36.0-36.9, adult
CPT/HCPCS: 52356; 36415; 74176; 74420; 80053; 81001; 81025; 82365; 83690; 85025; 88300; 96374; 96375; 96376; 99285; C1769; C2617; J0690; J1171; J2250; J2270; J2405; J2704; J2765; J3010; J7120; Q9966

== ENCOUNTER 2024-11-16 10:49 | Outpatient (CLI) | payer OTHER, SELFPAY ==
--- NOTE | ~2024-11-16 | XR_ITS ---
Supine and upright views of the abdomen Clinical history: Right ureteral stone COMPARISON: 11/24/2019 Findings: Bowel gas pattern is nonspecific. No evidence for obstruction or free air. Probably 3 mm ri ght pelvic phlebolith, though distal ureteral stone not completely excluded. Osseous structures are i ntact. IUD in place. Impression: Probable pelvic phlebolith rather than a ureteral stone. Correlate clinically. Reviewed, dictated and finalized at location . CAL COMMUNICATION SPECIALIST Impression: Probable pelvic phlebolith rather than a ureteral stone. Correlate clinically.
--- NOTE | ~2024-11-16 | US_ITS ---
EXAMINATION: US retroperitoneal comp DATE: 11/16/2024 11:57 INDICATION: Right ureteral stone TECHNIQUE: Multiple ultrasound grayscale images of the kidneys were obtained. COMPARISON: None. FINDINGS: The right kidney measures 9.9 x 5.4 x 4.5 cm. The left kidney measures 11.2 x 4.7 x 5.1 cm. Small reg ion of cortical scarring at the mid left kidney. The kidneys demonstrate normal echogenicity. 6 mm an echoic cyst at the mid right kidney. There is no hydronephrosis in either kidney. No shadowing renal stones identified. The bladder is normal with bilateral ureteral jets visualized on color Doppler. IMPRESSION: 1. 6 mm right renal cyst. Otherwise normal kidneys without hydronephrosis. Reviewed, dictated and finalized at location B. URCE MANAGER FORESTER
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
--- OUTSIDE RECORDS SUMMARY | 2024-11-16 12:29 | XMS_ITS | Clinical Summary ---
Author Organization [facility] Address [address] [place] [address] Care Team Providers Care Youth Services Specialist Name Role Phone Janette Armstrong MD Primary Care Provider [phone] Janette Armstrong MD Unavailable [phone] Starr Maldonado DO Unavailable [phone] Source Comments [facility],non-owned Affiliates and Associated Physician Practices is amultiple site organization consisting of ambulatory clinics and hospital sitesin [place], [place], [place] and [place]. This disclosure is being madepursuant to the Care Everywhere program and may not contain all information available regarding this patient. Last updated 18.[facility] Allergies No known active allergies Medications * [...] noted, appears to be healing appropriately now. Family History Medical History Relation Name Comments Depression Mother Relation Name Status Comments Mother Social History Tobacco Use Types Packs/Day Years [...] 03/08/2022 8:52 PM CDT Plan of Treatment Health Maintenance Due Date Last Done Comments PAP SMEAR 1993 HIV SCREENING 2008 HEPATITIS C SCREENING 07/07/2011 DTAP/TDAP/TD VACCINES (1 - Tdap) 2012 HEPATITIS B VACCINE (1 of - + 3-dose series) 2012 COVID-19 VACCINE ( - 2023-2 5 season) 2024 02/08/2021, 01/18/2021 INFLUENZA VACCINE (#1) 2024 DEPRESSION SCREENING 09/23/2024 ZOSTER VACCINE (1 of 2) 2043 HIB VACCINE Aged Out No longer eligi ble based on patient's age to complete this topic HPV VACCINE Aged Out No longer eligi ble based on patient's age to complete this topic MENINGOCOCCAL (Group B) VACCINE Aged Out No longer eligible b ased on patient's age to complete this topic MENINGOCOCCAL VACCINE Aged Out No hi david eligible based on patient's age to complete this topic PNEUMOCOCCAL VACCINE Aged Out No long er eligible based on patient's age to complete this topic Advance Directives * Full Code (Latest Code Status on File) Date Activated Date Inactivated Comments 03/08/2022 10:03 PM 03/09/2022 7:26 PM Care Teams Youth Services Specialist Relationship Specialty Start Date End Date Janette Armstrong MD [address] [place] [phone] PCP - General 10/16/19 Starr Maldonado DO [address] [place] [address] PCP - Attributed-[employer] [place] 03/26/22 Janette Armstrong MD [address] [place] [phone] 10/16/19
--- OUTSIDE RECORDS SUMMARY | 2024-11-16 12:30 | XMS_ITS | Data Portability ---
Author Organization [facility] Address [address] [place] [address] Care Team Providers Care Work Force Advisor Name Role Phone CARLOS ROBERTS Primary Care Provider Assessment Encounter Date Assessment Date Assessment LastModified by Organization Details LastModified Time 09/02/2024 09/02/2024 Patient is _38__weeks . Discussed plan. Not available 09/02/2024 12:11:36 Plan of Treatment Reminders Order Date Submit Date Provider Last Modified By Organization Details Last Modified Time Details Appointments MED CHECK 2024 11:30A Nayla Smith CNM Not available Not available Not available MED CHECK 2024 01:15P Nayla Smith CNM Not available Not available Not available Lab beta-HCG, quantitat gamaliel, serum or plasma 2024 025 [facility] (Lab), [address], [place], [address], 10/29/2024 04:56:15 Referral None recorded. Procedures None recorded. Surgeries None recorded. Imaging non-stres s test 2023 024 [facility], [address], [address], [place], [address], 09/02/2024 15:33:45 Medication Orders Mirena 21 mcg/24 hr (up to 8 years) 52 mg intrauter ine device 2024 025 [email or web address] Not available 10/30/2024 16:37:32 Lexapro 20 mg tablet 2024 025 [facility]/Pharmacy #[id number], [address], [place], [address], 10/21/2024 14:36:48 Zurzuvae 25 mg capsule 2024 025 [facility], [facility] [place], [address], 10/21/2024 14:36:47 Patient TargetsNo targets recorded. Patient InstructionsNo instructions recorded. Reason for Referral None Reported. Results Created Date Observation Date Name Description Value Unit Range Abnormal Flag Note LastModifiedBy Organization Detail LastModifiedTime 08/14/20 24 08/14/2024 CMP(C OMPRE HENSI VE METAB OLIC PANEL ) sodium 138 mmol/ L 133-14 6 Not Available [facility] (Lab) [address], [place], [address], 08/15/2024 13:38:32 08/14/20 24 08/14/2024 CMP(C OMPRE HENSI VE METAB OLIC PANEL ) potassium 4.0 mmol/ L 3.5-5. 1 Not Available [facility] (Lab) [address], [place], [address], 08/15/2024 13:38:32 08/14/20 24 08/14/2024 CMP(C OMPRE HENSI VE METAB OLIC PANEL ) chloride 103 mmol/ L 98-107 Not Available [facility] (Lab) [address], [place], [address], 08/15/2024 13:38:32 08/14/20 24 08/14/2024 CMP(C OMPRE HENSI VE METAB OLIC PANEL ) carbon dioxide 26 mmol/ L 21-31 Not Available [facility] (Lab) [address], [place], [address], 08/15/2024 13:38:32 08/14/20 24 08/14/2024 CMP(C OMPRE HENSI VE METAB OLIC PANEL ) anion gap 9 mmol/ L 4-13 Not Available [facility] (Lab) [address], [place], [address], 08/15/2024 13:38:32 08/14/20 24 08/14/2024 CMP(C OMPRE HENSI VE METAB OLIC PANEL ) blood urea nitrogen 11 mg/dL 7-25 Not Available [facility] (Lab) [address], [place], [address], 08/15/2024 13:38:32 08/14/20 24 08/14/2024 CMP(C OMPRE HENSI VE METAB OLIC PANEL ) creatinine 0.47 mg/dL 0.60-1 .30 low Not Available [facility] (Lab) [address], [place], [address], 08/15/2024 13:38:32 08/14/20 24 08/14/2024 CMP(C OMPRE HENSI VE METAB OLIC PANEL ) egfrcr (CKD-epi 2020) >90 mL/mi n/1.7 3_m2 >=60 Not Available [facility] (Lab) [address], [place], [address], 08/15/2024 13:38:32 08/14/20 24 08/14/2024 CMP(C OMPRE HENSI VE METAB OLIC PANEL ) calcium 9.9 mg/dL 8.3-10 .5 Not Available [facility] (Lab) [address], [place], [address], 08/15/2024 13:38:32 08/14/20 24 08/14/2024 CMP(C OMPRE HENSI VE METAB OLIC PANEL ) glucose 92 mg/dL 70-100 Not Available [facility] (Lab) [address], [place], [address], 08/15/2024 13:38:32 08/14/20 24 08/14/2024 CMP(C OMPRE HENSI VE METAB OLIC PANEL ) protein, total 6.3 g/dL 6.4-8. 3 low Not Available [facility] (Lab) [address], [place], [address], 08/15/2024 13:38:32 08/14/20 24 08/14/2024 CMP(C OMPRE HENSI VE METAB OLIC PANEL ) albumin 3.3 g/dL 3.5-5. 0 low Not Available [facility] (Lab) [address], [place], [address], 08/15/2024 13:38:32 08/14/20 24 08/14/2024 CMP(C OMPRE HENSI VE METAB OLIC PANEL ) ALT 13 units /L 9-43 Not Available [facility] (Lab) [address], [place], [address], 08/15/2024 13:38:32 08/14/20 24 08/14/2024 CMP(C OMPRE HENSI VE METAB OLIC PANEL ) alkaline phosphatase 124 units /L 34-104 high Not Available [facility] (Lab) [address], [place], [address], 08/15/2024 13:38:32 08/14/20 24 08/14/2024 CMP(C OMPRE HENSI VE METAB OLIC PANEL ) AST 15 units /L 13-39 Not Available [facility] (Lab) [address], [place], [address], 08/15/2024 13:38:32 08/14/20 24 08/14/2024 CMP(C OMPRE HENSI VE METAB OLIC PANEL ) bilirubin, total 0.3 mg/dL 0.2-1. 2 Not Available [facility] (Lab) [address], [place], [address], 08/15/2024 13:38:32 08/14/20 24 08/14/2024 BILE ACIDS , TOTAL bile acids, total 8 umol/ L 0-10 Not Available [facility] (Lab) [address] [place], [address], 08/15/2024 13:38:33 08/14/20 24 08/14/2024 CULTU RE: GROUP B STREP SCREE N, REFLE X SUSCE PTIBI LITY result report SEE RESULT S BELOW Test: Cultu re: Group B Strep , Refle x Susce ptibi lity ([facility]/ [facility] ) Speci men Sourc e: Vagin a/Rec iza Speci men Type: Vagin al/Re ctal Speci men Date: 08/14 1129 Resul t Date: 08/17 1416 Resul t Statu s: Final resul t Abnor mal: No Resul ting Lab: [facility] [address] [facility] [address] Tel: CULTU RE ----- ----- ----- --- No Group B strep isola lauren at 2 days (johnny ctive broth enhan cemen t) Not Available [facility] (Lab) [address] [place], [address], 08/17/2024 15:20:01 08/27/20 24 08/27/2024 CMP(C OMPRE HENSI VE METAB OLIC PANEL ) sodium 137 mmol/ L 133-14 6 Not Available [facility] (Lab) [address] [place], [address], 08/28/2024 10:54:58 08/27/20 24 08/27/2024 CMP(C OMPRE HENSI VE METAB OLIC PANEL ) potassium 4.1 mmol/ L 3.5-5. 1 Not Available [facility] (Lab) [address] [place], [address], 08/28/2024 10:54:58 08/27/20 24 08/27/2024 CMP(C OMPRE HENSI VE METAB OLIC PANEL ) chloride 104 mmol/ L 98-107 Not Available [facility] (Lab) [address] [place], [address], 08/28/2024 10:54:58 08/27/20 24 08/27/2024 CMP(C OMPRE HENSI VE METAB OLIC PANEL ) carbon dioxide 26 mmol/ L 21-31 Not Available [facility] (Lab) [address], [place], [address], 08/28/2024 10:54:58 08/27/20 24 08/27/2024 CMP(C OMPRE HENSI VE METAB OLIC PANEL ) anion gap 7 mmol/ L 4-13 Not Available [facility] (Lab) [address], [place], [address], 08/28/2024 10:54:58 08/27/20 24 08/27/2024 CMP(C OMPRE HENSI VE METAB OLIC PANEL ) blood urea nitrogen 6 mg/dL 7-25 low Not Available [facility] (Lab) [address], [place], [address], 08/28/2024 10:54:58 08/27/20 24 08/27/2024 CMP(C OMPRE HENSI VE METAB OLIC PANEL ) creatinine 0.47 mg/dL 0.60-1 .30 low Not Available [facility] (Lab) [address], [place], [address], 08/28/2024 10:54:58 08/27/20 24 08/27/2024 CMP(C OMPRE HENSI VE METAB OLIC PANEL ) egfrcr (CKD-epi 2020) >90 mL/mi n/1.7 3_m2 >=60 Not Available [facility] (Lab) [address], [place], [address], 08/28/2024 10:54:58 08/27/20 24 08/27/2024 CMP(C OMPRE HENSI VE METAB OLIC PANEL ) calcium 9.0 mg/dL 8.3-10 .5 Not Available [facility] (Lab) [address] [facility], [place], [address], 08/28/2024 10:54:58 08/27/20 24 08/27/2024 CMP(C OMPRE HENSI VE METAB OLIC PANEL ) glucose 73 mg/dL 70-100 Not Available [facility] (Lab) [address], [place], [address], 08/28/2024 10:54:58 08/27/20 24 08/27/2024 CMP(C OMPRE HENSI VE METAB OLIC PANEL ) protein, total 6.3 g/dL 6.4-8. 3 low Not Available [facility] (Lab) [address], [place], [address], 08/28/2024 10:54:58 08/27/20 24 08/27/2024 CMP(C OMPRE HENSI VE METAB OLIC PANEL ) albumin 3.2 g/dL 3.5-5. 0 low Not Available [facility] (Lab) [address] [facility] [address], [place], [address], 08/28/2024 10:54:58 08/27/20 24 08/27/2024 CMP(C OMPRE HENSI VE METAB OLIC PANEL ) ALT 13 units /L 9-43 Not Available [facility] (Lab) [address], [place], [address], 08/28/2024 10:54:58 08/27/20 24 08/27/2024 CMP(C OMPRE HENSI VE METAB OLIC PANEL ) alkaline phosphatase 136 units /L 34-104 high Not Available [facility] (Lab) [address] [place], [address], 08/28/2024 10:54:58 08/27/20 24 08/27/2024 CMP(C OMPRE HENSI VE METAB OLIC PANEL ) AST 16 units /L 13-39 Not Available [facility] (Lab) [address] [place], [address], 08/28/2024 10:54:58 08/27/20 24 08/27/2024 CMP(C OMPRE HENSI VE METAB OLIC PANEL ) bilirubin, total 0.3 mg/dL 0.2-1. 2 Not Available [facility] (Lab) [address], [place], [address], 08/28/2024 10:54:58 08/27/20 24 08/27/2024 BILE ACIDS , TOTAL bile acids, total 3 umol/ L 0-10 Not Available [facility] (Lab) [address] [facility] [address], [place], [address], 08/28/2024 10:54:58 10/28/19 25 10/28/2024 BHCG, QUANT ITATI VE B-HCG 0.3 mIU/m L 0.0-4. 9 This assay was perfo rmed using [employer] reage nts and test kits. Value s obtai holly with other assay metho ds or kits canno t be used inter reyez eably . Refer ence Range s: Non-p regna nt, preme nopau jarad women : 0.0-4 .9 mIU/m L Postm enopa usal women : 0.0-7 .0 mIU/m L Cordelia l Pregn carter: Gesta usman l Age bHCG Conc. - mIU/m L 3 Weeks 5.8 - 71.7 4 Weeks 9.5 - 750 5 Weeks 217-7 138 6 Weeks 158 - 31,79 5 7 Weeks 3,697 - 162,5 63 8 Weeks 32,06 5 - 149,5 71 9 Weeks 63,80 3 - 151,4 10 10 Weeks 46,50 9 - 186,9 77 12 Weeks 27,83 2 - 210,6 12 14 Weeks 13,95 0 - 62,53 0 15 Weeks 12,03 9 - 70,97 1 16 Weeks 9,040 - 56,45 1 17 Weeks 8,175 - 55,86 8 18 Weeks 8,099 - 58,17 6 Not Available [facility] (Lab) [address], [place], [address], 10/29/2024 04:56:15 08/07/20 24 08/07/2024 non-s tress test No observ ation record ed. [facility] [address], [place], [address], 08/07/2024 18:12:32 08/07/20 non-s tress test No observ ation record ed. [email or web address] [facility] [address], [place], [address], 08/07/2024 18:14:17 08/14/2008/14/2024 non-s tress test No observ ation record ed. [address], [address], 08/17/2024 11:16:35 08/14/20 24 08/14/2024 US, obste tric, bioph ysica l profi le No observ ation record ed. [address] [address], [place], [address], 08/17/2024 11:16:59 08/14/20 24 08/14/2024 US, obste tric, bioph ysica l profi le No observ ation record ed. [address] [address], [place], [address], 08/17/2024 11:17:11 08/14/20 24 08/14/2024 non-s tress test No observ ation record ed. [email or web address] [facility] [address], [place], [address], 08/14/2024 17:46:16 08/14/20 non-s tress test No observ ation record ed. [email or web address] [facility] [address], [place], [address], 08/14/2024 17:48:37 08/28/20 24 08/28/2024 non-s tress test No observ ation record ed. [facility] [address], [place], [address], 08/28/2024 19:57:05 08/28/20 24 non-s tress test No observ ation record ed. [email or web address] [facility] [address], [place], [address], 08/28/2024 19:59:17 09/02/20 24 09/02/2024 non-s tress test No observ ation record ed. [email or web address] [facility] [address], [place], [address], 09/02/2024 15:40:03 Result Notes None recorded. Problems Name Problem SNOMED Code Status Onset Date Resolution Date Notes Provider Name and Address Organization Details Recorded Time Pregnanc y 23265990 Completed 202310/20/2024 [facility] 11:42:07 History of calculus of kidney 591540653 [facility] 11:42:48 Chronic sinusiti s 18187773 Completed sees ENT wont prescribe while , hx sinus surgery [facility] 11:42:48 Vitamin D deficien cy 01064049 Completed 2000 IU daily [facility] 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 11:42:48 Problem Notes None recorded. Procedures Surgical History Date Name Laterality Status Provider Name and Address Organization Details Recorded Time 10/30/19 25 IUD Insertion completed DAPHNE BAÑUELOS MD [address], [place], [address], [place] [facility] 10/30/2024 16:36:32 09/03/20 23 Date of Last Pap [facility]ear [facility] 09/18/2023 10:40:00 09/23/19 22 nasal sinus procedure completed Blanca [facility] 02/07/2024 10:56:02 09/23/19 20 extracorporeal shockwave lithotripsy of calculus of kidney completed [facility] 02/07/2024 10:56:22 09/23/19 20 Nasal/sinus endoscopy surg completed [facility] 02/07/2024 10:56:44 09/23/19 20 extracorporeal shockwave lithotripsy of calculus of kidney completed [facility] 02/07/2024 10:56:06 Imaging Results Imaging Date Name Status [facility]Modified by [facility] Details LastModified Time 08/07/2024 non-stress test completed [facility] [address], [place], [address], 08/07/2024 18:12:32 08/07/2024 non-stress test completed [email or web address] [facility] [address], [place], [address], 08/07/2024 18:14:17 08/14/2024 non-stress test completed [address], [address], 08/17/2024 11:16:35 08/14/2024 US, obstetric, biophysical profile completed [address], [address], 08/17/2024 11:16:59 08/14/2024 US, obstetric, biophysical profile completed [address] [place], [address], 08/17/2024 11:17:11 08/14/2024 non-stress test completed [address], [place], [address], 08/14/2024 17:46:16 08/14/2024 non-stress test completed [email or web address], [place], [address], 08/14/2024 17:48:37 08/28/2024 non-stress test completed [email or web address] [place] [address] [address], [place], [address], 08/28/2024 19:57:05 08/28/2024 non-stress test completed [email or web address], [place], [address], 08/28/2024 19:59:17 09/02/2024 non-stress test completed [address], [place], [address], 09/02/2024 15:40:03 Procedure Notes None recorded. Medical Equipment None Reported. Allergies No known drug allergies Medications Name Sig Start Date Stop Date Status Note LastModified by Organization Details LastModified Time cyclobenzap rine 10 mg tablet 04/29 completed Not Available Not Available Not Available amoxicillin 500 mg capsule TAKE 1 CAPSULE BY MOUTH THREE TIMES DAILY 12/06 completed Not Available Not Available Not Available Mirena 21 mcg/24 hr (up to 8 years) 52 mg intrauterin e device Take 1 device by intrauter ine route. 2024 active Not Available Not Available Not Avai lable venlafaxine ER 37.5 mg capsule,ext ended release 24 hr 04/01 completed Not Available Not Available Not Available venlafaxine ER 75 mg capsule,ext ended release 24 hr 04/29 completed Not Available Not Available Not Available doxycycline hyclate 100 mg capsule TAKE 1 CAPSULE BY MOUTH TWICE A DAY 11/06 completed Not Available Not Available Not Available clindamycin HCl 300 mg capsule TAKE 1 CAPSULE BY MOUTH EVERY 8 HOURS 12/06 completed Not Available Not Available Not Available trazodone 50 mg tablet TAKE 1 TABLET BY MOUTH EVERY DAY AT BEDTIME FOR DIFFICULT Y SLEEPING 02/06 completed Not Available Not Available Not Available polyethylen e glycol 3350 17 gram oral powder packet 08/17 completed Not Available Not Available Not Available azithromyci n 250 mg tablet TAKE 2 TABLETS (500 MG) BY ORAL ROUTE ONCE DAILY FOR 1 DAY THEN 1 TABLET (250 MG) BY ORAL ROUTE ONCE DAILY FOR 4 DAYS 09/02 completed Not Available Not Available Not Available ibuprofen 800 mg tablet TAKE 1 TABLET BY MOUTH THREE TIMES DAILY NEEDED FOR PAIN 12/06 completed Not Available Not Available Not Available ofloxacin 0.3 % eye drops PUT 1-2 DRPS INTO AFFECTED EYE(S) EVERY 2-4 H X 2 DAYS, THEN 1-2 DRPS 4 TIMES/DAY DAYS 3-7 07/18 completed Not Available Not Available Not Available fluconazole 150 mg tablet TAKE 1 TABLET BY MOUTH 1 TIME 01/09 completed Not Available Not Available Not Available ampicillin 500 mg capsule TK ONE C PO Q 6 H FOR 10 DAYS 08/17 completed Not Available Not Available Not Available sumatriptan 100 mg tablet TAKE 1 TABLET BY MOUTH NEEDED FOR 9 DAYS 12/06 completed Not Available Not Available Not Available hydrocodone 5 mg-acetamin ophen 325 mg tablet TAKE 1 TABLET BY MOUTH EVERY 6 HOURS NEEDED FOR PAIN 10/21 completed Not Available Not Available Not Available fluconazole 200 mg tablet TAKE 1 TABLET EVERY OTHER DAY X 3 DOSES 07/23 completed Not Available Not Available Not Available meloxicam 15 mg tablet 04/01 completed Not Available Not Available Not Available clonazepam 0.5 mg tablet 04/29 completed Not Available Not Available Not Available clonazepam 1 mg tablet TAKE 1/2 TO 1 TABLET BY MOUTH UP TO THREE TIMES DAILY NEEDED. DO NOT TAKE IF NOT NEEDED 12/06 completed Not Available Not Available Not Available penicillin V potassium 500 mg tablet TAKE 1 TABLET BY MOUTH EVERY 12 HOURS FOR 10 DAYS 07/18 completed Not Available Not Available Not Available metronidazo le 500 mg tablet TAKE 1 TABLET BY MOUTH TWICE A DAY FOR 7 DAYS 06/10 completed Not Available Not Available Not Available hydroxyzine HCl 50 mg tablet 12/05 completed Not Available Not Available Not Available prochlorper azine maleate 10 mg tablet TAKE 1 TABLET BY MOUTH EVERY 8 HOURS NEEDED FOR NAUSEA/VO MITING 07/18 completed Not Available Not Available Not Available omeprazole 40 mg capsule,del ayed release TAKE 1 CAPSULE BY MOUTH ONCE DAILY 07/18 completed Not Available Not Available Not Available ondansetron 8 mg disintegrat ing tablet 04/29 completed Not Available Not Available Not Available ketorolac 0.5 % eye drops 1 DRP INTO EACH EYE EVERY 6 HOURS NEEDED FOR ITCHING 07/18 completed Not Available Not Available Not Available oxycodone-a cetaminophe n 5 mg-325 mg tablet TAKE 1 TABLET BY MOUTH EVERY 12 HOURS NEEDED FOR SEVERE PAIN 07/18 completed Not Available Not Available Not Available alprazolam 0.5 mg tablet TAKE 1 TABLET BY MOUTH THREE TIMES DAILY NEEDED 01/04 completed Not Available Not Available Not Available alprazolam 0.25 mg tablet TAKE 1 TABLET BY MOUTH NEEDED 12/06 completed Not Available Not Available Not Available citalopram 20 mg tablet TK 1 T PO QD 08/17 completed Not Available Not Available Not Available famotidine 20 mg tablet TAKE 1 TABLET BY MOUTH TWICE A DAY 04/01 completed Not Available Not Available Not Available tamsulosin 0.4 mg capsule TAKE 1 CAPSULE BY MOUTH DAILY 07/18 completed Not Available Not Available Not Available trazodone 100 mg tablet 04/29 completed Not Available Not Available Not Available dicyclomine 20 mg tablet TAKE 1 TABLET BY MOUTH 3 TIMES A DAY NEEDED FOR ABDOMINAL DISCOMFOR T 07/18 completed Not Available Not Available Not Available phenazopyri dine 100 mg tablet 04/01 completed Not Available Not Available Not Available hydrocodone 7.5 mg-acetamin ophen 325 mg tablet 04/01 completed Not Available Not Available Not Available pantoprazol e 40 mg tablet,mikel yed release TAKE 1 TABLET BY MOUTH EVERY DAY 04/29 completed Not Available Not Available Not Available podofilox 0.5 % topical solution 08/17 completed Not Available Not Available Not Available triamcinolo ne acetonide 0.1 % topical ointment APPLY THIN LAYER TOPICALLY TO THE AFFECTED AREA TWICE DAILY FOR 14 DAYS 10/17 completed Not Available Not Available Not Available buspirone 10 mg tablet TAKE 1 TABLET BY MOUTH TWICE DAILY DIRECTED 12/06 completed Not Available Not Available Not Available lidocaine 5 % topical patch 04/01 completed Not Available Not Available Not Available ursodiol 300 mg capsule 10/21 completed Not Available Not Available Not Available polymyxin B sulfate 10,000 unit-trimet hoprim 1 mg/mL eye drops INSTILL 1 DROP IN RIGHT EYE EVERY 3 HOURS FOR 7 DAYS 11/06 completed Not Available Not Available Not Available fluoxetine 10 mg capsule TK 1 C PO QD 08/17 completed Not Available Not Available Not Available sertraline 25 mg tablet TAKE 1 TABLET BY MOUTH EVERY DAY 06/24 completed Not Available Not Available Not Available omeprazole 20 mg capsule,del ayed release TAKE 1 CAPSULE BY MOUTH DAILY 12/06 completed Not Available Not Available Not Available hydroxyzine HCl 25 mg tablet 04/29 completed Not Available Not Available Not Available mupirocin 2 % topical ointment 04/01 completed Not Available Not Available Not Available ergocalcife rol (vitamin D2) 1,250 mcg (50,000 unit) capsule Take 1 capsule every week by oral route as directed for 90 days. 08/18 completed Not Available Not Available Not Available azelastine 137 mcg (0.1 %) nasal spray USE 1 SPRAY IN EACH NOSTRIL EVERY 12 HOURS 10/17 completed Not Available Not Available Not Available ibuprofen 600 mg tablet 04/01 completed Not Available Not Available Not Available methylpredn isolone 4 mg tablets in a dose pack FOLLOW PACKAGE DIRECTION S 12/06 completed Not Available Not Available Not Available albuterol sulfate HFA 90 mcg/actuati on aerosol inhaler INHALE 2 PUFFS INTO THE LUNGS EVERY 4 HOURS NEEDED FOR 30 DAYS 02/06 completed Not Available Not Available Not Available oxybutynin chloride 5 mg tablet TK 1 T PO TID PRN 08/17 completed Not Available Not Available Not Available hydroxyzine HCl 10 mg tablet 04/01 completed Not Available Not Available Not Available ondansetron 4 mg disintegrat ing tablet LET 1 TABLET DISSOLVE ON THE TONGUE EVERY 8 HOURS 10/21 completed Not Available Not Available Not Available fluoxetine 20 mg capsule TK ONE C PO DAILY 01/04 completed Not Available Not Available Not Available fluticasone propionate 50 mcg/actuati on nasal spray,suspe nsion INSTILL 1-2 SPRAYS INTO THE NOSTRILS TWICE DAILY 07/18 completed Not Available Not Available Not Available sertraline 50 mg tablet TK 1 T PO QHS 01/04 completed Not Available Not Available Not Available amoxicillin 875 mg-potassiu m clavulanate 125 mg tablet TAKE 1 TABLET BY MOUTH EVERY 12 HOURS FOR 10 DAYS 04/01 completed Not Available Not Available Not Available buspirone 15 mg tablet 04/29 completed Not Available Not Available Not Available oxycodone 5 mg tablet 04/01 completed Not Available Not Available Not Available escitalopra m 10 mg tablet Take 1 tablet every day by oral route. active Not Available Not Available No t Available escitalopra m 20 mg tablet TAKE 1 TABLET BY MOUTH EVERY DAY active Not Available Not Available No t Available clonazepam 0.5 mg disintegrat ing tablet DIS ONE T PO DAILY 01/04 completed Not Available Not Available Not Available ciprofloxac in 0.3 %-dexametha sone 0.1 % ear drops,suspe nsion INSTILL 4 DROPS INTO AFFECTED EAR(S) BY OTIC ROUTE 2 TIMES PER DAY FOR 7 DAYS 04/01 completed Not Available Not Available Not Available bupropion HCl XL 150 mg 24 hr tablet, extended release TAKE 1 TABLET BY MOUTH EVERY DAY 12/06 completed Not Available Not Available Not Available hydrocodone 7.5 mg-acetamin ophen 325 mg/15 mL oral solution TAKE 15 ML BY MOUTH EVERY 4 HOURS NEEDED 12/06 completed Not Available Not Available Not Available nitrofurant oin monohydrate /macrocryst als 100 mg capsule Take 1 capsule every 12 hours by oral route for 7 days. 04/01 completed Not Available Not Available Not Available Lisa (28) 02/02 completed Not Available Not Available Not Available drospirenon e 3 mg-ethinyl estradiol 0.02 mg tablet TAKE 1 TABLET BY MOUTH EVERY DAY 02/02 completed Not Available Not Available Not Available cholecalcif estephanie (vitamin D3) 50 mcg (2,000 unit) capsule TAKE 1 CAPSULE BY MOUTH EVERY DAY 04/29 completed Not Available Not Available Not Available SUBWAY OPERATOR Thyroid 30 mg tablet TAKE 1 TABLET BY MOUTH DAILY BEFORE BREAKFAST 10/17 completed Not Available Not Available Not Available Lo Loestrin Fe 1 mg-10 mcg (24)/10 mcg (2) tablet Take 1 tablet every day by oral route for 60 days. 01/04 completed Not Available Not Available Not Available Aurovela Fe 1-20 (28) 1 mg-20 mcg (21)/75 mg (7) tablet TAKE 1 TABLET BY MOUTH EVERY DAY 12/06 completed Not Available Not Available Not Available Zurzuvae 25 mg capsule 2024 active Not Available Not Available Not Avai lable Vitals Date Recorded Body weight Body mass index (BMI) Body height Systolic blood pressure Diastolic blood pressure Provider Name and Address Organization Details Last Updated DateTime 09/02/2024 35913.28 926 g 40 kg/m2 149.86 cm 132 mm[Hg] 85 mm[Hg] Blanca Simmons [facility] 4 11:57:38 Date Recorded Body height Body mass index (BMI) Body weight Systolic blood pressure Diastolic blood pressure Provider Name and Address Organization Details Last Updated DateTime 10/21/2024 149.86 cm 35.5 kg/m2 57964.26 g 138 mm[Hg] 88 mm[Hg] Blanca Simmons [facility] 5 14:19:46 Date Recorded Body height Body mass index (BMI) Body weight Systolic blood pressure Diastolic blood pressure Provider Name and Address Organization Details Last Updated DateTime 10/28/2024 149.86 cm 35.3 kg/m2 87762.66 g 144 mm[Hg] 86 mm[Hg] Tish Ledezma [facility] 5 14:23:54 Date Recorded Body height Body mass index (BMI) Body weight Systolic blood pressure Diastolic blood pressure Provider Name and Address Organization Details Last Updated DateTime 10/30/2024 149.86 cm 34.9 kg/m2 00775.48 g 144 mm[Hg] 84 mm[Hg] Tish Ledezma [facility] 16:16:21 Social History Question Answer Notes LastModified by Organizat ion Details LastModified Time Tobacco Smoking Status Never Smoker Mehran lopez, [facility] 12/05/2022 10:29:53 Do You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 depression; poor support from partner/family; resumed menstrual bleeding no; was in hospital and had surgery for kidney stone partner not super helpful, depression, anxiety, no suicidal thoughts Associated Symptoms:no abnormal bleeding; no vaginal discharge Contraception Plan:IUDNotes:hx heavy periods Blanca Simmons [facility] 10/21/2024 20:56:37 10/28/2024 text/html Patient presents for IUD insertion. UPT positive today in clinic. Patient reports LMP 10/25 DAPHNE BAÑUELOS MD [address], [place], [address], [facility] 10/28/2024 14:57:36 10/30/2024 text/html Patient presents for IUD insertion. Quant hCG negative on draw 10/28. DAPHNE BAÑUELOS MD [address], [place], [address], [facility] 10/30/2024 16:52:46 OBGyn Episode Ob Episode Information Episode Created Date Number of Fetuses Patient Bloodtype Patient rh Status Prepregnancy Weight lbs Domestic Partner Domestic Partner Phone Father Name Garment Examiner Status 08/17/20 20 1 CLOSED Fetus Data First Name Last Name Admitted to NICU Weight (g) Sex Living Outcome Pediatric Complications Fetus ID Race Codes Race Delivery Type 3628.73 6 M Full Term 6318 Vaginal Delivery Blair Calculation Initial Blair Date Initial Exam Date Initial Exam Provider Initial Ultrasound Date Last Menstrual Period Date Ultra Sound Weeks Gestation 0 Eighteen To Twenty Week Blair Update Ultra Sound Date Fundal Height At Umbil Quickening Date Ultra Sound Latest Weeks Gestation Final Blair Confirmed By Final Blair Confirmed Date Final Blair Date Ultra Sound Latest Days Gestation 0 0 Menstrual History Last Menstrual Date Menses Monthly On Bcp Conception Prior Menses Frequency Hcg Plus Date Menarche Onset Age Delivery Information Delivery Date Delivery Type Labor Anesthesia Weeks Gestation Incision Type Labor Labor Length Hrs Delivered By Post Complications Tubal Sterilization Discharge Date Comments 2 40 Discharge Information Feeding Method Contraceptive Method Maternal HG B and HCT Levels Ob Episode Information Episode Created Date Number of Fetuses Patient Bloodtype Patient rh Status Prepregnancy Weight lbs Domestic Partner Domestic Partner Phone Father Name Garment Examiner Status 08/17/20 20 1 CLOSED Fetus Data First Name Last Name Admitted to NICU Weight (g) Sex Living Outcome Pediatric Complications Fetus ID Race Codes Race Delivery Type 3345.24 1 M Full Term 6319 Vaginal Delivery Blair Calculation Initial Blair Date Initial Exam Date Initial Exam Provider Initial Ultrasound Date Last Menstrual Period Date Ultra Sound Weeks Gestation 0 Eighteen To Twenty Week Blair Update Ultra Sound Date Fundal Height At Umbil Quickening Date Ultra Sound Latest Weeks Gestation Final Blair Confirmed By Final Blair Confirmed Date Final Blair Date Ultra Sound Latest Days Gestation 0 0 Menstrual History Last Menstrual Date Menses Monthly On Bcp Conception Prior Menses Frequency Hcg Plus Date Menarche Onset Age Delivery Information Delivery Date Delivery Type Labor Anesthesia Weeks Gestation Incision Type Labor Labor Length Hrs Delivered By Post Complications Tubal Sterilization Discharge Date Comments 5 40 Discharge Information Feeding Method Contraceptive Method Maternal HG B and HCT Levels Ob Episode Information Episode Created Date Number of Fetuses Patient Bloodtype Patient rh Status Prepregnancy Weight lbs Domestic Partner Domestic Partner Phone Father Name Garment Examiner Status 01/08/20 21 1 CLOSED Fetus Data First Name Last Name Admitted to NICU Weight (g) Sex Living Outcome Pediatric Complications Fetus ID Race Codes Race Delivery Type , Spontane ous [id number] Blair Calculation Initial Blair Date Initial Exam Date Initial Exam Provider Initial Ultrasound Date Last Menstrual Period Date Ultra Sound Weeks Gestation 0 Eighteen To Twenty Week Blair Update Ultra Sound Date Fundal Height At Umbil Quickening Date Ultra Sound Latest Weeks Gestation Final Blair Confirmed By Final Blair Confirmed Date Final Blair Date Ultra Sound Latest Days Gestation 0 0 Menstrual History Last Menstrual Date Menses Monthly On Bcp Conception Prior Menses Frequency Hcg Plus Date Menarche Onset Age Delivery Information Delivery Date Delivery Type Labor Anesthesia Weeks Gestation Incision Type Labor Labor Length Hrs Delivered By Post Complications Tubal Sterilization Discharge Date Comments 0 Discharge Information Feeding Method Contraceptive Method Maternal HG B and HCT Levels Ob Episode Information Episode Created Date Number of Fetuses Patient Bloodtype Patient rh Status Prepregnancy Weight lbs Domestic Partner Domestic Partner Phone Father Name Garment Examiner Status 03/04/20 24 1 A Positive 143 CLOSED Fetus Data First Name Last Name Admitted to NICU Weight (g) Sex Living Outcome Pediatric Complications Fetus ID Race Codes Race Delivery Type 3486.98 85 M [id number] Vaginal Delivery Problems Problem Notes HIV reactive; 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, confirmation testing completed 03/06 Problem Name Start Date End Date Resolution Snomed Code Not e Velamentous insertion of umbilical cord 76601661 History of calculus of kidney 802490602 lithotripsy 202 0 Chronic sinusitis 32642966 se es ENT wont prescribe while , hx sinus surgery Vitamin D deficiency 77085066 2000 IU daily Blair Calculation Initial Blair Date Initial Exam Date Initial Exam Provider Initial Ultrasound Date Last Menstrual Period Date Ultra Sound Weeks Gestation 09/10/2024 02/06/2024 02/06/2024 9 Eighteen To Twenty Week Blair Update Ultra Sound Date Fundal Height At Umbil Quickening Date Ultra Sound Latest Weeks Gestation Final Blair Confirmed By Final Blair Confirmed Date Final Blair Date Ultra Sound Latest Days Gestation 03/04/20 24 13 [email or web address] 03/04/2024 09/10/20 24 1 Pre- Flowsheet Flowsheet Date 03/04/2024 Artis Score Blood Edema Fundus Height Fundus Units Glucose Ketones Leukocytes Nitrite Labor Signs Protein Cervic Dilation Cervic Effacement Cervic Station none Type Weight in lbs Pre/Post Dialysis Refused Weight 148.745175683842 BP Diastolic BP Location Tested BP Systolic BP Type 79 116 Fetus Heart Rate Present Fetus Movement A No Comments Patient is having some back pain, ear pain, face pain, ER follow up, had UTI, and needs root canalreviewed us, education and precautions, hx uncomplicated vaginal deliveries, ENT rec augmentin and drops, would not prescribe, saw urgent care as well, no relief, pt appears very uncomfortable, left ear normal tympanic membrane, right ear tympanic membrane swollen, red feels sinus pressure in her face will call out augmentin and also norco for pain, unable to sleep due to pain will have rn call saturday for check up. dental note handed to pt Flowsheet Date 04/01/2024 Artis Score Blood Edema Fundus Height Fundus Units Glucose Ketones Leukocytes Nitrite Labor Signs Protein Cervic Dilation Cervic Effacement Cervic Station none Type Weight in lbs Pre/Post Dialysis Refused Weight 149.171556101124 BP Diastolic BP Location Tested BP Systolic BP Type 73 108 Fetus Heart Rate Present A 146 Present Fetus Movement A Yes Comments Patient is having dizziness, vision changes, back pain, nausea and acid reflux. reviewed precautions and education, feeling better from sinus infection, no pain. +FM today at visit f/u 4 weeks anatomy scan Flowsheet Date 04/29/2024 Artis Score Blood Edema Fundus Height Fundus Units Glucose Ketones Leukocytes Nitrite Labor Signs Protein Cervic Dilation Cervic Effacement Cervic Station Type Weight in lbs Pre/Post Dialysis Refused BP Diastolic BP Location Tested BP Systolic BP Type Fetus Heart Rate Present Fetus Movement Comments Flowsheet Date 04/29/2024 Artis Score Blood Edema Fundus Height Fundus Units Glucose Ketones Leukocytes Nitrite Labor Signs Protein Cervic Dilation Cervic Effacement Cervic Station none Type Weight in lbs Pre/Post Dialysis Refused 156.950626166506 BP Diastolic BP Location Tested BP Systolic BP Type 75 115 Fetus Heart Rate Present Fetus Movement A Yes Comments Patient is having some back pain. anatomy complete, velementous cord insertion f/u in 4 weeks, low back pain plan maternity support belt at 28 weeks, itching all over has tried benedryl, precautions and educatio to lab for bile acids Flowsheet Date 05/29/2024 Artis Score Blood Edema Fundus Height Fundus Units Glucose Ketones Leukocytes Nitrite Labor Signs Protein Cervic Dilation Cervic Effacement Cervic Station Type Weight in lbs Pre/Post Dialysis Refused BP Diastolic BP Location Tested BP Systolic BP Type Fetus Heart Rate Present Fetus Movement Comments Flowsheet Date 05/29/2024 Artis Score Blood Edema Fundus Height Fundus Units Glucose Ketones Leukocytes Nitrite Labor Signs Protein Cervic Dilation Cervic Effacement Cervic Station none trace Type Weight in lbs Pre/Post Dialysis Refused 164.58482715932 BP Diastolic BP Location Tested BP Systolic BP Type 78 123 Fetus Heart Rate Present Fetus Movement A Yes Comments Patient is having some vagin al itching and burning with urination, BH contractions and back pain. urine for culture, vaginal culture done, efw 74%, dvp 8.5 cm,+FM, having occ sob, if any chest pain to ed continue to monitor, f/u 4 weeks rpt us and gct Flowsheet Date 06/10/2024 Artis Score Blood Edema Fundus Height Fundus Units Glucose Ketones Leukocytes Nitrite Labor Signs Protein Cervic Dilation Cervic Effacement Cervic Station Type Weight in lbs Pre/Post Dialysis Refused 170.166617131107 BP Diastolic BP Location Tested BP Systolic BP Type 81 120 Fetus Heart Rate Present Fetus Movement A Yes Comments Patient is having anxiety, d ischarge and nausea. Patient is also having shortness of breathe, swelling.symptoms unchanged anxiety bothersome, single mom, no family or friends help, no suicidal thoughts, no real anxiety history, plan counseling and will start sertraline discussed risks and benefits, will return here in 2 weeks Flowsheet Date 06/12/2024 Artis Score Blood Edema Fundus Height Fundus Units Glucose Ketones Leukocytes Nitrite Labor Signs Protein Cervic Dilation Cervic Effacement Cervic Station Type Weight in lbs Pre/Post Dialysis Refused BP Diastolic BP Location Tested BP Systolic BP Type Fetus Heart Rate Present Fetus Movement Comments Flowsheet Date 06/12/2024 Artis Score Blood Edema Fundus Height Fundus Units Glucose Ketones Leukocytes Nitrite Labor Signs Protein Cervic Dilation Cervic Effacement Cervic Station Type Weight in lbs Pre/Post Dialysis Refused BP Diastolic BP Location Tested BP Systolic BP Type 76 123 Fetus Heart Rate Present Fetus Movement Comments Flowsheet Date 06/23/2024 Artis Score Blood Edema Fundus Height Fundus Units Glucose Ketones Leukocytes Nitrite Labor Signs Protein Cervic Dilation Cervic Effacement Cervic Station Type Weight in lbs Pre/Post Dialysis Refused BP Diastolic BP Location Tested BP Systolic BP Type 82 126 Fetus Heart Rate Present Fetus Movement Comments Flowsheet Date 06/24/2024 Artis Score Blood Edema Fundus Height Fundus Units Glucose Ketones Leukocytes Nitrite Labor Signs Protein Cervic Dilation Cervic Effacement Cervic Station Type Weight in lbs Pre/Post Dialysis Refused BP Diastolic BP Location Tested BP Systolic BP Type Fetus Heart Rate Present Fetus Movement Comments Flowsheet Date 06/24/2024 Artis Score Blood Edema Fundus Height Fundus Units Glucose Ketones Leukocytes Nitrite Labor Signs Protein Cervic Dilation Cervic Effacement Cervic Station trace Type Weight in lbs Pre/Post Dialysis Refused 175.777169864320 BP Diastolic BP Location Tested BP Systolic BP Type 84 131 Fetus Heart Rate Present Fetus Movement A Yes Comments Patient states that having h eadaches, swelling, numbess in hands, heart palpatations and nausea. ok for tylenol, wrist braces, icereviewed labs, ok for slow release iron, reviewed HIv negative, GCT wnl, precautions and education Flowsheet Date 06/25/2024 Artis Score Blood Edema Fundus Height Fundus Units Glucose Ketones Leukocytes Nitrite Labor Signs Protein Cervic Dilation Cervic Effacement Cervic Station Type Weight in lbs Pre/Post Dialysis Refused BP Diastolic BP Location Tested BP Systolic BP Type 74 114 Fetus Heart Rate Present Fetus Movement Comments Flowsheet Date 06/25/2024 Artis Score Blood Edema Fundus Height Fundus Units Glucose Ketones Leukocytes Nitrite Labor Signs Protein Cervic Dilation Cervic Effacement Cervic Station Type Weight in lbs Pre/Post Dialysis Refused BP Diastolic BP Location Tested BP Systolic BP Type Fetus Heart Rate Present Fetus Movement Comments Flowsheet Date 07/10/2024 Artis Score Blood Edema Fundus Height Fundus Units Glucose Ketones Leukocytes Nitrite Labor Signs Protein Cervic Dilation Cervic Effacement Cervic Station none Type Weight in lbs Pre/Post Dialysis Refused Weight 179.827943096372 BP Diastolic BP Location Tested BP Systolic BP Type 80 135 Fetus Heart Rate Present Fetus Movement A Decreased Comments Patient states that is havin g hand pain, hand numbness, back pain, cramping, contractions, discharge and nausea. rec ice/ wrist braces education and precautions. NST R f/u 2 weeks, call for preadmission Flowsheet Date 07/10/2024 Artis Score Blood Edema Fundus Height Fundus Units Glucose Ketones Leukocytes Nitrite Labor Signs Protein Cervic Dilation Cervic Effacement Cervic Station Type Weight in lbs Pre/Post Dialysis Refused BP Diastolic BP Location Tested BP Systolic BP Type Fetus Heart Rate Present Fetus Movement Comments Flowsheet Date 07/22/2024 Artis Score Blood Edema Fundus Height Fundus Units Glucose Ketones Leukocytes Nitrite Labor Signs Protein Cervic Dilation Cervic Effacement Cervic Station Type Weight in lbs Pre/Post Dialysis Refused BP Diastolic BP Location Tested BP Systolic BP Type Fetus Heart Rate Present Fetus Movement Comments Flowsheet Date 07/22/2024 Artis Score Blood Edema Fundus Height Fundus Units Glucose Ketones Leukocytes Nitrite Labor Signs Protein Cervic Dilation Cervic Effacement Cervic Station none Type Weight in lbs Pre/Post Dialysis Refused 179.108366865356 BP Diastolic BP Location Tested BP Systolic BP Type 81 119 Fetus Heart Rate Present Fetus Movement A Yes Comments Patient is having some heada ches, pain, contractions, swelling and nausea. pt declines tx for depression, situational worried about nausea side effects, discussed yoselyn lion. pt will plan to do that, can call if needed. will start seeing weekly, mild poly rpt one week with visit, precautions and education . efw 67% Flowsheet Date 07/29/2024 Artis Score Blood Edema Fundus Height Fundus Units Glucose Ketones Leukocytes Nitrite Labor Signs Protein Cervic Dilation Cervic Effacement Cervic Station Type Weight in lbs Pre/Post Dialysis Refused BP Diastolic BP Location Tested BP Systolic BP Type Fetus Heart Rate Present Fetus Movement Comments Flowsheet Date 07/29/2024 Artis Score Blood Edema Fundus Height Fundus Units Glucose Ketones Leukocytes Nitrite Labor Signs Protein Cervic Dilation Cervic Effacement Cervic Station trace none Type Weight in lbs Pre/Post Dialysis Refused 181.704467911114 BP Diastolic BP Location Tested BP Systolic BP Type 84 129 Fetus Heart Rate Present Fetus Movement A Yes Comments Patient states that feels of f yesterday and blood pressure was little high. Patient is having some fatigue, headaches, neck pain, leg weakness, nausea, vomiting, contractions and had some spotting the other day. monitor at home bp was 140/80 today normotensive will check urine and labs SRINIVAS 21 cm f/u one week, precautions and education +FM Flowsheet Date 08/07/2024 Artis Score Blood Edema Fundus Height Fundus Units Glucose Ketones Leukocytes Nitrite Labor Signs Protein Cervic Dilation Cervic Effacement Cervic Station trace Type Weight in lbs Pre/Post Dialysis Refused 187.362103369161 BP Diastolic BP Location Tested BP Systolic BP Type 80 129 Fetus Heart Rate Present A 160 Fetus Movement A Yes Comments Patient states that had some elevated blood pressure, pain, contractions, swelling and nausea. reviewed precautions, bp normotensive, NST today for 160 FHR, plan HIV 2 days prior to IOL hx false +, will need time at hospital for confirmation f/u one week Flowsheet Date 08/07/2024 Artis Score Blood Edema Fundus Height Fundus Units Glucose Ketones Leukocytes Nitrite Labor Signs Protein Cervic Dilation Cervic Effacement Cervic Station Type Weight in lbs Pre/Post Dialysis Refused Weight 187.616354488242 BP Diastolic BP Location Tested BP Systolic BP Type 80 129 Fetus Heart Rate Present Fetus Movement Comments Flowsheet Date 08/14/2024 Artis Score Blood Edema Fundus Height Fundus Units Glucose Ketones Leukocytes Nitrite Labor Signs Protein Cervic Dilation Cervic Effacement Cervic Station trace Type Weight in lbs Pre/Post Dialysis Refused 190.363739914902 BP Diastolic BP Location Tested BP Systolic BP Type 86 132 Fetus Heart Rate Present A 160 Present Fetus Movement A Yes Comments Patient is having some skin itching, contractions, discharge and swelling. check labs NST today. discussed 09/04 delivery, if cholestasis plan delivery next week, precautions and education f/u one week gbs collected Flowsheet Date 08/14/2024 Artis Score Blood Edema Fundus Height Fundus Units Glucose Ketones Leukocytes Nitrite Labor Signs Protein Cervic Dilation Cervic Effacement Cervic Station Type Weight in lbs Pre/Post Dialysis Refused Weight 190.095691235224 BP Diastolic BP Location Tested BP Systolic BP Type 86 132 Fetus Heart Rate Present Fetus Movement Comments Flowsheet Date 08/18/2024 Artis Score Blood Edema Fundus Height Fundus Units Glucose Ketones Leukocytes Nitrite Labor Signs Protein Cervic Dilation Cervic Effacement Cervic Station neg none none trace Type Weight in lbs Pre/Post Dialysis Refused Weight 194.574254443816 BP Diastolic BP Location Tested BP Systolic BP Type 79 L arm 138 sitting Fetus Heart Rate Present A 150 Fetus Movement A Yes Comments Good movement. No blee ding or LOF. Itching improved, labs wnl for cholestasis. GBS negative. HIV negative at the hospital. Discussed labor precautions. RTC 1 week. Flowsheet Date 08/28/2024 Artis Score Blood Edema Fundus Height Fundus Units Glucose Ketones Leukocytes Nitrite Labor Signs Protein Cervic Dilation Cervic Effacement Cervic Station trace Type Weight in lbs Pre/Post Dialysis Refused Weight 196.261029412487 BP Diastolic BP Location Tested BP Systolic BP Type 81 136 Fetus Heart Rate Present Fetus Movement A Decreased Comments Patient is having some pain, contractions, swelling, nausea and decrease movement. NST today reviewed labs with pt all wnl, cont to monitor sxs precautions reviewed f/u one weekdepression and anxiety, no suicidal thoughts wants zurzuvae after delivery discussed sleepiness in baby and pt, also plan on starting lexapro se risks and benefits if any suicidal thoughts to ED Flowsheet Date 08/28/2024 Artis Score Blood Edema Fundus Height Fundus Units Glucose Ketones Leukocytes Nitrite Labor Signs Protein Cervic Dilation Cervic Effacement Cervic Station Type Weight in lbs Pre/Post Dialysis Refused Weight 196.282169113805 BP Diastolic BP Location Tested BP Systolic BP Type 81 136 Fetus Heart Rate Present Fetus Movement Comments Flowsheet Date 09/02/2024 Artis Score Blood Edema Fundus Height Fundus Units Glucose Ketones Leukocytes Nitrite Labor Signs Protein Cervic Dilation Cervic Effacement Cervic Station 39 cm Type Weight in lbs Pre/Post Dialysis Refused 198.283048180796 BP Diastolic BP Location Tested BP Systolic BP Type 85 132 Fetus Heart Rate Present A 137 Fetus Movement A Yes Comments Patient is having some pain, cramping, contractions and swelling. IOL saturday, precautions and education reviewed starting lexapro today. NST fro decreased movement Flowsheet Date 09/02/2024 Artis Score Blood Edema Fundus Height Fundus Units Glucose Ketones Leukocytes Nitrite Labor Signs Protein Cervic Dilation Cervic Effacement Cervic Station Type Weight in lbs Pre/Post Dialysis Refused BP Diastolic BP Location Tested BP Systolic BP Type Fetus Heart Rate Present Fetus Movement Comments Menstrual History Last Menstrual Date Menses Monthly On Bcp Conception Prior Menses Frequency Hcg Plus Date Menarche Onset Age Genetic Screening And Infection History Question Response Note Mental Retardation/Autism false Patient's Age Will Be 35 Yea rs Or Older At Estimated Date of Delivery false Thalassemia (German, Czech, Mediterranean, Or Background): MCV < 80 false Neural Tube Defect (Meningom yelocele, Spina Bifida, Or Anencephaly) false Congenital Heart Defect false Down Syndrome false Todd-Sachs (eg, Buddhism, Cajun, [place]) f alse Everett Disease false Sickle Cell Disease Or Trait () false Hemophilia Or Other Blood Disorders false Muscular Dystrophy false Cystic Fibrosis false Gab's Chorea false Intellectual Disability/Autism false If Yes, Was Person Tested For Fragile X? false Other Inherited Genetic Or Chromosomal Disorder false Maternal Metabolic Disorder (eg, Type 1 Diabetes , PKU) false Patient Or Baby's Father Had A Child With Defects Not Listed Above false Recurrent Loss, Or A Stillbirth false Medications (including Suppl ements, Vitamins, Herbs, OTC Drugs), Illicit/Recreational Drugs, Alcohol false pnv zofran sudafed If Yes, Agent(s) And Strength/Dosage false Any Other Genetic History false Live With Someone With TB Or Exposed To TB false Patient Or Partner Has History Of Genital Herpes false Rash Or Viral Illness Since Last Menstrual Perio d false History Of STD, Gonorrhea, Chlamydia, HPV, Syphi lis false Other Infection History false History of HIV false History of Hepatitis false Prior GBS-infected child false Hemoglobinopathy Or Carrier false Other Structural Defect false Recent Travel History Outside of Country false Delivery Information Delivery Date Delivery Type Labor Anesthesia Weeks Gestation Incision Type Labor Labor Length Hrs Delivered By Post Complications Tubal Sterilization Discharge Date Comments 4 39.1 false Michael Salazar MD Discharge Information Feeding Method Contraceptive Method Maternal HG B and HCT Levels
--- OUTSIDE RECORDS SUMMARY | 2024-11-16 12:30 | XMS_ITS | Patient Health Summary ---
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 AM . Bello Farfan DO DIAGNOSTIC IMAGING O RDERABLES * CT CHEST ABDOMEN PELVIS W CONT - Abdomen-pelvis trauma, blunt or penetrating (03/08/2022 9:15 PM CDT) Anatomical Region Laterality Modality Chest, Abdomen, Pelvis Computed Tomography 03/08/2022 9:36 PM CDT Impressions 03/09/2022 8:27 AM CDT Impression: 1.Cystic lucency in the right lower lobe may represent a bleb (less likely a traumatic pneumatocele). 2.Multiple areas of fat stranding in the lower anterior abdominal wall, likely contusions. 3.Stranding in the bilateral gluteal regions may represent contusions in the setting of trauma. 4.Bilateral nonobstructive 2 mm kidney stones. Report drafted by Alejandra Warren (resident) Dr. JOSE Lopez MD, [facility] have personally reviewed and interpreted this examination/study. This report was electronically signed by JOSE TINEO MD, FRCR on 03/09/2022 8:27 AM . Narrative 03/09/2022 8:27 AM CDT Procedure Information DATE: 03/08/2022 9:17 PM EXAMINATION: Computed tomography (CT) of the chest, abdomen, and pelvis with contrast TECHNIQUE: CT of the chest, abdomen, and pelvis was performed after the uneventful administration of 100 mL of Isovue 370 intravenous contrast according to standard protocol. Clinical Information HISTORY: Trauma COMPARISON: None. Findings Chest: Lines/Tubes: None. Lower neck and axillae: Normal. Mediastinum and Sofya: No enlarged lymph nodes are present. Heart and Pericardium: The cardiac chambers are normal in size. No pericardial fluid or thickening is present. Lung Parenchyma, Airways, and Pleural Spaces: Cystic lucency in the right lower lobe may represent a bleb versus a traumatic pneumatocele (traumatic pneumatosis is less likely possibility). There is bibasilar infiltrate. There is no pleural effusion or pneumothorax. Abdomen/pelvis: Hepatobiliary: Normal. Pancreas: Normal. Spleen: Normal. Kidneys: There is a 2 mm stone in the left kidney which is nonobstructive. There is a 2 mm stone in the right kidney which is nonobstructive. Subcentimeter hypodensities in the bilateral kidneys are too small to characterize but likely represent cysts. Adrenals: Normal. Retroperitoneum: Normal. Peritoneum: Normal. Gastrointestinal: The stomach and visualized loops of bowel are unremarkable. Pelvic Structures: Normal. Vasculature: No large arterial injury identified. Bones: The visible osseous structures are intact. Soft tissues: Multiple areas of fat stranding in the lower anterior abdominal wall, likely contusions. Stranding in the bilateral gluteal regions may represent contusions in the setting of trauma. Procedure Note Jose Tineo MD - 03/09/2022 Procedure Information DATE: 03/08/2022 9:17 PM EXAMINATION: Computed tomography (CT) of the chest, abdomen, and pelvis with contrast TECHNIQUE: CT of the chest, abdomen, and pelvis was performed after the uneventful administration of 100 mL of Isovue 370 intravenous contrast according to standard protocol. Clinical Information HISTORY: Trauma COMPARISON: None. Findings Chest: Lines/Tubes: None. Lower neck and axillae: Normal. Mediastinum and Sofya: No enlarged lymph nodes are present. Heart and Pericardium: The cardiac chambers are normal in size. No pericardial fluid or thickening is present. Lung Parenchyma, Airways, and Pleural Spaces: Cystic lucency in the right lower lobe may represent a bleb versus a traumatic pneumatocele (traumatic pneumatosis is less likelypossibility). There is bibasilar infiltrate. There is no pleural effusion or pneumothorax. Abdomen/pelvis: Hepatobiliary: Normal. Pancreas: Normal. Spleen: Normal. Kidneys: There is a 2 mm stone in the left kidney which is nonobstructive. Thereis a 2 mm stone in the right kidney which is nonobstructive. Subcentimeter hypodensities in the bilateral kidneys are too small to characterize but likely represent cysts. Adrenals: Normal. Retroperitoneum: Normal. Peritoneum: Normal. Gastrointestinal: The stomach and visualized loops of bowel are unremarkable. Pelvic Structures: Normal. Vasculature: No large arterial injury identified. Bones: The visible osseous structures are intact. Soft tissues: Multiple areas of fat stranding in the lower anterior abdominal wall, likely contusions. Stranding in the bilateral gluteal regions may represent contusions in the setting of trauma. Impression: 1.Cystic lucency in the right lower lobe may represent a bleb (lesslikely a traumatic pneumatocele). 2.Multiple areas of fat stranding in the lower anterior abdominal wall, likely contusions. 3.Stranding in the bilateral gluteal regions may represent contusions in the setting of trauma. 4.Bilateral nonobstructive 2 mm kidney stones. Report drafted by Alejandra Warren (resident) Dr. JOSE Lopez MD, [facility] have personally reviewedand interpreted this examination/study. This report was electronically signed by JOSE TINEO MD, [facility] on 03/09/2022 8:27 AM . Bello Farfan DO CT ORDERABLES * CT LUMBAR SPINE WO CONTRAST - T/L-spine trauma, Spine fracture (03/08/2022 9:15 PM CDT) Anatomical Region Laterality Modality Spine Computed Tomogra phy 03/08/2022 9:32 PM CDT Impressions 03/09/2022 6:09 AM CDT IMPRESSION: 1.No acute intracranial hemorrhage, mass effect, or midline shift. 2.Suspected nondisplaced fracture of the left nasal bone with overlying soft tissue swelling is suggested. Evaluation is however limited due to the presence of motion artifacts. Recommend correlation with physical exam findings and point tenderness. 3.No evidence of acute fracture in the cervical, thoracic, or lumbar spine. Dictated by Benedict Lieberman D.O. (Hospitalist Physician) This report was approved by Benedict Lieberman on 03/09/2022 6:09 AM . IDr. YUNIOR have personally reviewed and interpreted this examination/study. This report was electronically signed by YUNIOR PICKETT on 03/09/2022 6:09 AM . Narrative 03/09/2022 6:[address] HEAD WO CONTRAST, CT LUMBAR SPINE WO CONTRAST, CT THORACIC SPINE WO CONTRAST, CT FACIAL BONES WO CONTRAST, CT CERVICAL SPINE WO CONTRAST DATE: 03/08/2022 9:17 PM EXAMINATION: 1. Computed tomography (CT) of the head without contrast 2. CT of the maxillofacial bones, orbits, and paranasal sinuses without contrast 3. CT of the cervical spine without contrast 4. CT of the thoracic spine without contrast 5. CT of the lumbar spine without contrast HISTORY: Trauma TECHNIQUE: CT of the head, cervical spine, and maxillofacial bones, orbits, and paranasal sinuses was performed without contrast according to standard protocol. Reformatted axial, sagittal, and coronal images of the thoracic and lumbar spine were obtained by the technologist from a concurrently performed body CT and sent to the workstation for review. COMPARISON: No prior study is available for comparison at the time of this dictation. FINDINGS: Head: Accounting for the presence of motion artifact which reduces the sensitivity to detect subtle intracranial hemorrhage, no distinct acute intra- or extra-axial fluid collections are identified. The ventricles are of normal size, shape, and morphology. The basilar cisterns are patent. No mass effect or midline shift is seen. The teran-white matter differentiation is normal. No acute calvarial fracture is identified. Maxillofacial: Motion artifact reduces the sensitivity to detect subtle fractures of the facial bones. Within this constraint the findings are as follows: Small nondisplaced fracture of the left nasal bone with overlying soft tissue swelling is suggested, however, this may also represent artifact and correlation with point tenderness is recommended. The orbits appear normal. There is minimal mucosal thickening in the ethmoid air cells. The hard palate, mandible, and temporomandibular joints appear normal. No additional facial bone fractures are identified. The mastoid air cells are clear. No soft tissue abnormality is identified. Cervical spine: Straightening of the cervical lordosis. The alignment is otherwise maintained. Vertebral bodies are normal in height without evidence of acute fracture. The craniocervical junction is normal. There is mild degenerative disc disease. There is developmental cervical spinal canal stenosis and superimposed multilevel degenerative disc and joint disease resulting in mild spinal canal stenosis at multiple levels. For reference, mild to moderate spinal canal stenosis at C3-C4 due to right eccentric disc protrusion. There are varying degrees of mild facet osteoarthritis. There are varying degrees of mild uncovertebral joint osteoarthritis No significant neural foraminal stenosis is seen. No soft tissue abnormality is identified. Thoracic spine: Slight exaggeration of the upper thoracic kyphosis. Minimal dextrocurvature of the thoracic spine. The alignment is otherwise maintained. Vertebral bodies are normal in height without evidence of acute fracture. The intervertebral discs appear normal. No central canal stenosis is seen. The facets appear normal. No neural foraminal stenosis is seen. No soft tissue abnormality is identified. Lumbar spine: There is trace retrolisthesis of L5 on S1, otherwise the alignment is normal. Vertebral bodies are normal in height without evidence of acute fracture. The intervertebral discs appear normal. No central canal stenosis is seen. The facets appear normal. No neural foraminal stenosis is seen. No soft tissue abnormality is identified. Procedure Note Yunior Pickett MD - 03/09/2022 CT HEAD WO CONTRAST, CT LUMBAR SPINE WO CONTRAST, CT THORACIC SPINE WO CONTRAST, CT FACIAL BONES WO CONTRAST, CT CERVICAL SPINE WO CONTRAST DATE: 03/08/2022 9:17 PM EXAMINATION: 1. Computed tomography (CT) of the head without contrast 2. CT of the maxillofacial bones, orbits, and paranasal sinuses without contrast 3. CT of the cervical spine without contrast 4. CT of the thoracic spine without contrast 5. CT of the lumbar spine without contrast HISTORY: Trauma TECHNIQUE: CT of the head, cervical spine, and maxillofacial bones, orbits, and paranasal sinuses was performed without contrast accordingto standard protocol. Reformatted axial, sagittal, and coronal images ofthe thoracic and lumbar spine were obtained by the technologist from a concurrently performed body CT and sent to the workstation for review. COMPARISON: No prior study is available for comparison at the time ofthis dictation. FINDINGS: Head: Accounting for the presence of motion artifact which reduces the sensitivity to detect subtle intracranial hemorrhage, no distinct acute intra- or extra-axial fluid collections are identified. The ventriclesare of normal size, shape, and morphology. The basilar cisterns are patent.No mass effect or midline shift is seen. The teran-white matter differentiation is normal. No acute calvarial fracture is identified. Maxillofacial: Motion artifact reduces the sensitivity to detect subtle fractures ofthe facial bones. Within this constraint the findings are as follows: Small nondisplaced fracture of the left nasal bone with overlying soft tissue swelling is suggested, however, this may also represent artifact and correlation with point tenderness is recommended. The orbits appear normal. There is minimal mucosal thickening in the ethmoid air cells. The hard palate, mandible, and temporomandibularjoints appear normal. No additional facial bone fractures are identified. The mastoid air cells are clear. No soft tissue abnormality is identified. Cervical spine: Straightening of the cervical lordosis. The alignment is otherwise maintained. Vertebral bodies are normal in height without evidence of acute fracture. The craniocervical junction is normal. There is mild degenerative disc disease. There is developmental cervical spinal canal stenosis and superimposed multilevel degenerative disc and joint disease resulting in mild spinal canal stenosis at multiple levels. Forreference, mild to moderate spinal canal stenosis at C3-C4 due to right eccentric disc protrusion. There are varying degrees of mild facet osteoarthritis. There are varying degrees of mild uncovertebral joint osteoarthritis No significant neural foraminal stenosis is seen. No soft tissueabnormality is identified. Thoracic spine: Slight exaggeration of the upper thoracic kyphosis. Minimal dextrocurvature of the thoracic spine. The alignment is otherwise maintained. Vertebral bodies are normal in height without evidence of acute fracture. The intervertebral discs appear normal. No centralcanal stenosis is seen. The facets appear normal. No neural foraminalstenosis is seen. No soft tissue abnormality is identified. Lumbar spine: There is trace retrolisthesis of L5 on S1, otherwise the alignment is normal. Vertebral bodies are normal in height without evidence of acute fracture. The intervertebral discs appear normal. No central canal stenosis is seen. The facets appear normal. No neural foraminal stenosis is seen. No soft tissue abnormality is identified. IMPRESSION: 1.No acute intracranial hemorrhage, mass effect, or midline shift. 2.Suspected nondisplaced fracture of the left nasal bone with overlying soft tissue swelling is suggested. Evaluation is however limited due to the presence of motion artifacts. Recommend correlation with physicalexam findings and point tenderness. 3.No evidence of acute fracture in the cervical, thoracic, or lumbarspine. Dictated by Benedict Lieberman D.O. (Hospitalist Physician) This report was approved by Benedict Lieberman on 03/09/2022 6:09 AM . I, Dr. YUNIOR PICKETT have personally reviewed and interpreted this examination/study. This report was electronically signed by YUNIOR PICKETT on03/09/2022 6:09 AM . Bello Farfan DO CT ORDERABLES * CT THORACIC SPINE WO CONTRAST - T/L-spine trauma, spine fracture (03/08/2022 9:15 PM CDT) Anatomical Region Laterality Modality Spine Computed Tomogra phy 03/08/2022 9:32 PM CDT Impressions 03/09/2022 6:09 AM CDT IMPRESSION: 1.No acute intracranial hemorrhage, mass effect, or midline shift. 2.Suspected nondisplaced fracture of the left nasal bone with overlying soft tissue swelling is suggested. Evaluation is however limited due to the presence of motion artifacts. Recommend correlation with physical exam findings and point tenderness. 3.No evidence of acute fracture in the cervical, thoracic, or lumbar spine. Dictated by Benedict Lieberman D.O. (Hospitalist Physician) This report was approved by Benedict Lieberman on 03/09/2022 6:09 AM . I, Dr. YUNIOR PICKETT have personally reviewed and interpreted this examination/study. This report was electronically signed by YUNIOR PICKETT on 03/09/2022 6:09 AM . Narrative 03/09/2022 6:[address] HEAD WO CONTRAST, CT LUMBAR SPINE WO CONTRAST, CT THORACIC SPINE WO CONTRAST, CT FACIAL BONES WO CONTRAST, CT CERVICAL SPINE WO CONTRAST DATE: 03/08/2022 9:17 PM EXAMINATION: 1. Computed tomography (CT) of the head without contrast 2. CT of the maxillofacial bones, orbits, and paranasal sinuses without contrast 3. CT of the cervical spine without contrast 4. CT of the thoracic spine without contrast 5. CT of the lumbar spine without contrast HISTORY: Trauma TECHNIQUE: CT of the head, cervical spine, and maxillofacial bones, orbits, and paranasal sinuses was performed without contrast according to standard protocol. Reformatted axial, sagittal, and coronal images of the thoracic and lumbar spine were obtained by the technologist from a concurrently performed body CT and sent to the workstation for review. COMPARISON: No prior study is available for comparison at the time of this dictation. FINDINGS: Head: Accounting for the presence of motion artifact which reduces the sensitivity to detect subtle intracranial hemorrhage, no distinct acute intra- or extra-axial fluid collections are identified. The ventricles are of normal size, shape, and morphology. The basilar cisterns are patent. No mass effect or midline shift is seen. The teran-white matter differentiation is normal. No acute calvarial fracture is identified. Maxillofacial: Motion artifact reduces the sensitivity to detect subtle fractures of the facial bones. Within this constraint the findings are as follows: Small nondisplaced fracture of the left nasal bone with overlying soft tissue swelling is suggested, however, this may also represent artifact and correlation with point tenderness is recommended. The orbits appear normal. There is minimal mucosal thickening in the ethmoid air cells. The hard palate, mandible, and temporomandibular joints appear normal. No additional facial bone fractures are identified. The mastoid air cells are clear. No soft tissue abnormality is identified. Cervical spine: Straightening of the cervical lordosis. The alignment is otherwise maintained. Vertebral bodies are normal in height without evidence of acute fracture. The craniocervical junction is normal. There is mild degenerative disc disease. There is developmental cervical spinal canal stenosis and superimposed multilevel degenerative disc and joint disease resulting in mild spinal canal stenosis at multiple levels. For reference, mild to moderate spinal canal stenosis at C3-C4 due to right eccentric disc protrusion. There are varying degrees of mild facet osteoarthritis. There are varying degrees of mild uncovertebral joint osteoarthritis No significant neural foraminal stenosis is seen. No soft tissue abnormality is identified. Thoracic spine: Slight exaggeration of the upper thoracic kyphosis. Minimal dextrocurvature of the thoracic spine. The alignment is otherwise maintained. Vertebral bodies are normal in height without evidence of acute fracture. The intervertebral discs appear normal. No central canal stenosis is seen. The facets appear normal. No neural foraminal stenosis is seen. No soft tissue abnormality is identified. Lumbar spine: There is trace retrolisthesis of L5 on S1, otherwise the alignment is normal. Vertebral bodies are normal in height without evidence of acute fracture. The intervertebral discs appear normal. No central canal stenosis is seen. The facets appear normal. No neural foraminal stenosis is seen. No soft tissue abnormality is identified. Procedure Note Yunior Pickett MD - 03/09/2022 CT HEAD WO CONTRAST, CT LUMBAR SPINE WO CONTRAST, CT THORACIC SPINE WO CONTRAST, CT FACIAL BONES WO CONTRAST, CT CERVICAL SPINE WO CONTRAST DATE: 03/08/2022 9:17 PM EXAMINATION: 1. Computed tomography (CT) of the head without contrast 2. CT of the maxillofacial bones, orbits, and paranasal sinuses without contrast 3. CT of the cervical spine without contrast 4. CT of the thoracic spine without contrast 5. CT of the lumbar spine without contrast HISTORY: Trauma TECHNIQUE: CT of the head, cervical spine, and maxillofacial bones, orbits, and paranasal sinuses was performed without contrast accordingto standard protocol. Reformatted axial, sagittal, and coronal images ofthe thoracic and lumbar spine were obtained by the technologist from a concurrently performed body CT and sent to the workstation for review. COMPARISON: No prior study is available for comparison at the time ofthis dictation. FINDINGS: Head: Accounting for the presence of motion artifact which reduces the sensitivity to detect subtle intracranial hemorrhage, no distinct acute intra- or extra-axial fluid collections are identified. The ventriclesare of normal size, shape, and morphology. The basilar cisterns are patent.No mass effect or midline shift is seen. The teran-white matter differentiation is normal. No acute calvarial fracture is identified. Maxillofacial: Motion artifact reduces the sensitivity to detect subtle fractures ofthe facial bones. Within this constraint the findings are as follows: Small nondisplaced fracture of the left nasal bone with overlying soft tissue swelling is suggested, however, this may also represent artifact and correlation with point tenderness is recommended. The orbits appear normal. There is minimal mucosal thickening in the ethmoid air cells. The hard palate, mandible, and temporomandibularjoints appear normal. No additional facial bone fractures are identified. The mastoid air cells are clear. No soft tissue abnormality is identified. Cervical spine: Straightening of the cervical lordosis. The alignment is otherwise maintained. Vertebral bodies are normal in height without evidence of acute fracture. The craniocervical junction is normal. There is mild degenerative disc disease. There is developmental cervical spinal canal stenosis and superimposed multilevel degenerative disc and joint disease resulting in mild spinal canal stenosis at multiple levels. Forreference, mild to moderate spinal canal stenosis at C3-C4 due to right eccentric disc protrusion. There are varying degrees of mild facet osteoarthritis. There are varying degrees of mild uncovertebral joint osteoarthritis No significant neural foraminal stenosis is seen. No soft tissueabnormality is identified. Thoracic spine: Slight exaggeration of the upper thoracic kyphosis. Minimal dextrocurvature of the thoracic spine. The alignment is otherwise maintained. Vertebral bodies are normal in height without evidence of acute fracture. The intervertebral discs appear normal. No centralcanal stenosis is seen. The facets appear normal. No neural foraminalstenosis is seen. No soft tissue abnormality is identified. Lumbar spine: There is trace retrolisthesis of L5 on S1, otherwise the alignment is normal. Vertebral bodies are normal in height without evidence of acute fracture. The intervertebral discs appear normal. No central canal stenosis is seen. The facets appear normal. No neural foraminal stenosis is seen. No soft tissue abnormality is identified. IMPRESSION: 1.No acute intracranial hemorrhage, mass effect, or midline shift. 2.Suspected nondisplaced fracture of the left nasal bone with overlying soft tissue swelling is suggested. Evaluation is however limited due to the presence of motion artifacts. Recommend correlation with physicalexam findings and point tenderness. 3.No evidence of acute fracture in the cervical, thoracic, or lumbarspine. Dictated by Benedict Lieberman D.O. (Hospitalist Physician) This report was approved by Benedict Lieberman on 03/09/2022 6:[address] YUNIOR Lopez have personally reviewed and interpreted this examination/study. This report was electronically signed by YUNIOR PICKETT on03/09/2022 6:09 AM . Bello Farfan DO CT ORDERABLES * CT CERVICAL SPINE WO CONTRAST - C-Spine Trauma, Spine fracture (03/08/2022 9:15 PM CDT) Anatomical Region Laterality Modality Spine Computed Tomogra phy 03/08/2022 9:32 PM CDT Impressions 03/09/2022 6:09 AM CDT IMPRESSION: 1.No acute intracranial hemorrhage, mass effect, or midline shift. 2.Suspected nondisplaced fracture of the left nasal bone with overlying soft tissue swelling is suggested. Evaluation is however limited due to the presence of motion artifacts. Recommend correlation with physical exam findings and point tenderness. 3.No evidence of acute fracture in the cervical, thoracic, or lumbar spine. Dictated by Benedict Lieberman D.O. (Hospitalist Physician) This report was approved by Benedict Lieberman on 03/09/2022 6:[address] YUNIOR Lopez have personally reviewed and interpreted this examination/study. This report was electronically signed by YUNIOR PICKETT on 03/09/2022 6:09 AM . Narrative 03/09/2022 6:[address] HEAD WO CONTRAST, CT LUMBAR SPINE WO CONTRAST, CT THORACIC SPINE WO CONTRAST, CT FACIAL BONES WO CONTRAST, CT CERVICAL SPINE WO CONTRAST DATE: 03/08/2022 9:17 PM EXAMINATION: 1. Computed tomography (CT) of the head without contrast 2. CT of the maxillofacial bones, orbits, and paranasal sinuses without contrast 3. CT of the cervical spine without contrast 4. CT of the thoracic spine without contrast 5. CT of the lumbar spine without contrast HISTORY: Trauma TECHNIQUE: CT of the head, cervical spine, and maxillofacial bones, orbits, and paranasal sinuses was performed without contrast according to standard protocol. Reformatted axial, sagittal, and coronal images of the thoracic and lumbar spine were obtained by the technologist from a concurrently performed body CT and sent to the workstation for review. COMPARISON: No prior study is available for comparison at the time of this dictation. FINDINGS: Head: Accounting for the presence of motion artifact which reduces the sensitivity to detect subtle intracranial hemorrhage, no distinct acute intra- or extra-axial fluid collections are identified. The ventricles are of normal size, shape, and morphology. The basilar cisterns are patent. No mass effect or midline shift is seen. The teran-white matter differentiation is normal. No acute calvarial fracture is identified. Maxillofacial: Motion artifact reduces the sensitivity to detect subtle fractures of the facial bones. Within this constraint the findings are as follows: Small nondisplaced fracture of the left nasal bone with overlying soft tissue swelling is suggested, however, this may also represent artifact and correlation with point tenderness is recommended. The orbits appear normal. There is minimal mucosal thickening in the ethmoid air cells. The hard palate, mandible, and temporomandibular joints appear normal. No additional facial bone fractures are identified. The mastoid air cells are clear. No soft tissue abnormality is identified. Cervical spine: Straightening of the cervical lordosis. The alignment is otherwise maintained. Vertebral bodies are normal in height without evidence of acute fracture. The craniocervical junction is normal. There is mild degenerative disc disease. There is developmental cervical spinal canal stenosis and superimposed multilevel degenerative disc and joint disease resulting in mild spinal canal stenosis at multiple levels. For reference, mild to moderate spinal canal stenosis at C3-C4 due to right eccentric disc protrusion. There are varying degrees of mild facet osteoarthritis. There are varying degrees of mild uncovertebral joint osteoarthritis No significant neural foraminal stenosis is seen. No soft tissue abnormality is identified. Thoracic spine: Slight exaggeration of the upper thoracic kyphosis. Minimal dextrocurvature of the thoracic spine. The alignment is otherwise maintained. Vertebral bodies are normal in height without evidence of acute fracture. The intervertebral discs appear normal. No central canal stenosis is seen. The facets appear normal. No neural foraminal stenosis is seen. No soft tissue abnormality is identified. Lumbar spine: There is trace retrolisthesis of L5 on S1, otherwise the alignment is normal. Vertebral bodies are normal in height without evidence of acute fracture. The intervertebral discs appear normal. No central canal stenosis is seen. The facets appear normal. No neural foraminal stenosis is seen. No soft tissue abnormality is identified. Procedure Note Yunior Pickett MD - 03/09/2022 CT HEAD WO CONTRAST, CT LUMBAR SPINE WO CONTRAST, CT THORACIC SPINE WO CONTRAST, CT FACIAL BONES WO CONTRAST, CT CERVICAL SPINE WO CONTRAST DATE: 03/08/2022 9:17 PM EXAMINATION: 1. Computed tomography (CT) of the head without contrast 2. CT of the maxillofacial bones, orbits, and paranasal sinuses without contrast 3. CT of the cervical spine without contrast 4. CT of the thoracic spine without contrast 5. CT of the lumbar spine without contrast HISTORY: Trauma TECHNIQUE: CT of the head, cervical spine, and maxillofacial bones, orbits, and paranasal sinuses was performed without contrast accordingto standard protocol. Reformatted axial, sagittal, and coronal images ofthe thoracic and lumbar spine were obtained by the technologist from a concurrently performed body CT and sent to the workstation for review. COMPARISON: No prior study is available for comparison at the time ofthis dictation. FINDINGS: Head: Accounting for the presence of motion artifact which reduces the sensitivity to detect subtle intracranial hemorrhage, no distinct acute intra- or extra-axial fluid collections are identified. The ventriclesare of normal size, shape, and morphology. The basilar cisterns are patent.No mass effect or midline shift is seen. The teran-white matter differentiation is normal. No acute calvarial fracture is identified. Maxillofacial: Motion artifact reduces the sensitivity to detect subtle fractures ofthe facial bones. Within this constraint the findings are as follows: Small nondisplaced fracture of the left nasal bone with overlying soft tissue swelling is suggested, however, this may also represent artifact and correlation with point tenderness is recommended. The orbits appear normal. There is minimal mucosal thickening in the ethmoid air cells. The hard palate, mandible, and temporomandibularjoints appear normal. No additional facial bone fractures are identified. The mastoid air cells are clear. No soft tissue abnormality is identified. Cervical spine: Straightening of the cervical lordosis. The alignment is otherwise maintained. Vertebral bodies are normal in height without evidence of acute fracture. The craniocervical junction is normal. There is mild degenerative disc disease. There is developmental cervical spinal canal stenosis and superimposed multilevel degenerative disc and joint disease resulting in mild spinal canal stenosis at multiple levels. Forreference, mild to moderate spinal canal stenosis at C3-C4 due to right eccentric disc protrusion. There are varying degrees of mild facet osteoarthritis. There are varying degrees of mild uncovertebral joint osteoarthritis No significant neural foraminal stenosis is seen. No soft tissueabnormality is identified. Thoracic spine: Slight exaggeration of the upper thoracic kyphosis. Minimal dextrocurvature of the thoracic spine. The alignment is otherwise maintained. Vertebral bodies are normal in height without evidence of acute fracture. The intervertebral discs appear normal. No centralcanal stenosis is seen. The facets appear normal. No neural foraminalstenosis is seen. No soft tissue abnormality is identified. Lumbar spine: There is trace retrolisthesis of L5 on S1, otherwise the alignment is normal. Vertebral bodies are normal in height without evidence of acute fracture. The intervertebral discs appear normal. No central canal stenosis is seen. The facets appear normal. No neural foraminal stenosis is seen. No soft tissue abnormality is identified. IMPRESSION: 1.No acute intracranial hemorrhage, mass effect, or midline shift. 2.Suspected nondisplaced fracture of the left nasal bone with overlying soft tissue swelling is suggested. Evaluation is however limited due to the presence of motion artifacts. Recommend correlation with physicalexam findings and point tenderness. 3.No evidence of acute fracture in the cervical, thoracic, or lumbarspine. Dictated by Benedict Lieberman D.O. (Hospitalist Physician) This report was approved by Benedict Lieberman on 03/09/2022 6:09 AM . I, Dr. YUNIOR PICKETT have personally reviewed and interpreted this examination/study. This report was electronically signed by YUNIOR PICKETT on03/09/2022 6:09 AM . Bello Farfan DO CT ORDERABLES * CT FACIAL BONES WO CONTRAST - Facial trauma, fx suspected, blunt (03/08/2022 9:15 PM CDT) Anatomical Region Laterality Modality Head Computed Tomogra phy 03/08/2022 9:32 PM CDT Impressions 03/09/2022 6:09 AM CDT IMPRESSION: 1.No acute intracranial hemorrhage, mass effect, or midline shift. 2.Suspected nondisplaced fracture of the left nasal bone with overlying soft tissue swelling is suggested. Evaluation is however limited due to the presence of motion artifacts. Recommend correlation with physical exam findings and point tenderness. 3.No evidence of acute fracture in the cervical, thoracic, or lumbar spine. Dictated by Benedict Lieberman D.O. (Hospitalist Physician) This report was approved by Benedict Lieberman on 03/09/2022 6:09 AM . I, Dr. YUNIOR PICKETT have personally reviewed and interpreted this examination/study. This report was electronically signed by YUNIOR PICKETT on 03/09/2022 6:09 AM . Narrative 03/09/2022 6:[address] HEAD WO CONTRAST, CT LUMBAR SPINE WO CONTRAST, CT THORACIC SPINE WO CONTRAST, CT FACIAL BONES WO CONTRAST, CT CERVICAL SPINE WO CONTRAST DATE: 03/08/2022 9:17 PM EXAMINATION: 1. Computed tomography (CT) of the head without contrast 2. CT of the maxillofacial bones, orbits, and paranasal sinuses without contrast 3. CT of the cervical spine without contrast 4. CT of the thoracic spine without contrast 5. CT of the lumbar spine without contrast HISTORY: Trauma TECHNIQUE: CT of the head, cervical spine, and maxillofacial bones, orbits, and paranasal sinuses was performed without contrast according to standard protocol. Reformatted axial, sagittal, and coronal images of the thoracic and lumbar spine were obtained by the technologist from a concurrently performed body CT and sent to the workstation for review. COMPARISON: No prior study is available for comparison at the time of this dictation. FINDINGS: Head: Accounting for the presence of motion artifact which reduces the sensitivity to detect subtle intracranial hemorrhage, no distinct acute intra- or extra-axial fluid collections are identified. The ventricles are of normal size, shape, and morphology. The basilar cisterns are patent. No mass effect or midline shift is seen. The teran-white matter differentiation is normal. No acute calvarial fracture is identified. Maxillofacial: Motion artifact reduces the sensitivity to detect subtle fractures of the facial bones. Within this constraint the findings are as follows: Small nondisplaced fracture of the left nasal bone with overlying soft tissue swelling is suggested, however, this may also represent artifact and correlation with point tenderness is recommended. The orbits appear normal. There is minimal mucosal thickening in the ethmoid air cells. The hard palate, mandible, and temporomandibular joints appear normal. No additional facial bone fractures are identified. The mastoid air cells are clear. No soft tissue abnormality is identified. Cervical spine: Straightening of the cervical lordosis. The alignment is otherwise maintained. Vertebral bodies are normal in height without evidence of acute fracture. The craniocervical junction is normal. There is mild degenerative disc disease. There is developmental cervical spinal canal stenosis and superimposed multilevel degenerative disc and joint disease resulting in mild spinal canal stenosis at multiple levels. For reference, mild to moderate spinal canal stenosis at C3-C4 due to right eccentric disc protrusion. There are varying degrees of mild facet osteoarthritis. There are varying degrees of mild uncovertebral joint osteoarthritis No significant neural foraminal stenosis is seen. No soft tissue abnormality is identified. Thoracic spine: Slight exaggeration of the upper thoracic kyphosis. Minimal dextrocurvature of the thoracic spine. The alignment is otherwise maintained. Vertebral bodies are normal in height without evidence of acute fracture. The intervertebral discs appear normal. No central canal stenosis is seen. The facets appear normal. No neural foraminal stenosis is seen. No soft tissue abnormality is identified. Lumbar spine: There is trace retrolisthesis of L5 on S1, otherwise the alignment is normal. Vertebral bodies are normal in height without evidence of acute fracture. The intervertebral discs appear normal. No central canal stenosis is seen. The facets appear normal. No neural foraminal stenosis is seen. No soft tissue abnormality is identified. Procedure Note Yunior Pickett MD - 03/09/2022 CT HEAD WO CONTRAST, CT LUMBAR SPINE WO CONTRAST, CT THORACIC SPINE WO CONTRAST, CT FACIAL BONES WO CONTRAST, CT CERVICAL SPINE WO CONTRAST DATE: 03/08/2022 9:17 PM EXAMINATION: 1. Computed tomography (CT) of the head without contrast 2. CT of the maxillofacial bones, orbits, and paranasal sinuses without contrast 3. CT of the cervical spine without contrast 4. CT of the thoracic spine without contrast 5. CT of the lumbar spine without contrast HISTORY: Trauma TECHNIQUE: CT of the head, cervical spine, and maxillofacial bones, orbits, and paranasal sinuses was performed without contrast accordingto standard protocol. Reformatted axial, sagittal, and coronal images ofthe thoracic and lumbar spine were obtained by the technologist from a concurrently performed body CT and sent to the workstation for review. COMPARISON: No prior study is available for comparison at the time ofthis dictation. FINDINGS: Head: Accounting for the presence of motion artifact which reduces the sensitivity to detect subtle intracranial hemorrhage, no distinct acute intra- or extra-axial fluid collections are identified. The ventriclesare of normal size, shape, and morphology. The basilar cisterns are patent.No mass effect or midline shift is seen. The teran-white matter differentiation is normal. No acute calvarial fracture is identified. Maxillofacial: Motion artifact reduces the sensitivity to detect subtle fractures ofthe facial bones. Within this constraint the findings are as follows: Small nondisplaced fracture of the left nasal bone with overlying soft tissue swelling is suggested, however, this may also represent artifact and correlation with point tenderness is recommended. The orbits appear normal. There is minimal mucosal thickening in the ethmoid air cells. The hard palate, mandible, and temporomandibularjoints appear normal. No additional facial bone fractures are identified. The mastoid air cells are clear. No soft tissue abnormality is identified. Cervical spine: Straightening of the cervical lordosis. The alignment is otherwise maintained. Vertebral bodies are normal in height without evidence of acute fracture. The craniocervical junction is normal. There is mild degenerative disc disease. There is developmental cervical spinal canal stenosis and superimposed multilevel degenerative disc and joint disease resulting in mild spinal canal stenosis at multiple levels. Forreference, mild to moderate spinal canal stenosis at C3-C4 due to right eccentric disc protrusion. There are varying degrees of mild facet osteoarthritis. There are varying degrees of mild uncovertebral joint osteoarthritis No significant neural foraminal stenosis is seen. No soft tissueabnormality is identified. Thoracic spine: Slight exaggeration of the upper thoracic kyphosis. Minimal dextrocurvature of the thoracic spine. The alignment is otherwise maintained. Vertebral bodies are normal in height without evidence of acute fracture. The intervertebral discs appear normal. No centralcanal stenosis is seen. The facets appear normal. No neural foraminalstenosis is seen. No soft tissue abnormality is identified. Lumbar spine: There is trace retrolisthesis of L5 on S1, otherwise the alignment is normal. Vertebral bodies are normal in height without evidence of acute fracture. The intervertebral discs appear normal. No central canal stenosis is seen. The facets appear normal. No neural foraminal stenosis is seen. No soft tissue abnormality is identified. IMPRESSION: 1.No acute intracranial hemorrhage, mass effect, or midline shift. 2.Suspected nondisplaced fracture of the left nasal bone with overlying soft tissue swelling is suggested. Evaluation is however limited due to the presence of motion artifacts. Recommend correlation with physicalexam findings and point tenderness. 3.No evidence of acute fracture in the cervical, thoracic, or lumbarspine. Dictated by Benedict Lieberman D.O. (Hospitalist Physician) This report was approved by Benedict Lieberman on 03/09/2022 6:09 AM . I, Dr. YUNIOR PICKETT have personally reviewed and interpreted this examination/study. This report was electronically signed by YUNIOR PICKETT on03/09/2022 6:09 AM . Bellodaryl Hamiltonper DO CT ORDERABLES * CT HEAD WO CONTRAST - Head Trauma, CSF leak, mental status changes (03/08/2022 9:15 PM CDT) Anatomical Region Laterality Modality Head Computed Tomogra phy 03/08/2022 9:32 PM CDT Impressions 03/09/2022 6:09 AM CDT IMPRESSION: 1.No acute intracranial hemorrhage, mass effect, or midline shift. 2.Suspected nondisplaced fracture of the left nasal bone with overlying soft tissue swelling is suggested. Evaluation is however limited due to the presence of motion artifacts. Recommend correlation with physical exam findings and point tenderness. 3.No evidence of acute fracture in the cervical, thoracic, or lumbar spine. Dictated by Benedict Lieberman D.O. (Hospitalist Physician) This report was approved by Benedict Lieberman on 03/09/2022 6:09 AM . I, Dr. YUNIOR PICKETT have personally reviewed and interpreted this examination/study. This report was electronically signed by YUNIOR PICKETT on 03/09/2022 6:09 AM . Narrative 03/09/2022 6:[address] HEAD WO CONTRAST, CT LUMBAR SPINE WO CONTRAST, CT THORACIC SPINE WO CONTRAST, CT FACIAL BONES WO CONTRAST, CT CERVICAL SPINE WO CONTRAST DATE: 03/08/2022 9:17 PM EXAMINATION: 1. Computed tomography (CT) of the head without contrast 2. CT of the maxillofacial bones, orbits, and paranasal sinuses without contrast 3. CT of the cervical spine without contrast 4. CT of the thoracic spine without contrast 5. CT of the lumbar spine without contrast HISTORY: Trauma TECHNIQUE: CT of the head, cervical spine, and maxillofacial bones, orbits, and paranasal sinuses was performed without contrast according to standard protocol. Reformatted axial, sagittal, and coronal images of the thoracic and lumbar spine were obtained by the technologist from a concurrently performed body CT and sent to the workstation for review. COMPARISON: No prior study is available for comparison at the time of this dictation. FINDINGS: Head: Accounting for the presence of motion artifact which reduces the sensitivity to detect subtle intracranial hemorrhage, no distinct acute intra- or extra-axial fluid collections are identified. The ventricles are of normal size, shape, and morphology. The basilar cisterns are patent. No mass effect or midline shift is seen. The teran-white matter differentiation is normal. No acute calvarial fracture is identified. Maxillofacial: Motion artifact reduces the sensitivity to detect subtle fractures of the facial bones. Within this constraint the findings are as follows: Small nondisplaced fracture of the left nasal bone with overlying soft tissue swelling is suggested, however, this may also represent artifact and correlation with point tenderness is recommended. The orbits appear normal. There is minimal mucosal thickening in the ethmoid air cells. The hard palate, mandible, and temporomandibular joints appear normal. No additional facial bone fractures are identified. The mastoid air cells are clear. No soft tissue abnormality is identified. Cervical spine: Straightening of the cervical lordosis. The alignment is otherwise maintained. Vertebral bodies are normal in height without evidence of acute fracture. The craniocervical junction is normal. There is mild degenerative disc disease. There is developmental cervical spinal canal stenosis and superimposed multilevel degenerative disc and joint disease resulting in mild spinal canal stenosis at multiple levels. For reference, mild to moderate spinal canal stenosis at C3-C4 due to right eccentric disc protrusion. There are varying degrees of mild facet osteoarthritis. There are varying degrees of mild uncovertebral joint osteoarthritis No significant neural foraminal stenosis is seen. No soft tissue abnormality is identified. Thoracic spine: Slight exaggeration of the upper thoracic kyphosis. Minimal dextrocurvature of the thoracic spine. The alignment is otherwise maintained. Vertebral bodies are normal in height without evidence of acute fracture. The intervertebral discs appear normal. No central canal stenosis is seen. The facets appear normal. No neural foraminal stenosis is seen. No soft tissue abnormality is identified. Lumbar spine: There is trace retrolisthesis of L5 on S1, otherwise the alignment is normal. Vertebral bodies are normal in height without evidence of acute fracture. The intervertebral discs appear normal. No central canal stenosis is seen. The facets appear normal. No neural foraminal stenosis is seen. No soft tissue abnormality is identified. Procedure Note Yunior Pickett MD - 03/09/2022 CT HEAD WO CONTRAST, CT LUMBAR SPINE WO CONTRAST, CT THORACIC SPINE WO CONTRAST, CT FACIAL BONES WO CONTRAST, CT CERVICAL SPINE WO CONTRAST DATE: 03/08/2022 9:17 PM EXAMINATION: 1. Computed tomography (CT) of the head without contrast 2. CT of the maxillofacial bones, orbits, and paranasal sinuses without contrast 3. CT of the cervical spine without contrast 4. CT of the thoracic spine without contrast 5. CT of the lumbar spine without contrast HISTORY: Trauma TECHNIQUE: CT of the head, cervical spine, and maxillofacial bones, orbits, and paranasal sinuses was performed without contrast accordingto standard protocol. Reformatted axial, sagittal, and coronal images ofthe thoracic and lumbar spine were obtained by the technologist from a concurrently performed body CT and sent to the workstation for review. COMPARISON: No prior study is available for comparison at the time ofthis dictation. FINDINGS: Head: Accounting for the presence of motion artifact which reduces the sensitivity to detect subtle intracranial hemorrhage, no distinct acute intra- or extra-axial fluid collections are identified. The ventriclesare of normal size, shape, and morphology. The basilar cisterns are patent.No mass effect or midline shift is seen. The teran-white matter differentiation is normal. No acute calvarial fracture is identified. Maxillofacial: Motion artifact reduces the sensitivity to detect subtle fractures ofthe facial bones. Within this constraint the findings are as follows: Small nondisplaced fracture of the left nasal bone with overlying soft tissue swelling is suggested, however, this may also represent artifact and correlation with point tenderness is recommended. The orbits appear normal. There is minimal mucosal thickening in the ethmoid air cells. The hard palate, mandible, and temporomandibularjoints appear normal. No additional facial bone fractures are identified. The mastoid air cells are clear. No soft tissue abnormality is identified. Cervical spine: Straightening of the cervical lordosis. The alignment is otherwise maintained. Vertebral bodies are normal in height without evidence of acute fracture. The craniocervical junction is normal. There is mild degenerative disc disease. There is developmental cervical spinal canal stenosis and superimposed multilevel degenerative disc and joint disease resulting in mild spinal canal stenosis at multiple levels. Forreference, mild to moderate spinal canal stenosis at C3-C4 due to right eccentric disc protrusion. There are varying degrees of mild facet osteoarthritis. There are varying degrees of mild uncovertebral joint osteoarthritis No significant neural foraminal stenosis is seen. No soft tissueabnormality is identified. Thoracic spine: Slight exaggeration of the upper thoracic kyphosis. Minimal dextrocurvature of the thoracic spine. The alignment is otherwise maintained. Vertebral bodies are normal in height without evidence of acute fracture. The intervertebral discs appear normal. No centralcanal stenosis is seen. The facets appear normal. No neural foraminalstenosis is seen. No soft tissue abnormality is identified. Lumbar spine: There is trace retrolisthesis of L5 on S1, otherwise the alignment is normal. Vertebral bodies are normal in height without evidence of acute fracture. The intervertebral discs appear normal. No central canal stenosis is seen. The facets appear normal. No neural foraminal stenosis is seen. No soft tissue abnormality is identified. IMPRESSION: 1.No acute intracranial hemorrhage, mass effect, or midline shift. 2.Suspected nondisplaced fracture of the left nasal bone with overlying soft tissue swelling is suggested. Evaluation is however limited due to the presence of motion artifacts. Recommend correlation with physicalexam findings and point tenderness. 3.No evidence of acute fracture in the cervical, thoracic, or lumbarspine. Dictated by Benedict Lieberman D.O. (Hospitalist Physician) This report was approved by Benedict Lieberman on 03/09/2022 6:09 AM . I, Dr. YUNIOR PICKETT have personally reviewed and interpreted this examination/study. This report was electronically signed by YUNIOR PICKETT on03/09/2022 6:09 AM . Bello Farfan DO CT ORDERABLES * (ABNORMAL) TEG 6 GLOBAL HEMOSTASIS W/ LYSIS (03/08/2022 8:58 PM CDT) Citrated Kaolin R (Reaction Time) 3.7(L) 4.6 - 9.1 min 03/08/2022 10:08 PM CDT [facility] Citrated Kaolin LY30 (Lysis) 1.6 0.0 - 2.6 % 03/08/2022 10:08 PM CDT [facility] Citrated RapidTEG MA (Max Amplitude) 64.4 52.0 - 70.0 mm 03/08/2022 10:08 PM CDT [facility] Citrated Functional Fibrinogen MA (Max Amplitude) 21.8 15.0 - 32.0 mm 03/08/2022 10:08 PM CDT [facility] Blood BLOOD SPECIMEN / Unknown Venipuncture / Unknown 03/08/2022 8:58 PM CDT 03/08/2022 9:01 PM CDT Bello Farfan DO LAB - HEMATOLOGY ORD ERABLES [facility] [address] [place] [address], [facility] [phone] * TEG 6S PLATELET MAPPING (03/08/2022 8:58 PM CDT) TEGPLM (Max Amplitude) Koalin 60 53 - 68 mm 03/08/2022 10:32 PM CDT [facility] TEGPLM (Max Amplitude) ACTF 6 2 - 19 mm 03/08/2022 10:32 PM CDT [facility] TEGPLM (Max Amplitude) ADP 53 45 - 69 mm 03/08/2022 10:32 PM CDT [facility] TEGPLM (Max Amplitude) AA 63 51 - 71 mm 03/08/2022 10:32 PM CDT [facility] TEGPLM %Inhibition ADP 14 0 - 17 % 03/08/2022 10:32 PM CDT [facility] TEGPLM %Inhibition AA 0 0 - 11 % 03/08/2022 10:32 PM CDT [facility] TEGPLM %Aggregation ADP 86 83 - 100 % 03/08/2022 10:32 PM CDT [facility] TEGPLM % Aggregation AA 100 89 - 100 % 03/08/2022 10:32 PM CDT [facility] Blood BLOOD SPECIMEN / Unknown Venipuncture / Unknown 03/08/2022 8:58 PM CDT 03/08/2022 9:01 PM CDT Bello Farfan DO LAB - HEMATOLOGY ORD ERABLES Performing Organization Address [facility]/ZIP Co de Phone Number [address] [address], [facility] [phone] * (ABNORMAL) PTT [facility] (03/08/2022 8:58 PM CDT) APTT 20.5(L) 23.0 - 38.4 Seconds 03/08/2022 9:25 PM CDT [facility] Comment:Suggested therapeuti c range for full dose I.V. unfractionated heparin therapy for venous thromboembolism is 71 to 109 seconds. Blood BLOOD SPECIMEN / Unknown Venipuncture / Unknown 03/08/2022 8:58 PM CDT 03/08/2022 9:02 PM CDT Bello Farfan DO LAB - COAGULATION OR DERABLES Performing Organization Address City/[facility]/ZIP Co de Phone Number [address] [address], [place] [phone] * PT-INR [facility] (03/08/2022 8:58 PM CDT) PT 12.2 12.1 - 14.8 Seconds 03/08/2022 9:25 PM CDT [facility] INR 0.9 See Comment 03/08/2022 9:25 PM CDT [facility] Comment:The suggested therap eutic range for standard coumadin (warfarin) therapy is an INR of 2.0-3.0. For high-risk patients (Mechanical Mitral Valve Prosthesis, etc.), the suggested prophylactic therapeutic range is an INR of 2.5-3.5. Blood BLOOD SPECIMEN / Unknown Venipuncture / Unknown 03/08/2022 8:58 PM CDT 03/08/2022 9:02 PM CDT Bello Farfan DO LAB - COAGULATION OR DERABLES [facility] [address] [place] [address], [facility] [phone] * TYPE + SCREEN PANEL (03/08/2022 8:58 PM CDT) Pathologist [facility] Antibody Screen NEG 9:43 PM CDT [facility] ABO Rh A POS 03/08/2022 9:43 PM CDT [facility] Blood Bank BLOOD SPECIMEN / Unknown Venipuncture / Unknown 03/08/2022 8:58 PM CDT 03/08/2022 9:06 PM CDT Bello Farfan DO LAB - BLOOD BANK ORD ERABLES Performing Organization Address City/[facility]/ZIP Co de Phone Number [facility] [address] [place] [address], [facility] [phone] * (ABNORMAL) CBC W AUTO DIFFERENTIAL (03/08/2022 8:58 PM CDT) Only the most recent of3 resultswithin the time period is included. WBC 11.0(H) 3.5 - 10.5 10 3/uL 03/08/2022 9:07 PM CDT [facility] RBC 4.12 3.80 - 5.20 10 6/uL 03/08/2022 9:07 PM CDT [facility] Hemoglobin 12.1 12.0 - 15.6 g/dL 03/08/2022 9:07 PM [facility] Hematocrit 35.7 35.0 - 45.0 % 03/08/2022 9:07 PM [facility] MCV 86.7 80.7 - 98.3 fL 03/08/2022 9:07 PM [facility] MCH 29.4 26.7 - 34.0 pg 03/08/2022 9:07 PM [facility] MCHC 33.9 30.8 - 35.9 g/dL 03/08/2022 9:07 PM [facility] Platelet Count 294 150 - 400 10 3/uL 03/08/2022 9:07 PM [facility] RDW-SD 39.8 36.0 - 50.0 fL 03/08/2022 9:07 PM [facility] RDW-CV 12.7 11.2 - 14.8 % 03/08/2022 9:07 PM [facility] MPV 12.6 9.4 - 12.9 fL 03/08/2022 9:07 PM [facility] nRBC Absolute 0.00 0 10 3/uL 03/08/2022 9:07 PM [facility] nRBC Auto 0.0 0 /100 WBC 03/08/2022 9:07 PM [facility] Neutrophils % 58.6 35.0 - 70.0 % 03/08/2022 9:07 PM [facility] Lymphocytes % 34.4 20.0 - 43.0 % 03/08/2022 9:07 PM [facility] Monocytes % 5.6 5.0 - 13.0 % 03/08/2022 9:07 PM [facility] Eosinophils % 0.5 0.0 - 6.0 % 03/08/2022 9:07 PM [facility] Basophil % 0.2 0.0 - 2.0 % 03/08/2022 9:07 PM [facility] Neutrophils Absolute 6.42 1.60 - 7.00 10 3/uL 03/08/2022 9:07 PM [facility] Lymphocyte Absolute 3.77 1.10 - 3.90 10 3/uL 03/08/2022 9:07 PM CDT [facility] Monocytes Absolute 0.61 0.26 - 1.07 10 3/uL 03/08/2022 9:07 PM CDT [facility] Eosinophils Absolute 0.06 0.00 - 0.47 10 3/uL 03/08/2022 9:07 PM CDT [facility] Basophils Absolute 0.02 0.00 - 0.08 10 3/uL 03/08/2022 9:07 PM CDT [facility] Immature Granulocytes % 0.7 0.0 - 1.0 % 03/08/2022 9:07 PM CDT [facility] Immature Granulocytes Absolute 0.08 03/08/2022 9:07 PM CDT [facility] Blood BLOOD SPECIMEN / Unknown Venipuncture / Unknown 03/08/2022 8:58 PM CDT 03/08/2022 9:02 PM CDT Bello Farfan DO LAB - HEMATOLOGY ORD ERABLES Performing Organization Address City/[facility]/ZIP Co de Phone Number [address] [address], [facility] [phone] * HCG BETA BLOOD QUANTITATIVE (03/08/2022 8:58 PM CDT) [facility] Beta-hCG Total Quantitative <3 <5 mIU/mL 03/08/2022 9:41 PM CDT [facility] Comment: This assay is cleared for use in the early detection of only. It is not approved for any other uses such as tumor marker screening, tumor marker monitoring, etc. and should not be used for any other purposes. HCG Numeric Result Interpretation: Non- Females: < 5 mIU/mL Post-Menopausal Females: < 7 mIU/mL Blood BLOOD SPECIMEN / Unknown Venipuncture / Unknown 03/08/2022 8:58 PM CDT 03/08/2022 9:02 PM CDT Bello Farfan DO LAB - CHEMISTRY ORDE MELBA Performing Organization Address City/[facility]/ZIP Co de Phone Number [address] [phone] [phone] * ALCOHOL ETHYL BLOOD (03/08/2022 8:58 PM CDT) Ethanol (mg/dL) <10 <10 mg/dL 9:31 PM CDT [facility] Ethanol Calculated (g/dL) <0.010 <0.010 g/dL 03/08/2022 9:31 PM CDT [facility] Blood BLOOD SPECIMEN / Unknown Venipuncture / Unknown 03/08/2022 8:58 PM CDT 03/08/2022 9:02 PM CDT Narrative [facility] - 03/08/2022 9:31 PM CDT Ethanol Interp <10: None Detected. Depression of [employer] INTERN: >100 mg/dl Potentially Critical: >250 mg/dl Potentially Fatal >400 mg/dl Ethanol in the patient's blood will contribute to the osmolar gap. Ethanol's contribution to the osmolar gap can be estimated by dividing the concentration of ethanol in mg/dL by 4.6. This test is for clinical use only and does not equal a KAREN for legal purposes. Bello Farfan DO LAB - CHEMISTRY KEON REILLY [facility] Organization Address City/State/ZIP Co de Phone Number [facility] [address] [place] [address] [phone] * IMAGING/RADIOLOGY/XRAY RESULTS ORDER (03/07/2015 10:56 PM CDT) Anatomical Region Laterality Modality Other Narrative 03/07/2015 10:56 PM CDT Ordered by an unspecified provider. Scanned Document IMAGING * SONOGRAM - COMPLETE (06/23/2014 4:27 PM CDT) Anatomical Region Laterality Modality Other 06/23/2014 4:27 PM CDT Narrative 06/23/2014 5:12 PM CDT [facility] PHONE: FAX: Pat. Name: HAWA VAZQUEZ Pat. No: [id number] Study Date: 06/23/2014 4:27pm , Age: 8 1995, 18 Pregnancies: 3, Para 1, Ab 1 LMP: 01/06/2014 GA by LMP: 24w0d GA by US: 24w1d GA Selected: 24w0d (LMP) CLIFTON: 10/13/2014 Referring MD: Dimas Quintero MD Filament Welder: Keri Cueva RDMS Hist/Ind: Anatomy MEASUREMENTS & AGE GROWTH EVALUATION Measurement GA Range Srce %for GA Ratios ----- ---- ------- BPD 6.0 cm 24w3d (31p0q-01i6p) Hadl BPD 58% FL/BPD 0.70 (0.71 - 0.87* HC 23.2 cm 25w2d (62s1k-34o9u) Hadl HC 77% FL/AC 0.20 (0.20 - 0.24) AC 20.5 cm 25w1d (05r6y-76b5d) Hadl AC 72% HC/AC 1.13 (1.02 - 1.21) FL 4.2 cm 23w4d (10p0h-30c2f) Hadl FL 40% CI 0.72 (0.70 - 0.86) HL 3.8 cm 23w2d (56b6w-47d9y) Kingsley COLLAZO 39% GA for sonogram 24w1d (74k6v-66s4w) Weight Estimate: based on (BPD,HC,AC,FL) Hadlock Weight: 705 gm (602-808) Hadlock : 1lbs, 8oz Normal: 671 gm (503-838) Hadlock Wt% 60% for 24w0d Heart Rate: 153 bpm CLINICAL SUMMARY Study Number: 1 A castaneda fetus is identified in cephalic presentation. The measurements today are consistent with appropriate growth compared to previous examination. The CLIFTON selected is based on her LMP and a prior ultrasound examination. The amniotic fluid volume is within normal limits. The placenta is posterior. No major malformations are seen. The patient was advised that ultrasound does not allow detection of all structural or chromosomal abnormalities. IMPRESSION: Single, live, IUP 24w4d AGA fetus. No gross anomalies noted within the limitations of today's ultrasound. AFV adequate. Posterior mid placenta. RECOMMEND: Follow up ultrasound as clinically indicated. Thank you for allowing us the opportunity to care for your patient. Hayde Samuels MD <Electronic Signature> 06/23/2014 05:12pm Dimas Quintero MD [facility] ORDERABLES * US TRANSVAG W DOPPLER (06/09/2011 1:00 AM CDT) Anatomical Region Laterality Modality Ultrasound 06/09/2011 8:35 AM CDT Narrative 06/09/2011 9:49 AM CDT Pelvic transvaginal sonogram with Doppler Date: 06/09/2011 Comparison: Pelvic sonogram dated 10/27/2009 Findings: Right ovary: 1.8 x 1.8 x 1.8 cm Left ovary: 2.5 x 1.6 x 1.7 cm Uterus: 4.3 x 2.8 x 6.1 cm The uterus and ovaries are normal in size and echogenicity. No masses are present in the adnexa. There is no free pelvic fluid. Doppler interrogation documents arterial flow in each ovary. Diagnosis: Normal pelvic sonogram. Normal pelvic Doppler. D: Boaz Maddox M.D. Procedure Note Viri Hanley MD - 06/09/2011 Pelvic transvaginal sonogram with Doppler Date: 06/09/2011 Comparison: Pelvic sonogram dated 10/27/2009 Findings: Right ovary: 1.8 x 1.8 x 1.8 cm Left ovary: 2.5 x 1.6 x 1.7 cm Uterus: 4.3 x 2.8 x 6.1 cm The uterus and ovaries are normal in size and echogenicity. No masses are present in the adnexa. There is no free pelvic fluid. Doppler interrogation documents arterial flow in each ovary. Diagnosis: Normal pelvic sonogram. Normal pelvic Doppler. D: Boaz Maddox M.D. Chelsea Benson MD US ORDERABLES * XR ABD OBSTR SERIES (06/08/2011 9:06 PM CDT) Only the most recent of2 resultswithin the time period is included. Anatomical Region Laterality Modality Abdomen Radiographic Noelle ging 06/09/2011 7:41 AM CDT Narrative 06/09/2011 7:41 AM CDT Abdomen supine, upright The bowel gas pattern, solid organs, bones and soft tissue planes are normal. No pathological calcification or mass effect is present. The lung bases are clear. There is no free air. Diagnosis: Normal abdomen. Procedure Note Viri Hanley MD - 06/09/2011 Abdomen supine, upright The bowel gas pattern, solid organs, bones and soft tissue planes are normal. No pathological calcification or mass effect is present. The lung bases are clear. There is no free air. Diagnosis: Normal abdomen. Chelsea Benson MD DIAGNOSTIC IMAGING O RDERABLES * URINALYSIS ROUTINE AUTO (06/08/2011 8:10 PM CDT) Only the most recent of2 resultswithin the time period is included. Color UA YELLOW [facility] Character UA CLEAR [facility] Specific [place] UA 1.020 1.003 - 1.030 [facility] pH UA 7.0 5.0 - 8.0 [facility] Protein UA NEGATIVE Negative [facility] Glucose UA NEGATIVE Negative gm/dl [facility] Ketone UA NEGATIVE Negative [facility] Blood UA 2+ Negative [facility] Bilirubin UA NEGATIVE Negative [facility] WBC UA 0-3 /HPF [facility] RBC UA 15-20 /HPF [facility] Epithelial Cell UA 4-7 /HPF [facility] Crystals UA Few Amorphous [facility] Mucus UA heavy [facility] Bacteria UA Trace [facility] Leukocyte UA NEGATIVE [facility] Nitrite UA NEGATIVE [facility] Urobilinogen UA 0.2 <=1.0 EU/dl [facility] URINE SPECIMEN OBTAINED BY CLEAN CATCH PROCEDURE / Unknown 06/08/2011 8:10 PM CDT 06/08/2011 8:14 PM CDT Chelsea Benson MD LAB - URINALYSIS ORD ERABLES Performing Organization Address [facility] Co de Phone Number [facility] [place] [address] * HCG URINE QUALITATIVE (06/08/2011 8:10 PM CDT) Only the most recent of3 resultswithin the time period is included. HCG Qual Urine Negative Negative [facility] URINE / Unknown 06/08/2011 8 :10 PM CDT 06/08/2011 8:14 PM CDT Chelsea Benson MD LAB - URINALYSIS ORD ERABLES Performing Organization Address City/[facility] Co de Phone Number [facility] [address] [place] [phone] * CULTURE BLOOD (01/13/2011 9:46 PM CDT) Result [facility] Comment: Final CULTURE Positive at 15.37 hours GRAM POSITIVE COCCI IN CHAINS identified as VIRIDANS STREPTOCOCCUS GRP Cefotaxime NAKIA Susceptible 1 ug/ml Ceftriaxone NAKIA Susceptible 4 ug/ml Clindamycin NAKIA Susceptible 0.032 ug/ml Erythromycin NAKIA Intermediate 4 ug/ml Penicillin NAKIA Intermediate 1 ug/ml Vancomycin NAKIA Susceptible 0.75 ug/ml PERIPHERAL BLOOD / Unknown 01/13/2011 9:46 PM CDT 01/13/2011 9:46 PM CDT Narrative Resulting Agency Comment Performed By [facility];[address] [facility];[place] [address] Namita Kemp MD LAB - MICROBIOLOGY O RDERABLES Performing Organization Address City/[facility] Co de Phone Number [facility] [address] [place] [address] * (ABNORMAL) DIFFERENTIAL MANUAL (01/13/2011 9:25 PM CDT) Comment Manual Diff Done [facility] Neutrophils % Manual 92(H) 31 - 78 % [facility] Lymphocytes % Manual 3(L) 13 - 54 % [facility] Monocytes % Manual 5 4 - 13 % [facility] RBC Morphology Normal [facility] BLOOD SPECIMEN / Unknown 01/13/2011 9:25 PM CDT 01/13/2011 10:21 PM CDT Jeremy Orr MD LAB - HEMATOLOGY ORD ERABLES Performing Organization Address [facility] Co de Phone Number [facility] [address] [place] [address] * US PELVIS W/TRANSVAG & DOPPLER (10/27/2009 1:30 PM HIM SPECIALIST) Anatomical Region Laterality Modality Pelvis Other 10/27/2009 1:30 PM HIM SPECIALIST Narrative 10/27/2009 4:55 PM HIM SPECIALIST Exam- Transvaginal pelvic ultrasound with Doppler History- Abdominal pain Findings- Right ovary- 3.0 x 2.2 x 2.9 cm volume 9.8 cc Left ovary- 2.3 x 3.0 x 1.1 cm volume 3.9 cc Uterus- 7.1 x 2.9 x 6.6 cm The right ovary is larger than the left but within normal limits. The left ovary is normal in size. A small amount of fluid is present in the cul-de-sac. The uterus is normal. No masses are present in the adnexa. Doppler interrogation documents arterial flow in each ovary. Diagnosis- No evidence of ovarian torsion. Normal pelvic Doppler. Dictated by Dinah Feliciano MD Reading RadiologistEvan GONZALEZ MD Releasing RadiologistEvan GONZALEZ MD Released Date Time- 10/27/091655 Cotton Farmerkatie FELICIANO MD [facility] ORD- [facility]- Procedure Note Wilber Gonzalez MD - 10/27/2009 Exam- Transvaginal pelvic ultrasound with Doppler History- Abdominal pain Findings- Right ovary- 3.0 x 2.2 x 2.9 cm volume 9.8 cc Left ovary- 2.3 x 3.0 x 1.1 cm volume 3.9 cc Uterus- 7.1 x 2.9 x 6.6 cm The right ovary is larger than the left but within normal limits. The left ovary is normal in size. A small amount of fluid is present in the cul-de-sac. The uterus is normal. No masses are present in the adnexa. Doppler interrogation documents arterial flow in each ovary. Diagnosis- No evidence of ovarian torsion. Normal pelvic Doppler. Dictated by Dinah Feliciano MD Reading RadiologistEvan GONZALEZ MD Releasing RadiologistEvan GONZALEZ MD Released Date Time- 10/27/091655 Roby FELICIANO MD [facility] ATT- [facility] ORD- [facility]- [facility] MD ORDERABLES Care Teams Aba Tutor Relationship Specialty Start Date End Date Janette Armstrong MD [facility] [place] [phone] PCP - General 10/16/19 Starr Maldonado DO [address] [place] [phone] PCP - Attributed-[place] [facility] 03/26/22 Janette Armstrong MD [address] [place] [phone] 10/16/19
--- OUTSIDE RECORDS SUMMARY | 2024-11-16 12:30 | XMS_ITS | Clinical Summary ---
Author Organization [facility] Address [address] [place] [phone] Care Team Providers Care Acid Bleacher Name Role Phone Unavailable Primary Care Provider Unavailabl e Social History Tobacco Use Types Packs/Day Years Used Date Smoking Tobacco: Never Assessed Comments Unknown Sex and Gender Information Value Date Recorded Sex Assigned at Not on file Legal Sex Female 11:18 AM PLASTERER STUCCO Gender Identity Not on file Sexual Orientation Not on file Plan of Treatment Health Maintenance Due Date Last Done Comments Hepatitis C Virus (HCV) Screening 1995 TdaP Immunization 1993 Hepatitis B Immunization (1 of 3 - 19+ 3-dose series) 2012 Pap Smear 2014 Cervical Cancer Screening (CCS) 2023 HPV/Cotest 2023 Influenza Immunization (#1) 2024 SARS-COV-2 Immunization ( season) 2024 Respiratory Syncytial Virus (RSV) Immunization (Adult) (1 - 1-dose 75+ series) 2068 Meningococcal Immunization (ACWY) Aged Out No longer eligible based on patient's age to complete this topic Pneumococcal Immunization Combined Aged Out No longer eligible based on patient's age to complete this topic Rotavirus Immunization Aged Out No lo nger eligible based on patient's age to complete this topic
== END 2024-11-16 10:50 | disposition home or self-care (01) ==
PROVIDERS: PCP Physician Assistant; Visit Provider Urology
DX: N28.1 Cyst of kidney, acquired (principal); R93.5 Abnormal findings on diagnostic imaging of other abdominal regions, including retroperitoneum; N20.1 Calculus of ureter
CPT/HCPCS: 74018; 76770